=== PATIENT | female | born 2000 | race Two or more races ===

== ENCOUNTER 2023-01-07 15:20 | Outpatient (OUT) | payer MEDICAID, SELFPAY ==
[2023-01-07 11:14] LABS: Basophils Absolute Auto 0.1 10^3/uL (0.0-0.1); Basophils Percent Auto 0.5 % (0.2-2.0); Eosinophils Absolute Auto 0.3 10^3/uL (0.0-0.7); Eosinophils Percent Auto 2.5 % (0.9-7.0); Hematocrit 32.5 % (36.0-48.0); Hemoglobin 11.2 g/dL (12.0-16.0); Immature Granulocytes Abs Auto 0.05 10^3/uL (0.00-0.03); Immature Granulocytes Pct Auto 0.5 % (0.0-0.5); Lymphocytes Absolute Auto 2.3 10^3/uL (1.2-3.8); Lymphocytes Percent Auto 22.2 % (20.5-60.0); Mean Corpuscular HGB Conc 34.5 g/dL (29.9-35.2); Mean Corpuscular Hemoglobin 30.6 pg (26.7-34.0); Mean Corpuscular Volume 88.8 fL (81.0-99.0); Mean Platelet Volume 10.8 fL (9.5-13.5); Monocytes Absolute Auto 0.8 10^3/uL (0.3-0.8); Monocytes Percent Auto 7.7 % (1.7-12.0); Neutrophils Absolute Auto 6.9 10^3/uL (1.4-6.5); Neutrophils Percent Auto 66.6 % (43.0-75.0); Platelet Count 232 10^3/uL (150-450); Red Blood Count 3.66 10^6/uL (4.20-5.40); Red Cell Distribution Width 12.7 % (11.0-15.0); White Blood Count 10.3 10^3/uL (4.0-11.0)
[2023-01-07 13:23] LABS: Glucose 1 Hour 91 mg/dL
== END 2023-01-07 15:21 | disposition home or self-care (01) ==
LOC: LAB 01-26 15:20
PROVIDERS: Visit Provider Obstetrics & Gynecology
DX: Z13.1 Encounter for screening for diabetes mellitus (principal)
CPT/HCPCS: 36415; 82950; 85025

== ENCOUNTER 2023-02-10 14:59 | Outpatient (OUT) | payer MEDICAID, SELFPAY ==
--- NOTE | 2023-02-10 15:00 | US_ITS ---
[address] [address] Patient Name: YUKO PIZANO MRN: [id number] date: 2000 Sex: F Assigned Patient Location: US Current Patient Location: US Accession/Order Number: [id number] Exam Date: 02/10/2023 15:07 Report Date: 02/10/2023 16:08 At the request of: KIARA HOLDEN Procedure: US OB growth EXAMINATION: US OB growth HISTORY: DELIVERY OF TWINS, BOTH STILLBORN Z37.4 COMPARISON: Ultrasound transvaginal 09/24/2022 FINDINGS: Heart Rate: 151.0 bpm Number: 1.0 Position: CEPHALIC Amniotic Fluid Volume: 10.9 cm Maximum Vertical Pocket: 5.3 cm BIOMETRY: BPD: 7.9 cm cm; 31 weeks 5 days; 93% HC: 29.2 cmcm; 32 weeks 1 days; 86% AC: 26.9 cm cm; 31 weeks 0 days; 84% FL: 6.1 cm cm; 31 weeks 6 days; 90% EFW: 1766.7 grams; 94% FL/AC: 22.8 FL/BPD: 77.5 HC/AC: 1.1 GESTATIONAL AGE: Age by EDC: 29 weeks 4 days DHARMESH by EDC: 04/24/2023 Age by US: 31 weeks 5 days DHARMESH by US: 04/09/2023 US/US OB growth IMPRESSION: 1. Single live intrauterine with growth detailed above. Electronically authenticated by: ADRIANE TAPIA Date: 02/10/2023 16:08
== END 2023-02-10 15:00 | disposition home or self-care (01) ==
LOC: US 14:59
PROVIDERS: Visit Provider Obstetrics & Gynecology
DX: O26.893 Other specified pregnancy related conditions, third trimester (principal); Z3A.31 31 weeks gestation of pregnancy
CPT/HCPCS: 76816

== ENCOUNTER 2023-03-10 14:51 | Outpatient (OUT) | payer MEDICAID, SELFPAY ==
--- NOTE | 2023-03-10 14:53 | US_ITS ---
[place] [id number] Patient Name: YUKO PIZANO MRN: [id number] date: 2000 Sex: F Assigned Patient Location: US Current Patient Location: Accession/Order Number: [id number] Exam Date: 03/10/2023 15:00 Report Date: 03/11/2023 22:11 At the request of: KIARA HOLDEN Procedure: US OB growth EXAMINATION: US OB growth HISTORY: History of DELIVERY OF TWINS, BOTH STILLBORN Z37.4 COMPARISON: Ultrasound OB growth 02/10/2023 FINDINGS: Heart Rate: 148.0 bpm Number: 1.0 Position: CEPHALIC Amniotic Fluid Volume: 15.8 cm Maximum Vertical Pocket: 5.9 cm BIOMETRY: BPD: 8.8 cm cm; 35 weeks 4 days; 92% HC: 32.1 cmcm; 36 weeks 2 days; 81% AC: 31.0 cm cm; 34 weeks 6 days; 86% FL: 7.0 cm cm; 35 weeks 6 days; 90% EFW: 2654.5 grams; 90% FL/AC: 22.6 FL/BPD: 79.4 HC/AC: 1.0 GESTATIONAL AGE: Age by EDC: 33 weeks 4 days DHARMESH by EDC: 04/24/2023 Age by US: 35 weeks 5 days DHARMESH by US: 04/09/2023 US/US OB growth IMPRESSION: 1. Single live intrauterine with growth detailed above. Electronically authenticated by: ADRIANE TAPIA Date: 03/11/2023 22:11
== END 2023-03-10 14:52 | disposition home or self-care (01) ==
LOC: US 14:52
PROVIDERS: Visit Provider Obstetrics & Gynecology
DX: O09.293 Supervision of pregnancy with other poor reproductive or obstetric history, third trimester (principal); Z3A.35 35 weeks gestation of pregnancy
CPT/HCPCS: 76816

== ENCOUNTER 2023-03-31 21:09 | Outpatient (REF) | payer MEDICAID, SELFPAY | END 2023-03-31 21:10 | disposition home or self-care (01) | LOC: LAB 21:09 | PROVIDERS: Visit Provider Obstetrics & Gynecology | DX: Z34.93 Encounter for supervision of normal pregnancy, unspecified, third trimester (principal) | CPT/HCPCS: 87081; 87150 ==

== ENCOUNTER 2023-04-02 11:17 | Inpatient (IN) | payer MEDICAID, SELFPAY ==
[2023-04-02] VITALS (47 sets, daily range): BP systolic 86–112; BP diastolic 49–77; PULSE 79–122; RESP 8–38; TEMP 36–36.9; O2SAT 95–100
[2023-04-02 12:19] LABS: Bilirubin Urine NEGATIVE (NEGATIVE); Blood Urine NEGATIVE (NEGATIVE); Clarity Urine CLEAR (CLEAR); Color Urine LT. YELLOW (YELLOW); Glucose Urine UA NEGATIVE (NEGATIVE); Ketones Urine NEGATIVE (NEGATIVE); Leukocyte Esterase Urine SMALL (NEGATIVE); Nitrite Urine NEGATIVE (NEGATIVE); Protein Urine NEGATIVE (NEG/TRACE); Specific Gravity Urine <=1.005 (1.005-1.025); Urobilinogen Urine 0.2 EU/dL (0.2-1.0); pH Urine 6.5 (5.0-9.0)
[2023-04-02 12:25] LABS: Urine Microscopic Indicated YES
[2023-04-02 12:36] LABS: RBC Urine 0-2 #/HPF (0-2); WBC Urine 0-2 #/HPF (NONE SEEN)
[2023-04-02 12:37] LABS: Bacteria Urine TRACE #/HPF (NONE SEEN); Cast Seen? NONE SEEN #/LPF (NONE SEEN); Crystals Seen? None Seen #/HPF (None Seen); Mucus Urine TRACE (NONE SEEN); Squamous Epithelial Cell Urine FEW #/LPF (NONE/RARE)
[2023-04-02 12:38] LABS: Urine Culture Indicated YES
[2023-04-02] MEDS: 0.9 % SODIUM CHLORIDE 1,000 ML 1000 ML IV ×2 (12:39→13:43)
[2023-04-02] MEDS: NIFEdipine 10 MG CAPSULE PO (12:44)
--- NOTE | 2023-04-02 14:35 | P.OBHP_ITS ---
OB - H&P: HPI History of Present Illness Chief complaint: OBSERVATION : 2 Para: 0 Gestational age based on last menstrual period: 36 Narrative: contractions, q2min, early labor, previous c/s History of Present Dating criteria: LMP confirmed by 1st trimester US care: good care Ultrasounds: normal 1st trimester US Narrative: ho twin demise Review of Systems ROS Status of ROS 10 or more systems reviewed and unremarkable except as noted in history and below PFSH PFSH Medical History Surgical History Social History Within the past year, how often did you have a drink containing alcohol: never Score interpretation: A score less than 3 is consistent with normal alcohol consumption. Smoking status: Never smoker Non-prescribed substance use: denies use Are you now , , , , never or living with a partner: Life stressors: recent of family or friend Life stressor details: 2018 after of preemie twins at 25 weeks- suicidal- denies anything recent Due to disability, difficulty making decisions: No Do you think of yourself as: lesbian/chris/homosexual Gender Identity: female Meds Home Medications and Allergies Home Medications Medication Instructions Recorded Confirmed Type omeprazole 20 mg capsule,delayed mg 04/02/23 History release ondansetron 4 mg disintegrating mg 04/02/23 History tablet pantoprazole 40 mg tablet,delayed mg PO 04/02/23 History release Allergies Allergy/AdvReac Type Severity Reaction Status Date / Time cephalexin [From Keflex] Allergy Severe Anaphylaxis Verified 04/02/23 12:20 Exam Constitutional Vital Signs, click to edit/add: Last Vital Signs Temp 98.4 F 04/02/23 11:34 Pulse 101 H 04/02/23 11:34 Resp 16 04/02/23 11:34 BP 102/66 04/02/23 12:44 Documenting provider has reviewed patient's vital signs: yes Common normals: no apparent distress Respiratory Common normals: normal respiratory effort and clear to auscultation bilaterally Cardio Common normals: regular rate and regular rhythm GI Common normals: Normal to inspection, nondistended, normoactive bowel sounds present Extremity Common normals: no clubbing, cyanosis or edema and no calf tenderness Results Labs Labs: Urine 04/02/23 Range/Units 11:30 Urine Color Lt. yellow (YELLOW) Urine Clarity Clear (CLEAR) Urine pH 6.5 (5.0-9.0) Ur Specific [place] <=1.005 A (1.005-1.025) Urine Protein Negative (NEG/TRACE) mg/dL Urine Glucose (UA) Negative (NEGATIVE) mg/dL OB - A/P Assessment and Plan (1) Previous delivery affecting : Plan iup at 37wks, previous c/s, ptc, early labor-consent obtained, mmc reviewed procedure reviewed, routine labs, iv abx, fht
[2023-04-02 14:36] LABS: Basophils Absolute Auto 0.1 10^3/uL (0.0-0.1); Basophils Percent Auto 0.6 % (0.2-2.0); Eosinophils Absolute Auto 0.3 10^3/uL (0.0-0.7); Eosinophils Percent Auto 1.8 % (0.9-7.0); Hematocrit 31.6 % (36.0-48.0); Hemoglobin 10.1 g/dL (12.0-16.0); Immature Granulocytes Abs Auto 0.12 10^3/uL (0.00-0.03); Immature Granulocytes Pct Auto 0.9 % (0.0-0.5); Lymphocytes Absolute Auto 3.4 10^3/uL (1.2-3.8); Lymphocytes Percent Auto 24.5 % (20.5-60.0); Mean Corpuscular Hemoglobin 25.8 pg (26.7-34.0); Mean Corpuscular Volume 80.8 fL (81.0-99.0); Mean Platelet Volume 13.8 fL (9.5-13.5); Monocytes Percent Auto 7.3 % (1.7-12.0); Neutrophils Percent Auto 64.9 % (43.0-75.0); Platelet Count 183 10^3/uL (150-450); Red Blood Count 3.91 10^6/uL (4.20-5.40); Red Cell Distribution Width 13.6 % (11.0-15.0); White Blood Count 13.8 10^3/uL (4.0-11.0)
[2023-04-02] MEDS: CLINDAMYCIN PHOSPHATE/D5W 900 MG/50 ML PIGGYBACK 100 MG IV ×2 (14:43→20:28)
[2023-04-02 14:48] LABS: Amphetamine Screen Urine NEGATIVE (NEGATIVE); Barbiturates Screen Urine NEGATIVE (NEGATIVE); Benzodiazepines Screen Urine NEGATIVE (NEGATIVE); Buprenorphine Screen Urine NEGATIVE (NEGATIVE); Cannabinoid Screen Urine NEGATIVE (NEGATIVE); Cocaine Screen Urine NEGATIVE (NEGATIVE); Methadone Screen Urine NEGATIVE (NEGATIVE); Methamphetamines Screen Urine NEGATIVE (NEGATIVE); Opiate Screen Urine NEGATIVE (NEGATIVE); Oxycodone Screen Urine NEGATIVE (NEGATIVE); Phencyclidine Screen Urine NEGATIVE (NEGATIVE); Tricyclic Antidepressant Urine NEGATIVE (NEGATIVE)
--- NOTE | 2023-04-02 15:37 | PM.ONB ---
Brief Operative Note Date of procedure: 04/02/23 Pre-op diagnosis: iup at 37wks, desires sterilization, previous c/s, early labor, ptc Post-op diagnosis: same as pre-op Procedure: NAME OF PROCEDURE: [ section with bilateral salpingectomy ] PROCEDURE: Patient was taken back to the Operating Room where she was given a spinal anesthesia with Duramorph without difficulty. She was prepped and draped in the normal sterile fashion. A Pfannenstiel skin incision was then made 2?cm above the symphysis pubis and carried down to underlying rectus fascia using a Bovie. The fascia was incised in the midline and extended laterally using Phillips scissors. Two Devora clamps were placed on the superior aspect of the fascia and dissected off the underlying rectus muscles. The same was performed on the inferior aspect as well. The muscles were then in the midline. Peritoneum was identified and entered bluntly. The peritoneum was then extended superiorly and inferiorly with good visualization of the bladder. The bladder blade was inserted. Vesicouterine peritoneum was identified, tented up, and entered with Metzenbaum scissors. A bladder flap was then created digitally. The bladder blade was reinserted. A low transverse incision was made on the patient's uterus and extended laterally digitally. The infant was then delivered atraumatically after the bladder blade was removed in the cephalic position. The cord was clamped and cut. Cord blood was obtained. The was handed off to awaiting team. The patient's placenta was spontaneously delivered. The uterus was then exteriorized. The uterus was cleared of all clots and debris. The bladder blade was reinserted. The patient's uterine incision was closed using #0 Vicryl in a running lock fashion. Excellent hemostasis was assured.? The rt tube was identified and grasped with babock, the ligasure was used to transect and ligate the tube in its entirity, this was done on the contralateral side as well. The uterus was then returned to the patient's abdomen. The patient's abdomen was copiously irrigated using warm saline. Peritoneal gutters were cleared of all clots and debris. Again excellent hemostasis was assured. The patient's fascia was closed using #0 Vicryl in a running fashion. The patient's skin was closed using 4-0 Vicryl subcuticularly. The patient tolerated the procedure well. Sponge, lap, and needle counts were correct x2. The patient was taken to the Recovery Room in stable condition. Anesthesia: SHINE Surgeon: Parth Deal [employer] Consultant: Minerva Guallpa Estimated blood loss (mL): 650 Pathology: none sent Condition: stable Disposition: floor
[2023-04-02] MEDS: OXYTOCIN/0.9 % SODIUM CHLORIDE 20 UNITS/1,000 ML PLAST..BAG 125 UNIT IV (16:31)
[2023-04-02] MEDS: ACETAMINOPHEN 500 MG TABLET 1000 MG PO (18:33)
[2023-04-02] MEDS: ONDANSETRON PF 4 MG/2 ML VIAL IV (19:41)
--- NOTE | 2023-04-02 20:55 | W.PC.ACHO ---
Registration Status: ADM IN Primary Language: Preferred Language: Report received from Bill ORTIZ at 1900. Active Medications Generic Name Dose Route Start Last Admin Trade Name Treeq PRN Reason Stop Dose Admin Acetaminophen 1,000 mg 04/02/23 18:28 04/02/23 18:33 Acetaminophen 500 Mg Tablet PO 1,000 mg Q6H PRN Administration Pain Scale 1-3 Al Hydroxide/Mg Hydroxide 2,400 mg 04/02/23 15:34 Magnesium Hydroxide 2,400 Mg/10 Ml Oral.Susp PO Q6H PRN Dyspepsia Carboprost Tromethamine 250 mcg 04/02/23 14:11 Carboprost Tromethamine 250 Mcg/Ml 1 Ml Vial IM 04/03/23 16:00 Q15M PRN Bleeding Diphenhydramine HCl 25 mg 04/02/23 15:34 Diphenhydramine Hcl 50 Mg/Ml (1ml) Vial IV 04/03/23 15:36 Q6H PRN Itching Diphtheria/Pertussis/Tetanus Vacc 0.5 ml 04/04/23 09:00 Adacel Diph,Pertuss(Acell),Tet Vac/Pf 0.5 Ml Adult Syringe IM 04/04/23 09:01 .ONCE ONE Docusate Sodium 100 mg 04/03/23 09:00 Docusate Sodium 100 Mg Capsule PO BID MARYURI Sodium Chloride 1,000 mls @ 125 mls/hr 04/02/23 15:45 Sodium Chloride 0.9% 1,000 Ml IV .Q8H MARYURI Clindamycin Phosphate/Dextrose 900 mg in 50 mls @ 100 mls/hr 04/02/23 20:30 04/02/23 20:28 Cleocin Phosphate/D5w 900 Mg/50 Ml Piggyback IV 04/02/23 20:59 100 mls/hr ONCE ONE Administration Oxytocin/Sodium Chloride 20 units in 1,000 mls @ 125 mls/hr 04/02/23 15:34 04/02/23 16:31 Pitocin 20 Unit/1,000 Ml-Ns IV 04/02/23 23:33 125 mls/hr ONCE ONE Administration Protocol Ibuprofen 800 mg 04/02/23 15:34 Ibuprofen 400 Mg Tablet PO Q8H PRN Pain Ketorolac Tromethamine 30 mg 04/02/23 15:34 Ketorolac Tromethamine 30 Mg/Ml Vial IVP 04/04/23 15:35 Q6H PRN Pain Measles/Mumps/Rubella Vaccine Live 0.5 ml 04/04/23 09:00 Measles,Mumps,Rubella Vacc/Pf 0.5 Ml Vial SQ 04/04/23 09:01 .ONCE ONE Methylergonovine Maleate 0.2 mg 04/02/23 14:11 Methylergonovine Maleate 0.2 Mg/Ml Ampule IM 04/03/23 16:00 ONCE PRN Uterine Contractility/Contract Methylergonovine Maleate 0.2 mg 04/02/23 14:11 Methylergonovine Maleate 0.2 Mg Tablet PO 04/03/23 16:00 Q4H PRN Uterine Contractility/Contract Misoprostol 600 mcg 04/02/23 14:11 Misoprostol 100 Mcg Tablet PO 04/03/23 16:00 ONCE PRN Uterine Bleeding Misoprostol 800 mcg 04/02/23 14:11 Misoprostol 100 Mcg Tablet SL 04/03/23 16:00 ONCE PRN Uterine Bleeding Misoprostol 1,000 mcg 04/02/23 14:11 Misoprostol 100 Mcg Tablet MN 04/03/23 16:00 ONCE PRN Uterine Bleeding Ondansetron HCl 4 mg 04/02/23 15:34 04/02/23 19:41 Ondansetron Pf 4 Mg/2 Ml Vial IV 4 mg Q6H PRN Administration Nausea And Vomiting Ondansetron HCl 4 mg 04/02/23 15:34 Ondansetron 4 Mg Rapdis Tablet PO Q6H PRN Nausea And Vomiting Oxycodone/Acetaminophen 1 tab 04/02/23 15:34 Oxycodone Hcl/Acetaminophen 5mg/325mg PO Q4H PRN Pain Oxycodone/Acetaminophen 2 tab 04/02/23 15:34 Oxycodone Hcl/Acetaminophen 5mg/325mg PO Q4H PRN Pain Oxytocin 10 unit 04/02/23 14:11 Oxytocin 10 Unit/Ml Vial IM 04/02/23 23:59 ONCE PRN Bleeding Senna 17.2 mg 04/02/23 20:00 Sennosides 8.6 Mg Tablet PO QHS PRN Constipation Simethicone 80 mg 04/02/23 15:34 Simethicone 80 Mg Tab.Chew PO QID PRN Abdominal Distention Diet Category Date Time Status Regular Consistency Diet Diet 04/02/23 Dinner Active IV Insertion/Site Date of IV Line Insertion [20g 04/02/23 right Forearm] IV Insertion Time [20g right 12:38 Forearm] Neurology [place] coma scale total score 15 Respiratory Lung sounds [Throughout] clear Lung sounds [Throughout] clear Lung sounds [Throughout] clear Lung sounds [Bilateral clear Throughout] Lung sounds [Bilateral clear Throughout] Lung sounds [Bilateral clear Throughout] Lung sounds [Bilateral clear Throughout] Pulse Oximetry 97 Pulse Oximetry 97 Pulse Oximetry 97 Pulse Oximetry 98 Pulse Oximetry 99 Pulse Oximetry 98 Pulse Oximetry 98 Oxygen Delivery Method Room Air Oxygen Delivery Method Room Air Oxygen Delivery Method Room Air Oxygen Delivery Method Room Air Bowels Bowel Pattern No Bowel Movement
[2023-04-02] MEDS: KETOROLAC TROMETHAMINE 30 MG/ML VIAL IVP (22:28)
[2023-04-03] VITALS (8 sets, daily range): BP systolic 89–102; BP diastolic 55–74; PULSE 75–94; RESP 16; TEMP 36.1–37.2
--- NOTE | 2023-04-03 01:05 | PM.OBPN ---
OB - PN: Subj Subjective Patient comments: no complaints and pain well controlled [place] status: doing well Exam Constitutional Vital Signs, click to edit/add: Last Vital Signs Temp 98.3 F 04/02/23 19:35 Pulse 81 04/02/23 18:10 Resp 16 04/02/23 19:35 BP 103/68 04/02/23 18:01 Pulse Ox 97 04/02/23 19:46 O2 Del Method Room Air 04/02/23 17:20 Documenting provider has reviewed patient's vital signs: yes Common normals: no apparent distress Respiratory Common normals: normal respiratory effort and clear to auscultation bilaterally Cardio Common normals: regular rate and regular rhythm GI Common normals: Normal to inspection, nondistended, normoactive bowel sounds present Extremity Common normals: normal to inspection and no clubbing, cyanosis or edema Results Labs Labs: Short CBC 04/02/23 Range/Units 14:22 WBC 13.8 H (4.0-11.0) 10^3/uL Hgb 10.1 L (12.0-16.0) g/dL Hct 31.6 L (36.0-48.0) % Plt Count 183 (150-450) 10^3/uL Urine 04/02/23 Range/Units 11:30 Urine Color Lt. yellow (YELLOW) Urine Clarity Clear (CLEAR) Urine pH 6.5 (5.0-9.0) Ur Specific [place] <=1.005 A (1.005-1.025) Urine Protein Negative (NEG/TRACE) mg/dL Urine Glucose (UA) Negative (NEGATIVE) mg/dL OB - PN: A/P Assessment and Plan (1) Previous delivery affecting : Plan - day: 1 Plan: routine postop care Time Spent with Patient Time: Total time spent is greater than 50% in coordination of care (as documented) at patient's floor/unit and/or counseling patient: Total time spent with greater than 50% in coordination of care (as documented) at patient's floor/unit and/or counseling patient: less than 15 minutes
--- NOTE | 2023-04-03 02:20 | PC.NURSE ---
Pt ambulates to bathroom at this time with assistance. Pt tolerates ambulation well. Sanjay-care and body care performed by pt with RN assistance. Pt educated on sanjay-care. Small, half-dollar sized clot expressed in toilet. Pt lochia scant.
[2023-04-03] MEDS: KETOROLAC TROMETHAMINE 30 MG/ML VIAL IVP (05:25)
[2023-04-03] MEDS: SIMETHICONE 80 MG TAB.CHEW PO (05:25)
[2023-04-03 06:09] LABS: Hemoglobin 7.6 g/dL (12.0-16.0); Mean Corpuscular HGB Conc 31.7 g/dL (29.9-35.2); Mean Corpuscular Hemoglobin 25.5 pg (26.7-34.0); Mean Corpuscular Volume 80.5 fL (81.0-99.0); Mean Platelet Volume 13.6 fL (9.5-13.5); Platelet Count 170 10^3/uL (150-450); Red Blood Count 2.98 10^6/uL (4.20-5.40); Red Cell Distribution Width 13.5 % (11.0-15.0); White Blood Count 16.2 10^3/uL (4.0-11.0)
[2023-04-03 07:05] LABS: Segmented Neut Absolute Manual 12.31 10^3/uL (1.4-6.5)
[2023-04-03 07:06] LABS: Band Neutrophils Absolute 0.3 10^3/uL (0.0-0.3); Lymphocytes Absolute Manual 2.59 10^3/uL (1.20-3.80)
[2023-04-03 07:07] LABS: Monocytes Absolute Manual 0.97 10^3/uL (0.30-0.80)
--- NOTE | 2023-04-03 07:16 | W.PC.ACHO ---
Registration Status: ADM IN Primary Language: Preferred Language: Report given Yan Azar RN at 0705. Active Medications Generic Name Dose Route Start Last Admin Trade Name Freq PRN Reason Stop Dose Admin Acetaminophen 1,000 mg 04/02/23 18:28 04/02/23 18:33 Acetaminophen 500 Mg Tablet PO 1,000 mg Q6H PRN Administration Pain Scale 1-3 Al Hydroxide/Mg Hydroxide 2,400 mg 04/02/23 15:34 Magnesium Hydroxide 2,400 Mg/10 Ml Oral.Susp PO Q6H PRN Dyspepsia Carboprost Tromethamine 250 mcg 04/02/23 14:11 Carboprost Tromethamine 250 Mcg/Ml 1 Ml Vial IM 04/03/23 16:00 Q15M PRN Bleeding Diphenhydramine HCl 25 mg 04/02/23 15:34 Diphenhydramine Hcl 50 Mg/Ml (1ml) Vial IV 04/03/23 15:36 Q6H PRN Itching Diphtheria/Pertussis/Tetanus Vacc 0.5 ml 04/04/23 09:00 Adacel Diph,Pertuss(Acell),Tet Vac/Pf 0.5 Ml Adult Syringe IM 04/04/23 09:01 .ONCE ONE Docusate Sodium 100 mg 04/03/23 09:00 Docusate Sodium 100 Mg Capsule PO BID MARYURI Sodium Chloride 1,000 mls @ 125 mls/hr 04/02/23 15:45 Sodium Chloride 0.9% 1,000 Ml IV .Q8H MARYURI Ibuprofen 800 mg 04/02/23 15:34 Ibuprofen 400 Mg Tablet PO Q8H PRN Pain Ketorolac Tromethamine 30 mg 04/02/23 15:34 04/03/23 05:25 Ketorolac Tromethamine 30 Mg/Ml Vial IVP 04/04/23 15:35 30 mg Q6H PRN Administration Pain Measles/Mumps/Rubella Vaccine Live 0.5 ml 04/04/23 09:00 Measles,Mumps,Rubella Vacc/Pf 0.5 Ml Vial SQ 04/04/23 09:01 .ONCE ONE Methylergonovine Maleate 0.2 mg 04/02/23 14:11 Methylergonovine Maleate 0.2 Mg/Ml Ampule IM 04/03/23 16:00 ONCE PRN Uterine Contractility/Contract Methylergonovine Maleate 0.2 mg 04/02/23 14:11 Methylergonovine Maleate 0.2 Mg Tablet PO 04/03/23 16:00 Q4H PRN Uterine Contractility/Contract Misoprostol 600 mcg 04/02/23 14:11 Misoprostol 100 Mcg Tablet PO 04/03/23 16:00 ONCE PRN Uterine Bleeding Misoprostol 800 mcg 04/02/23 14:11 Misoprostol 100 Mcg Tablet SL 04/03/23 16:00 ONCE PRN Uterine Bleeding Misoprostol 1,000 mcg 04/02/23 14:11 Misoprostol 100 Mcg Tablet [place] 04/03/23 16:00 ONCE PRN Uterine Bleeding Ondansetron HCl 4 mg 04/02/23 15:34 04/02/23 19:41 Ondansetron Pf 4 Mg/2 Ml Vial IV 4 mg Q6H PRN Administration Nausea And Vomiting Ondansetron HCl 4 mg 04/02/23 15:34 Ondansetron 4 Mg Rapdis Tablet PO Q6H PRN Nausea And Vomiting Oxycodone/Acetaminophen 1 tab 04/02/23 15:34 Oxycodone Hcl/Acetaminophen 5mg/325mg PO Q4H PRN Pain Oxycodone/Acetaminophen 2 tab 04/02/23 15:34 Oxycodone Hcl/Acetaminophen 5mg/325mg PO Q4H PRN Pain Senna 17.2 mg 04/02/23 20:00 Sennosides 8.6 Mg Tablet PO QHS PRN Constipation Simethicone 80 mg 04/02/23 15:34 04/03/23 05:25 Simethicone 80 Mg Tab.Chew PO 80 mg QID PRN Administration Abdominal Distention Diet Category Date Time Status Regular Consistency Diet Diet 04/02/23 Dinner Active IV Insertion/Site Date of IV Line Insertion [20g 04/02/23 right Forearm] IV Insertion Time [20g right 12:38 Forearm] Neurology [place] coma scale total score 15 Respiratory Lung sounds [Throughout] clear Lung sounds [Throughout] clear Lung sounds [Throughout] clear Lung sounds [Bilateral clear Throughout] Lung sounds [Bilateral clear Throughout] Lung sounds [Bilateral clear Throughout] Lung sounds [Bilateral clear Throughout] Pulse Oximetry 96 Pulse Oximetry 97 Pulse Oximetry 99 Pulse Oximetry 98 Pulse Oximetry 100 Pulse Oximetry 99 Pulse Oximetry 98 Pulse Oximetry 98 Pulse Oximetry 98 Pulse Oximetry 99 Pulse Oximetry 97 Pulse Oximetry 98 Pulse Oximetry 98 Pulse Oximetry 98 Pulse Oximetry 99 Pulse Oximetry 98 Pulse Oximetry 99 Pulse Oximetry 99 Pulse Oximetry 99 Pulse Oximetry 100 Pulse Oximetry 99 Pulse Oximetry 99 Pulse Oximetry 99 Pulse Oximetry 99 Pulse Oximetry 99 Pulse Oximetry 97 Pulse Oximetry 98 Pulse Oximetry 96 Pulse Oximetry 97 Pulse Oximetry 97 Pulse Oximetry 97 Pulse Oximetry 95 Pulse Oximetry 97 Pulse Oximetry 97 Pulse Oximetry 97 Pulse Oximetry 98 Pulse Oximetry 99 Pulse Oximetry 98 Pulse Oximetry 98 Oxygen Delivery Method Room Air Oxygen Delivery Method Room Air Oxygen Delivery Method Room Air Oxygen Delivery Method Room Air Oxygen Delivery Method Room Air Oxygen Delivery Method Room Air Oxygen Delivery Method Room Air Bowels Bowel Pattern No Bowel Movement Catheter Date Urinary Catheter Removed 04/03/23 [Urethral] Time Urinary Catheter 00:00 Discontinued [Urethral]
[2023-04-03] MEDS: DOCUSATE SODIUM 100 MG CAPSULE PO ×2 (08:38→21:32)
[2023-04-03] MEDS: ACETAMINOPHEN 500 MG TABLET 1000 MG PO ×2 (08:38→16:38)
--- NOTE | 2023-04-03 10:04 | PM.EN ---
Event Note Event Note: Dr Deal had rounded on patient earlier in the morning. I spoke with patient, she has no c/o at the time. she did say she gets a little dizzy when sitting up and then it goes right away. Patients Hgb was 10.1 on admission and this morning Hgb was 7.6. I educated patient on symptoms of blood loss, and she denies, other than brief dizziness when she sat up x1. She should report to RN and further symptoms or worsening of symptoms. PVU
[2023-04-03] MEDS: IBUPROFEN 400 MG TABLET 800 MG PO ×2 (12:06→21:32)
--- NOTE | 2023-04-03 19:11 | W.PC.ACHO ---
Registration Status: ADM IN Primary Language: Preferred Language: Active Medications Generic Name Dose Route Start Last Admin Trade Name Honey PRN Reason Stop Dose Admin Acetaminophen 1,000 mg 04/02/23 18:28 04/03/23 16:38 Acetaminophen 500 Mg Tablet PO 1,000 mg Q6H PRN Administration Pain Scale 1-3 Al Hydroxide/Mg Hydroxide 2,400 mg 04/02/23 15:34 Magnesium Hydroxide 2,400 Mg/10 Ml Oral.Susp PO Q6H PRN Dyspepsia Diphtheria/Pertussis/Tetanus Vacc 0.5 ml 04/04/23 09:00 Adacel Diph,Pertuss(Acell),Tet Vac/Pf 0.5 Ml Adult Syringe IM 04/04/23 09:01 .ONCE ONE Docusate Sodium 100 mg 04/03/23 09:00 04/03/23 08:38 Docusate Sodium 100 Mg Capsule PO 100 mg BID MARYURI Administration Ferrous Sulfate 325 mg 04/03/23 21:00 Ferrous Sulfate 325 Mg Tablet PO BID MARYURI Sodium Chloride 1,000 mls @ 125 mls/hr 04/02/23 15:45 Sodium Chloride 0.9% 1,000 Ml IV .Q8H MARYURI Ibuprofen 800 mg 04/02/23 15:34 04/03/23 12:06 Ibuprofen 400 Mg Tablet PO 800 mg Q8H PRN Administration Pain Ketorolac Tromethamine 30 mg 04/02/23 15:34 04/03/23 05:25 Ketorolac Tromethamine 30 Mg/Ml Vial IVP 04/04/23 15:35 30 mg Q6H PRN Administration Pain Measles/Mumps/Rubella Vaccine Live 0.5 ml 04/04/23 09:00 Measles,Mumps,Rubella Vacc/Pf 0.5 Ml Vial SQ 04/04/23 09:01 .ONCE ONE Ondansetron HCl 4 mg 04/02/23 15:34 04/02/23 19:41 Ondansetron Pf 4 Mg/2 Ml Vial IV 4 mg Q6H PRN Administration Nausea And Vomiting Ondansetron HCl 4 mg 04/02/23 15:34 Ondansetron 4 Mg Rapdis Tablet PO Q6H PRN Nausea And Vomiting Oxycodone/Acetaminophen 1 tab 04/02/23 15:34 Oxycodone Hcl/Acetaminophen 5mg/325mg PO Q4H PRN Pain Oxycodone/Acetaminophen 2 tab 04/02/23 15:34 Oxycodone Hcl/Acetaminophen 5mg/325mg PO Q4H PRN Pain Senna 17.2 mg 04/02/23 20:00 Sennosides 8.6 Mg Tablet PO QHS PRN Constipation Simethicone 80 mg 04/02/23 15:34 04/03/23 05:25 Simethicone 80 Mg Tab.Chew PO 80 mg QID PRN Administration Abdominal Distention Respiratory Pulse Oximetry 96 Pulse Oximetry 97 Oxygen Delivery Method Room Air Oxygen Delivery Method Room Air Oxygen Delivery Method Room Air Oxygen Delivery Method Room Air Oxygen Delivery Method Room Air Oxygen Delivery Method Room Air Catheter Date Urinary Catheter Removed 04/03/23 [Urethral] Time Urinary Catheter 00:00 Discontinued [Urethral]
--- NOTE | 2023-04-03 20:40 | RESP.RT ---
Patient beastfeeding at this time
[2023-04-03] MEDS: FERROUS SULFATE 325 MG TABLET PO (21:32)
[2023-04-04 00:40] VITALS: RESP 16; TEMP 36.6
[2023-04-04 00:43] VITALS: BP 94/61
[2023-04-04] MEDS: ACETAMINOPHEN 500 MG TABLET 1000 MG PO ×4 (00:58→22:57)
[2023-04-04] MEDS: ONDANSETRON 4 MG RAPDIS TABLET PO (01:50)
[2023-04-04] MEDS: IBUPROFEN 400 MG TABLET 800 MG PO ×3 (05:14→20:35)
--- NOTE | 2023-04-04 07:16 | W.PC.ACHO ---
Registration Status: ADM IN Primary Language: Preferred Language: Report given at 0705. Active Medications Generic Name Dose Route Start Last Admin Trade Name Freq PRN Reason Stop Dose Admin Acetaminophen 1,000 mg 04/02/23 18:28 04/04/23 00:58 Acetaminophen 500 Mg Tablet PO 1,000 mg Q6H PRN Administration Pain Scale 1-3 Al Hydroxide/Mg Hydroxide 2,400 mg 04/02/23 15:34 Magnesium Hydroxide 2,400 Mg/10 Ml Oral.Susp PO Q6H PRN Dyspepsia Diphtheria/Pertussis/Tetanus Vacc 0.5 ml 04/04/23 09:00 Adacel Diph,Pertuss(Acell),Tet Vac/Pf 0.5 Ml Adult Syringe IM 04/04/23 09:01 .ONCE ONE Docusate Sodium 100 mg 04/03/23 09:00 04/03/23 21:32 Docusate Sodium 100 Mg Capsule PO 100 mg BID MARYURI Administration Ferrous Sulfate 325 mg 04/03/23 21:00 04/03/23 21:32 Ferrous Sulfate 325 Mg Tablet PO 325 mg BID MARYURI Administration Sodium Chloride 1,000 mls @ 125 mls/hr 04/02/23 15:45 Sodium Chloride 0.9% 1,000 Ml IV .Q8H MARYURI Ibuprofen 800 mg 04/02/23 15:34 04/04/23 05:14 Ibuprofen 400 Mg Tablet PO 800 mg Q8H PRN Administration Pain Ketorolac Tromethamine 30 mg 04/02/23 15:34 04/03/23 05:25 Ketorolac Tromethamine 30 Mg/Ml Vial IVP 04/04/23 15:35 30 mg Q6H PRN Administration Pain Measles/Mumps/Rubella Vaccine Live 0.5 ml 04/04/23 09:00 Measles,Mumps,Rubella Vacc/Pf 0.5 Ml Vial SQ 04/04/23 09:01 .ONCE ONE Ondansetron HCl 4 mg 04/02/23 15:34 04/02/23 19:41 Ondansetron Pf 4 Mg/2 Ml Vial IV 4 mg Q6H PRN Administration Nausea And Vomiting Ondansetron HCl 4 mg 04/02/23 15:34 04/04/23 01:50 Ondansetron 4 Mg Rapdis Tablet PO 4 mg Q6H PRN Administration Nausea And Vomiting Oxycodone/Acetaminophen 1 tab 04/02/23 15:34 Oxycodone Hcl/Acetaminophen 5mg/325mg PO Q4H PRN Pain Oxycodone/Acetaminophen 2 tab 04/02/23 15:34 Oxycodone Hcl/Acetaminophen 5mg/325mg PO Q4H PRN Pain Senna 17.2 mg 04/02/23 20:00 Sennosides 8.6 Mg Tablet PO QHS PRN Constipation Simethicone 80 mg 04/02/23 15:34 04/03/23 05:25 Simethicone 80 Mg Tab.Chew PO 80 mg QID PRN Administration Abdominal Distention Respiratory Oxygen Delivery Method Room Air Oxygen Delivery Method Room Air Oxygen Delivery Method Room Air Bowels Date of Last Bowel Movement 04/04/23
[2023-04-04 09:04] VITALS: BP 95/56; PULSE 82; TEMP 36.5
--- NOTE | 2023-04-04 10:59 | P.OBPN_ITS ---
OB - PN: Subj Subjective Patient comments: no complaints and pain well controlled [place] status: doing well Exam Constitutional Vital Signs, click to edit/add: Last Vital Signs Temp 97.7 F 04/04/23 09:04 Pulse 82 04/04/23 09:04 Resp 16 04/04/23 00:40 BP 95/56 04/04/23 09:04 Pulse Ox 96 04/02/23 19:49 O2 Del Method Room Air 04/03/23 16:40 Documenting provider has reviewed patient's vital signs: yes Common normals: no apparent distress Respiratory Common normals: normal respiratory effort and clear to auscultation bilaterally Cardio Common normals: regular rate and regular rhythm GI Common normals: Normal to inspection, nondistended, normoactive bowel sounds present Extremity Common normals: no clubbing, cyanosis or edema and no calf tenderness OB - PN: A/P Assessment and Plan (1) Previous delivery affecting : Plan - day: 2 Plan: routine postop care Time Spent with Patient Time: Total time spent is greater than 50% in coordination of care (as documented) at patient's floor/unit and/or counseling patient: Total time spent with greater than 50% in coordination of care (as documented) at patient's floor/unit and/or counseling patient: less than 15 minutes
[2023-04-04] MEDS: FERROUS SULFATE 325 MG TABLET PO ×2 (13:15→20:10)
[2023-04-04] MEDS: DOCUSATE SODIUM 100 MG CAPSULE PO ×2 (13:16→20:10)
[2023-04-04 16:29] VITALS: BP 99/61; PULSE 86
--- NOTE | 2023-04-04 19:24 | W.PC.ACHO ---
Registration Status: ADM IN Primary Language: Preferred Language: Report received from Lilly Jung RN. Active Medications Generic Name Dose Route Start Last Admin Trade Name Freq PRN Reason Stop Dose Admin Acetaminophen 1,000 mg 04/02/23 18:28 04/04/23 14:35 Acetaminophen 500 Mg Tablet PO 1,000 mg Q6H PRN Administration Pain Scale 1-3 Al Hydroxide/Mg Hydroxide 2,400 mg 04/02/23 15:34 Magnesium Hydroxide 2,400 Mg/10 Ml Oral.Susp PO Q6H PRN Dyspepsia Docusate Sodium 100 mg 04/03/23 09:00 04/04/23 13:16 Docusate Sodium 100 Mg Capsule PO 100 mg BID MARYURI Administration Ferrous Sulfate 325 mg 04/03/23 21:00 04/04/23 13:15 Ferrous Sulfate 325 Mg Tablet PO 325 mg BID MARYURI Administration Sodium Chloride 1,000 mls @ 125 mls/hr 04/02/23 15:45 Sodium Chloride 0.9% 1,000 Ml IV .Q8H MARYURI Ibuprofen 800 mg 04/02/23 15:34 04/04/23 13:15 Ibuprofen 400 Mg Tablet PO 800 mg Q8H PRN Administration Pain Ondansetron HCl 4 mg 04/02/23 15:34 04/02/23 19:41 Ondansetron Pf 4 Mg/2 Ml Vial IV 4 mg Q6H PRN Administration Nausea And Vomiting Ondansetron HCl 4 mg 04/02/23 15:34 04/04/23 01:50 Ondansetron 4 Mg Rapdis Tablet PO 4 mg Q6H PRN Administration Nausea And Vomiting Oxycodone/Acetaminophen 1 tab 04/02/23 15:34 Oxycodone Hcl/Acetaminophen 5mg/325mg PO Q4H PRN Pain Oxycodone/Acetaminophen 2 tab 04/02/23 15:34 Oxycodone Hcl/Acetaminophen 5mg/325mg PO Q4H PRN Pain Senna 17.2 mg 04/02/23 20:00 Sennosides 8.6 Mg Tablet PO QHS PRN Constipation Simethicone 80 mg 04/02/23 15:34 04/03/23 05:25 Simethicone 80 Mg Tab.Chew PO 80 mg QID PRN Administration Abdominal Distention Bowels Date of Last Bowel Movement 04/04/23
[2023-04-05] VITALS: RESP 16
[2023-04-05 00:14] VITALS: BP 106/69; PULSE 76; TEMP 36.2
[2023-04-05] MEDS: IBUPROFEN 400 MG TABLET 800 MG PO ×2 (05:03→12:32)
--- NOTE | 2023-04-05 07:35 | W.PC.ACHO ---
Registration Status: ADM IN Primary Language: Preferred Language: Report given to Yan Williamson RN. Active Medications Generic Name Dose Route Start Last Admin Trade Name Freq PRN Reason Stop Dose Admin Acetaminophen 1,000 mg 04/02/23 18:28 04/04/23 22:57 Acetaminophen 500 Mg Tablet PO 1,000 mg Q6H PRN Administration Pain Scale 1-3 Al Hydroxide/Mg Hydroxide 2,400 mg 04/02/23 15:34 Magnesium Hydroxide 2,400 Mg/10 Ml Oral.Susp PO Q6H PRN Dyspepsia Docusate Sodium 100 mg 04/03/23 09:00 04/04/23 20:10 Docusate Sodium 100 Mg Capsule PO 100 mg BID MARYURI Administration Ferrous Sulfate 325 mg 04/03/23 21:00 04/04/23 20:10 Ferrous Sulfate 325 Mg Tablet PO 325 mg BID MARYURI Administration Sodium Chloride 1,000 mls @ 125 mls/hr 04/02/23 15:45 Sodium Chloride 0.9% 1,000 Ml IV .Q8H MARYURI Ibuprofen 800 mg 04/02/23 15:34 04/05/23 05:03 Ibuprofen 400 Mg Tablet PO 800 mg Q8H PRN Administration Pain Ondansetron HCl 4 mg 04/02/23 15:34 04/02/23 19:41 Ondansetron Pf 4 Mg/2 Ml Vial IV 4 mg Q6H PRN Administration Nausea And Vomiting Ondansetron HCl 4 mg 04/02/23 15:34 04/04/23 01:50 Ondansetron 4 Mg Rapdis Tablet PO 4 mg Q6H PRN Administration Nausea And Vomiting Oxycodone/Acetaminophen 1 tab 04/02/23 15:34 Oxycodone Hcl/Acetaminophen 5mg/325mg PO Q4H PRN Pain Oxycodone/Acetaminophen 2 tab 04/02/23 15:34 Oxycodone Hcl/Acetaminophen 5mg/325mg PO Q4H PRN Pain Senna 17.2 mg 04/02/23 20:00 Sennosides 8.6 Mg Tablet PO QHS PRN Constipation Simethicone 80 mg 04/02/23 15:34 04/03/23 05:25 Simethicone 80 Mg Tab.Chew PO 80 mg QID PRN Administration Abdominal Distention
[2023-04-05] MEDS: ACETAMINOPHEN 500 MG TABLET 1000 MG PO (07:52)
[2023-04-05 08:06] VITALS: BP 114/71; PULSE 73
[2023-04-05 08:15] VITALS: RESP 16; TEMP 36.7
--- NOTE | 2023-04-05 08:40 | PM.OBDS ---
DS: Providers Provider Date of admission: 04/02/23 14:40 Primary care physician: Non-Staff Physician, Admitting clinician: Parth Deal Attending physician on admission: Parth Deal Attending physician on discharge: NIKKI TELLES Discharging clinician: NIKKI TELLES Anticipated date of discharge: 04/05/23 DS: Diagnosis Discharge Diagnosis (1) Previous delivery affecting : Plan discharge to home today with baby OB - DS: Summary Hospital Course Time spent discussing smoking cessation with patient: 3 to 10 minutes Peripartum Data - Procedures: Procedures Operation Date: 04/02/23 14:45 Actual Procedure Side Surgeon p with bilateral salpingectomy Not Applicable Parth Deal DO Peripartum Data - Vaginal Delivery Procedures: Procedures Operation Date: 04/02/23 14:45 Actual Procedure Side Surgeon p with bilateral salpingectomy Not Applicable Parth Deal DO Complications complications: none Delivery method: section Gender: male Discharge plan: home Time Spent with Patient Time attestation: Total time spent providing and/or coordinating discharge services: Time spent: less than 30 minutes Exam Constitutional Vital Signs, click to edit/add: Last Vital Signs Temp 97.2 F L 04/05/23 00:14 Pulse 73 04/05/23 08:06 Resp 16 04/05/23 00:00 BP 114/71 04/05/23 08:06 Pulse Ox 96 04/02/23 19:49 O2 Del Method Room Air 04/03/23 16:40 Documenting provider has reviewed patient's vital signs: yes Common normals: no apparent distress, oriented x3 and alert General appearance: cooperative, comfortable and well developed Orientation/consciousness: Yes awake, Yes oriented to person, Yes oriented to place and Yes oriented to time HENMT Common normals: normocephalic Eye Common normals: EOMs intact bilaterally Neck & C-Spine Common normals: full ROM Lymph Lymphatic: no lymphadenopathy noted Chest Common normals: inspection of chest normal Respiratory Common normals: normal respiratory effort and clear to auscultation bilaterally Auscultation: clear to auscultation bilaterally Cardio Common normals: regular rate, regular rhythm and no murmurs Rate: regular rate Rhythm: regular rhythm GI Common normals: Normal to inspection, nondistended, normoactive bowel sounds present Palpation: soft Common normals: no CVA tenderness Back & Pelvis Common normals: no CVA tenderness Extremity Common normals: normal to inspection and full ROM General: normal exam except as noted Neuro Common normals: oriented x3 Sensorium/orientation: awake, alert, oriented to person, oriented to place and oriented to time Psych Common normals: mental status grossly normal and thought process normal Attitude: calm Activity/motor behavior: appropriate eye contact Speech: normal speech Discharge Plan Discharge Disposition: Home, Self-Care Condition: Good Discharge Medications: New ibuprofen 800 mg tablet 800 mg PO Q8H PRN (Reason: pain) 14 Days Qty: 40 0RF oxycodone-acetaminophen [Percocet] 5-325 mg tablet 1 tab PO Q6H PRN (Reason: pain) 7 Days Qty: 28 0RF ferrous sulfate 325 mg (65 mg iron) tablet,delayed release (DR/EC) 325 mg PO BID 30 Days Qty: 60 2RF docusate sodium [Colace] 100 mg capsule 100 mg PO BID Qty: 60 2RF Continued pantoprazole 40 mg tablet,delayed release (DR/EC) PO omeprazole 20 mg capsule,delayed release(DR/EC) ondansetron 4 mg tablet,disintegrating Activity: increase activity as tolerated Diet: regular diet Patient Instructions: (DC) Forms: Portal Instructions
[2023-04-05] MEDS: HYDROCORTISONE 1% CREAM 28 GRAM TUBE 1 APPLIC TOPICAL (09:17)
[2023-04-05] MEDS: FERROUS SULFATE 325 MG TABLET PO (09:18)
[2023-04-05] MEDS: DOCUSATE SODIUM 100 MG CAPSULE PO (09:18)
[2023-04-05] MEDS: SIMETHICONE 80 MG TAB.CHEW PO (12:32)
--- NOTE | 2023-04-13 07:25 | PM.OBPRCCS ---
Procedure Pre-op/Post-op diagnoses: Pre-Op/Post-Op Diagnoses Operation Date: 04/02/23 14:45 <No data on this case meets the specified criteria> Procedure: Procedures Operation Date: 04/02/23 14:45 Actual Procedure Side Surgeon p with bilateral salpingectomy Not Applicable Parth Deal DO Tube Drawing Supervisor: Parth Deal Estimated blood loss (mL): 575 Disposition: PACU Anesthesia type: Spinal
== END 2023-04-05 14:34 | disposition home or self-care (01) | DRG 539 ==
PROVIDERS: Admitting Provider Obstetrics & Gynecology; Visit Provider Obstetrics & Gynecology
PROC: 10D00Z1 Extraction of Products of Conception, Low, Open Approach (ICD-10-PCS; CPT 59514; principal; 2023-04-02 14:45)
DX: O34.211 Maternal care for low transverse scar from previous cesarean delivery (principal); Z79.899 Other long term (current) drug therapy; Z3A.37 37 weeks gestation of pregnancy; Z37.0 Single live birth; Z88.1 Allergy status to other antibiotic agents; Z30.2 Encounter for sterilization
CPT/HCPCS: 36415; 59050; 80307; 81001; 85025; 85027; 86850; 86900; 86901; 87081; 87086; 87150; 88302; 94667; 94668; 96374

== ENCOUNTER 2023-04-07 08:21 | Outpatient (OUT) | payer MEDICAID, SELFPAY ==
[2023-04-07 14:02] VITALS: BP 105/68; PULSE 99; RESP 18; TEMP 36.9; O2SAT 98
--- NOTE | 2023-04-07 14:15 | PC.NURSE ---
Family arrives for follow up. Parents admit to being tired. Adjusting well just tired. A baby is 24/7 Laughs and jokes about last few days at home with , milk coming in and multiple diaper changes. Appear to be handling family changes well. Mom reports that rash around incision is the only thing that bothers her. States had an allergic reaction after surgery around her incision. Area red, raised, inflamed. Pt reports severe itching and tenderness. Steri strips intact intermittant along incision. No drainage from incision and edges are well approximated.
== END 2023-04-07 14:47 | disposition home or self-care (01) ==
LOC: FBCO 08:24
PROVIDERS: Visit Provider Obstetrics & Gynecology
DX: Z39.2 Encounter for routine postpartum follow-up (principal)

== ENCOUNTER 2023-12-15 19:48 | Outpatient (REF) | payer MEDICAID, SELFPAY ==
[2023-12-20 15:08] LABS: Age Gdln ACOG Testing Note (.); IGP, rfx Aptima HPV ASCU Note (.)
== END 2023-12-15 19:49 | disposition home or self-care (01) ==
LOC: LAB 19:48
PROVIDERS: Visit Provider Obstetrics & Gynecology
DX: Z01.419 Encounter for gynecological examination (general) (routine) without abnormal findings (principal)
CPT/HCPCS: 88175

== ENCOUNTER 2024-01-12 10:51 | Outpatient (REF) | payer MEDICAID, SELFPAY | END 2024-01-12 10:52 | disposition home or self-care (01) | LOC: LAB 10:51 | PROVIDERS: Visit Provider Obstetrics & Gynecology | DX: R87.612 Low grade squamous intraepithelial lesion on cytologic smear of cervix (LGSIL) (principal) | CPT/HCPCS: 88305 ==

== ENCOUNTER 2024-07-26 20:38 | Outpatient (REF) | payer MEDICAID, SELFPAY ==
--- OUTSIDE RECORDS SUMMARY | 2024-07-26 20:43 | XMS_ITS | CCD ---
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 Name Role Phone ADE BAILON Unavailable Unavail able ALEX ALEJANDRA Unavailable Unavailable SADIA HAMMONDS Attending Unavailable SADIA CUENCA Referring Unavailable NO PRIMARY CARE, Primary Care Unavailable CHAITANYA GARCIA Attending Unavailable NO PRIMARY CARE, Referring Unavailable NO PRIMARY CARE, Primary Care Unavailable SADIA HAMMONDS Attending Unavailable SADIA HAMMONDS Referring Unavailable NO PRIMARY CARE, Primary Care Unavailable ADE BAILON Admitting Unavailable ALEX ALEJANDRA Attending Unavailable ADE BAILON Referring Unavailable TRISTA RAROYO Referring Unavailable NO FAMILY, PHYSICIAN Primary Care Provider Unava ilable JULIO Stanley Emergency Provider JULIO Schaefer Emergency Provider Shazia Drake Primary Care Physician [phone] Lyssa Kay Primary Care Physician Nga Stover Primary Care Physician [phone] TOYIN ., DR CRAIG Consulting Unavailable TOYIN ., DR CRAIG Admitting Unavailable TOYIN ., DR CRAIG Attending Unavailable REGINA, DR ADRIANE Jacobo Consulting Unavailable TOYIN ., DR CRAIG Consulting Unavailable TOYIN ., DR CRAIG Admitting Unavailable TOYIN ., DR CRAIG Attending Unavailable TOYIN ., DR CRAIG Consulting Unavailable TOYIN ., DR CRAIG Admitting Unavailable TOYIN ., DR CRAIG Attending Unavailable CATE LACEY Primary Care Physician [phone] MD Bharath Barakat Attending Provider Unava ilable MD Minerva Nash Referring Provider Ema, [facility]- Cate Primary Care Provider CHANDA MARY Attending Unavailable FREDDY DEALY Attending Unavailable TOYINFREDDY GARCIAY Attending Unavailable Toyin DO Parth Attending Provider Freddy Dealy Admitting Unavailable ToyinFreddy garciay Attending Unavailable Ema, Cate Primary Care Unavailable Minerva Nash Referring Unavailable Bharath Barakat Admitting Unavailable Bharath Barakat Attending Unavailable Ema, Cate Primary Care Unavailable EMA, CATE Admitting Unavailable EMA, CATE Attending Unavailable EMA, CATE Primary Care Unavailable EMA, CATE Primary Care Unavailable Juan Felix Admitting Unavailable Juan Felix Attending Unavailable Vicente Castillo Attending Unavailable EMA, CATE Primary Care Unavailable EMA, CATE Primary Care Unavailable Ivania Jay Attending Unavailable EMA, CATE Primary Care Unavailable J Luis Warner Attending Unavailable EMA, CATE Primary Care Unavailable Sid Wong Attending Unavailable Vicente Castillo Attending Unavailable EMA, CATE Primary Care Unavailable EMA, CATE Primary Care Unavailable EMA, CATE Referring Unavailable Bharath Barakat Attending Unavaila Bharath Rg Admitting Unavaila ble Bharath Barakat Admitting Unavaila ble EMA, CATE Primary Care Unavailable Bharath Barakat Attending Unavaila ble NONE, XXXX Referring Unavailable EMA, CATE Primary Care Unavailable NONE, XXXX Referring Unavailable Juan Felix Attending Unavailable Juan Felix Admitting Unavailable EMA, CATE Primary Care Unavailable NONE, XXXX Referring Unavailable Juan Felix Attending Unavailable EMA, CATE Primary Care Unavailable NONE, XXXX Referring Unavailable Juan Felix Admitting Unavailable Juan Felix Attending Unavailable EMA, CATE Admitting Unavailable EMA, CATE Referring Unavailable EMA, CATE Attending Unavailable EMA, CATE Primary Care Unavailable Garcia HOGAN Unavailable EMA, CATE Primary Care Unavailable Bharath Barakat Admitting Unavaila ble Bharath Barakat Referring Unavaila ble Bhartah Barakat Attending Garcia Parnell Consulting Unavailable Garcia HOGAN Consulting Unavailable CATE LACEY Primary Care Unavailable Juan Felix Admitting Unavailable Juan Felix Referring Unavailable Juan Felix Attending Unavailable Bharath Barkaat Consulting Bharath Hartman Consulting UnavailBharath Seaman Consulting Unavaila Juan Jolly Admitting Unavailable Juan Felix Attending Unavailable CATE LACEY Primary [facility] Unavailable J Luis Warner Attending Unavailable CATE LACEY Primary Care Unavailable Destiny Eisenberg MD Unavailable Allergies Allergy Classification Reported Allergen(s) Allergy Type Date of Onset Reaction(s) Facility Cephalosporins (antibiotic) (1 source) Cephalexin Drug Allergy 4 [facility] Repository (20 sources) cefTRIAXone; Translations: [CEFTRIAXONE] Drug Allergy 8 Feeling of throat tightness (finding) [facility] Repository Comment on above: reaction occurred to day with receiving IV atb's. (20 sources) Cephalexin; Translations: [CEPHALEXIN] Drug Allergy 8 Feeling of throat tightness (finding), Other, Unknown [facility] Repository (1 source) CEFTRIAXONE SODIUM IN DEXTROSE; Translations: [CEFTRIAXONE SODIUM IN DEXTROSE] Propensity to adverse reactions to drug (disorder) 8 [facility] Repository (20 sources) Shellfish; Translations: [shellfish] Drug allergy Itching (finding) [facility] (2 sources) cefTRIAXone; Translations: [Rocephin] Drug Allergy [facility] Repository (2 sources) Cephalexin; Translations: [Keflex] Drug Allergy [facility] Repository (2 sources) benzoin resin Drug Allergy 3 Hives, Itching [facility] (2 sources) Iodine Drug Allergy 3 Unknown [facility] (2 sources) Shellfish Allergy to substance 3 Itching [facility] (2 sources) Shellfish-Deriv ed Products Drug Allergy 3 [facility] Medications Current Medications Medication Drug Class(es) Dates Sig (Normalized) Sig (Original) amoxicillin 500 mg oral capsule (1 source) Penicillin-class Antibacterial Start: 09-18-2023 End: 09-28-2023 take 1 capsule by mouth twice daily amoxicillin 500 mg Cap 500 mg = 1 cap(s), Oral, BID, X 10 day(s), # 20 cap(s), Refills(s) 0, Pharmacy: [facility], 147.3, cm, 09/18/23 20:40:00 EST, Height/Length Dosing, 67.5, kg, 09/18/23 20:40:00 EST, Weight Dosing Start Date: 09/18/23 Stop Date: 09/28/23 Status: Ordered ARIPiprazole 15 mg oral tablet (3 sources) Atypical Antipsychotic Start: 04-12-2024 aripiprazole 15 mg Tab 15 mg = 1 tab(s), Oral, Daily, 30 tab(s), 0 Refill(s), Refills(s) 0 Start Date: 04/12/24 Status: Ordered atomoxetine 40 mg oral capsule (1 source) Norepinephrine Reuptake Inhibitor Start: 11-05-2023 atomoxetine 40 mg Cap Refills(s) 0 Start Date: 11/05/23 Status: Ordered Rexulti (8 sources) Atypical Antipsychotic Start: 06-11-2019 Rexulti Oral, Daily, Refills(s) 0 Start Date: 06/11/19 Status: Ordered brompheniramine maleate 0.4 mg/ml / dextromethorphan hydrobromide 2 mg/ml / pseudoephedrine hydrochloride 6 mg/ml oral solution (18 sources) alpha-Adrenergic Agonist, Uncompetitive Q-[id number]-P-aspartat e Receptor Antagonist, Sigma-1 Agonist Start: 12-31-2023 take 5 mL by mouth four times daily for cough and congestion Bromfed DM oral syrup 5 mL, Oral, QID for cough and congestion, 200 mL, Refill(s) 0, [facility], 150, cm, 12/31/23 16:20:00 EDT, Height/Length Dosing, 71, kg, 12/31/23 16:20:00 EDT, Weight Dosing Start Date: 12/31/23 Status: Ordered Start: 06-11-2019 take 5 mL by mouth f our times daily for cough and congestion Bromfed DM oral syrup 5 mL, Oral, QID for cough and congestion, 200 mL, Refill(s) 0, [facility], 150, cm, 07/18/23 17:48:00 EST, Height/Length Dosing, 60, kg, 07/18/23 17:48:00 EST, Weight Dosing Start Date: 07/18/23 Status: Ordered Calcium Carbonate (9 sources) Start: 05-27-2018 Tums Refills(s ) 0 Start Date: 05/27/18 Status: Ordered cetirizine hydrochloride 10 mg oral tablet (14 sources) Histamine-1 Receptor Antagonist Start: 09-18-2023 Zyrtec Daily, Refills(s) 0 Start Date: 09/18/23 Status: Ordered Start: 04-07-2023 End: 07-26-2024 take 1 tablet by mouth in the morning cetirizine (ZyrTEC ALLERGY) 10 MG tablet Indications: Status post , Allergic reaction to adhesive Take 1 tablet (10 mg) by mouth in the morning. 30 tablet 11 04/07/2023 07/26/2024 Discontinued diphenhydrAMINE hydrochloride 25 mg oral capsule (9 sources) Histamine-1 Receptor Antagonist Start: 02-14-2022 take 1 capsule by mouth three times daily as needed Benadryl 25 mg Cap 1 -2 caps, Oral, TID, PRN for itching, # 30 cap(s), Refills(s) 0, Pharmacy: [facility] 1986 Start Date: 02/14/22 Status: Ordered 168 hr ethinyl estradiol 0.57722 mg/hr / norelgestromin 0.66744 mg/hr transdermal system (2 sources) Progestin, Estrogen Start: 04-17-2024 apply 1 dose transdermal route every week, then apply 1 dose transdermal route every week norelgestromin-e thinyl estradiol (Xulane) 150-35 MCG/24HR Indications: Dysmenorrhea Place 1 patch on the skin 1 (one) time per week Apply 1 patch weekly 4 patch 12 04/17/2024 Active FLUoxetine 10 mg oral capsule (1 source) Serotonin Reuptake Inhibitor Start: 06-28-2024 take 1 capsule by mouth once daily FLUoxetine (PROzac) 10 MG capsule Take 1 capsule by mouth 1 (one) time each day at the same time 06/28/2024 Active hydrOXYzine hydrochloride 25 mg oral tablet (20 sources) Antihistamine Start: 11-19-2023 take 1 tablet by mouth once hydrOXYzine HCl (Atarax) 25 MG tablet Take 25 mg by mouth 1 (one) time 12/11/2023 Active Start: 06-11-2019 Vistaril Oral, QID, Refills(s) 0 Start Date: 06/11/19 Status: Ordered lamoTRIgine 100 mg oral tablet (1 source) Mood Stabilizer, Anti-epileptic Agent Start: 07-18-2024 take 1 tablet by mouth once daily LaMICtal 100 MG tablet Take 100 mg by mouth 1 (one) time each day at the same time 07/18/2024 Active metoclopramide 10 mg disintegrating oral tablet (7 sources) Dopamine-2 Receptor Antagonist Start: 09-13-2022 metoclopramide 10 mg oral tablet, disintegrating 10 mg = 1 tab(s), Oral, q6hr, PRN 30, # 30 tab(s), Refills(s) 0, Pharmacy: [facility], 149, cm, 09/13/22 14:50:00 EST, Height/Length Dosing, 52, kg, 09/13/22 14:50:00 EST, Weight Dosing Start Date: 09/13/22 Status: Ordered 24 hr metoprolol succinate 25 mg extended release oral tablet (13 sources) beta-Adrenergic Hazel Start: 11-19-2023 take 25 mg by mouth once daily Metoprolol Tartrate Active 25 MG PO Daily November 19, 2023 12:00am Start: 11-05-2023 take 1 tablet by patty th once daily metoprolol succinate 25 mg ER Tab 25 mg = 1 tab(s), Oral, Daily, # 90 tab(s), Refills(s) 1, Pharmacy: [facility], 150, cm, 01/26/24 13:02:00 EDT, Height/Length Dosing, 71.2, kg, 01/26/24 13:08:00 EDT, Weight Dosing Start Date: 03/22/24 Status: Ordered midodrine hydrochloride 5 mg oral tablet (2 sources) alpha-Adrenergic Agonist Start: 12-17-2023 take 1 tablet by mouth three times daily midodrine 5 mg Tab 5 mg = 1 tab(s), Oral, TID, # 90 tab(s), Refills(s) 1, Pharmacy: [facility], 150, cm, 12/17/23 11:33:00 EDT, Height/Length Dosing, 71, kg, 12/17/23 11:33:00 EDT, Weight Dosing Start Date: 12/17/23 Status: Ordered [place] (No Known Home Meds) (1 source) Start: 11-13-2021 [place] (No Known Home Meds) Active November 13, 2021 6:19pm Norethindrone Ac-Eth Estradiol (Jonathan 1.5/30 (21)) 1.5-30 mg-mcg tablet (2 sources) Start: 11-19-2023 take 1 tablet by mouth once daily Norethindrone Ac-Eth Estradiol (Jonathan 1.5/30 (21)) 1.5-30 mg-mcg tablet Active 1 TAB PO Daily November 19, 2023 12:00am OLANZapine 7.5 mg oral tablet (6 sources) Atypical Antipsychotic Start: 01-26-2024 take 1 tablet by mouth once daily olanzapine 7.5 mg oral tablet TAKE 1 TABLET BY MOUTH ONCE DAILY Start Date: 01/26/24 Status: Ordered Paroxetine (8 sources) Serotonin Reuptake Inhibitor Start: 06-11-2019 paroxetine Oral, Refills(s) 0 Start Date: 06/11/19 Status: Ordered predniSONE 50 mg oral tablet (2 sources) Start: 12-31-2023 End: 01-07-2024 take 1 tablet by mouth once daily predniSONE 50 mg Tab 50 mg = 1 tab(s), Oral, Daily, X 7 day(s), # 7 tab(s), Refills(s) 0, Pharmacy: [facility], 150, cm, 12/31/23 16:20:00 EDT, Height/Length Dosing, 71, kg, 12/31/23 16:20:00 EDT, Weight Dosing Start Date: 12/31/23 Stop Date: 01/07/24 Status: Ordered Start: 02-14-2022 End: 02-19-2022 take 3 tablets by mouth once daily predniSONE 20 mg Tab 60 mg = 3 tab(s), Oral, Daily, X 5 day(s), # 15 tab(s), Refills(s) 0, Pharmacy: [facility] 1986 Start Date: 02/14/22 Stop Date: 02/19/22 Status: Ordered sertraline 25 mg oral tablet (16 sources) Serotonin Reuptake Inhibitor Start: 08-04-2023 sertraline 50 mg Tab Refills(s) 0 Start Date: 08/04/23 Status: Ordered Start: 05-11-2023 take 1 tablet by patty th once daily sertraline (Zoloft) 25 MG tablet Take 25 mg by mouth 1 (one) time each day at the same time. 05/11/2023 Active sodium chloride 1000 mg oral tablet (4 sources) Start: 07-09-2024 take 1 tablet by mouth once daily sodium chloride 1 g tablet Take 1 g by mouth Daily 07/09/2024 Active Start: 04-12-2024 take 1 tablet by patty th once daily Sodium Chloride 1 g oral tablet See Instructions, 1 tablet PO QD, # 30 tab(s), Refills(s) 5, Pharmacy: [facility], 150, cm, 04/12/24 11:26:00 EDT, Height/Length Dosing, 72, kg, 04/12/24 11:32:00 EDT, Weight Dosing Start Date: 04/12/24 Status: Ordered Zofran ODT 4 mg Tab-Dis (9 sources) Start: 06-07-2024 take 1 tablet by mouth every six hours Zofran ODT 4 mg Tab-Dis 4 mg = 1 tab(s), Oral, q6hr, # 12 tab(s), Refills(s) 0, Pharmacy: [facility], 147.3, cm, 06/07/24 21:37:00 EST, Height/Length Dosing, 70.6, kg, 06/07/24 21:37:00 EST, Weight Dosing Start Date: 06/07/24 Status: Ordered Start: 08-29-2022 take 1 tablet by patty th every six hours as needed for nausea Zofran ODT 4 mg Tab-Dis 4 mg = 1 tab(s), Oral, q6hr, PRN Nausea/Vomiting, # 12 tab(s), Refills(s) 0, Pharmacy: [facility], 149, cm, 08/29/22 7:51:00 EST, Height/Length Dosing, 52, kg, 08/29/22 7:51:00 EST, Weight Dosing Start Date: 08/29/22 Status: Ordered Completed/Discontinued Medications Medication Drug Class(es) Dates Sig (Normalized) Sig (Original) cariprazine 3 mg oral capsule (8 sources) Atypical Antipsychotic Start: 11-19-2023 End: 07-26-2024 take 1 capsule by mouth once daily Vraylar 3 MG capsule Take 1 capsule by mouth Daily 12/01/2023 07/26/2024 Discontinued Start: 09-18-2023 take [address] [facility] once daily Vraylar 1.5 mg oral capsule 1.5 mg = 1 cap(s), Oral, Daily, Refills(s) 0 Start Date: 09/18/23 Status: Ordered ciprofloxacin 500 mg oral tablet (17 sources) Quinolone Antimicrobial Start: 06-11-2019 take 1 tablet by mouth twice daily Cipro 500 mg Tab 500 mg = 1 tab(s), Oral, BID, Take one tab by mouth twice a day for seven days, # 14 tab(s), Refills(s) 0 Start Date: 06/11/19 Status: Ordered Start: 06-01-2018 Cipro PT UNSUR E OF DOSE, Refills(s) 0, Bladder problems Start Date: 06/01/18 Status: Ordered Ethinyl Estradiol / Ferrous fumarate / Norethindrone (2 sources) Estrogen Start: 11-27-2023 End: 07-26-2024 take 1 tablet by mouth once daily Jonathan Fe 1/20 1-20 MG-MCG tablet Take 1 tablet by mouth Daily 11/27/2023 07/26/2024 Discontinued Start: 11-27-2023 take 1 tablet by [facility] once daily Jonathan Fe 1/20 1-20 MG-MCG tablet Take 1 tablet by mouth Daily 11/27/2023 Active nitrofurantoin, macrocrystals 25 mg / nitrofurantoin, monohydrate 75 mg oral capsule (4 sources) Nitrofuran Antibacterial Start: 10-16-2021 End: 11-13-2021 take 1 capsule by mouth twice daily at mealtime Nitrofurantoin Monohyd/M-Cryst (Macrobid) 100 mg capsule Discontinued 100 MG PO Twice daily October 16, 2021 12:00am November 13, 2021 6:19pm must administer with a meal/food Problems Active Problems Problem Classification Problem Date Documented Date Episodic/Chronic Abdominal pain (1 source) Abdominal pain; Translations: [Unspecified abdominal pain] Onset: 08-29-2022 Episodic Allergic reactions (1 source) Urticaria; Translations: [Urticaria, unspecified] Onset: 02-14-2022 Episodic Anxiety disorders (15 sources) Anxiety 07-05-2023 Chronic Cancer of cervix (1 source) Cervical intraepithelial neoplasia grade 1; Translations: [Low grade squamous intraepithelial lesion on cytologic smear of cervix (LGSIL)] 07-19-2024 Episodic Chronic obstructive pulmonary disease and bronchiectasis (1 source) Bronchitis; Translations: [Bronchitis, not specified as acute or chronic] Onset: 12-31-2023 Episodic Headache; including migraine (3 sources) Migraine; Translations: [Migraine, unspecified, not intractable, without status migrainosus] Onset: 01-20-2023 Chronic Headache; including migraine (3 sources) Headache; Translations: [Headache] 11-13-2021 Episodic Immunizations and screening for infectious disease (1 source) Exposure to communicable disease; Translations: [Contact with and (suspected) exposure to other bacterial communicable diseases] Onset: 09-18-2023 Episodic Malaise and fatigue (1 source) Fatigue; Translations: [Other fatigue] 07-26-2024 Episodic Mood disorders (20 sources) Depression; Translations: [Mood disorder] 07-05-2023 Chronic Nausea and vomiting (1 source) Nausea; Translations: [Nausea] Onset: 08-29-2022 Episodic Nonspecific chest pain (1 source) Chest pain; Translations: [Chest pain, unspecified] Onset: 01-26-2024 Episodic Other circulatory disease (2 sources) Low blood pressure; Translations: [Hypotension, unspecified] Onset: 12-17-2023 Episodic Other circulatory disease (1 source) Postural orthostatic tachycardia syndrome ; Translations: [Postural orthostatic tachycardia syndrome [POTS]] Onset: 04-12-2024 Episodic Other complications of (1 source) Supervision of high risk , unspecified, second trimester; Translations: [Supervision of high risk , unspecified, second trimester] Onset: 06-04-2018 Episodic Other complications of (1 source) Finding related to ; Translations: [Other specified related conditions, unspecified trimester] Onset: 08-29-2022 Episodic Other complications of (1 source) Mild hyperemesis gravidarum; Translations: [Mild hyperemesis gravidarum] Onset: 09-13-2022 Episodic Other endocrine disorders (1 source) Polycystic ovary syndrome; Translations: [Polycystic ovarian syndrome] 07-26-2024 Chronic Other and delivery including normal (5 sources) Encounter for routine follow-up; Translations: [Normal ] Onset: 06-04-2018 Episodic Other and delivery including normal (1 source) Twin , dichorionic/diamnioti c, second trimester; Translations: [Twin , dichorionic/diamnioti c, second trimester] Onset: 06-04-2018 Other screening for suspected conditions (not mental disorders or infectious disease) (4 sources) Encounter for other screening for genetic and chromosomal anomalies; Translations: [ENC OTH SCR GENETIC CHROMOSM ANOMAL] Onset: 09-24-2022 Episodic Other upper respiratory infections (1 source) Acute pharyngitis; Translations: [Acute pharyngitis, unspecified] Onset: 09-18-2023 Episodic Poisoning by other medications and drugs (1 source) Poisoning by drug AND/OR medicinal substance; Translations: [Poisoning by unspecified drugs, medicaments and biological substances, accidental (unintentional), initial encounter] Onset: 07-05-2023 Episodic Polyhydramnios and other problems of amniotic cavity (1 source) Chorioamnionitis, second trimester, fetus 2; Translations: [Chorioamnionitis, second trimester, fetus 2] Onset: 06-04-2018 Episodic Residual codes; unclassified (1 source) 25 weeks gestation of ; Translations: [25 weeks gestation of ] Onset: 06-04-2018 Sprains and strains (1 source) Sprain of ankle; Translations: [Sprain of unspecified ligament of unspecified ankle, initial encounter] Onset: 03-31-2024 Episodic Substance-related disorders (20 sources) Smoker; Translations: [Nicotine dependence, unspecified, uncomplicated] Onset: 01-20-2023 02-12-2020 Chronic Comment on above: Added secondary to d ocumentation in Social History. Syncope (2 sources) Syncope and collapse; Translations: [Syncope and collapse] Onset: 11-05-2023 Episodic Unclassified (19 sources) None (qualifier value) 09-01-2011 Urinary tract infections (4 sources) Urinary tract infectious disease; Translations: [Urinary tract infection, site not specified] 10-16-2021 Episodic Viral infection (1 source) Viral disease; Translations: [Viral infection, unspecified] Onset: 07-18-2023 Episodic Past or Other Problems Problem Classification Problem Date Documented Date Episodic/Chronic Other complications of (2 sources) H/O: premature delivery; Translations: [Supervision of other high risk pregnancies, unspecified trimester] Onset: 12-08-2022 Resolved: 04-02-2023 04-07-2023 Episodic Residual codes; unclassified (2 sources) Personal history of other complications of , childbirth and the puerperium; Translations: [Personal history of other genital system and obstetric disorders] Onset: 12-08-2022 01-20-2023 Episodic Residual codes; unclassified (2 sources) H/O: Disorder; Translations: [Personal history of other specified conditions] Onset: 12-08-2022 01-20-2023 Episodic Unclassified (20 sources) Onset: 05-31-2015 Resolved: 12-10-2018 12-23-2018 Results Test Name Value Interpretation Reference Range Facility ED Clinical Summaryon 2023 ED Clinical Summary ED Clinical Summary [place] [id number] ED Clinical Summary Person Information Name: YUKO BRUNSON Chana/[facility] Age: 23 Years : 2000 Sex: Female Language: Australian PCP: CATE LACEY CNP Marital Status: Phone: [phone] Visit Id: Visit Reason: Vomiting; Headache; MIGRAINE, VOMITING Speciality: Acuity: 3 Enc Type: Emergency Med Service: Emergency Arrival: 06/07/2024 21:26:43 Discharge: 06/08/2024 00:02:00 LOS: 000 02:36 Checkin: 06/07/2024 21:26:43 Checkout: 06/08/2024 00:02:00 Dispo Type: Home (Routine DC) EVENTS: Event Name Event Status Request Date/Time Start Date/Time Complete Date/Time Arrive Complete 06/07/2024 21:26:43 06/07/2024 21:26:43 06/07/2024 21:26:43 Document Home Meds Request 06/07/2024 21:26:43 Triage Complete 06/07/2024 21:26:43 06/07/2024 21:37:24 06/07/2024 21:37:24 Registration Complete 06/07/2024 21:29:11 06/07/2024 21:29:11 06/07/2024 21:29:11 Reg Complete Request 06/07/2024 21:29:11 Reg Bed Request Complete 06/07/2024 21:29:11 06/07/2024 21:29:11 06/07/2024 21:29:11 Bed Assign Complete 06/07/2024 21:38:52 06/07/2024 21:38:52 06/07/2024 21:38:52 Dr Exam Complete 06/07/2024 21:38:52 06/07/2024 21:40:22 06/07/2024 21:40:22 RN Exam Complete 06/07/2024 21:38:52 06/07/2024 21:50:25 06/07/2024 21:50:25 Registration Request 06/07/2024 21:40:22 Meds Admin Complete 06/07/2024 22:05:16 06/07/2024 22:29:46 Discharge Complete 06/07/2024 23:13:35 06/08/2024 00:02:04 06/08/2024 00:02:04 Transfer Complete 06/08/2024 00:02:04 06/08/2024 00:02:04 06/08/2024 00:02:04 ADDRESS: [address] [place] [id number] PHYS DOC NOTES: MEDICAL INFORMATION: Prescriptions Given: New Medications [facility], [address] [place], [place] [id number], [phone] ondansetron (Zofran ODT 4 mg Tab-Dis) 1 Tablets By Mouth every 6 hours. Refills: 0. Medications to Continue with No Changes Other Medications aripiprazole (aripiprazole 15 mg Tab) 1 Tablets By Mouth every day. 30 tab(s), 0 Refill(s). brompheniramine/dextromethorph an/PSE (Bromfed DM oral syrup) 5 Milliliter By Mouth 4 times a day as needed for cough and congestion. Refills: 0. cetirizine (Zyrtec) every day. hydrOXYzine (Vistaril) By Mouth 4 times a day. metoprolol (metoprolol succinate 25 mg ER Tab) 1 Tablets By Mouth every day. Refills: 1. olanzapine (olanzapine 7.5 mg oral tablet) TAKE 1 TABLET BY MOUTH ONCE DAILY. sertraline (sertraline 50 mg Tab) sodium chloride (Sodium Chloride 1 g oral tablet) 1 tablet PO QD. Refills: 5. PATIENT EDUCATION INFORMATION: Instructions: Migraine Headache, [id number] Follow up: With: Address: When: CATE LACEY [address] [place] [id number] Business (1) In 3 days 06/10/2024 Comments: Please follow-up with your primary care doctor for further evaluation and management. You can use the nausea medication every 6 hours as needed for nausea. Please return to the ED for any new or worsening symptoms. You can use ibuprofen, Tylenol every 6 hours as needed for headache. DIAGNOSIS: Acute migraine Normal [facility] ED Patient Summaryon 024 ED Patient Summary ED Patient Summary [address] [address] Patient Discharge Instructions Person Information Name: JERICA YUKO Marti Age: 23 Years Arrival Date: 06/07/2024 21:26:43 Discharge Diagnosis: Acute migraine Primary Care Physician: CATE LACEY CNP Provider Information Primary Provider: J Luis Warner DO Advanced Grout Machine Operator:None The exam and treatment you received in the Emergency Department were for an urgent problem and are not intended as complete care. It is important that you follow up with a doctor, nurse practitioner, or physician???s bilingual legal assistant for ongoing care. If your symptoms become worse or you do not improve as expected and you are unable to reach your usual health care provider, you should return to the Emergency Department. We are available 24 hours a day. YUKO BRUNSON has been given the following list of patient education materials, prescriptions and follow-up instructions: Follow-up Instructions: With: Address: When: [address] [place] [place], [place] [id number] Business (1) In 3 days 06/10/2024 Comments: Please follow-up with your primary care doctor for further evaluation and management. You can use the nausea medication every 6 hours as needed for nausea. Please return to the ED for any new or worsening symptoms. You can use ibuprofen, Tylenol every 6 hours as needed for headache. In the event that this physician does not participate in your insurance network, please consult with your insurance company to find a nearby participating provider. Patient Education Materials: Migraine Headache, Akns-mf-Cthv A MESSAGE TO ALL PATIENTS REGARDING OPIOIDS PRESCRIPTION OPIOIDS: WHAT YOU NEED TO KNOW Prescription opioids can be used to help relieve vhuapizx-gh-pssqpq pain and are often prescribed following a surgery or injury, or for certain health conditions. These medications can be an important part of the treatment but also come with serious risks. It is important to work with your healthcare provider to make sure you are getting the safest, most effective care. WHAT ARE THE RISKS AND SIDE EFFECTS OF OPIOID USE? Prescription opioids carry serious risks of addiction and overdose, especially with prolonged use. An opioid overdose, often marked by slowed breathing, can cause sudden . The use of prescription opioids can have a number of side effects as well, even when taken as directed: ??? Tolerance???meaning you might need to take more of the medication for the same pain relief ??? Physical dependence???meaning you have symptoms of withdrawal when a medication is stopped ??? Increased sensitivity to pain ??? Constipation ??? Nausea, vomiting, and dry mouth ??? Sleepiness and dizziness ??? Confusion ??? Depression ??? Low levels of testosterone that can result in lower sex drive, energy, and strength ??? Itching and sweating RISKS ARE GREATER WITH: ??? History of drug misuse, substance use disorder, or overdose ??? Mental health conditions (such as depression or anxiety) ??? Sleep apnea ??? Older age (65 years and older) ??? Avoid alcohol while taking prescription opioids. Also, unless specifically advised by your health care provider, medications to avoid include: ??? Benzodiazepines (such as Xanax or Valium) ??? Muscle relaxants (such as Soma or Flexeril) ??? Hypnotics (such as Ambien or Lunesta) ??? Other prescription opioids KNOW YOUR OPTIONS Talk to your health care provider about ways to manage your pain that don???t involve prescription opioids. Some of these options may actually work better and have fewer risks and side effects. Options may include: ??? Pain relievers such as acetaminophen, ibuprofen, and naproxen ??? Some medication that are also used for depression or seizures ??? Physical therapy and exercise ??? Cognitive behavioral therapy, a psychological, goal-directed approach, in which patients learn how to modify physical, behavioral, and emotional triggers of pain and stress. IF YOU ARE PRESCRIBED OPIOIDS FOR PAIN: ??? Never take opioids in greater amounts or more often than prescribed. ??? Follow up with your primary health care provider. o Work together to create a plan on how to manage your pain. o Talk about ways to help manage your pain that don???t involve prescription opioids. o Talk about any and all concerns and side effects. ??? Help prevent misuse and abuse o Never sell or share prescription opioids. o Never use another person???s prescription opioids. ??? Store prescription opioids in a secure place and out of reach of others (this may include visitors, children, friends, and family). ??? Safely dispose of unused prescription opioids: Find your community drug take-back program or your pharmacy mail-back program, or flush them (more content not included)... Normal [facility] ED Note-Physicianon 06-07-20 ED Note-Physician ED Note-Physician Basic Information Time Seen: J Luis Warner DO 06/07/2024 21:40 Chief Complaint Migraine since 1400 that is causing nausea and vomiting. Hx of migraines. Not on medications. History of Present Illness Is a 23-year-old female with past medical history of migraines presenting to the ED for evaluation of a headache. Patient states headache started around 1400 behind bilateral eyes with tightness around the front of her head. Patient states this feels like her typical migraines. Patient states normally her migraines go away on their own however this 1 is not going away. Has associated nausea and vomiting. Denies any weakness numbness or tingling or any other complaints. Review of Systems A 10 point review of systems is negative except as noted above. Medical and Surgical History: Reviewed and noted Social history: Lives at home Tobacco: Denies Physical Exam Vitals & Measurements T: 36.8 ???C(Oral) HR: 85(Peripheral) RR: 16 BP: 106/76 SpO2: 98% HT: 147.3 cm WT: 70.6 kg BMI: 32.54 General: Well developed, non toxic appearing, no acute distress HEENT: Head atraumatic, Mucosa moist, hearing grossly normal Neck: No JVD, tracheal deviation Cardiac: Regular rate, rhythm, no murmurs, or gallops, 2+ radial pulses Respiratory: Lungs clear to auscultation B/L, normal respiratory effort Abdomen: Soft non tender, no rebound or guarding, no peritoneal signs Extremities: No edema noted in the LE B/L, no tenderness to palpation Neurologic: Alert and oriented, speech clear cranial nerves III through XII intact, no focal neurologic deficits Skin: No rashes or lesions Psych: Appropriate mood and behavior Medical Decision Making MEDICAL DECISION MAKING Number and Complexity of Problems Differential Diagnosis: [] [facility] Data External documents reviewed: [] My EKG interpretation: [] My CT interpretation: [] My X-ray interpretation: [] My Ultrasound interpretation: [] Decision rules/scores evaluated: [] Discussed with: [] Treatment and Disposition ED Course: Patient is a 23-year-old female presenting to the ED for evaluation of headache, nausea and vomiting. Patient nontoxic and on arrival, no acute distress. No focal deficits noted on examination. Patient reports this is similar to her previous migraines, no red flag symptoms. Patient is given Reglan, Toradol, Benadryl. On reevaluation patient is feeling improved. She is discharged home given prescription for Zofran. She is vies on symptomatic management at home. She is to return to the ED for any new or worsening symptoms. Shared decision making: [] Code status: [] Assessment/Plan Acute migraine (G43.909: Migraine, unspecified, not intractable, without status migrainosus) Orders: diphenhydrAMINE, 25 mg = 0.5 mL, Injection, IV Push, Once, Stop date 06/07/24 22:04:00 EST, STAT, Start date 06/07/24 22:04:00 EST, 06/07/24 22:04:00 EST ketorolac, 30 mg = 1 mL, Injection, IV Push, Once, Stop date 06/07/24 22:04:00 EST, STAT, Start date 06/07/24 22:04:00 EST, 06/07/24 22:04:00 EST metoclopramide, 10 mg = 2 mL, Injection, IV Push, Once, Stop date 06/07/24 22:04:00 EST, STAT, Start date 06/07/24 22:04:00 EST, 06/07/24 22:04:00 EST ondansetron, 4 mg = 1 tab(s), Oral, q6hr, # 12 tab(s), Refills(s) 0, Pharmacy: [facility], 147.3, cm, 06/07/24 21:37:00 EST, Height/Length Dosing, 70.6, kg, 06/07/24 21:37:00 EST, Weight Dosing Medications Administered Given diphenhydrAMINE 50 mg/mL Inj, 25 mg, IV Push ketorolac 30 mg/mL Inj 1 mL, 30 mg, IV Push metoclopramide 5 mg/mL Inj, 10 mg, IV Push Disposition Plan Discharge Prescription List Prescriptions Zofran ODT 4 mg Tab-Dis, 4 mg= 1 tab(s), Oral, q6hr Follow-up With When Contact Information ACTE LACEY In 3 days 06/10/2024 [place] [address] Business (1) Additional Instructions: Please follow-up with your primary care doctor for further evaluation and management. You can use the nausea medication every 6 hours as needed for nausea. Please return to the ED for any new or worsening symptoms. You can use ibuprofen, Tylenol every 6 hours as needed for headache. Patient Education Migraine Headache, [id number]-[id number] Problem List/Past Medical History Ongoing None Smoker Historical Anxiety Depression Mood disorder Procedure/Surgical History Appendectomy, uma removal. Medications Inpatient No active inpatient medications Home aripiprazole 15 mg Tab, 15 mg= 1 tab(s), Oral, Daily Bromfed DM oral syrup, 5 mL, Oral, QID, PRN metoprolol succinate 25 mg ER Tab, 25 mg= 1 tab(s), Oral, Daily, 1 refills olanzapine 7.5 mg oral tablet sertraline 50 mg Tab Sodium Chloride 1 g oral tablet, See Instructions, 5 refills Vistaril, Oral, QID Zyrtec, Daily Allergies Keflex (shaking, Feeling of throat tightness) Rocephin (Throat tightness) cefTRIAXone (cough/flu (more content not included)... Normal [facility] Comment on above: Result Comment: Elec tronically Signed By: J Luis Warner DO\.br\Date and Time Signed: 06/07/24 23:14 EST BMPon 04-17-2024 Anion gap [Moles/Vol] 11 mmol/L Normal 6-16 [facility] Comment on above: Performed By: #### 2 [id number] #### [facility] [address] [place] [address] Calcium [Mass/Vol] 9.7 mg/dL Normal 8.9-11.1 [facility] Comment on above: Performed By: #### 2 [id number] #### [facility] [address] [place] [address] Chloride [Moles/Vol] 105 mmol/L Normal 101-111 [facility] Comment on above: Performed By: #### 2 [id number] #### [facility] [address] [place] [address] CO2 [Moles/Vol] 25 mmol/L Normal 21-31 [facility] Comment on above: Performed By: #### 2 [id number] #### [facility] [address] [place] [address] Creatinine [Mass/Vol] 0.5 mg/dL Normal 0.5-1.3 [facility] Comment on above: Performed By: #### 2 [id number] #### [facility] [address] [place] [address] Glucose [Mass/Vol] 83 mg/dL Normal 55-199 [facility] Comment on above: Performed By: #### 2 [id number] #### [facility] [address] [place] [address] Potassium [Moles/Vol] 3.9 mmol/L Normal 3.5-5.3 [facility] Comment on above: Performed By: #### 2 [id number] #### [facility] [address] [place] [address] Sodium [Moles/Vol] 137 mmol/L Normal 135-145 [facility] Comment on above: Performed By: #### 2 [id number] #### [facility] [address] [place] [address] Urea nitrogen [Mass/Vol] 11 mg/dL Normal 5-21 [facility] Comment on above: Performed By: #### 2 [id number] #### [facility] [address] [place] [address] Urea nitrogen/Creatinine [Mass ratio] 22 No Units High 10-20 [facility] Comment on above: Performed By: #### 2 [id number] #### [facility] [address] [place] [address] BNPon 04-17-2024 Natriuretic peptide B (Bld) [Mass/Vol] pg/mL Normal 5-80 [facility] Comment on above: Performed By: #### 1 [id number] #### [facility] [address] [place] [address] CHEMISTRYOrdered By: Ирина Burnette on 04-17-2024 Anion gap [Moles/Vol] 11 mmol/L Normal 6 - 16 mEq/L Remisol Chem Calcium [Mass/Vol] 9.7 mg/dL Normal 8.9 - 11. 1 mg/dL Remisol Chem Chloride [Moles/Vol] 105 mmol/L Normal 101 - 111 mmol/L Remisol Chem CO2 [Moles/Vol] 25 mmol/L Normal 21 - 31 mmol/L Remisol Chem Creatinine [Mass/Vol] 0.5 mg/dL Normal 0.5 - 1.3 mg/dL Remisol Chem eGFR 134 mL/min/1.73 m2 Normal >=59mL/mi n /1.73 m2 Remisol Chem Glucose [Mass/Vol] 83 mg/dL Normal 55 - 199 mg/dL Remisol Chem Potassium [Moles/Vol] 3.9 mmol/L Normal 3.5 - 5.3 mmol/L Remisol Chem Sodium [Moles/Vol] 137 mmol/L Normal 135 - 145 mmol/L Remisol Chem Urea nitrogen [Mass/Vol] 11 mg/dL Normal 5 - 21 mg/dL Remisol Chem Urea nitrogen/Creatinine [Mass ratio] 22 mg/mg High 10 - Remisol Chem CHEMISTRYOrdered By: Bernardino Gonsales on 04-17-2024 Natriuretic peptide B (Bld) [Mass/Vol] pg/mL Normal 5 - 80 pg/[facility]24 eGFR 134 mL/min/1.73 m2 Normal >=59 [facility] Comment on above: Performed By: #### 1 [id number] #### [facility] [address] [place] [address] Heart and Vascular Office/Cl inic Noteon 04-12-2024 Heart and Vascular Office/Clinic Note Heart and Vascular Office/Clinic Note Chief Complaint 3 month F/U History of Present Illness Patient is a 22-year-old female with past medical history of syncope and near syncope. Patient had echo in 09/2023 which showed normal EF of 60-65%. No other significant abnormality seen on echo. Event monitor from 10/17/2023 did not show any significant abnormality other than resting heart rate of 119 bpm. There is no second arrhythmia noted. Tilt table test from 11/2023 showed findings suggestive of POTS. Stress test from 01/2024 showed negative by electrocardiogram criteria although patient without chest discomfort or testing. Patient comes today for 3-month follow-up today. At last visit, I saw patient and we had discontinued midodrine at that time due to side effect from the medication. Patient reports that her symptoms have been pretty stable since last visit. She is still having lightheadedness/dizziness that is occurring at least once daily and usually lasting for a few minutes. She has to sit down and rest during these episodes but they have not increased in frequency or duration since last visit. Patient states that she is still trying to drink electrolyte drinks to help with lightheadedness. Patient inquires about possible salt tablets are to be sent in for. Patient mentions that she is having breathing issues at nighttime when she is laying on her left side. This is new since last visit, but has been going on for a month or 2 now. Patient reports that she does have a history of asthma although has not had major issues recently besides the ED use rescue inhaler. EF was normal when checked her echo earlier this year. Patient does complain of mild swelling to her lower extremities intermittently, but up usually goes down by morning. Patient states she has only had 1 episode of minor chest discomfort since last visit and stress test was normal and 01/2024. NOTE FROM 01/26/2024: Pt is in the clinic to day for a 6 week fu; At last visit 12/17/23 we added midodrine 5 mg TID in addition to her metoprolol 25 mg ER qd; Pt states she is only taking midodrine 1x daily bc it made her skin, mostly her scalp, crawl ; Pt states she does not feel like the midodrine helped much; Pt states she has experienced 'sharp, stabbing' chest pains in the middle and sides of her chest while doing minimal effort activities 1-2 x per week and lasts for maximum 10 minutes. after this occurrence she feels its hard to breathe afterwards,; Pt denies any injury to that area and states she does have a past dx of asthma; Pt states she experiences dizziness 1-2x a week, resolves with rest; Pt agrees to doing a stress test; Pt can discontinue the use of the midodrine due to it being ineffective and the side effects she is experiencing; Pt states Gatorlyte/electrolyte drinks help a lot with her symptoms overall; Pt states she has mild lower leg edema that resolves over night, likely due to the increase in sodium to alleviate low bp;Pt should continue her Metoprolol 25mg qd, discontinue midodrine 5mg at this time and schedule the stress test and fu in 3 months. Patient specifically denies palpitations, at rest, PATEL, edema, orthopnea, PND, near syncope, or syncope. Review of Systems PHQ Score Initial Depression Screen Score: 0 SCORE ROS - Provider Constitutional: no fever, no chills, no sweats, no weakness Respiratory: no shortness of breath, no cough Cardiovascular: no chest pain Neuro: no dizziness. no loss of consciousness Physical Exam Vitals & Measurements HR: 97(Peripheral) RR: 18 BP: 120/80 SpO2: 98% HT: 59 in HT: 150 cm WT: 72.0 kg WT: 158.4 lb BMI: 32 General: alert, no acute distress Cardiovascular: regular rate and rhythm, no murmur normal peripheral perfusion Respiratory: Lungs CTAB, respirations non labored Extremities: no edema left lower extremity. no edema right lower extremity Neurological: oriented x 4, LOC appropriate for age, speech normal Skin: Warm, dry, intact- no rash or concerning lesions Cardiac Diagnostics (02/02/2024 14:48 EDT ECG Stress Exercise) CONCLUSIONS: 1. Uncomplicated exercise stress test, negative by electrocardiographic criteria. 2. Poor tolerance for physical exercise, adequate workload. 3. Clinical correlation may be required due to chest discomfort during the stress test. [1] Tilt table test from 11/29/2023: Conclusion: 1. Negative tilt table testing for vasovagal syncope. 2. Negative for orthostatic hypotension. 3. Findings suggestive of POTS. Event monitor from 10/17/2023: PROCEDURE DETAILS: The patient was recorded for 14 days from 09/10/2023 to 09/24/2023. The patient had a predominant rhythm of sinus rhythm or sinus tachycardia. The minimum heart rate was 79 beats per minute, average heart rate of 119 beats per minute, and maximum heart rate of 159 beats per minute. Sixteen patient events of palpitation or shortness of breath correlated with sinus rhythm or sinus tachycardia. There was no secondary arrhythmia. CONCLUSIONS: Car (more content not included)... Normal [facility] Comment on above: Result Comment: Elec tronically Signed By: Juan Felix PA-C\.fausto\Date and Time Signed: 04/12/24 12:37 EDT ED Clinical Summaryon 2023 ED Clinical Summary ED Clinical Summary [address] [address] ED Clinical Summary Person Information Name: YUKO BRUNSON [place] Age: 23 Years : 2000 Sex: Female Language: Australian PCP: CATE LACEY CNP Marital Status: Phone: [phone] Visit Id: Visit Reason: Ankle injury - Minor; Ankle pain-swelling; left ankle pain Speciality: Acuity: 4 Enc Type: Emergency Med Service: Emergency Arrival: 03/31/2024 23:18:08 Discharge: 04/01/2024 00:14:10 LOS: 000 00:56 Checkin: 03/31/2024 23:18:08 Checkout: 04/01/2024 00:14:10 Dispo Type: Home (Routine DC) EVENTS: Event Name Event Status Request Date/Time Start Date/Time Complete Date/Time Arrive Complete 03/31/2024 23:18:08 03/31/2024 23:18:08 03/31/2024 23:18:08 Document Home Meds Request 03/31/2024 23:18:08 Triage Complete 03/31/2024 23:18:08 03/31/2024 23:27:43 03/31/2024 23:27:43 Registration Complete 03/31/2024 23:22:32 03/31/2024 23:22:32 03/31/2024 23:22:32 Reg Complete Request 03/31/2024 23:22:32 Reg Bed Request Complete 03/31/2024 23:22:32 03/31/2024 23:22:32 03/31/2024 23:22:32 Dr Exam Complete 03/31/2024 23:23:48 03/31/2024 23:23:48 03/31/2024 23:23:48 Registration Start 03/31/2024 23:23:48 03/31/2024 23:27:55 Bed Assign Complete 03/31/2024 23:27:55 03/31/2024 23:27:55 03/31/2024 23:27:55 RN Exam Complete 03/31/2024 23:27:55 04/01/2024 00:05:22 04/01/2024 00:05:22 X-Ray Complete 03/31/2024 23:29:08 03/31/2024 23:43:13 03/31/2024 23:50:41 Wet Read Request 03/31/2024 23:50:41 Meds Admin Complete 03/31/2024 23:56:54 04/01/2024 00:03:35 Patient Care Complete 03/31/2024 23:56:54 04/01/2024 00:12:53 Discharge Complete 03/31/2024 23:58:53 04/01/2024 00:14:18 04/01/2024 00:14:18 Transfer Complete 04/01/2024 00:14:18 04/01/2024 00:14:18 04/01/2024 00:14:18 [address]: [address] [facility] [id number] PHYS DOC NOTES: MEDICAL INFORMATION: Prescriptions Given: Medications to Continue with No Changes Other Medications brompheniramine/dextromethorph an/PSE (Bromfed DM oral syrup) 5 Milliliter By Mouth 4 times a day as needed for cough and congestion. Refills: 0. cetirizine (Zyrtec) every day. hydrOXYzine (Vistaril) By Mouth 4 times a day. metoprolol (metoprolol succinate 25 mg ER Tab) 1 Tablets By Mouth every day. Refills: 1. olanzapine (olanzapine 7.5 mg oral tablet) TAKE 1 TABLET BY MOUTH ONCE DAILY. sertraline (sertraline 50 mg Tab) PATIENT EDUCATION INFORMATION: Instructions: Ankle Sprain Follow up: With: Address: When: [place] [address] [facility] (5) In 6 days 04/06/2024 DIAGNOSIS: Ankle sprain Normal [facility] ED Note-Physicianon 04-01-20 ED Note-Physician ED Note-Physician Basic Information Time Seen: Vicente Castillo DO 03/31/2024 23:23 Chief Complaint states rolled left ankle yesterday. painful to ambulate. taking motrin with minimal relief History of Present Illness HPI: Patient is a 23-year-old female with past medical history of anxiety depression presents the ED for left ankle injury. Patient states that she rolled her left ankle and since then she has had pain and swelling. She is able to ambulate but it is painful. She denies any knee or hip pain. She took ibuprofen at home with minimal relief. ROS: Pertinent review of systems conducted and is negative except as noted above. Physical exam: General: nontoxic appearing and in no distress HEENT: Mucous membranes moist Neuro: awake and alert Neck: supple, trachea midline Card: Heart regular rate and rhythm no murmur Resp: Lungs clear to auscultation no wheeze or rhonchi Left lower extremity: No tenderness or abnormality of the knee or proximal tibia or fibula. There is focal tenderness and swelling over the medial malleolus. No tenderness over the lateral malleolus. No tenderness over the tarsals or digits. No ecchymosis. Dorsalis pedis pulse 2+. Motor and sensation to the toes intact. Physical Exam Vitals & Measurements T: 36.7 ?C(Oral) HR: 91(Peripheral) RR: 16 BP: 107/74 SpO2: 99% HT: 150 cm WT: 72.8 kg BMI: 32.36 Medical Decision Making MEDICAL DECISION MAKING Number and Complexity of Problems Differential Diagnosis: [] [facility] Data External documents reviewed: N/A My EKG interpretation: Noted in chart if applicable My CT interpretation: N/A My X-ray interpretation: Noted in chart if applicable My Ultrasound interpretation: N/A Decision rules/scores evaluated: N/A Discussed with: N/A Treatment and Disposition ED Course: Patient is nontoxic. No distress. She has tenderness over the medial malleolus we obtain x-ray to evaluate for possible fracture. Will give a dose of Tylenol for comfort. Strays shows no acute fracture. I discussed the diagnosis of sprain. We will give her a Aircast for comfort. We discussed rest, ice, compression, elevation as well as the need for follow-up with her primary care physician. Shared decision making: As above Code status: N/A Assessment/Plan Ankle sprain (S93.409A: Sprain of unspecified ligament of unspecified ankle, initial encounter) Orders: acetaminophen, 650 mg = 2 tab(s), Tab, Oral, Once, Stop date 03/31/24 23:56:00 EDT, STAT, Start date 03/31/24 23:56:00 EDT, 03/31/24 23:56:00 EDT Air Cast XR Ankle 3+ Views Left Disposition Plan Discharge Prescription List Prescriptions No active prescription medications Follow-up With When Contact Information CATE LACEY In 6 days 04/06/2024 EDT [address] [place], [place] [id number] (1) Additional Instructions: Patient Education Ankle Sprain Problem List/Past Medical History Ongoing None Smoker Historical Anxiety Depression Mood disorder Procedure/Surgical History Appendectomy, uma removal. Medications Inpatient acetaminophen 325 mg Tab, 650 mg= 2 tab(s), Oral, Once Home Bromfed DM oral syrup, 5 mL, Oral, QID, PRN metoprolol succinate 25 mg ER Tab, 25 mg= 1 tab(s), Oral, Daily, 1 refills olanzapine 7.5 mg oral tablet sertraline 50 mg Tab Vistaril, Oral, QID Zyrtec, Daily Allergies Keflex (shaking, Feeling of throat tightness) Rocephin (Throat tightness) cefTRIAXone (cough/flushing) shellfish (Itchy) Social History Alcohol - Denies Alcohol Use, 05/27/2018 Current, 04/11/2018 Employment/School Unemployed, 05/22/2018 Home/Environment Lives with Significant other. Living situation: Home/Independent. Alcohol abuse in household: No. Substance abuse in household: No. Smoker in household: Yes. Feels unsafe at home: No. Family/Friends available for support: Yes., 05/22/2018 Nutrition/Health Regular, Caffeine intake amount: 1-2 cans pop/coffee per day. Wants to lose weight: No., 05/22/2018 Substance Abuse - Denies Substance Abuse, 05/27/2018 Current, 04/11/2018 Tobacco - Denies Tobacco Use, 05/27/2018 Former smoker, quit more than 30 days ago Tobacco Use:. Current vaping or e-cigarette use Smokeless Tobacco Use:. Vaping, Yes, 01/26/2024 Household tobacco concerns: Yes., 10/24/2011 Family History Family history is negative Lab Results No qualifying data available. Diagnostic Results XR Ankle 3+ Views Left * Preliminary * 03/31/24 23:54:07 : No acute displaced fracture Read By: Vicente Castillo DO [facility] Comment on above: Result Comment: Elec tronically Signed By: Vicente Castillo DO\.br\Date and Time Signed: 04/01/24 00:00 EDT ED Patient Summaryon ED Patient Summary ED Patient Summary [address] [address] Patient Discharge Instructions Person Information Name: YUKO BRUNSON Age: 23 Years Arrival Date: 03/31/2024 23:18:08 Discharge Diagnosis: Ankle sprain Primary Care Physician: CATE LACEY CNP Provider Information Primary Provider: Vicente Castillo DO Advanced Grout Machine Operator:None The exam and treatment you received in the Emergency Department were for an urgent problem and are not intended as complete care. It is important that you follow up with a doctor, nurse practitioner, or physician?s bilingual legal assistant for ongoing care. If your symptoms become worse or you do not improve as expected and you are unable to reach your usual health care provider, you should return to the Emergency Department. We are available 24 hours a day. YUKO BRUNSON has been given the following list of patient education materials, prescriptions and follow-up instructions: Follow-up Instructions: With: Address: When: CATE LACEY [address] [place] [address] [place], [place] [id number] Business (1) In 6 days 04/06/2024 In the event that this physician does not participate in your insurance network, please consult with your insurance company to find a nearby participating provider. Patient Education Materials: Ankle Sprain A MESSAGE TO ALL PATIENTS REGARDING OPIOIDS PRESCRIPTION OPIOIDS: WHAT YOU NEED TO KNOW Prescription opioids can be used to help relieve ectecwng-nh-jpjrpt pain and are often prescribed following a surgery or injury, or for certain health conditions. These medications can be an important part of the treatment but also come with serious risks. It is important to work with your healthcare provider to make sure you are getting the safest, most effective care. WHAT ARE THE RISKS AND SIDE EFFECTS OF OPIOID USE? Prescription opioids carry serious risks of addiction and overdose, especially with prolonged use. An opioid overdose, often marked by slowed breathing, can cause sudden . The use of prescription opioids can have a number of side effects as well, even when taken as directed: ? Tolerance?meaning you might need to take more of the medication for the same pain relief ? Physical dependence?meaning you have symptoms of withdrawal when a medication is stopped ? Increased sensitivity to pain ? Constipation ? Nausea, vomiting, and dry mouth ? Sleepiness and dizziness ? Confusion ? Depression ? Low levels of testosterone that can result in lower sex drive, energy, and strength ? Itching and sweating RISKS ARE GREATER WITH: ? History of drug misuse, substance use disorder, or overdose ? Mental health conditions (such as depression or anxiety) ? Sleep apnea ? Older age (65 years and older) ? Avoid alcohol while taking prescription opioids. Also, unless specifically advised by your health care provider, medications to avoid include: ? Benzodiazepines (such as Xanax or Valium) ? Muscle relaxants (such as Soma or Flexeril) ? Hypnotics (such as Ambien or Lunesta) ? Other prescription opioids KNOW YOUR OPTIONS Talk to your health care provider about ways to manage your pain that don?t involve prescription opioids. Some of these options may actually work better and have fewer risks and side effects. Options may include: ? Pain relievers such as acetaminophen, ibuprofen, and naproxen ? Some medication that are also used for depression or seizures ? Physical therapy and exercise ? Cognitive behavioral therapy, a psychological, goal-directed approach, in which patients learn how to modify physical, behavioral, and emotional triggers of pain and stress. IF YOU ARE PRESCRIBED OPIOIDS FOR PAIN: ? Never take opioids in greater amounts or more often than prescribed. ? Follow up with your primary health care provider. o Work together to create a plan on how to manage your pain. o Talk about ways to help manage your pain that don?t involve prescription opioids. o Talk about any and all concerns and side effects. ? Help prevent misuse and abuse o Never sell or share prescription opioids. o Never use another person?s prescription opioids. ? Store prescription opioids in a secure place and out of reach of others (this may include visitors, children, friends, and family). ? Safely dispose of unused prescription opioids: Find your community drug take-back program or your pharmacy mail-back program, or flush them down the toilet, following guidance from the Food and Drug Administration (www.fda.gov/Drugs/ResourcesFo rYou). ? Visit www.cdc.gov/drugoverdose to learn about the risks of opioids abuse and overdose. ? If you believe you may be struggling with addiction, tell your health lawn care specialist and ask for guidance or call [facility] National Helpline at 7-256-871-VBHG. v Source: [place] (more content not included)... [facility] XR Ankle 3+ Views Lefton XR Ankle 3+ Views Left Exam Date/Time: 03/31/2024 23:50 EDT Reason for Exam: Pain Report IMPRESSION: No acute osseous findings. EXAMINATION/TECHNIQUE: XR Ankle 3+ Views Left HISTORY: Twisting injury of the left ankle. COMPARISON: None RESULT: No acute fracture. No dislocation. Ankle mortise maintained. Joint spaces maintained. Mild soft tissue edema about the ankle. No other significant abnormality. Ordering Provider: Vicente Castillo FINAL REPORT Dictated: 04/01/2024 9:57 am Garcia Carpenter MD Signed (Electronic Signature): 04/01/2024 9:57 am Signed by: Garcia Carpenter MD Transcribed by: JULIETTE Technologist: EMILY Technical Comments Radiation Dose: Ka,r in mGy = na DAP = na Normal [facility] Heart and Vascular Office/Cl inic Noteon 01-26-2024 Heart and Vascular Office/Clinic Note Heart and Vascular Office/Clinic Note Chief Complaint F/U POTS History of Present Illness Patient is a 22-year-old female with past medical history of syncope and near syncope Pt is in the clinic to day for a 6 week fu; At last visit 12/17/23 we added midodrine 5 mg TID in addition to her metoprolol 25 mg ER qd; Pt states she is only taking midodrine 1x daily bc it made her skin, mostly her scalp, crawl ; Pt states she does not feel like the midodrine helped much; Pt states she has experienced 'sharp, stabbing' chest pains in the middle and sides of her chest while doing minimal effort activities 1-2 x per week and lasts for maximum 10 minutes. after this occurrence she feels its hard to breathe afterwards,; Pt denies any injury to that area and states she does have a past dx of asthma; Pt states she experiences dizziness 1-2x a week, resolves with rest; Pt agrees to doing a stress test; Pt can discontinue the use of the midodrine due to it being ineffective and the side effects she is experiencing; Pt states Gatorlyte/electrolyte drinks help a lot with her symptoms overall; Pt states she has mild lower leg edema that resolves over night, likely due to the increase in sodium to alleviate low bp;Pt should continue her Metoprolol 25mg qd, discontinue midodrine 5mg at this time and schedule the stress test and fu in 3 months. Patient specifically denies palpitations, at rest, PATEL, edema, orthopnea, PND, near syncope, or syncope. NOTE FROM 12/17/[address] Barakat and at that time he ordered patient a tilt table test due to syncope and near syncope symptoms. The tilt table showed negative for vasovagal syncope, negative for orthostatic hypotension, and was suggestive of POTS. Patient previously had an event monitor which showed episodes of tachycardia but no other abnormal heart rhythm and an echo that was grossly normal.Patient reports that she has been stable lately. She reports that she is still getting near syncopal episodes, but has not fully passed out at any time. These episodes often occur when she goes from sitting to standing or if she has been standing for long periods of time. She can sometimes feel heart palpitations with her heart racing when she is standing for long peers of time as well. She tries to drink lots of Gatorade throughout the day to stay hydrated. Patient reports that she finds himself needing to sit down quite a bit throughout the day to feel better. And needs a work note stating that she can set when required so she does not get in trouble at work.Patient has been compliant with metoprolol ER 25 mg daily and does believe it is helping her symptoms overall not having as many palpitations since starting that medication.Patient denies chest pain, shortness of breath, and swelling in lower legs. Review of Systems PHQ Score Initial Depression Screen Score: 0 SCORE ROS - Provider Constitutional: no fever, no chills, no sweats, no weakness Respiratory: no shortness of breath, no cough Cardiovascular: yes chest pain Neuro: yes dizziness. no loss of consciousness Cardiac Diagnostics Tilt table test from 11/29/2023: Conclusion: 1. Negative tilt table testing for vasovagal syncope. 2. Negative for orthostatic hypotension. 3. Findings suggestive of POTS. Event monitor from 10/17/2023: PROCEDURE DETAILS: The patient was recorded for 14 days from 09/10/2023 to 09/24/2023. The patient had a predominant rhythm of sinus rhythm or sinus tachycardia. The minimum heart rate was 79 beats per minute, average heart rate of 119 beats per minute, and maximum heart rate of 159 beats per minute. Sixteen patient events of palpitation or shortness of breath correlated with sinus rhythm or sinus tachycardia. There was no secondary arrhythmia. CONCLUSIONS: Cardiac event monitor significant for elevated resting heart rate. Clinical correlation suggested. [2] (09/10/2023 14:55 EST Echo Transthoracic Complete) Interpretation Summary No comparison study is available. Ejection Fraction = 60-65%. The left ventricular wall motion is normal. Normal diastolic function. There was insufficient TR detected to calculate RV systolic pressure. Physical Exam Vitals & Measurements HR: 102(Peripheral) RR: 16 BP: 110/70 SpO2: 97% HT: 59 in HT: 150 cm WT: 71.2 kg WT: 156.64 lb BMI: 31.64 General: alert, no acute distress Cardiovascular: regular rate and rhythm, no murmur normal peripheral perfusion Respiratory: Lungs CTAB, respirations non labored Extremities: no edema left lower extremity. no edema right lower extremity Neurological: oriented x 4, LOC appropriate for age, speech normal Skin: Warm, dry, intact- no rash or concerning lesions Assessment/Plan 1. Hypotension (I95.9: Hypotension, unspecified) Pt should continue increasing sodium with electrolyte drinks and diet; Pt will continue metoprolol 25 mg ER qd and discontinue midodrine 5mg TID at this time. 2. Chest pain (R07.9: Chest pain, unspecified) Pt should continu (more content not included)... Normal [facility] Comment on above: Result Comment: Elec tronically Signed By: Juan Felix PA-C\.br\Date and Time Signed: 01/26/24 14:15 EDT\.br\Electronically Co-Signed By: Chloé Rodriguez\.br\Date and Time Co-Signed: 01/26/24 14:15 EDT Seven 01-12-2024 L Specimen: [id number] eceived: 01/14/24 Status: DOUGLASLamont Lexie Num: [id number] Spec Type: Surgical Subm Dr: Parth Deal Tissues: A Endocervix - Curettings (ECC) Procedures: HE/2, Gross/Micro L4 Age/ Patient Sex Location Account Attending Physician Yuko Brunson / LABELL [id number] Parth Deal SPEC NUM: [id number] RECD: 01/14/24 STATUS: SATURNINO BRISENO NUM: [id number] ANGIE: 01/12/24 [facility] DR: Parth Deal ENTERED: 01/14/[address] [facility] [address]: Matilde,Lab SPEC TYPE: Surgical DEPT: ROSETTE GALICIA ORDERED: HE/2, Gross/Micro L4 ORDERED: HE/2, Gross/Micro L4 Pathological Diagnosis Endocervix, curettage: Scanty fragments of endocervical mucosa with acute inflammation. Clinical Information LSIL Gross Description Received in formalin labeled with the patient's name, date of and ECC (per requisition) is an aggregate of minute wallace tissue and mucus measuring 1.1 x 0.3 x 0.1 cm, entirely submitted in A1. CPT Codes 60863 -- -- Specimen: [id number] Received: 01/14/24 Status: SATURNINO Briseno Num: [id number] Spec Type: Surgical Subm Dr: Parth Deal Tissues: A Endocervix - Curettings (ECC) Procedures: HE/2, Gross/Micro L4 -- Patient: Yuko Brunson [id number] ([facility]) -- Signed (signature on file) Gloria Maddox MD 01/17/24 [address] [facility] Coding Summary.on 01-03-2024 Coding Summary. OLIHYasn50ANa4nTl+PG hlYWQ+PE1F PGCfC41wfQSblW4cH1JEILlUUjeePB JURFyLTkFrmiMzWQ5ntQSjYAEl IC8+CQ6bFDNmGnkudSGcq0C3dDV7F9 6aut0yXPqaeMR4CEFfIxTfagvbs2nw sWu5WPxiXtekJtBb FIXqbF29GJY6zO60Sg35bTAcwTGke0 tlfKb3JdLtZJUkAPR5pZdoRYghi3Ek KPCnU60vcVXtn5W8 BBMvqNztoYIlCiVvaWS1gS5iNXsyou jeb3xayebcVti6vx50nWZid9R2nKQ2 J2PfupF5MYBnrXJi TezfhCBDsA7ubttfz4cfzfkwLyNyIF FvUBz2SMm4FSJurAnlVaBvDI98KLR4 EWLrbsNtQ0StNVCb tEljRvH6p9L5Wk7OB7LDBxiiT5HXTV FSWTwvdGQ+XY26lv75Z5JsEycsVbd8 UNEoJHR5kHY9pH7b XVQpUQkdn6Y3zYD3T1EfidVokp2xx3 cjZYKyMOrcU86gvSUdm8E1ASVxwAL1 VIVoiYcqSyRelX89 Oyc+VNZalQldn3IqFohqz0qtj3vmtT u1RozaBAAinmNtiQksBFZ0p4LkNf7g RPYsnPM0vFU6mO7i ChEsKwJ4VOmuS587UgSikCOoNpsdN2 9yT5RbcMG+CYItHij7AVThhQwjDY9e G1AdWWXixlazrQNn gOelRK1mNAKqziqjTKZqtE7sZLQnE3 c1MkOkWbR7PFxnF5KvDYUwidcbFf30 fT4vTxDyAzK9RJuj H5WiicW4FXQpjKLaFOiuHOO5A34no1 G1ZZQhKXOePZU7rPM6aQ1chVsabwwb bGVmdDsgdmVydGlj KAqmLDmfR682IRMzzXbjUiLaNDsaHh BEYXRlOiAgMDYvMjQvMjAyNDwvdGQ+ QHTvAZT7yCjyAGWp fFQpCUruIc9rwNxejUaoQX1mIGKmzl bqYAPayJ8gIRLzvIRdzLcnTP4rAPIs mfoan543SeZeHZH1 UBYbsTAqH0TjeB6aQqLeMEPnYJYbU8 UuvYPzQXlcE741JVcaEsP1FYGoneMd K4WmLINwaPvkXpZ9 q9M4Xz4Nt9ImobjgO4XgoKBdKqTqVy bdMLn6O7GaGwuokZJ+UD52LPBnFR03 JJs0DIW0hLneJVvg DHRfG9BxjA5yAgOaCXEeHRThWho+PH RhYmxlIHdpZHRoPScxMDAlJyBzdHls BM8mDz9sDHHiAMVn hUuorGPbVfWqo5qjKADnVGutXC6ysY giA7JeqZV1VDFxf6z0Pw01Z45bE3Pn dXA+TFWzfHD7eAH5 zH1tWjYdJdD1VBllB403BrHbvFPkAy jfo0kia2tfiUv9DvV7NKZecsBogXcb GSI6a3LzLq64I70y YAxaGXGlBCJsFHRyHZNqhWbdfz8thM 9wIi8+BBPeoRE9zIO3vQ4zWmOxAhR3 JOmtJ359JqEmcDUq Uobdz6oys5shlMz3MdVbMQZptaIzdY ztUSI6x0DzZk62T1QzfEsyl9CsClt4 ap96cKZoi2C6aXN4 Q4GlQJQuiwhhfREnuCckKJ8jVQJiqu atDCGpiJ7tHNAeG7w8SdDlBtG0LSlm O3DmymX2PISnaMRu MZEvzTPHsT8ijpiry5owbsaqVhLlIS RuVEn3EJc5HQYisVfrFyQsYBD7CsL9 PVN6yUDrlX8xaMqq jvantM4nGye+UFF3yKWtiRPLIQ5xUr wvdGQ+FESrAUC3gZolXRdxGBVgzJ6l ZWGpL5p3VbThLqX2 GZwiG5VfpoI6RMTqnBTcEXSxsJSAaY 3cjjxzt3paamesCpIuTGYeGQm1RYu6 LWFsaWduOiBsZWZ0 XnZ9HBG4aIArdG9cbViklcphmN2rZv c+JbmasBgwPMW3KEd5S8MkXje0PICp yOhiRP4foDIeWMqh Md6vkBrwrPltEV1cJTAzsocca674Sn Jft1eqYVCqvVYyTWwnMAM3B44xn5Y0 ESPiBAQvFCS3iFB3 bR4skUoxtmfgsSCxlIschnJywLdhBF mrLWqqG582FKKprQldJuLgHLk5O2Mm Lmz9EQGqcPpbFJ8o wSErKVthGi4pbAsgeFduGU3rKDTiuu lxw136ChRud7zyAOVliTUiQAhdMRM9 B79xf4L6RFTcJXJw JTN1dSY0xG4jvPduilidpZIafPpwuf OjySuxWOdjITwbL828GNGatNtkJrZr pAu2E6EbWdc9FNTu xWfhRI7miERaWLwgAj0cuTuraHfcHQ 9kLZYehywtk990NsQmm5mzXDSegCNl EEacNSL0C05dh2G0 XPCsAMNfBSD2hHX1pG8cmJwwbuenzT AqySdtqjEwmIbaWBowOCaeD469TLWu cDsnPlBhdGllbnQg HVsySAe4A7LcCdswrUD+YY58IXMzJR 19tRTcbZYnt6uyaBw1PgJpMYWoJUF7 oNsxMHzkw7QoYTLg N93inIJmx8X6WQPpvVvoyBUtFzDsqQ G6aX0oMFidovshe0ceedidBlktd5cp cu91gL53N83pCFil EBKnFHLvAUTxLADwkWyqio1gfG7bOc 8+FHTemDU8iND1qV8iMJStIiY8WEwd S582BdIgmXUsEwlu m5sen3qwrTl6ZrB8JLZtlySqtVhhQH K5k8CrYp66G78cKFktUKFnRYFmAXWr ENEbqEnqtr2fnC5o Ii8+MAYrxED6xRR5zR9zRvEmFgU7HW eaO635WiUkmMLbGueqA60cS4GvpHL+ ARDaFii4FOYhaTzu TE8gxOMrXClkAp6uUXZ7WqAjIrHmEF ufB8YhKZEvqbdbgotjxQB9JEBfIEEu nW27Eu8wbUazWGOh jGNOoZ5jqoldx9uktxjcGqRhKXOmAV b3ODp0KKAtiWbiYcSvLML1MuP6RUN6 jMIvvZ7bwCfrbbgz wH5sR9XiKLTkqohgXw76wE8cBjJuMk Q0MLdvWry+UElFUlJFLCBLSUFOTkEg QzwvdGQ+PHRkIHN0 uUxnDIruUZKuuB4fJNKyM9a8XvAbFj O5TNshG5GkRKKdaoiuKl00nX8iKoRp AgQ7YAwjI7GbrdZ4 BOTlnFSqCJzvTEQ5M47bo5S2CLYyUK YsJUT4tUW5vP1cgAoaglaivAYzhIxa dmVydGljYWwtYWxp D969YLDpbSyeGnE4OyAhDqYbXRT8M6 KtYmb3ADQuiCjuYN5stBRgMBldTa8k rDzhaDgeBD3cVFZn jgvxDJYphI1jLUZviQNnzRqpGD7zUL Oefmtyr706NaOjGWD2WRRewDOiU9Sc hJ7hMbGyHUEaFNOz I4BzsDKwRMffJ364AVccCrQ0BAMekf HqD0VgHGJnvWynGyO2h6B0Ts4xXEFV ZWFyczwvdGQ+PHRk NMC9wQjxTRrdBINgcB9pLCMhD9p8Ys ZyEyL4NGiiJ7ErMCHtdkxyJk00tV2i AgTrNtV3TBfcM0Ge vjO8DMXmrXYgJTqrPLN6K17lh7B3GQ YiFUQdOQB1zAQ4mF7vhObvoegzqRCj dDsgdmVydGljYWwt ZTlsA096ZMGisKxiUiGohLDgITqxqI Q+KNArHME1qImvQAhqXQCogB0uZVHp M9c4PtIiDlX4TKxy B4GdWKZszeimCl68xP9iFrBhTsU2VO mcH8WhmyU4NWZbxECzYXxpVRD5A11e c9I1VYVrVGOxROM2 gIO4oO4xwGwjvwxmlIXzjWohvkWpcX svJPwpSMlrV189ACEroVeoXdWoBDCw VR8uhDwjvHM+PC90 nq52W2GxLfaiMxe3BNRcUOP0qTE3jA 5mOOGgEJqgv8B2gRF0C9OvuxMhgh9x g8wwRHMeJJoyM14e gUKtg7Z5JGUmpQO7EUXsbQbbNtFfoI 93Oyc+XLJvfKqjj4MlDzgee0buw5vd yJg7KkCcNHVygbSu jWjiTIQ5y4NhGn95Q80vFAebYNIdLK GsHZLnWXVruZnzsl5sdS1cOd6+PGNv wHO7kYM1oO8yWxKh UvV0WWwmN940XrRzbGCnInbib1dce6 mcpZg2JaLuWMXaroCbxZuiWJL8k9Yn Yc21H8ZfpBmoj3Mb Wcs0rn42zBEfi8M8yFW9B9QoWHBnmm qvhPTqfRziRC9lWIDfxnswTAGybX2j GAVlH7y0GmJhMyI8 AJksF1ZhtdB3OMVsaSEsHPAaoQQBsC 4sfiavn2ureosrHpEuARCdHEn9RUg5 LWFsaWduOiBsZWZ0 OiE4FLR0mQUehX1dyFavcweioJ1bXx c+ZUd9m3upyLRdYV3hlJO2OZ14KM69 wHBqk6C9tEM5H0No IBZcwdhjebexsYG5IIZxTUWlaO46Tf 5toEsiGa9lEEBpMUY5JJIjfCPjB8Iw kD6sZcNoHWHhVAZp D4FouDNcHKhsA935MRgeVuC8YSFzxj JoD7CuHZUgrKfxFjR3x3U6Ug1GLG84 PP85HY19hPMop1C0 hBT1R4OlDKLxfatavwwhmBZ5BQKwTY JcvL78Ss8paCnyNq7bOWDnFRG8DRXv fHJzV1VdvM9wWyBv UZHhTWSpS7WgcITfQPwrD531EQmhKk Y6MTVrllEjG2QzBTTwrUxnGwQ3x9U8 Rw7CVo47AG36WQ83 lGDqb6L7fGQ2F5AqWZJcdxlmvswefV G9XZJcGAAytP72Wd8xlZwbBw9aEDYi TAW1YJVtuOGnP3Ym wW0cQiDiGCTmTBVuS1TpsEUiAHunE4 34PJvlZqX0LIAzsoRaF2UnFJDtgRsp RzP6z7K2Ne8MWNxf wta6I1LxFcatoWX+VS16CTLcCN67sG GphMVch3hpxTm4VfWcLYPsJTX8vFay MNebv3QvXSBiS58y fAScp7D7YVFqe (more content not included)... Normal [facility] Consent for Treatmenton 12-11 Consent for Treatment [id number] Normal [facility] Discharge Instructionson Discharge Instructions [id number] Normal [facility] ED Clinical Summaryon 2023 ED Clinical Summary (Inserted Image. Carly ble to display) [address] [address] ED Clinical Summary Person Information Name: YUKO BRUNSON [place] Age: 23 Years : 2000 Sex: Female Language: Australian PCP: CATE LACEY CNP Marital Status: Phone: [phone] MRN: Visit Id: Visit Reason: Throat pain - Adult; Sinus Pain/Congestion; Cough; SINUS PAIN/CONGESTION Speciality: Acuity: 4 Enc Type: Emergency Med Service: Emergency Arrival: 12/31/2023 16:13:30 Discharge: 12/31/2023 16:35:19 LOS: 000 00:22 Checkin: 12/31/2023 16:13:30 Checkout: 12/31/2023 16:35:19 Dispo Type: Home (Routine DC) EVENTS: Event Name Event Status Request Date/Time Start Date/Time Complete Date/Time Arrive Complete 12/31/2023 16:13:30 12/31/2023 16:13:30 12/31/2023 16:13:30 Document Home Meds Request 12/31/2023 16:13:30 Triage Complete 12/31/2023 16:13:30 12/31/2023 16:20:50 12/31/2023 16:20:50 Dr Exam Complete 12/31/2023 16:14:38 12/31/2023 16:14:38 12/31/2023 16:14:38 Registration Complete 12/31/2023 16:14:38 12/31/2023 16:15:09 12/31/2023 16:16:20 Bed Assign Complete 12/31/2023 16:15:09 12/31/2023 16:15:09 12/31/2023 16:15:09 RN Exam Complete 12/31/2023 16:15:09 12/31/2023 16:22:27 12/31/2023 16:22:27 Dr Exam Complete 12/31/2023 16:16:09 12/31/2023 16:16:09 12/31/2023 16:16:09 Reg Complete Request 12/31/2023 16:16:20 Reg Bed Request Complete 12/31/2023 16:16:20 12/31/2023 16:16:20 12/31/2023 16:16:20 Discharge Complete 12/31/2023 16:31:09 12/31/2023 16:35:23 12/31/2023 16:35:23 Transfer Complete 12/31/2023 16:35:23 12/31/2023 16:35:23 12/31/2023 16:35:23 AD[address]: [address] [place] [id number] PHYS DOC NOTES: MEDICAL INFORMATION: Prescriptions Given: New Medications [facility] 1987, [address] [place], [place] [id number], [phone] brompheniramine/dextromethorph an/PSE (Bromfed DM oral syrup) 5 Milliliter By Mouth 4 times a day as needed for cough and congestion. Refills: 0. predniSONE (predniSONE 50 mg Tab) 1 Tablets By Mouth every day for 7 Days. Refills: 0. Medications to Continue with No Changes Other Medications cariprazine (Vraylar 3 mg oral capsule) 1 Capsules By Mouth every day. cetirizine (Zyrtec) every day. hydrOXYzine (Vistaril) By Mouth 4 times a day. metoprolol (metoprolol 25 mg ER Tab) 1 Tablets By Mouth every day. Refills: 3. midodrine (midodrine 5 mg Tab) 1 Tablets By Mouth 3 times a day. Refills: 1. sertraline (sertraline 50 mg Tab) PATIENT EDUCATION INFORMATION: Instructions: Acute Bronchitis, Adult Follow up: With: Address: When: [place] [address] Business (1) In 3 days 01/03/2024 Comments: Call Dr for diagnosis based follow up DIAGNOSIS: Bronchitis Normal [facility] ED Note-Physicianon 12-31-19 ED Note-Physician Basic Information Time Seen: Lane CARDONA, Herminio Gomez 12/31/2023 16:14 Chief Complaint patient presents with cough, congestion and sore throat since wednesday History of Present Illness A 23-year-old female reports emergency department with chief complaint of cough, congestion, and sore throat. Reports has been going on since Wednesday. She states that she is not getting better. Reports that her family has similar like symptoms, but has not been going on the longest. States that she is currently on a Z-Reza right now. Reports that on day 3 of 5. She reports sore throat, headache and cough. Denies any chest pain or shortness of breath. Denies any fevers or chills at this time. Review of Systems No other aggravating or relieving factors no other associated symptoms no other prior treatments or complaints. Family: Reviewed and noncontributory Social: lives at home Review of systems negative unless otherwise specified in the HPI. Physical Exam Vitals & Measurements T: 37.1 ?C(Oral) HR: 114(Peripheral) RR: 18 BP: 98/66 SpO2: 100% HT: 150 cm WT: 71 kg BMI: 31.56 General: The patient appears well and in no apparent distress. Patient is resting comfortably in chair. Afebrile Skin: Warm, dry, no pallor noted. Head: Normocephalic, atraumatic Neck: No JVD Eye: PERRLA, EOMI ENT: Moist mucus membranes. Pharynx pink moist no erythema or exudates. Bilateral TMs intact with no erythema or bulging Cardiovascular: Regular rate normal peripheral perfusion Respiratory: No respiratory distress no accessory muscle use no obvious audible wheezing. Lung sounds clear to auscultation Chest Wall: no deformity Musculoskeletal: normal ROM, no deformity, no swelling GI: No obvious distention soft nontender nondistended no guarding rebounding or rigidity Neurological: A&O moves all extremities equal strength and symmetry Psychiatric: Cooperative and appropriate Medical Decision Making MEDICAL DECISION MAKING Number and Complexity of Problems Differential Diagnosis: [] [facility] Data External documents reviewed: [] My EKG interpretation: [] My CT interpretation: [] My X-ray interpretation: [] My Ultrasound interpretation: [] Decision rules/scores evaluated: [] Discussed with: [] Treatment and Disposition ED Course: 23-year-old female reports for department chief complaint of upper respiratory-like symptoms. Reports has been on for the last couple of days. Reports that she has been sick and the longest of her family. She states that family numbers also have similar symptoms. Denies any chest pain or shortness of breath. Exam the patient is rather benign. No acute signs of bacterial source of infection. Patient is currently on a Z-Reza. States that she has otherwise been doing okay. Due to concerns, patient will be started on Bromfed as well as a steroids. Patient was agreeable to this. Discussed return precautions. Follow-up with your primary care provider in 3 to 5 days. If symptoms worsen, do not improve, or new symptoms arise please report back to emergency department for further evaluation. The patient was understanding and agreeable to plan moving forward. [x]The patient has acute bronchitis/bronchiolitis and antibiotics were not prescribed or dispensed today.[SATISFIES MIPS PERFORMANCE] [] The patient has acute bronchitis/bronchiolitis. Antibiotics were prescribed or dispensed because the patient meets one of the following: [MIPS PERFORMANCE EXCEPTION/EXCLUSION] [] Patient has a medical reason for prescribing or dispensing an antibiotic. That reason is [] (ex. COPD, bacterial infection, acute sinusitis, etc.). [] Patient is currently on antibiotics or has been in the last 30 days. [] Patient?s visit resulted in an inpatient admission. []The patient has acute bronchitis/bronchiolitis and antibiotics were prescribed or dispensed today. [DOES NOT SATISFY MIPS PERFORMANCE] Shared decision making: [] Code status: [] Assessment/Plan Bronchitis (J40: Bronchitis, not specified as acute or chronic) Orders: brompheniramine/dextromethorph an/PSE, 5 mL, Oral, QID for cough and congestion, 200 mL, Refill(s) 0, [facility], 150, cm, 12/31/23 16:20:00 EDT, Height/Length Dosing, 71, kg, 12/31/23 16:20:00 EDT, Weight Dosing predniSONE, 50 mg = 1 tab(s), Oral, Daily, X 7 day(s), # 7 tab(s), Refills(s) 0, Pharmacy: [facility], 150, cm, 12/31/23 16:20:00 EDT, Height/Length Dosing, 71, kg, 12/31/23 16:20:00 EDT, Weight Dosing Disposition Plan Patient Discharge Condition Stable Discharge Disposition To home Discharge Prescription List Prescriptions Bromfed DM oral syrup, 5 mL, Oral, QID, PRN predniSONE 50 mg Tab, 50 mg= 1 tab(s), Oral, Daily Follow-up With When Contact Information CATE LACEY In 3 days 01/03/2024 EDT [address] [facility] [place] [address]- Business (1) Additional Instructions: Call Dr for diagnosis based follow up Patient Educat (more content not included)... Normal [facility] Comment on above: Result Comment: Elec tronically Signed By: Herminio Sherman PA-C\.br\Date and Time Signed: 12/31/23 17:45 EDT\.br\Electronically Co-Signed By: Sid Wong DO\.br\Date and Time Co-Signed: 12/31/23 18:53 EDT ED Patient Education Noteon 12-31-2023 ED Patient Education Note Pulmonary Medicine Acute Bronchitis, Adult Acute bronchitis is sudden inflammation of the main airways (bronchi) that come off the windpipe (trachea) in the lungs. The swelling causes the airways to get smaller and make more mucus than normal. This can make it hard to breathe and can cause coughing or noisy breathing (wheezing). Acute bronchitis may last several weeks. The cough may last longer. Allergies, asthma, and exposure to smoke may make the condition worse. What are the causes? This condition can be caused by germs and by substances that irritate the lungs, including: ? Cold and flu viruses. The most common cause of this condition is the virus that causes the common cold. ? Bacteria. This is less common. ? Breathing in substances that irritate the lungs, including: ? Smoke from cigarettes and other forms of tobacco. ? Dust and pollen. ? Fumes from household cleaning products, gases, or burned fuel. ? Indoor or outdoor air pollution. What increases the risk? The following factors may make you more likely to develop this condition: ? A weak body's defense system, also called the immune system. ? A condition that affects your lungs and breathing, such as asthma. What are the signs or symptoms? Common symptoms of this condition include: ? Coughing. This may bring up clear, yellow, or green mucus from your lungs (sputum). ? Wheezing. ? Runny or stuffy nose. ? Having too much mucus in your lungs (chest congestion). ? Shortness of breath. ? Aches and pains, including sore throat or chest. How is this diagnosed? This condition is usually diagnosed based on: ? Your symptoms and medical history. ? A physical exam. You may also have other tests, including tests to rule out other conditions, such as pneumonia. These tests include: ? A test of lung function. ? Test of a mucus sample to look for the presence of bacteria. ? Tests to check the oxygen level in your blood. ? Blood tests. ? Chest X-ray. How is this treated? Most cases of acute bronchitis clear up over time without treatment. Your health care provider may recommend: ? Drinking more fluids to help thin your mucus so it is easier to cough up. ? Taking inhaled medicine (inhaler) to improve air flow in and out of your lungs. ? Using a vaporizer or a humidifier. These are machines that add water to the air to help you breathe better. ? Taking a medicine that thins mucus and clears congestion (expectorant). ? Taking a medicine that prevents or stops coughing (cough suppressant). It is not common to take an antibiotic medicine for this condition. Follow these instructions at home: ? Take awtj-mmc-nisuuen and prescription medicines only as told by your health care provider. ? Use an inhaler, vaporizer, or humidifier as told by your health care provider. ? Take two teaspoons (10 mL) of honey at bedtime to lessen coughing at night. ? Drink enough fluid to keep your urine pale yellow. ? Do not use any products that contain nicotine or tobacco. These products include cigarettes, chewing tobacco, and vaping devices, such as e-cigarettes. If you need help quitting, ask your health care provider. ? Get plenty of rest. ? Return to your normal activities as told by your health care provider. Ask your health care provider what activities are safe for you. ? Keep all follow-up visits. This is important. How is this prevented? To lower your risk of getting this condition again: ? Wash your hands often with soap and water for at least 20 seconds. If soap and water are not available, use hand recorder helper gravity prospecting. ? Avoid contact with people who have cold symptoms. ? Try not to touch your mouth, nose, or eyes with your hands. ? Avoid breathing in smoke or chemical fumes. Breathing smoke or chemical fumes will make your condition worse. ? Get the flu shot every year. Contact a health care provider if: ? Your symptoms do not improve after 2 weeks. ? You have trouble coughing up the mucus. ? Your cough keeps you awake at night. ? You have a fever. Get help right away if you: ? Cough up blood. ? Feel pain in your chest. ? Have severe shortness of breath. ? Faint or keep feeling like you are going to faint. ? Have a severe headache. ? Have a fever or chills that get worse. These symptoms may represent a serious problem that is an emergency. Do not wait to see if the symptoms will go away. Get medical help right away. Call your local emergency services (911 in the [place] Do not drive yourself to the hospital. Summary ? Acute bronchitis is inflammation of the main airways (bronchi) that come off the windpipe (trachea) in the lungs. The swelling causes the airways to get smaller and make more mucus than normal. ? Drinking more fluids can help thin your mucus so it is easier to cough up. ? Take jxkp-nbs-havsjjj and prescription medici (more content not included)... Normal [facility] ED Patient Summaryon 024 ED Patient Summary (Inserted Image. Carly ble to display) [address] [address] Patient Discharge Instructions Person Information Name: YUKO BRUNSON Age: 23 Years Arrival Date: 12/31/2023 16:13:30 Discharge Diagnosis: Bronchitis Primary Care Physician: CATE LACEY CNP Provider Information Primary Provider: Sid Wong DO Advanced Grout Machine Operator:None The exam and treatment you received in the Emergency Department were for an urgent problem and are not intended as complete care. It is important that you follow up with a doctor, nurse practitioner, or physician?s bilingual legal assistant for ongoing care. If your symptoms become worse or you do not improve as expected and you are unable to reach your usual health care provider, you should return to the Emergency Department. We are available 24 hours a day. YUKO BRUNSON has been given the following list of patient education materials, prescriptions and follow-up instructions: Follow-up Instructions: With: Address: When: CATE LACEY [address] [place] [address] [place] [address] Business (1) In 3 days 01/03/2024 Comments: Call Dr for diagnosis based follow up In the event that this physician does not participate in your insurance network, please consult with your insurance company to find a nearby participating provider. Patient Education Materials: Acute Bronchitis, Adult A MESSAGE TO ALL PATIENTS REGARDING OPIOIDS PRESCRIPTION OPIOIDS: WHAT YOU NEED TO KNOW Prescription opioids can be used to help relieve odobqfnm-il-tgavam pain and are often prescribed following a surgery or injury, or for certain health conditions. These medications can be an important part of the treatment but also come with serious risks. It is important to work with your healthcare provider to make sure you are getting the safest, most effective care. WHAT ARE THE RISKS AND SIDE EFFECTS OF OPIOID USE? Prescription opioids carry serious risks of addiction and overdose, especially with prolonged use. An opioid overdose, often marked by slowed breathing, can cause sudden . The use of prescription opioids can have a number of side effects as well, even when taken as directed: ? Tolerance?meaning you might need to take more of the medication for the same pain relief ? Physical dependence?meaning you have symptoms of withdrawal when a medication is stopped ? Increased sensitivity to pain ? Constipation ? Nausea, vomiting, and dry mouth ? Sleepiness and dizziness ? Confusion ? Depression ? Low levels of testosterone that can result in lower sex drive, energy, and strength ? Itching and sweating RISKS ARE GREATER WITH: ? History of drug misuse, substance use disorder, or overdose ? Mental health conditions (such as depression or anxiety) ? Sleep apnea ? Older age (65 years and older) ? Avoid alcohol while taking prescription opioids. Also, unless specifically advised by your health care provider, medications to avoid include: ? Benzodiazepines (such as Xanax or Valium) ? Muscle relaxants (such as Soma or Flexeril) ? Hypnotics (such as Ambien or Lunesta) ? Other prescription opioids KNOW YOUR OPTIONS Talk to your health care provider about ways to manage your pain that don?t involve prescription opioids. Some of these options may actually work better and have fewer risks and side effects. Options may include: ? Pain relievers such as acetaminophen, ibuprofen, and naproxen ? Some medication that are also used for depression or seizures ? Physical therapy and exercise ? Cognitive behavioral therapy, a psychological, goal-directed approach, in which patients learn how to modify physical, behavioral, and emotional triggers of pain and stress. IF YOU ARE PRESCRIBED OPIOIDS FOR PAIN: ? Never take opioids in greater amounts or more often than prescribed. ? Follow up with your primary health care provider. o Work together to create a plan on how to manage your pain. o Talk about ways to help manage your pain that don?t involve prescription opioids. o Talk about any and all concerns and side effects. ? Help prevent misuse and abuse o Never sell or share prescription opioids. o Never use another person?s prescription opioids. ? Store prescription opioids in a secure place and out of reach of others (this may include visitors, children, friends, and family). ? Safely dispose of unused prescription opioids: Find your community drug take-back program or your pharmacy mail-back program, or flush them down the toilet, following guidance from the Food and Drug Administration (www.fda.gov/Drugs/ResourcesFo rYou). ? Visit www.cdc.gov/drugoverdose to learn about the risks of opioids abuse and overdose. ? If you believe you may be struggling with addiction, tell your health lawn care specialist and ask for guidance or call [facility]S National Helpline (more content not included)... [facility] Prescriptions/Work Noteson 0 12-31-2023 Prescriptions/Work Notes [id number] [facility] Coding Summary.on 12-29-2023 Coding Summary. LDMXHayx27OOw9jDx+PG hlYWQ+PE1F JNCcB71guTGbzA9vH0PPGXgETtkiPV SHRRlAZcGsihFkQJ6riLDkFLZj IC8+UZ7fZIAfNfqrrBUwk6H9mNU2Y3 7yeg7vQSdwpWC0XYEbWgWqlrcnt7bj fTq0LVkwJovdRcIg SNXcpJ20MMJ7jZ20Pi65xEAwbXOld6 lplAo7TxDsDFTsBAO9lUxiFFgdk9Ro SMCzS99vzDHjb6K4 CRHyqOwadHAkApEgmSZ6aJ7mXYvlqm ekx5yaymtpNfw5zx89oCFiq6N5fGX5 C3KesoZ8UKMeiILj KpwgaZTAeY4hhjjvk8zpyjymMhZyUA WvFGa1PBu9KHUfyGmrQdElOB77FYP3 TJUaabZsS7AqUEGa bYgqVqF3p2U6Or3UR2LSAwcfI6LPJC FSWTwvdGQ+VB00zg08M7VxPrkeXzc2 XQUuYSO7iCV3wO0w VKLpLEasz6X1mZR3Y5AgstBwbi4ot0 zjPMYkAAkmY63ejNDmn4N7DPChyMH6 MRPyiRcyQlAtnR05 Oyc+IISpsQjby9PsOgorf6yeh1cosK x7NoxzJNFntuKkqYjzSDD9d1NhLe1q CZTejOM9xQB0gC2h XmFwLiO9GEfeP803XzZbxKQiBkgaM0 7eT1UosRO+CJOjFbz3JLDulUzcKL9f H0JuRWHgnkyfbPHs tUnaVL6sIGKiqyeuWUNowZ2mIESzK1 j2WjZfYxN0TEsgI6OqLZMvkbdlTl08 wP1bZaOsDrT9GQjo U2OuefU1IQWehHVhWDyhEMR5Y77el0 Y3CVXnEOBcQQN8fVM0oH2odAmiiufa bGVmdDsgdmVydGlj AKhfAQzmB884OPTtcLyyBjZlJNgcIt BEYXRlOiAgMDYvMTkvMjAyNDwvdGQ+ NJXaPVG1cEnmTBFo wGLzQKvcXa0rvUspcAyyZD0oTQNhbt byLAHmuP6sRFLolVYgjXiwYJ8nAQDx adorp775GtEyFYS9 YPLdsCNbQ9YrfM4jIgLxMWLtVYWeJ3 PawXGaNEcyF939BJyxQuR6DVUwlbZr J3RcQAXniXqlWoA2 m1E0Eo5Ig4SiaenxC2StuREgJeYsQm hzTAl7Z9XmNgtrcWU+ZV30NHPyVI43 YVx3GDP2nPhjNIzq GJAdL8GdrI0lPiHpQPSxYSZiLwo+PH RhYmxlIHdpZHRoPScxMDAlJyBzdHls ZH4cZe2hDKXyQPOq kUogzITgKwHvo9tdUUIjXStxFX7ynH nyS9IygNV8VTUdc5p7Iv15C85pM2Lb dXA+SAXmhPT8nDF5 dW5aEbZhIvQ8IIbsG691YzDmkGCdGt lfr3kwz6xsdPg6RlK5UGYhxcVmtXqm NHR6f5CkYy58R87w XSthDAEeUCFsOUZrBWBwjAmqtc1ngE 9wIi8+VHAinOP9hTW1hU2eZoGmVuW6 TOvlS537GyUusRHm Bmzml3hpa5wbbJk8MmDwUARtpwSdxI rtRWN6e6KwRh47L4ZtzYfnk8ViNzu3 hg08kGWql1N9uDW5 V4RzWRVudlnepGHxzFanNZ2cHHNsbm rzLKKkjG4xHHNeT9q5EzNaPgQ3AAqg U1HcjhK5JIMuyFCj IRHpjIBVgZ1nktykr6bntisfJcKqCZ UnHGs1WLb0GWAiwDdnYgCtEDJ5PzW8 EKK5hVCmlB2spRtv pakbuT4iVoe+ZBH8wSNgjUGUSI6nNr wvdGQ+AYKtRUE5kFugFSkqAVUgzH2k JWEfS0e5MgAsZqW9 GJvgF4SwzwN8EODxxTUlYOSfzPIKaM 6uonjom0zcqqqvVnHvBLVfUCi3VYb4 LWFsaWduOiBsZWZ0 RtL0VVF1pXZtxK9zvMbwfvqnjE5mLa c+TemkwMkpEMP6OCy4Z8UrQcg5EFHf pOexOU4nfFIePBmd Gz2jyQfijCffNN9aHYEftkeyd896Kt Yha5lmSWDmfGEcSLngXMJ9J91ki1G3 GLFpKJRnPDI6vAT4 yI2xwYmkanzlnLLcmRuzkrOlrNeaVT chUXsjN380MFIafShgRkQiXRh1L8Eb Epp6NCVdiNflSC8r iBYuHHvdMc0kwFcejOfrAO3rFWJkfz lwd912WfXcw0gjTBShwLNyHEomTWZ4 K53nk0A8AIIiKMTb TOK5hKM9oL9txNnvnckofHQyzFjdqp YwkKpdUEinNHirF301UPFdyQpnXxKp vQh0G0CbTls0SQHv dXczVD6lpMDaWEgwJe5utLhkdOfhLA 5aAOMxvewnh273QeZao4ohUCUqfIKv EUinRBU4D71bx0D4 OORaAWOwKYH4jEU4nA7pcLtjulpgmW HheWbwiuSwpDdeSCjvITdxD265ULFu cDsnPlBhdGllbnQg NZehVJp0E6AyLdmlcTZ+DI40JJZoKY 40xVYemQEio5qjwVx2XqUhZUXgXDC3 uAylXGxjb9QbMLXo Y31dmLLff2Z8EDSdqUwksSYvUrMrnU G0jG1fFBwxbabed8whzmcvZwpnc8gm xz92wO54T38eCPcn PCNiRIFaGARqULXzoWwuii7wsG0yBw 8+JEFqwTA4vXK0vH6zGAXqZnF8DUml J575AfVpyHGcSjju f3jgo8wciGc0KwV3BIFxtpHarJboNJ V4g2JdHu38W72fEUckCGZeIVTuAEPl KKHnvWhxhw6eeN1p Ii8+CXEraUH0tNX1hB7sFuZxQoA6AI idY537TyJsoNOwHjiqC70hO4SccVU+ PBKmOsh5RIJamRvb JN8ytBBxRPuoVf5kGMA7LhDqWhWiRE jqG8IbOIPfjiwspjibgPI4ZWLbYZMf uT75Ac8csRxuLIRk gVSMxG0kfhlob4twnsbaArLfILXnXF i6LJm0WLEqeBzoQgWjCYI2IuJ7YLP2 dJQmkP2zgWbizfwn iA7nK0GcSIRzivxkIq50rV8tChGxEn X4MWzoEif+UElFUlJFLCBLSUFOTkEg QzwvdGQ+PHRkIHN0 kMkrXBmiUWGucH7xGXMtW6c7DdDcJj M9MAdaT7NtJURmiykdEm41cN5pFqEh GdH1QSacQ5PalnY0 AZHgcHBrSVszOGO8R64bc1B6RDWqVJ OmLEA8wIU7jO1hmSsopltumAKxyJmq dmVydGljYWwtYWxp E076QIOrkGpnZuT3UpBdUrIzFSP5I5 RoVml4MSWibSywPC7eeMPhEEhoXi8k wSkcxCvlWG3aXFZn sbwcFFIhfA3tTFKnmUIhyCmdEV9bXC Guuncxm955EuGaNQJ3LVVsrAOqK9Mc sG7eUjYiABQaDCVd J0PriISvQJpaN653HPfqGnM8VEZplx WeQ5QfIIWsrMyjQtT3b7W5Op0fIMND ZWFyczwvdGQ+PHRk QSQ3jEjgHHckPGWzvF4oYGHjR3l7Fw CvAjC3TLyvN3GpNHNbpcvrBu36cE7i FhXnUdL7ILkfZ3Jb hyX8VGZjgQFhLUrwVAK3T92hu6I7VH UwKQLbOYD3fGQ2bZ5yqRrrdcqhoJZg dDsgdmVydGljYWwt QZdjS266RDEjsHaxDiDgvVJsMNgsgW Q+HOPdDAB5kCaoGBwlBBDidQ2bJDIt G3t9JtAxVjI1FXbl R7LhZTYmnyadJa35lD7oYmVuJoZ3IX jdF4IcnoK5POIscVUgUHdxASK2C43i r7T7VXUfGJJmVRT3 pXZ1sA8vbNvzvxtklKTicYbtcfDdcZ rgYGzwOJlgD646XWYvdDrlNk83yRSa dWbyawP9L4OaLdcd dHI+XA51IZEaQM33pPHdfYDhk5wwuL f5IgIpIGKbNEB3lWklVWzmp1XqKLPz I70cdKOfk5W0MUQs uUgizEPjXqSxxYP7sD0hSGodimvfr5 zueuzdOsaww6wcai23uZ56N54gXChu ZHRoPSIzMCUiIHZh xYbzts9vsS4fNe7+SHUcgJF7cQH4rC 5wJaDjXtY0YMahH210JwCbdEIlPquu m8eri3cleYj6LrMi OQXqgyInwLniKXU9u1JhDu58Y01uSA vfAQXlEXEhIIJzKKTdrBmzzs4lcN9n Ii8+QT8nq4jyed35 bZ89yUF+KNNxMVQ5oNqnBCglKTJwoX 1oHIyxSlA5QNHzQnTcdJ77jAOqYCjc Vp7daEvksXwzRV4e JAHeruqal622ZkEeb4eyLZSjgPGjAJ gkZPU9E85bz2B1UQUpEVAgPBP7eDM9 vV1nbIcicveixJIq nFrebpUlmYftZNteQFbtK483IDJtiB yaKcNzxWRiW5frbnYLUT8vTtdxkSK+ VPGeTSG2wXqtHBnu YNUmrM0xNXLmQ0z2HxIkWkB2NRndE0 SrjsE6FIEckHBwWKVptWOXwA1zikee t3yhgotxUwJvPWOe QAy6ISu2BXNbpGhuDhAiLNA8VbE3TP J7kFNtzU5nwTjyfcsimD5yFmy+RklO OjwvdGQ+PHRkIHN0 nAxhCXawHNZdpL1iSSWcX3g9XxUfFb U1MIgpT8DexaT5YKIksTCgXLVxfNXI rL5pneyyh5vjjxic HsTbLHSdULr8YAu1DHMtsHmtSqOqLQ L6BxS8FUB2xRLqrO5qiFdiijstcK4x Oyc+TVJOOjwvdGQ+ SZNzMRS0wWszIZvxUKLpjB4fAUYrK5 k1JrQqJaG6PMnkS9CnakX0KDArnTLl XKVkzLJKqZ5lpdjp u8gtlxmvDvDjGAHaYIe3RTq0QBQceZ xkKcTjLLW8NoO4JRV4hGUjqP9gqMex zwszaK4uZnn+UGF5 DYM0ZX34CJ55V6NmOburlQPqvSB+PH RhYmxlIHdpZHRoPScxMDAlJyBzdHls SK6qYq2lPQYnDDIx bGxhcHNlOiBjb (more content not included)... Normal [facility] Consent for Treatmenton Consent for Treatment [id number] Normal [facility] Heart and Vascular Office/Cl inic Noteon 12-17-2023 Heart and Vascular Office/Clinic Note Chief Complaint test results follow up History of Present Illness Patient is a 22-year-old female with past medical history of syncope and near syncope. Patient comes in for 6-week follow-up at this time Patient last saw Dr. Barakat and at that time he ordered patient a tilt table test due to syncope and near syncope symptoms. The tilt table showed negative for vasovagal syncope, negative for orthostatic hypotension, and was suggestive of POTS. Patient previously had an event monitor which showed episodes of tachycardia but no other abnormal heart rhythm and an echo that was grossly normal. Patient reports that she has been stable lately. She reports that she is still getting near syncopal episodes, but has not fully passed out at any time. These episodes often occur when she goes from sitting to standing or if she has been standing for long periods of time. She can sometimes feel heart palpitations with her heart racing when she is standing for long peers of time as well. She tries to drink lots of Gatorade throughout the day to stay hydrated. Patient reports that she finds himself needing to sit down quite a bit throughout the day to feel better. And needs a work note stating that she can set when required so she does not get in trouble at work. Patient has been compliant with metoprolol ER 25 mg daily and does believe it is helping her symptoms overall not having as many palpitations since starting that medication. Patient denies chest pain, shortness of breath, and swelling in lower legs. Review of Systems PHQ Score Initial Depression Screen Score: 0 SCORE ROS - Provider Constitutional: no fever, no chills, no sweats, no weakness Respiratory: no shortness of breath, no cough Cardiovascular: no chest pain, positive for palpitations Neuro: yes dizziness. no loss of consciousness Physical Exam Vitals & Measurements HR: 86(Peripheral) BP: 94/56 SpO2: 98% HT: 59 in HT: 150 cm WT: 71.0 kg WT: 156.2 lb BMI: 31.56 General: alert, no acute distress Cardiovascular: regular rate and rhythm, no murmur normal peripheral perfusion Respiratory: Lungs CTAB, respirations non labored Extremities: no edema left lower extremity. no edema right lower extremity Neurological: oriented x 4, LOC appropriate for age, speech normal Skin: Warm, dry, intact- no rash or concerning lesions Cardiac Diagnostics Tilt table test from 11/29/2023: Conclusion: 1. Negative tilt table testing for vasovagal syncope. 2. Negative for orthostatic hypotension. 3. Findings suggestive of POTS. Event monitor from 10/17/2023: PROCEDURE DETAILS: The patient was recorded for 14 days from 09/10/2023 to 09/24/2023. The patient had a predominant rhythm of sinus rhythm or sinus tachycardia. The minimum heart rate was 79 beats per minute, average heart rate of 119 beats per minute, and maximum heart rate of 159 beats per minute. Sixteen patient events of palpitation or shortness of breath correlated with sinus rhythm or sinus tachycardia. There was no secondary arrhythmia. CONCLUSIONS: Cardiac event monitor significant for elevated resting heart rate. Clinical correlation suggested. [2] (09/10/2023 14:55 EST Echo Transthoracic Complete) Interpretation Summary No comparison study is available. Ejection Fraction = 60-65%. The left ventricular wall motion is normal. Normal diastolic function. There was insufficient TR detected to calculate RV systolic pressure. Assessment/Plan 1. Hypotension (I95.9: Hypotension, unspecified) Patient's blood pressure on the low side of normal today in the office. Tilt table study was also suggestive of POTS. So we will start midodrine 5 mg 3 times daily to see if that helps symptoms. Patient needs to continue drinking Gatorade or fluids with salt. Follow-up in 6 weeks Orders: midodrine, 5 mg = 1 tab(s), Oral, TID, # 90 tab(s), Refills(s) 1, Pharmacy: [facility], 150, cm, 12/17/23 11:33:00 EDT, Height/Length Dosing, 71, kg, 12/17/23 11:33:00 EDT, Weight Dosing Follow-up with me in 6 weeks Portions of this record may have been created with voice recognition artificial intelligence software, specifically [employer], [employer] and or [employer]. Substitutions may have occurred due to the inherent limitations of voice recognition and artificial intelligence software. Follow-up No qualifying data available Problem List/Past Medical History Ongoing None Smoker Historical Anxiety Depression Mood disorder Procedure/Surgical History Appendectomy, uma removal. Medications metoprolol 25 mg ER Tab, 25 mg= 1 tab(s), Oral, Daily, 3 refills midodrine 5 mg Tab, 5 mg= 1 tab(s), Oral, TID, 1 refills sertraline 50 mg Tab Vistaril, Oral, QID Vraylar 3 mg oral capsule, 3 mg= 1 cap(s), Oral, Daily Zyrtec, Daily Allergies Keflex (shaking, Feeling of throat tightness) Rocephin (Throat tightness) cefTRIAXone (cough/flushing) shellfish (It (more content not included)... [facility] Comment on above: Result Comment: Elec tronically Signed By: Isidro CARDONA, Juan Campuzano\rosanna\Date and Time Signed: 12/17/23 12:14 EDT Patient Letter FTon 2023 Patient Letter [facility] [place] (Inserted Image. Carly ble to display) [address] [place] [id number] December 17, 2023 YUKO BRUNSON [address] [place] [address] : 2000 To whom this may concern, We have been following the patient in the office. Due to a medical condition, please allow the patient to sit at work when she feels the need and it is appropriate. Please contact our office with any questions. Thank you Juan Felix PA-C [facility] Physician Orderon 12-17-2023 Physician Order [id number] [facility] Cytology Cervical or vaginal smear or scraping studyon 12-15-2023 [facility] Outside Cardiovascularon Outside Cardiovascular [id number] [facility] Physician Orderon 11-25-2023 Physician Order [id number]#1.00TIFF [facility] Physician Order [id number]#1.00TIFF [facility] Consent for Treatmenton 10-11 Consent for Treatment [id number]#1.00TIFF [facility] Heart and Vascular Office/Cl inic Noteon 11-05-2023 Heart and Vascular Office/Clinic Note Chief Complaint here for 3 month f/u suncope History of Present Illness 22-year-old female with history of syncope and near syncope. This is episodic having spells sound like vasovagal type spells. Response to putting salt on her tongue. Had an echocardiogram which was normal. Had a event monitor showing elevated resting heart rate elevated average heart rate. She notices her heart racing with minimal activity and feels tired and short of breath. Review of Systems Constitutional: no fever, no chills, no weakness, no fatigue Respiratory: no shortness of breath, no cough, no orthopnea, no wheezing Cardiovascular: no chest pain, no palpitations, no edema Neuro: no dizziness no light headed no syncope Additional ROS info: Except as noted in the above Review of Systems and in the History of Present Illness all other systems have been reviewed and are negative or noncontributory. Physical Exam Vitals & Measurements HR: 116(Peripheral) BP: 122/84 SpO2: 98% HT: 59 in HT: 150 cm WT: 68.2 kg WT: 150.04 lb BMI: 30.31 General: alert, no acute distress Neck: Supple, noJVD nocarotid bruit Cardiovascular: regular rate and rhythm, no murmur normal peripheral perfusion Respiratory: Lungs CTA, respirations non labored Extremities: no edema Neurological: oriented x 4, LOC appropriate for age, sensation equal & normal bilaterally, speech normal Skin: Warm, dry, intact- no rash or concerning lesions Assessment/Plan I think this patient has autonomic insufficiency. I do not know if we could technically collect POTS but it would not be a far stretch that this may be the case. I will order a tilt table test and start metoprolol to reduce her heart rate. I think this will help her to feel better. Questions were answered regarding salt and blood pressure but this patient is acceptable to have salt increase in her diet. Follow-up 6 weeks with Uvaldo 1. Syncope (R55: Syncope and collapse) Follow-up No qualifying data available Problem List/Past Medical History Ongoing None Smoker Historical Anxiety Depression Mood disorder Procedure/Surgical History Appendectomy, uma removal. Medications atomoxetine 40 mg Cap sertraline 50 mg Tab Vistaril, Oral, QID Vraylar 1.5 mg oral capsule, 1.5 mg= 1 cap(s), Oral, Daily Zyrtec, Daily Allergies Keflex (shaking, Feeling of throat tightness) Rocephin (Throat tightness) cefTRIAXone (cough/flushing) shellfish (Itchy) Social History Alcohol - Denies Alcohol Use, 05/27/2018 Current, 04/11/2018 Employment/School Unemployed, 05/22/2018 Home/Environment Lives with Significant other. Living situation: Home/Independent. Alcohol abuse in household: No. Substance abuse in household: No. Smoker in household: Yes. Feels unsafe at home: No. Family/Friends available for support: Yes., 05/22/2018 Nutrition/Health Regular, Caffeine intake amount: 1-2 cans pop/coffee per day. Wants to lose weight: No., 05/22/2018 Substance Abuse - Denies Substance Abuse, 05/27/2018 Current, 04/11/2018 Tobacco - Denies Tobacco Use, 05/27/2018 Never (less than 100 in lifetime) Tobacco Use:., 11/05/2023 Current vaping or e-cigarette use Smokeless Tobacco Use:. Vaping, Yes, 08/04/2023 Household tobacco concerns: Yes., 10/24/2011 Family History Family history is negative [facility] Comment on above: Result Comment: Elec tronically Signed By: Yuval GTZ, Bharath Diaz\.br\Date and Time Signed: 11/05/23 13:26 EDT Monitor Recordon 10-13-2023 Monitor Record [id number]#1.00TIFF Normal [facility] Grp A Strp PCRon 09-19-2023 Grp A Strp Intrl Ctrl Pass [facility] Comment on above: Order Comment: Order Added on by Discern Rule. Performed By: #### 1 [id number] ####[facility] [address] [place] [address] S. pyogenes DNA SILVA+probe Ql (Throat) Negative [facility] Comment on above: Order Comment: Order Added on by Discern Rule. Result Comment: Test ing performed using DNA amplification. Performed By: #### 1 [id number] ####[facility] [address] [place] [address] Consent for Treatmenton 03 Consent for Treatment [id number]#1.00TIFF Normal [facility] Discharge Instructionson Discharge Instructions [id number]#[id number] Normal [facility] ED Clinical Summaryon 2023 ED Clinical Summary (Inserted Image. Carly ble to display) [place] [id number] ED Clinical Summary Person Information Name: YUKO BRUNSON Chana/[facility] Age: 22 Years : 2000 Sex: Female Language: Australian PCP: CATE LACEY CNP Marital Status: Visit Id: Visit Reason: Throat pain - Adult; SORE THROAT Speciality: Acuity: 4 Enc Type: Emergency Med Service: Emergency Arrival: 09/18/2023 20:32:10 Discharge: 09/18/2023 21:53:18 LOS: 000 01:21 Checkin: 09/18/2023 20:32:10 Checkout: 09/18/2023 21:53:18 Dispo Type: Home (Routine DC) EVENTS: Event Name Event Status Request Date/Time Start Date/Time Complete Date/Time Arrive Complete 09/18/2023 20:32:10 09/18/2023 20:32:10 09/18/2023 20:32:10 Document Home Meds Request 09/18/2023 20:32:10 Triage Complete 09/18/2023 20:32:10 09/18/2023 20:40:09 09/18/2023 20:40:09 Bed Assign Complete 09/18/2023 20:33:18 09/18/2023 20:33:18 09/18/2023 20:33:18 Dr Exam Complete 09/18/2023 20:33:18 09/18/2023 20:34:45 09/18/2023 20:34:45 RN Exam Complete 09/18/2023 20:33:18 09/18/2023 20:50:23 09/18/2023 20:50:23 Registration Complete 09/18/2023 20:33:40 09/18/2023 20:33:40 09/18/2023 20:33:40 Reg Complete Request 09/18/2023 20:33:40 Reg Bed Request Complete 09/18/2023 20:33:40 09/18/2023 20:33:40 09/18/2023 20:33:40 Registration Complete 09/18/2023 20:34:45 09/18/2023 20:35:05 09/18/2023 20:35:05 Dr Exam Complete 09/18/2023 20:34:53 09/18/2023 20:34:53 09/18/2023 20:34:53 Pending Labs Complete 09/18/2023 20:37:08 09/18/2023 21:25:12 Pending Labs Complete 09/18/2023 20:50:32 09/18/2023 21:27:08 Lab Complete 09/18/2023 20:50:32 09/18/2023 21:27:08 Swab Complete 09/18/2023 20:50:32 09/18/2023 21:27:08 Pending Labs Inlab 09/18/2023 21:25:12 09/18/2023 21:25:12 Meds Admin Complete 09/18/2023 21:33:51 09/18/2023 21:51:42 Discharge Complete 09/18/2023 21:34:34 09/18/2023 21:53:27 09/18/2023 21:53:27 Transfer Complete 09/18/2023 21:53:27 09/18/2023 21:53:27 09/18/2023 21:53:27 ADDRESS: [address] [place] [id number] PHYS DOC NOTES: MEDICAL INFORMATION: Prescriptions Given: New Medications [facility] 1987, [address] [place], [place] [id number], [phone] amoxicillin (amoxicillin 500 mg Cap) 1 Capsules By Mouth 2 times a day for 10 Days. Refills: 0. Medications to Continue with No Changes Other Medications cariprazine (Vraylar 1.5 mg oral capsule) 1 Capsules By Mouth every day. cetirizine (Zyrtec) every day. hydrOXYzine (Vistaril) By Mouth 4 times a day. sertraline (sertraline 50 mg Tab) PATIENT EDUCATION INFORMATION: Instructions: Pharyngitis, Bzpy-lh-Myhd Follow up: With: Address: When: [address], [place] [address] In 3 days 09/21/2023 DIAGNOSIS: 1:Pharyngitis; 2:Exposure to strep throat Normal [facility] ED Note-Physicianon 09-18-19 ED Note-Physician Basic Information Time Seen: Nga Ely PA-C 09/18/2023 20:34 Chief Complaint pt. presents to the ed with c/o throat pain that started today. History of Present Illness 22-year-old female presents with a sore throat that started today. Denies fever, ear pain, shortness of breath or chest pain Review of Systems Review of systems negative unless otherwise stated in HPI Physical Exam Vitals & Measurements T: 36.7 ?C(Oral) HR: 96(Peripheral) RR: 18 BP: 108/71 SpO2: 98% HT: 147.32 cm WT: 67.5 kg BMI: 31.1 GENERAL: ALERT, NO ACUTE DISTRESS, talking full complete sentences SKIN: WARM, DRY, INTACT; NO CYANOSIS, NO RASH HEAD: NORMOCEPHALIC, ATRAUMATIC ENT: EYE: PERRL, EOMI, NORMAL CONJUNCTIVA, NO DISCHARGE NOSE: NARES PATENT MOUTH: ORAL MUCOSA MOIST THROAT: NO PHARYNGEAL ERYHTHEMA OR EXUDATE, TONSILS NORMAL, UVULA MIDLINE, NO STRIDOR NECK: SUPPLE, TRACHEA MIDLINE, FROM CARDIOVASCULAR: RRR, NO MURMUR, +S1, +S2 RESPIRATORY: LUNGS CTA, NON-LABORED RESPIRATIONS, BS EQUAL, SYMMETRICAL EXPANSION, NO RHONCHI, WHEEZES, RALES, NO RETRACTIONS EXTREMITIES: FROM X 4 NEUROLOGICAL: A&OX3 PSYCHIATRIC: COOPERATIVE, APPROPRIATE MOOD AND AFFECT Medical Decision Making Negative for strep. Negative for COVID and influenza. She is here with her roommate with the same symptoms who did test positive for strep. Patient states that they eat and drink after each other and although she is negative, likely strep as she has exact same symptoms. She will be given amoxicillin here and provided prescription and follow-up family doctor. Afebrile, not tachycardic, not tachypneic, nontoxic-appearing, tolerating p.o. and ambulating at baseline and hemodynamically stable to be discharged home. Educated side effect of medications. Answered all questions. Patient in agreement with treatment. Assessment/Plan 1. Pharyngitis (J02.9: Acute pharyngitis, unspecified) Ordered: amoxicillin, 500 mg = 1 cap(s), Oral, BID, X 10 day(s), # 20 cap(s), Refills(s) 0, Pharmacy: [facility] 1985, 147.3, cm, 09/18/23 20:40:00 EST, Height/Length Dosing, 67.5, kg, 09/18/23 20:40:00 EST, Weight Dosing 2. Exposure to strep throat (Z20.818: Contact with and (suspected) exposure to other bacterial communicable diseases) Ordered: amoxicillin, 500 mg = 1 cap(s), Oral, BID, X 10 day(s), # 20 cap(s), Refills(s) 0, Pharmacy: [facility] 1985, 147.3, cm, 09/18/23 20:40:00 EST, Height/Length Dosing, 67.5, kg, 09/18/23 20:40:00 EST, Weight Dosing Orders: amoxicillin, 500 mg = 1 cap(s), Cap, Oral, Once, Stop date 09/18/23 21:33:00 EST, STAT, Start date 09/18/23 21:33:00 EST, 09/18/23 21:33:00 EST Group A Strep by PCR Influenza A&B Ag Rapid COVID Antigen ([facility]) Rapid Strep w/rfx Disposition Plan Patient Discharge Condition Stable Discharge Disposition Home Discharge Prescription List Prescriptions amoxicillin 500 mg Cap, 500 mg= 1 cap(s), Oral, BID Follow-up With When Contact Information CATE LACEY CNP In 3 days 09/21/2023 EDT [address], [place] [address]- Additional Instructions: Patient Education Pharyngitis, Arfb-qg-Fjoy Attestation I performed a substantive part of the MDM during the patient?s E/M visit. I personally made or approved the documented management plan and acknowledge its risk of complications. (Independent Interpretation) My (EKG/X-Ray/US/CT) interpretation as above. (Discussion) Management/test interpretation discussed with APC. Problem List/Past Medical History Ongoing None Smoker Historical Anxiety Depression Mood disorder Procedure/Surgical History Appendectomy, uma removal. Medications Inpatient amoxicillin 500 mg Cap, 500 mg= 1 cap(s), Oral, Once Home amoxicillin 500 mg Cap, 500 mg= 1 cap(s), Oral, BID sertraline 50 mg Tab Vistaril, Oral, QID Vraylar 1.5 mg oral capsule, 1.5 mg= 1 cap(s), Oral, Daily Zyrtec, Daily Allergies Keflex (shaking, Feeling of throat tightness) Rocephin (Throat tightness) cefTRIAXone (cough/flushing) shellfish (Itchy) Social History Alcohol - Denies Alcohol Use, 05/27/2018 Current, 04/11/2018 Employment/School Unemployed, 05/22/2018 Home/Environment Lives with Significant other. Living situation: Home/Independent. Alcohol abuse in household: No. Substance abuse in household: No. Smoker in household: Yes. Feels unsafe at home: No. Family/Friends available for support: Yes., 05/22/2018 Nutrition/Health Regular, Caffeine intake amount: 1-2 cans pop/coffee per day. Wants to lose weight: No., 05/22/2018 Substance Abuse - Denies Substance Abuse, 05/27/2018 Current, 04/11/2018 Tobacco - Denies Tobacco Use, 05/27/2018 Current vaping or e-cigarette use Smokeless Tobacco Use:. Vaping, Yes, 08/04/2023 Never (less than 100 in lifetime) Tobacco Use:., 08/04/2023 Household tobacco concerns: Yes., 10/24/2011 Family History Family history is negative Lab Results Rapid (more content not included)... Normal [facility] Comment on above: Result Comment: Elec tronically Signed By: Nga Ely PA-C\.br\Date and Time Signed: 09/18/23 21:36 EST\.br\Electronically Co-Signed By: J Luis Warner DO.br\Date and Time Co-Signed: 09/18/23 23:56 [facility] ED Patient Education Noteon 09-18-2023 ED Patient Education Note Infectious Disease Pharyngitis Pharyngitis is a sore throat (pharynx). This is when there is redness, pain, and swelling in your throat. Most of the time, this condition gets better on its own. In some cases, you may need medicine. What are the causes? ? An infection from a virus. ? An infection from bacteria. ? Allergies. What increases the risk? ? Being 5?24 years old. ? Being in crowded environments. These include: ? Daycares. ? Schools. ? Dormitories. ? Living in a place with cold temperatures outside. ? Having a weakened disease-fighting (immune) system. What are the signs or symptoms? Symptoms may vary depending on the cause. Common symptoms include: ? Sore throat. ? Tiredness (fatigue). ? Low-grade fever. ? Stuffy nose. ? Cough. ? Headache. Other symptoms may include: ? Glands in the neck (lymph nodes) that are swollen. ? Skin rashes. ? Film on the throat or tonsils. This can be caused by an infection from bacteria. ? Vomiting. ? Red, itchy eyes. ? Loss of appetite. ? Joint pain and muscle aches. ? Tonsils that are temporarily bigger than usual (enlarged). How is this treated? Many times, treatment is not needed. This condition usually gets better in 3?4 days without treatment. If the infection is caused by a bacteria, you may be need to take antibiotics. Follow these instructions at home: Medicines ? Take bsck-nlz-vzqgjnr and prescription medicines only as told by your doctor. ? If you were prescribed an antibiotic medicine, take it as told by your doctor. Do not stop taking the antibiotic even if you start to feel better. ? Use throat lozenges or sprays to soothe your throat as told by your doctor. ? Children can get pharyngitis. Do not give your child aspirin. Managing pain To help with pain, try: ? Sipping warm liquids, such as: ? Broth. ? Herbal tea. ? Warm water. ? Eating or drinking cold or frozen liquids, such as frozen ice pops. ? Rinsing your mouth (gargle) with a salt water mixture 3?4 times a day or as needed. ? To make salt water, dissolve ??1 tsp (3?6 g) of salt in 1 cup (237 mL) of warm water. ? Do not swallow this mixture. ? Sucking on hard candy or throat lozenges. ? Putting a cool-mist humidifier in your bedroom at night to moisten the air. ? Sitting in the bathroom with the door closed for 5?10 minutes while you run hot water in the shower. General instructions ? Do not smoke or use any products that contain nicotine or tobacco. If you need help quitting, ask your doctor. ? Rest as told by your doctor. ? Drink enough fluid to keep your pee (urine) pale yellow. How is this prevented? ? Wash your hands often for at least 20 seconds with soap and water. If soap and water are not available, use hand recorder helper gravity prospecting. ? Do not touch your eyes, nose, or mouth with unwashed hands. Wash hands after touching these areas. ? Do not share cups or eating utensils. ? Avoid close contact with people who are sick. Contact a doctor if: ? You have large, tender lumps in your neck. ? You have a rash. ? You cough up green, yellow-brown, or bloody spit. Get help right away if: ? You have a stiff neck. ? You drool or cannot swallow liquids. ? You cannot drink or take medicines without vomiting. ? You have very bad pain that does not go away with medicine. ? You have problems breathing, and it is not from a stuffy nose. ? You have new pain and swelling in your knees, ankles, wrists, or elbows. These symptoms may be an emergency. Get help right away. Call your local emergency services (911 in the [place] ? Do not wait to see if the symptoms will go away. ? Do not drive yourself to the hospital. Summary ? Pharyngitis is a sore throat (pharynx). This is when there is redness, pain, and swelling in your throat. ? Most of the time, pharyngitis gets better on its own. Sometimes, you may need medicine. ? If you were prescribed an antibiotic medicine, take it as told by your doctor. Do not stop taking the antibiotic even if you start to feel better. This information is not intended to replace advice given to you by your health care provider. Make sure you discuss any questions you have with your health care provider. Document Revised: 09/24/2021 Document Reviewed: 09/24/2021 Elsevier Patient Education ? 2022 [employer] Normal [facility] ED Patient Summaryon 024 ED Patient Summary (Inserted Image. Carly ble to display) [address] [address] Patient Discharge Instructions Person Information Name: YUKO BRUNSON Age: 22 Years Arrival Date: 09/18/2023 20:32:10 Discharge Diagnosis: 1:Pharyngitis; 2:Exposure to strep throat Primary Care Physician: CATE LACEY CNP Provider Information Primary Provider: J Luis Warner DO Advanced Grout Machine Operator:None The exam and treatment you received in the Emergency Department were for an urgent problem and are not intended as complete care. It is important that you follow up with a doctor, nurse practitioner, or physician?s bilingual legal assistant for ongoing care. If your symptoms become worse or you do not improve as expected and you are unable to reach your usual health care provider, you should return to the Emergency Department. We are available 24 hours a day. YUKO BRUNSON has been given the following list of patient education materials, prescriptions and follow-up instructions: Follow-up Instructions: With: Address: When: CATE LACEY CNP [address] [place] [id number] In 3 days 09/21/2023 In the event that this physician does not participate in your insurance network, please consult with your insurance company to find a nearby participating provider. Patient Education Materials: Pharyngitis, Ixdh-no-Erem A MESSAGE TO ALL PATIENTS REGARDING OPIOIDS PRESCRIPTION OPIOIDS: WHAT YOU NEED TO KNOW Prescription opioids can be used to help relieve txldudos-aq-ybiqgs pain and are often prescribed following a surgery or injury, or for certain health conditions. These medications can be an important part of the treatment but also come with serious risks. It is important to work with your healthcare provider to make sure you are getting the safest, most effective care. WHAT ARE THE RISKS AND SIDE EFFECTS OF OPIOID USE? Prescription opioids carry serious risks of addiction and overdose, especially with prolonged use. An opioid overdose, often marked by slowed breathing, can cause sudden . The use of prescription opioids can have a number of side effects as well, even when taken as directed: ? Tolerance?meaning you might need to take more of the medication for the same pain relief ? Physical dependence?meaning you have symptoms of withdrawal when a medication is stopped ? Increased sensitivity to pain ? Constipation ? Nausea, vomiting, and dry mouth ? Sleepiness and dizziness ? Confusion ? Depression ? Low levels of testosterone that can result in lower sex drive, energy, and strength ? Itching and sweating RISKS ARE GREATER WITH: ? History of drug misuse, substance use disorder, or overdose ? Mental health conditions (such as depression or anxiety) ? Sleep apnea ? Older age (65 years and older) ? Avoid alcohol while taking prescription opioids. Also, unless specifically advised by your health care provider, medications to avoid include: ? Benzodiazepines (such as Xanax or Valium) ? Muscle relaxants (such as Soma or Flexeril) ? Hypnotics (such as Ambien or Lunesta) ? Other prescription opioids KNOW YOUR OPTIONS Talk to your health care provider about ways to manage your pain that don?t involve prescription opioids. Some of these options may actually work better and have fewer risks and side effects. Options may include: ? Pain relievers such as acetaminophen, ibuprofen, and naproxen ? Some medication that are also used for depression or seizures ? Physical therapy and exercise ? Cognitive behavioral therapy, a psychological, goal-directed approach, in which patients learn how to modify physical, behavioral, and emotional triggers of pain and stress. IF YOU ARE PRESCRIBED OPIOIDS FOR PAIN: ? Never take opioids in greater amounts or more often than prescribed. ? Follow up with your primary health care provider. o Work together to create a plan on how to manage your pain. o Talk about ways to help manage your pain that don?t involve prescription opioids. o Talk about any and all concerns and side effects. ? Help prevent misuse and abuse o Never sell or share prescription opioids. o Never use another person?s prescription opioids. ? Store prescription opioids in a secure place and out of reach of others (this may include visitors, children, friends, and family). ? Safely dispose of unused prescription opioids: Find your community drug take-back program or your pharmacy mail-back program, or flush them down the toilet, following guidance from the Food and Drug Administration (www.fda.gov/Drugs/ResourcesFo rYou). ? Visit www.cdc.gov/drugoverdose to learn about the risks of opioids abuse and overdose. ? If you believe you may be struggling with addiction, tell your health lawn care specialist and ask for guidance or call [facility]?S National Helpline at 1-543-865-TBUP. (more content not included)... Normal [facility] Influenza A&B Agon Influenzae A Ag Negative Normal Negative [facility] Comment on above: Performed By: #### 2 [id number] #### [facility] [address] [place] [address] Influenzae B Ag Negative Normal Negative [facility] Comment on above: Result Comment: Test sensitivity and specificity vary for age group, specimen type, antigen types, and prevalence of disease. Test results must be evaluated in conjunction with other clinical data available to the physician. Individuals who received nasally administered Influenza A vaccine may have positive test results up to 3 days after vaccination. Performed By: #### 2 [id number] #### [facility] [address] [place] [address] MICRO OTHER TESTSOrdered By: Leona Piper on 09-18-2023 Influenzae A Ag Negative (09/18/23 8:59 PM) Normal Negative [facility] Man Sero Influenzae B Ag Negative 1 (09/18/23 8:59 PM) Normal Negative [facility] Man Sero Comment on above: Interpretive Data: T est sensitivity and specificity vary for age group, specimen type, antigen types, and prevalence of disease. Test results must be evaluated in conjunction with other clinical data available to the physician. Individuals who received nasally administered Influenza A vaccine may have positive test results up to 3 days after vaccination. Rapid COV Int NEG Ctl Pass (09/18/23 8:59 PM) Normal [facility] Man Sero Rapid COV Int POS Ctl Pass (09/18/23 8:59 PM) Normal [facility] Man Sero SARS-CoV+SARS-CoV-2 (COVID-19) Ag IA.rapid Ql (Resp) Not Detected 2 (09/18/23 8:59 PM) Normal Not Detected [facility] Comment on above: Interpretive Data: Lamont wilkerson [employer] System for Rapid Detection of SARS-CoV-2 is a chromatographic digital immunoassay intended for the direct and qualitative detection of SARS-CoV-2 nucleocapsid antigens in nasal swabs from individuals who are suspected of COVID-19 by their healthcare provider within the first five days of the onset of symptoms. Negative results should be treated as presumptive, do not rule out SARS-CoV-2 infection and should not be used as the sole basis for treatment or patient management decisions, including infection control decisions. Negative results should be considered in the context of a patient s recent exposures, history and the presence of clinical signs and symptoms consistent with COVID-19, and confirmed with a molecular assay, if necessary, for patient management. For in vitro diagnostic use. In the [place], only for use under an Emergency Use Authorization. In the [place], this test has not been FDA cleared or approved; this test has been authorized by FDA under an EUA for use by authorized laboratories; use by laboratories certified under the CLIA, 42 U.S.C. 263a, that meet requirements to perform moderate, high, or waived complexity tests and at the Point of Care (POC), i.e., in patient care settings operating under a CLIA Certificate of Waiver, Certificate of Compliance, or Certificate of Accreditation. This test has been authorized only for the detection of proteins from SARS-CoV-2, not for any other viruses or pathogens; and, in the [facility], this test is only authorized for the duration of the declaration that circumstances exist justifying the authorization of emergency use of in vitro diagnostics for detection and/or diagnosis of the virus that causes COVID-19 under Section 564(b)(1) of the Act, 21 U.S.C. 360bbb-3(b)(1), unless the authorization is terminated or revoked sooner. S. pyogenes Ag IA.rapid Ql (Throat) Negative (09/18/23 8:46 PM) Normal Negative [facility] Man Sero Rapid COVID Antigen ([facility] [place])on 09-18-2023 Rapid COV Int NEG Ctl Pass Normal [facility] Comment on above: Performed By: #### 2 [id number] #### [facility] [address] [place] [address] Rapid COV Int POS Ctl Pass Normal [facility] Comment on above: Performed By: #### 2 [id number], [id number] #### [facility] [address] [place] [address] SARS-CoV+SARS-CoV-2 (COVID-19) Ag IA.rapid Ql (Resp) Not detected Normal Not Detected [facility] Comment on above: Result Comment: [employer]? System for Rapid Detection of SARS-CoV-2 is a chromatographic digital immunoassay intended for the direct and qualitative detection of SARS-CoV-2 nucleocapsid antigens in nasal swabs from individuals who are suspected of COVID-19 by their healthcare provider within the first five days of the onset of symptoms. Negative results should be treated as presumptive, do not rule out SARS-CoV-2 infection and should not be used as the sole basis for treatment or patient management decisions, including infection control decisions. Negative results should be considered in the context of a patient?s recent exposures, history and the presence of clinical signs and symptoms consistent with COVID-19, and confirmed with a molecular assay, if necessary, for patient management. For in vitro diagnostic use. In the [place], only for use under an Emergency Use Authorization. In the [place], this test has not been FDA cleared or approved; this test has been authorized by FDA under an EUA for use by authorized laboratories; use by laboratories certified under the CLIA, 42 U.S.C. ?263a, that meet requirements to perform moderate, high, or waived complexity tests and at the Point of Care (POC), i.e., in patient care settings operating under a CLIA Certificate of Waiver, Certificate of Compliance, or Certificate of Accreditation. This test has been authorized only for the detection of proteins from SARS-CoV-2, not for any other viruses or pathogens; and, in the [place], this test is only authorized for the duration of the declaration that circumstances exist justifying the authorization of emergency use of in vitro diagnostics for detection and/or diagnosis of the virus that causes COVID-19 under Section 564(b)(1) of the Act, 21 U.S.C. ? 360bbb-3(b)(1), unless the authorization is terminated or revoked sooner. Performed By: #### 2 [id number], [id number] #### [facility] [address] [place] [address] Rapid Strep w/rfxon 09-18-19 24 S. pyogenes Ag IA.rapid Ql (Throat) Negative Normal Negative [facility] Comment on above: Performed By: #### 1 [id number] ####[facility] [address] [place] [address] Consent for Treatmenton Consent for Treatment [id number] Normal [facility] Insurance Correspondenceon 0 08-16-2023 Insurance Correspondence [id number]#1.00TIFF Normal [facility] Heart and Vascular Office/Cl inic Noteon 08-09-2023 Heart and Vascular Office/Clinic Note Chief Complaint new patient - est care - near syncope History of Present Illness Yuko Brunson is a 22-year-old female who presents today for an evaluation of chest discomfort, palpitations, and near syncope. She is accompanied by her father. The patient reports a history of recurrent episodes of dizziness. She will also experience tunnel vision, room spinning, and presyncope. She is unsure of experiencing syncope. When she was , she would occasionally experience random chest pains and dyspnea. Her dizziness would resolve in a few minutes, but her chest pain would last up to 1 hour. She experiences dyspnea during episodes of chest pain but not during episodes of dizziness. She felt faint and worsened by standing up quickly. Hot showers do not bother her. She experiences tachycardia and denies any alleviating or aggravating factors. She noticed episodes of dissociation. Her symptoms felt worse when she was . She explains that she has not had an echocardiogram. She has a family history of cardiac issues. Review of Systems PHQ Score Initial Depression Screen Score: 0 SCORE Constitutional: no fever, no sweats, no weakness Skin: no rash, no lesions, no bruising/petechiae ENMT: no sore throat, no congestion, no hoarseness Respiratory: Positive for shortness of breath, no cough, no orthopnea, no wheezing Cardiovascular: Positive for chest pain, Positive for palpitations, no edema Gastrointestinal: no nausea, no vomiting, no diarrhea, no GI bleeding Genitourinary: no anuria/oliguria no hematuria Musculoskeletal: no back pain, no trauma Neurologic: no headache, Positive for dizziness, no numbness, no weakness Psychiatric: no sleeping problems, no irritability, no anxiety/depression. Heme/Lymph: no bleeding tendency, no bruising tendency Allergy/Immunologic: no recurrent infections, no impaired immunity Additional ROS info: Except as noted in the above Review of Systems and in the History of Present Illness all other systems have been reviewed and are negative or noncontributory Physical Exam Vitals & Measurements HR: 102(Peripheral) BP: 120/80 SpO2: 99% HT: 59 in HT: 150 cm WT: 61.8 kg WT: 135.96 lb BMI: 27.47 General: alert, no acute distress Skin: warm, dry intact Head: atraumatic, normocephalic Neck: trachea midline, no JVD, no bruit Eye: normal conjunctiva, sclera clear ENMT: oral mucosa moist Cardiovascular: regular rate and rhythm, no murmur, normal peripheral perfusion Respiratory: lungs CTA, respirations non labored Chest wall: no deformity. Gastrointestinal: soft, non-distended, no tenderness, no guarding. Back: no tenderness, normal ROM, normal alignment. Extremities: no edema, no deformity, no trauma Neurological: oriented x 4, LOC appropriate for age, sensation equal & normal bilaterally, speech normal Psychiatric: cooperative, affect appropriate for age, normal judgement, normal psychiatric thoughts. Assessment/Plan 1. Syncope (R55: Syncope and collapse) I explained to her the symptoms and causes of this disorder, and lifestyle changes for treatment. I advised her to frequently drink fluids and wear compression socks. Her EKG today has sinus rhythm that is normal. Her Holter monitor showed PACs. We will get a transthoracic echocardiogram and an event monitor. Follow up in 3 months. Portions of this record may have been created with voice recognition artificial intelligence software, specifically [employer], [employer] and or [employer]. Substitutions may have occurred with voice recognition and artificial intelligence software. Documentation services were performed after patient or guardian consented to allow [employer] to record this visit. SILVA market specialist and provider reviewed before signing. SILVA: Phoebe Carly Oseo. Follow-up No qualifying data available Problem List/Past Medical History Ongoing None Smoker Historical Anxiety Depression Mood disorder Procedure/Surgical History Appendectomy, uma removal. Medications Benadryl 25 mg Cap, 1 -2 caps, Oral, TID, PRN, Not taking Bromfed DM oral syrup, 5 mL, Oral, QID, PRN, Not taking Bromfed DM oral syrup, 5 mL, Oral, QID, PRN, Not taking Cipro, Not taking Cipro 500 mg Tab, 500 mg= 1 tab(s), Oral, BID, Not taking metoclopramide 10 mg oral tablet, disintegrating, 10 mg= 1 tab(s), Oral, q6hr, PRN, Not taking paroxetine, Oral, Not taking Rexulti, Oral, Daily sertraline 50 mg Tab Tums, Not taking Vistaril, Oral, QID, Not taking Zofran ODT 4 mg Tab-Dis, 4 mg= 1 tab(s), Oral, q6hr, PRN Allergies Keflex (shaking, Feeling of throat tightness) Rocephin (Throat tightness) cefTRIAXone (cough/flushing) shellfish (Itchy) Social History Alcohol - Denies Alcohol Use, 05/27/2018 Current, 04/11/2018 Employment/School Unemployed, 05/22/2018 Home/Environment Lives with Significant other. Living situation: Home/Indepen (more content not included)... [facility] Comment on above: Result Comment: Elec tronically Signed By: Yuval GTZ, Bharath Diaz\.br\Date and Time Signed: 08/09/23 21:56 EST\.br\Electronically Co-Signed By: Amina Gaytan\.br\Date and Time Co-Signed: 08/04/23 13:12 EST Consent for Treatmenton 07-13 Consent for Treatment [id number]#1.00TIFF [facility] Physician Orderon 08-04-2023 Physician Order [id number]#1.00TIFF [facility] Referrals Officeon 01-17-202 4 Referrals Office [id number]#1.00TIFF Normal [facility] Grp A Strp PCRon 07-19-2023 Grp A Strp Intrl Ctrl Pass Normal [facility] Comment on above: Order Comment: Order Added on by Discern Rule. Performed By: #### 1 [id number], [id number] #### [facility] [address] [place] [id number] S. pyogenes DNA SILVA+probe Ql (Throat) Negative Normal [facility] Comment on above: Order Comment: Order Added on by Discern Rule. Result Comment: Test ing performed using DNA amplification. Performed By: #### 1 [id number], [id number] #### [facility] [address] [place] [address] Holter Monitoron 07-19-2023 Holter Monitor [id number]#1.00TIFF [facility] Consent for Treatmenton Consent for Treatment [id number]#1.00TIFF [facility] Discharge Instructionson Discharge Instructions [id number]#1.00TIFF Normal [facility] ED Clinical Summaryon 2023 ED Clinical Summary (Inserted Image. Carly ble to display) [address] [id number] ED Clinical Summary Person Information Name: YUKO BRUNSON [place] Age: 22 Years : 2000 Sex: Female Language: Australian PCP: CATE LACEY CNP Marital Status: Phone: [phone] Visit Id: Visit Reason: Sinus Pain/Congestion; Cough; WANTS COVID TEST, CONGESTION Speciality: Acuity: 4 Enc Type: Emergency Med Service: Emergency Arrival: 07/18/2023 17:38:38 Discharge: 07/18/2023 20:41:31 LOS: 000 03:03 Checkin: 07/18/2023 17:38:38 Checkout: 07/18/2023 20:41:31 Dispo Type: Home (Routine DC) EVENTS: Event Name Event Status Request Date/Time Start Date/Time Complete Date/Time Arrive Complete 07/18/2023 17:38:38 07/18/2023 17:38:38 07/18/2023 17:38:38 Document Home Meds Request 07/18/2023 17:38:38 Triage Complete 07/18/2023 17:38:38 07/18/2023 17:48:41 07/18/2023 17:48:41 Pending Labs Complete 07/18/2023 17:41:31 07/18/2023 18:25:28 Lab Complete 07/18/2023 17:41:31 07/18/2023 18:25:28 Patient Care Request 07/18/2023 17:48:42 Patient Isolation Request 07/18/2023 17:48:42 Bed Assign Complete 07/18/2023 17:51:43 07/18/2023 17:51:43 07/18/2023 17:51:43 Dr Exam Complete 07/18/2023 17:51:43 07/18/2023 18:03:07 07/18/2023 18:03:07 RN Exam Complete 07/18/2023 17:51:43 07/18/2023 19:04:38 07/18/2023 19:04:38 Registration Complete 07/18/2023 17:51:58 07/18/2023 17:51:58 07/18/2023 17:51:58 Reg Complete Request 07/18/2023 17:51:58 Reg Bed Request Complete 07/18/2023 17:51:58 07/18/2023 17:51:58 07/18/2023 17:51:58 Registration Complete 07/18/2023 18:03:07 07/18/2023 19:07:41 07/18/2023 19:07:41 Dr Exam Complete 07/18/2023 18:05:00 07/18/2023 18:05:00 07/18/2023 18:05:00 Pending Labs Complete 07/18/2023 19:08:50 07/18/2023 19:47:52 Pending Labs Inlab 07/18/2023 19:47:52 07/18/2023 19:47:52 Discharge Complete 07/18/2023 20:33:38 07/18/2023 20:41:36 07/18/2023 20:41:36 Transfer Complete 07/18/2023 20:41:36 07/18/2023 20:41:36 07/18/2023 20:41:36 AD[address]ESS: [address] [id number] PHYS DOC NOTES: MEDICAL INFORMATION: Prescriptions Given: Medications to Continue Taking That Have Changed [facility] 1987, [address] [place], [place] [id number], [phone] START: brompheniramine/dextromethorph an/PSE (Bromfed DM oral syrup) 5 Milliliter By Mouth 4 times a day as needed for cough and congestion. Refills: 0. Other Medications START: brompheniramine/dextromethorph an/PSE (Bromfed DM oral syrup) 5 Milliliter By Mouth 4 times a day as needed for cold symptoms. Refills: 0. Medications to Continue with No Changes Other Medications brexpiprazole (Rexulti) By Mouth every day. calcium carbonate (Tums) ciprofloxacin (Cipro 500 mg Tab) 1 Tablets By Mouth 2 times a day. Take one tab by mouth twice a day for seven days. Refills: 0. ciprofloxacin (Cipro) PT UNSURE OF DOSE. diphenhydrAMINE (Benadryl 25 mg Cap) 1 -2 caps By Mouth 3 times a day as needed for itching. Refills: 0. hydrOXYzine (Vistaril) By Mouth 4 times a day. metoclopramide (metoclopramide 10 mg oral tablet, disintegrating) 1 Tablets By Mouth every 6 hours as needed 30. Refills: 0. ondansetron (Zofran ODT 4 mg Tab-Dis) 1 Tablets By Mouth every 6 hours as needed Nausea/Vomiting. Refills: 0. paroxetine By Mouth. PATIENT EDUCATION INFORMATION: Instructions: Viral Respiratory Infection Follow up: With: Address: When: [place] [address] Business (1) In 3 days DIAGNOSIS: 1:Viral illness Normal [facility] ED Note-Physicianon 07-18-19 ED Note-Physician Basic Information Time Seen: Riaz CARDONA Denise Beatrice 07/18/2023 18:03 Chief Complaint mom reports cough and congestion for one week. denies fevers History of Present Illness 22-year-old female presents to the ED complains of cough, congestion, throat pain. Symptoms ongoing for the last few days. Here with her child with similar symptoms. Concern for recent COVID exposure. No chest pain or shortness of breath. No abdominal pain, nausea, vomiting, diarrhea. Patient is otherwise healthy. Review of Systems All organ systems are reviewed. Pertinent positive and negative findings as mentioned in the HPI. Physical Exam Vitals & Measurements T: 37.3 ?C(Oral) HR: 106(Peripheral) RR: 16 BP: 110/76 SpO2: 96% HT: 150 cm WT: 60.0 kg BMI: 26.67 GENERAL APPEARANCE: Well developed, well nourished, alert and cooperative, and appears to be in no acute distress. HEAD: normocephalic, atraumatic EYES: PERRL, EOMI. Vision is grossly intact. EARS: External auditory canals clear, hearing grossly intact. NOSE: No nasal discharge. THROAT: Oral cavity and pharynx normal. Oral mucosa moist. No inflammation, swelling, exudate, or lesions. NECK: Neck supple, non-tender without lymphadenopathy, masses. CARDIAC: Normal heart sounds, no murmurs. Rhythm is regular. LUNGS: Clear to auscultation without rales, rhonchi, wheezing or diminished breath sounds. ABDOMEN: Positive bowel sounds. Soft, nondistended, nontender. No guarding or rebound. MUSCULOSKELETAL: Adequately aligned spine. ROM intact spine and extremities. No joint erythema or tenderness. spasm NEUROLOGICAL: CN grossly intact. Strength and sensation symmetric and intact throughout. SKIN: Skin normal color, texture and turgor with no lesions or eruptions. Assessment/Plan 1. Viral illness (B34.9: Viral infection, unspecified) Orders: brompheniramine/dextromethorph an/PSE, 5 mL, Oral, QID for cough and congestion, 200 mL, Refill(s) 0, [facility] 1986, 150, cm, 07/18/23 17:48:00 EST, Height/Length Dosing, 60, kg, 07/18/23 17:48:00 EST, Weight Dosing Group A Strep by PCR Rapid COVID Antigen ([facility]) Rapid Strep w/rfx 22-year-old female presents to the ED with complaints of cough, congestion, throat pain. In the ED patient is afebrile, vital signs are stable, no acute distress. Rapid COVID as well as rapid strep are negative. Results are discussed the patient at length. She is educated on supportive care. Discharged home with instructions to follow with PCP and is to return to the ED with any new or worsening symptoms. Patient voices understanding and is agreeable to plan. Disposition Plan Patient Discharge Condition improved, stable Discharge Disposition To home Discharge Prescription List Prescriptions Bromfed DM oral syrup, 5 mL, Oral, QID, PRN Follow-up With When Contact Information CATE LACEY In [address] [place] [id number] [facility] (1) Additional Instructions: Patient Education Viral Respiratory Infection Attestation Patient was treated and evaluated by the Physician Security Software Engineer. The attending physician was in the Emergency Department at all times and supervised care. The case was discussed with the attending physician and diagnostics were reviewed as needed. Problem List/Past Medical History Ongoing None Smoker Historical Anxiety Depression Mood disorder Procedure/Surgical History Appendectomy, uma removal. Medications Inpatient No active inpatient medications Home Benadryl 25 mg Cap, 1 -2 caps, Oral, TID, PRN Bromfed DM oral syrup, 5 mL, Oral, QID, PRN Bromfed DM oral syrup, 5 mL, Oral, QID, PRN Cipro, Not taking Cipro 500 mg Tab, 500 mg= 1 tab(s), Oral, BID metoclopramide 10 mg oral tablet, disintegrating, 10 mg= 1 tab(s), Oral, q6hr, PRN paroxetine, Oral Rexulti, Oral, Daily Tums, Not taking Vistaril, Oral, QID Zofran ODT 4 mg Tab-Dis, 4 mg= 1 tab(s), Oral, q6hr, PRN Allergies Keflex (shaking, Feeling of throat tightness) Rocephin (Throat tightness) cefTRIAXone (cough/flushing) shellfish (Itchy) Social History Alcohol - Denies Alcohol Use, 05/27/2018 Current, 04/11/2018 Employment/School Unemployed, 05/22/2018 Home/Environment Lives with Significant other. Living situation: Home/Independent. Alcohol abuse in household: No. Substance abuse in household: No. Smoker in household: Yes. Feels unsafe at home: No. Family/Friends available for support: Yes., 05/22/2018 Nutrition/Health Regular, Caffeine intake amount: 1-2 cans pop/coffee per day. Wants to lose weight: No., 05/22/2018 Substance Abuse - Denies Substance Abuse, 05/27/2018 Current, 04/11/2018 Tobacco - Denies Tobacco Use, 05/27/2018 Current vaping or e-cigarette use Smokeless Tobacco Use:. Vaping, 07/05/2023 Never (less than 100 in lifetime) Tobacco Use:., 06/11/2019 Household tobacco concerns: Yes., 10/24/2011 Family History Family history is negative Lab Resu (more content not included)... Normal [facility] Comment on above: Result Comment: Elec tronically Signed By: Denise Mello PA-C\.br\Date and Time Signed: 07/18/23 21:22 EST\.br\Electronically Co-Signed By: Vicente Castillo DO\.br\Date and Time Co-Signed: 07/18/23 23:58 EST ED Patient Education Noteon 07-18-2023 ED Patient Education Note Infectious Disease Viral Respiratory Infection A respiratory infection is an illness that affects part of the respiratory system, such as the lungs, nose, or throat. A respiratory infection that is caused by a virus is called a viral respiratory infection. Common types of viral respiratory infections include: ? A cold. ? The flu (influenza). ? A respiratory syncytial virus (RSV) infection. What are the causes? This condition is caused by a virus. The virus may spread through contact with droplets or direct contact with infected people or their mucus or secretions. The virus may spread from person to person (is contagious). What are the signs or symptoms? Symptoms of this condition include: ? A stuffy or runny nose. ? A sore throat or cough. ? Shortness of breath or difficulty breathing. ? Yellow or green mucus (sputum). Other symptoms may include: ? A fever. ? Sweating or chills. ? Fatigue. ? Achy muscles. ? A headache. How is this diagnosed? This condition may be diagnosed based on: ? Your symptoms. ? A physical exam. ? Testing of secretions from the nose or throat. ? Chest X-ray. How is this treated? This condition may be treated with medicines, such as: ? Antiviral medicine. This may shorten the length of time a person has symptoms. ? Expectorants. These make it easier to cough up mucus. ? Decongestant nasal sprays. ? Acetaminophen or NSAIDs, such as ibuprofen, to relieve fever and pain. Antibiotic medicines are not prescribed for viral infections.This is because antibiotics are designed to kill bacteria. They do not kill viruses. Follow these instructions at home: Managing pain and congestion ? Take gslc-qam-yvpzxdu and prescription medicines only as told by your health care provider. ? If you have a sore throat, gargle with a mixture of salt and water 3?4 times a day or as needed. To make salt water, completely dissolve ??1 tsp (3?6 g) of salt in 1 cup (237 mL) of warm water. ? Use nose drops made from salt water to ease congestion and soften raw skin around your nose. ? Take 2 tsp (10 mL) of honey at bedtime to lessen coughing at night. ? Do not give honey to children who are younger than 1 year. ? Drink enough fluid to keep your urine pale yellow. This helps prevent dehydration and helps loosen up mucus. General instructions ? Rest as much as possible. ? Do not drink alcohol. ? Do not use any products that contain nicotine or tobacco. These products include cigarettes, chewing tobacco, and vaping devices, such as e-cigarettes. If you need help quitting, ask your health care provider. ? Keep all follow-up visits. This is important. How is this prevented? ? Get an annual flu shot. You may get the flu shot in late summer, fall, or winter. Ask your health care provider when you should get your flu shot. ? Avoid spreading your infection to other people. If you are sick: ? Wash your hands with soap and water often, especially after you cough or sneeze. Wash for at least 20 seconds. If soap and water are not available, use alcohol-based hand recorder helper gravity prospecting. ? Cover your mouth when you cough. Cover your nose and mouth when you sneeze. ? Do not share cups or eating utensils. ? Clean commonly used objects often. Clean commonly touched surfaces. ? Stay home from work or school as told by your health care provider. ? Avoid contact with people who are sick during cold and flu season. This is generally fall and winter. Contact a health care provider if: ? Your symptoms last for 10 days or longer. ? Your symptoms get worse over time. ? You have severe sinus pain in your face or forehead. ? The glands in your jaw or neck become very swollen. ? You have shortness of breath. Get help right away if you: ? Feel pain or pressure in your chest. ? Have trouble breathing. ? Faint or feel like you will faint. ? Have severe and persistent vomiting. ? Feel confused or disoriented. These symptoms may represent a serious problem that is an emergency. Do not wait to see if the symptoms will go away. Get medical help right away. Call your local emergency services (911 in the [place] Do not drive yourself to the hospital. Summary ? A respiratory infection is an illness that affects part of the respiratory system, such as the lungs, nose, or throat. A respiratory infection that is caused by a virus is called a viral respiratory infection. ? Common types of viral respiratory infections include a cold, influenza, and respiratory syncytial virus (RSV) infection. ? Symptoms of this condition include a stuffy or runny nose, cough, fatigue, achy muscles, sore throat, and fevers or chills. ? Antibiotic medicines are not prescribed for viral infections. This is because antibiotics are designed to kill bacteria. They are not effective against viruses. This information is not intended to rep (more content not included)... Normal [facility] ED Patient Summaryon 024 ED Patient Summary (Inserted Image. Carly ble to display) [place] [id number] Patient Discharge Instructions Person Information Name: YUKO BRUNSON Age: 22 Years Arrival Date: 07/18/2023 17:38:38 Discharge Diagnosis: 1:Viral illness Primary Care Physician: CATE LACEY CNP Provider Information Primary Provider: Ivania Jay M.D. Advanced Grout Machine Operator:Denise Mello PA-C The exam and treatment you received in the Emergency Department were for an urgent problem and are not intended as complete care. It is important that you follow up with a doctor, nurse practitioner, or physician?s bilingual legal assistant for ongoing care. If your symptoms become worse or you do not improve as expected and you are unable to reach your usual health care provider, you should return to the Emergency Department. We are available 24 hours a day. YUKO BRUNSON has been given the following list of patient education materials, prescriptions and follow-up instructions: Follow-up Instructions: With: Address: When: [address] [place] [address] Business (1) In 3 days In the event that this physician does not participate in your insurance network, please consult with your insurance company to find a nearby participating provider. Patient Education Materials: Viral Respiratory Infection A MESSAGE TO ALL PATIENTS REGARDING OPIOIDS PRESCRIPTION OPIOIDS: WHAT YOU NEED TO KNOW Prescription opioids can be used to help relieve thoqkeiy-hx-ibxrtq pain and are often prescribed following a surgery or injury, or for certain health conditions. These medications can be an important part of the treatment but also come with serious risks. It is important to work with your healthcare provider to make sure you are getting the safest, most effective care. WHAT ARE THE RISKS AND SIDE EFFECTS OF OPIOID USE? Prescription opioids carry serious risks of addiction and overdose, especially with prolonged use. An opioid overdose, often marked by slowed breathing, can cause sudden . The use of prescription opioids can have a number of side effects as well, even when taken as directed: ? Tolerance?meaning you might need to take more of the medication for the same pain relief ? Physical dependence?meaning you have symptoms of withdrawal when a medication is stopped ? Increased sensitivity to pain ? Constipation ? Nausea, vomiting, and dry mouth ? Sleepiness and dizziness ? Confusion ? Depression ? Low levels of testosterone that can result in lower sex drive, energy, and strength ? Itching and sweating RISKS ARE GREATER WITH: ? History of drug misuse, substance use disorder, or overdose ? Mental health conditions (such as depression or anxiety) ? Sleep apnea ? Older age (65 years and older) ? Avoid alcohol while taking prescription opioids. Also, unless specifically advised by your health care provider, medications to avoid include: ? Benzodiazepines (such as Xanax or Valium) ? Muscle relaxants (such as Soma or Flexeril) ? Hypnotics (such as Ambien or Lunesta) ? Other prescription opioids KNOW YOUR OPTIONS Talk to your health care provider about ways to manage your pain that don?t involve prescription opioids. Some of these options may actually work better and have fewer risks and side effects. Options may include: ? Pain relievers such as acetaminophen, ibuprofen, and naproxen ? Some medication that are also used for depression or seizures ? Physical therapy and exercise ? Cognitive behavioral therapy, a psychological, goal-directed approach, in which patients learn how to modify physical, behavioral, and emotional triggers of pain and stress. IF YOU ARE PRESCRIBED OPIOIDS FOR PAIN: ? Never take opioids in greater amounts or more often than prescribed. ? Follow up with your primary health care provider. o Work together to create a plan on how to manage your pain. o Talk about ways to help manage your pain that don?t involve prescription opioids. o Talk about any and all concerns and side effects. ? Help prevent misuse and abuse o Never sell or share prescription opioids. o Never use another person?s prescription opioids. ? Store prescription opioids in a secure place and out of reach of others (this may include visitors, children, friends, and family). ? Safely dispose of unused prescription opioids: Find your community drug take-back program or your pharmacy mail-back program, or flush them down the toilet, following guidance from the Food and Drug Administration (www.fda.gov/Drugs/ResourcesFo rYou). ? Visit www.cdc.gov/drugoverdose to learn about the risks of opioids abuse and overdose. ? If you believe you may be struggling with addiction, tell your health lawn care specialist and ask for guidance or call [employer]?S National Helpline at 1-803-133-HELP. v Source (more content not included)... Normal [facility] MICRO OTHER TESTSOrdered By: Marcia Gates on 07-18-2023 S. pyogenes Ag IA.rapid Ql (Throat) Negative (07/18/23 7:30 PM) Normal Negative [facility] [place] [place] Man Sero MICRO OTHER TESTSOrdered By: Leona Piper on 07-18-2023 Rapid COV Int NEG Ctl Pass (07/18/23 5:50 PM) Normal [facility] [place] Man Sero Rapid COV Int POS Ctl Pass (07/18/23 5:50 PM) Normal [facility] [place] [place] Man Sero SARS-CoV+SARS-CoV-2 (COVID-19) Ag IA.rapid Ql (Resp) Not Detected 1 (07/18/23 5:50 PM) Normal Not Detected [facility] [place] [facility] Man Sero Comment on above: Interpretive Data: Lamont wilkerson [employer] System for Rapid Detection of SARS-CoV-2 is a chromatographic digital immunoassay intended for the direct and qualitative detection of SARS-CoV-2 nucleocapsid antigens in nasal swabs from individuals who are suspected of COVID-19 by their healthcare provider within the first five days of the onset of symptoms. Negative results should be treated as presumptive, do not rule out SARS-CoV-2 infection and should not be used as the sole basis for treatment or patient management decisions, including infection control decisions. Negative results should be considered in the context of a patient s recent exposures, history and the presence of clinical signs and symptoms consistent with COVID-19, and confirmed with a molecular assay, if necessary, for patient management. For in vitro diagnostic use. In the [place], only for use under an Emergency Use Authorization. In the [place], this test has not been FDA cleared or approved; this test has been authorized by FDA under an EUA for use by authorized laboratories; use by laboratories certified under the CLIA, 42 U.S.C. 263a, that meet requirements to perform moderate, high, or waived complexity tests and at the Point of Care (POC), i.e., in patient care settings operating under a CLIA Certificate of Waiver, Certificate of Compliance, or Certificate of Accreditation. This test has been authorized only for the detection of proteins from SARS-CoV-2, not for any other viruses or pathogens; and, in the [place], this test is only authorized for the duration of the declaration that circumstances exist justifying the authorization of emergency use of in vitro diagnostics for detection and/or diagnosis of the virus that causes COVID-19 under Section 564(b)(1) of the Act, 21 U.S.C. 360bbb-3(b)(1), unless the authorization is terminated or revoked sooner. Rapid COVID Antigen ([facility] [place] [place])on 07-18-2023 Rapid COV Int NEG Ctl Pass Normal [facility] Comment on above: Performed By: #### 2 [id number] #### [facility] [address] [place] [address] Rapid COV Int POS Ctl Pass Normal [facility] Comment on above: Performed By: #### 2 [id number] #### [facility] [address] [place] [address] SARS-CoV+SARS-CoV-2 (COVID-19) Ag IA.rapid Ql (Resp) Not detected Normal Not Detected [facility] Comment on above: Result Comment: The [employer] System for Rapid Detection of SARS-CoV-2 is a chromatographic digital immunoassay intended for the direct and qualitative detection of SARS-CoV-2 nucleocapsid antigens in nasal swabs from individuals who are suspected of COVID-19 by their healthcare provider within the first five days of the onset of symptoms. Negative results should be treated as presumptive, do not rule out SARS-CoV-2 infection and should not be used as the sole basis for treatment or patient management decisions, including infection control decisions. Negative results should be considered in the context of a patient?s recent exposures, history and the presence of clinical signs and symptoms consistent with COVID-19, and confirmed with a molecular assay, if necessary, for patient management. For in vitro diagnostic use. In the [facility], only for use under an Emergency Use Authorization. In the [place], this test has not been FDA cleared or approved; this test has been authorized by FDA under an EUA for use by authorized laboratories; use by laboratories certified under the CLIA, 42 U.S.C. ?263a, that meet requirements to perform moderate, high, or waived complexity tests and at the Point of Care (POC), i.e., in patient care settings operating under a CLIA Certificate of Waiver, Certificate of Compliance, or Certificate of Accreditation. This test has been authorized only for the detection of proteins from SARS-CoV-2, not for any other viruses or pathogens; and, in the [place], this test is only authorized for the duration of the declaration that circumstances exist justifying the authorization of emergency use of in vitro diagnostics for detection and/or diagnosis of the virus that causes COVID-19 under Section 564(b)(1) of the Act, 21 U.S.C. ? 360bbb-3(b)(1), unless the authorization is terminated or revoked sooner. Performed By: #### 2 [id number] #### [facility] [address] [place] [address] Rapid Strep w/rfxon 07-18-19 24 S. pyogenes Ag IA.rapid Ql (Throat) Negative Normal Negative [facility] Comment on above: Performed By: #### 1 [id number] #### [facility] [address] [place] [address] Holter Monitoron 07-16-2023 Holter Monitor 48 HOUR HOLTER MONIT OR ORDERING: LOU Anders INTERPRETING: Garcia Hogan M.D. INDICATIONS: Syncope. DATE OF SERVICE: 07/07/2023 to 07/09/2023 RESULTS: The predominant rhythm throughout the study was normal sinus rhythm at a minimum heart rate of 54 beats per minute and a maximum of 143 beats per minute. The patient had 3 triggered events, all of which corresponded to either normal sinus rhythm or sinus tachycardia. The patient had no evidence of atrial fibrillation. Ventricular ectopy: The patient had a total of 6 isolated premature ventricular contractions noted. Supraventricular ectopy: The patient had a total of 6 isolated premature atrial contractions. The patient had no evidence of supraventricular tachycardia, atrial flutter, atrial fibrillation, ventricular tachycardia or pauses noted. CONCLUSIONS: 1. Unremarkable 48 hour Holter monitor. The patient had rare premature atrial contractions and premature ventricular contractions noted. 2. The patient had no evidence of atrial flutter, supraventricular tachycardia, atrial fibrillation, or ventricular tachycardia. 3. Recommend clinical correlation or alternative mode of testing if clinically indicated. READ BY: Garcia Hogan M.D. lr Dictated: 07/16/2023 [id number] Transcribed: 07/16/2023 cc:LOU Anders Normal [facility] Comment on above: Result Comment: Elec tronically Signed By: SAMIRA GTZ, Garcia Diamond\.br\Date and Time Signed: 07/16/23 12:57 EST Consent for Treatmenton 06-12 Consent for Treatment [id number] Normal [facility] Consent for Treatmenton 06-12 Consent for Treatment [id number] Normal [facility] Discharge Instructionson Discharge Instructions [id number] Normal [facility] ED Clinical Summaryon 2022 ED Clinical Summary (Inserted Image. Carly ble to display) [place] [id number] ED Clinical Summary Person Information Name: YUKO BRUNSON Chana/[facility] Age: 22 Years : 2000 Sex: Female Language: Australian PCP: CATE LACEY CNP Marital Status: Phone: [phone] Visit Id: Visit Reason: Altered mental status; Unintentional ingestion - overdose; AMS, VOMITING Speciality: Acuity: 3 Enc Type: Emergency Med Service: Emergency Arrival: 07/05/2023 20:59:36 Discharge: 07/05/2023 22:37:29 LOS: 000 01:38 Checkin: 07/05/2023 20:59:36 Checkout: 07/05/2023 22:37:29 Dispo Type: Home (Routine DC) EVENTS: Event Name Event Status Request Date/Time Start Date/Time Complete Date/Time Arrive Complete 07/05/2023 20:59:36 07/05/2023 20:59:36 07/05/2023 20:59:36 Document Home Meds Request 07/05/2023 20:59:36 Triage Complete 07/05/2023 20:59:36 07/05/2023 21:35:20 07/05/2023 21:35:20 Registration Complete 07/05/2023 21:05:16 07/05/2023 21:05:16 07/05/2023 21:05:16 Reg Complete Request 07/05/2023 21:05:16 Reg Bed Request Complete 07/05/2023 21:05:16 07/05/2023 21:05:16 07/05/2023 21:05:16 EKG Complete 07/05/2023 21:33:33 07/05/2023 21:57:41 Bed Assign Complete 07/05/2023 21:37:39 07/05/2023 21:37:39 07/05/2023 21:37:39 Dr Exam Complete 07/05/2023 21:37:39 07/05/2023 21:47:46 07/05/2023 21:47:46 RN Exam Complete 07/05/2023 21:37:39 07/05/2023 21:59:08 07/05/2023 21:59:08 Registration Request 07/05/2023 21:47:46 Pending Labs Cancel 07/05/2023 21:49:54 07/05/2023 22:06:29 Lab Cancel 07/05/2023 21:49:54 07/05/2023 22:06:29 Urine Collect Cancel 07/05/2023 21:49:54 07/05/2023 22:06:29 Meds Admin Cancel 07/05/2023 21:49:54 07/05/2023 22:06:48 Patient Care Cancel 07/05/2023 21:49:54 07/05/2023 22:06:48 Discharge Complete 07/05/2023 22:29:31 07/05/2023 22:37:36 07/05/2023 22:37:36 Transfer Complete 07/05/2023 22:37:36 07/05/2023 22:37:36 07/05/2023 22:37:36 ADDRESS: [address] [place] [address] [address] [facility] [id number] [facility] DOC NOTES: MEDICAL INFORMATION: Prescriptions Given: Medications to Continue with No Changes Other Medications brexpiprazole (Rexulti) By Mouth every day. brompheniramine/dextromethorph an/PSE (Bromfed DM oral syrup) 5 Milliliter By Mouth 4 times a day as needed for cold symptoms. Refills: 0. calcium carbonate (Tums) ciprofloxacin (Cipro 500 mg Tab) 1 Tablets By Mouth 2 times a day. Take one tab by mouth twice a day for seven days. Refills: 0. ciprofloxacin (Cipro) PT UNSURE OF DOSE. diphenhydrAMINE (Benadryl 25 mg Cap) 1 -2 caps By Mouth 3 times a day as needed for itching. Refills: 0. hydrOXYzine (Vistaril) By Mouth 4 times a day. metoclopramide (metoclopramide 10 mg oral tablet, disintegrating) 1 Tablets By Mouth every 6 hours as needed 30. Refills: 0. ondansetron (Zofran ODT 4 mg Tab-Dis) 1 Tablets By Mouth every 6 hours as needed Nausea/Vomiting. Refills: 0. paroxetine By Mouth. PATIENT EDUCATION INFORMATION: Instructions: Accidental Drug Poisoning, Adult Follow up: With: Address: When: [address], [place] [address] Business (1) In 3 days DIAGNOSIS: Accidental drug ingestion Normal [facility] ED Note-Physicianon 07-05-20 ED Note-Physician Basic Information Time Seen: Vicente Castillo DO 07/05/2023 21:47 Chief Complaint pt. states she drank THC hot chocolate at approx. 1700 tonight with multiple episodes of vomiting tonight. pts. significant other states she was hallucinating earlier. pt. also c/o nausea. History of Present Illness HPI: Patient is a 22-year-old female with past medical history of anxiety and depression who presents the ED for altered mental status. She had been over at a friend's house playing cards when at about 1700 she drank hot chocolate. Afterwards the friend started giggling and inform her that it was THC hot chocolate. She started to not feel well so the left and she started having some nausea and multiple episodes of nonbloody emesis. They state that when she got home she was talking to herself in the shower and seemed very out of it and did not want to do anything. They finally convinced her to come to the ED to get checked out. She had been feeling well earlier today and denies any coingestions. Family in the room states that she is acting much more normally now and seems to be almost back to baseline. ROS: Pertinent review of systems conducted and is negative except as noted above. Physical exam: General: nontoxic appearing and in no distress HEENT: Mucous membranes moist Neuro: awake and alert Neck: supple, trachea midline Card: Heart regular rate and rhythm no murmur Resp: Lungs clear to auscultation no wheeze or rhonchi Abd: Soft and nondistended. No tenderness to palpation with no rebound or guarding. Ext: No gross deformity or edema Physical Exam Vitals & Measurements T: 36.6 ?C(Oral) HR: 103(Peripheral) RR: 18 BP: 107/74 SpO2: 99% HT: 150 cm WT: 59 kg BMI: 26.22 Medical Decision Making MEDICAL DECISION MAKING Number and Complexity of Problems Differential Diagnosis: [] [facility] Data External documents reviewed: N/A My EKG interpretation: Noted in chart if applicable My CT interpretation: N/A My X-ray interpretation: Noted in chart if applicable My Ultrasound interpretation: N/A Decision rules/scores evaluated: N/A Discussed with: N/A Treatment and Disposition ED Course: Patient is nontoxic-appearing and in no distress. She had confusion and altered mental status after drinking THC infused chocolate. They state that they were very concerned because of how abnormally she was acting but states that over the past 45 minutes she is come back to almost complete baseline. She states that her nausea is significantly improved and she has not vomited in some time. She would prefer not to do any blood work and just try to see if she can take oral fluids. Patient was able to tolerate oral fluids without any further nausea or vomiting. At this time the family feels comfortable discharging the patient and monitoring her at home. They will follow-up with her primary care provider. Shared decision making: As above Code status: N/A Assessment/Plan Accidental drug ingestion (T50.901A: Poisoning by unspecified drugs, medicaments and biological substances, accidental (unintentional), initial encounter) Disposition Plan Discharge Prescription List Prescriptions No active prescription medications Follow-up With When Contact Information CATE LACEY In 3 days [address] [place] [address]- Business (1) Additional Instructions: Patient Education Accidental Drug Poisoning, Adult Problem List/Past Medical History Ongoing None Smoker Historical Anxiety Depression Mood disorder Procedure/Surgical History Appendectomy, uma removal. Medications Inpatient No active inpatient medications Home Benadryl 25 mg Cap, 1 -2 caps, Oral, TID, PRN Bromfed DM oral syrup, 5 mL, Oral, QID, PRN Cipro, Not taking Cipro 500 mg Tab, 500 mg= 1 tab(s), Oral, BID metoclopramide 10 mg oral tablet, disintegrating, 10 mg= 1 tab(s), Oral, q6hr, PRN paroxetine, Oral Rexulti, Oral, Daily Tums, Not taking Vistaril, Oral, QID Zofran ODT 4 mg Tab-Dis, 4 mg= 1 tab(s), Oral, q6hr, PRN Allergies Keflex (shaking, Feeling of throat tightness) Rocephin (Throat tightness) cefTRIAXone (cough/flushing) shellfish (Itchy) Social History Alcohol - Denies Alcohol Use, 05/27/2018 Current, 04/11/2018 Employment/School Unemployed, 05/22/2018 Home/Environment Lives with Significant other. Living situation: Home/Independent. Alcohol abuse in household: No. Substance abuse in household: No. Smoker in household: Yes. Feels unsafe at home: No. Family/Friends available for support: Yes., 05/22/2018 Nutrition/Health Regular, Caffeine intake amount: 1-2 cans pop/coffee per day. Wants to lose weight: No., 05/22/2018 Substance Abuse - Denies Substance Abuse, 05/27/2018 Current, 04/11/2018 Tobacco - Denies Tobacco Use, 05/27/2018 Current vaping or e-cigarette use Smokeless Tobacco Use:. Vaping, 07/05/2023 Never (less than 100 in lifetime) Tobacco Use: (more content not included)... Normal [facility] Comment on above: Result Comment: Elec tronically Signed By: Vicente Castillo DO\.br\Date and Time Signed: 07/05/23 22:30 EST ED Patient Education Noteon 07-05-2023 ED Patient Education Note Pharmacology Accidental Drug Poisoning, Adult Accidental drug poisoning happens when a person accidentally takes too much of a substance, such as a prescription medicine, an isho-jth-dmlndib medicine, a vitamin, a supplement, or an illegal drug. The effects of drug poisoning can be mild, dangerous, or even deadly. What are the causes? This condition is caused by taking too much of a medicine, illegal drug, or other substance. It often results from: ? Lack of knowledge about a substance. ? Using more than one substance at the same time. ? An error made by the health care provider during prescribing or dispensing of the drug. ? A lapse in memory, such as forgetting that you have already taken a dose of the medicine. ? Suddenly using a substance after a long period of not using it. The following substances and medicines are more likely to cause an accidental drug poisoning: ? Medicines that treat mental health conditions (psychotropic medicines). ? Pain medicines. ? Cocaine. ? Heroin. ? Multivitamins that contain iron. ? Wfia-cpu-bqpzmrl cold and cough medicines. What increases the risk? This condition is more likely to occur in: ? Aging adults. Aging adults are at risk because they may: ? Be taking many different medicines. ? Have difficulty reading labels. ? Forget when they last took their medicine. ? People who use illegal drugs. ? People who drink alcohol while using illegal drugs or certain medicines. ? People with certain mental health conditions. What are the signs or symptoms? Symptoms of this condition depend on the substance and the amount that was taken. Common symptoms include: ? Behavior changes, such as confusion. ? Sleepiness. ? Weakness. ? Slowed breathing. ? Nausea and vomiting. ? Seizures. ? Very large or small eye pupil size that does not change in response to changes in light. A drug poisoning can cause a very serious condition in which your blood pressure drops to a low level (shock). Symptoms of shock include: ? Cold, clammy, or pale skin. ? Blue lips. ? Very slow breathing. ? Extreme sleepiness. ? Severe confusion. ? Dizziness or fainting. How is this diagnosed? This condition is diagnosed based on: ? Your symptoms. You will be asked about the substances you took and when you took them. ? A physical exam. You may also have tests, including: ? Urine tests. ? Blood tests. ? An electrocardiogram (ECG). How is this treated? This condition may need to be treated right away at the hospital. Treatment may involve: ? Getting fluids and electrolytes through an IV. Electrolytes are salts and minerals in the blood. ? Having a breathing tube inserted in your airway (endotracheal tube) to help you breathe. ? Taking or receiving medicines. These may include medicines that: ? Absorb any substance that is in your digestive system. ? Block or reverse the effect of the substance that caused the drug poisoning. ? Having your blood filtered through an artificial kidney machine (hemodialysis). ? Ongoing counseling and mental health support. This may be provided if you used an illegal drug. Follow these instructions at home: Medicines ? Take gzoi-tos-skvcgbi and prescription medicines only as told by your health care provider. ? Before taking a new medicine, ask your health care provider whether the medicine: ? May cause side effects. ? Might react with other medicines. ? Keep a list of all the medicines that you take, including tmic-bvw-ifjofpb medicines, vitamins, supplements, and herbs. Bring this list with you to all of your medical visits. General instructions ? Drink enough fluid to keep your urine pale yellow. ? If you are working with a counselor or mental health professional, make sure to follow instructions given. ? Do not drink alcohol if: ? Your health care provider tells you not to drink. ? You are , may be , or are planning to become . ? If you drink alcohol: ? Limit how much you have to: ? 0?1 drink a day for women. ? 0?2 drinks a day for men. ? Know how much alcohol is in your drink. In the [place] one drink equals one 12 oz bottle of beer (355 mL), one 5 oz glass of wine (148 mL), or one 1? oz glass of hard liquor (44 mL). ? Keep all follow-up visits. This is important. How is this prevented? ? Get help if you are struggling with: ? Alcohol or drug use. ? Depression or another mental health condition. ? Keep the phone number of your local poison control center near your phone or on your mobile phone. The hotline of the [place] [employer] Poison Control Centers is . ? Read the drug inserts that come with your medicines. ? Create a system for taking your medicine, such as a pillbox, that will help you avoid taking too much of the medicine. ? Do not drink alcohol while taking (more content not included)... Normal [facility] ED Patient Summaryon 023 ED Patient Summary (Inserted Image. Carly ble to display) [address] [address] Patient Discharge Instructions Person Information Name: YUKO BRUNSON Age: 22 Years Arrival Date: 07/05/2023 20:59:36 Discharge Diagnosis: Accidental drug ingestion Primary Care Physician: CATE LACEY CNP Provider Information Primary Provider: Vicente Castillo DO Advanced Grout Machine Operator:None The exam and treatment you received in the Emergency Department were for an urgent problem and are not intended as complete care. It is important that you follow up with a doctor, nurse practitioner, or physician?s bilingual legal assistant for ongoing care. If your symptoms become worse or you do not improve as expected and you are unable to reach your usual health care provider, you should return to the Emergency Department. We are available 24 hours a day. YUKO BRUNSON has been given the following list of patient education materials, prescriptions and follow-up instructions: Follow-up Instructions: With: Address: When: CATE LACEY [address] [place], [place] [address] [phone] Business (1) In 3 days In the event that this physician does not participate in your insurance network, please consult with your insurance company to find a nearby participating provider. Patient Education Materials: Accidental Drug Poisoning, Adult A MESSAGE TO ALL PATIENTS REGARDING OPIOIDS PRESCRIPTION OPIOIDS: WHAT YOU NEED TO KNOW Prescription opioids can be used to help relieve kghttxkq-yf-xbmipr pain and are often prescribed following a surgery or injury, or for certain health conditions. These medications can be an important part of the treatment but also come with serious risks. It is important to work with your healthcare provider to make sure you are getting the safest, most effective care. WHAT ARE THE RISKS AND SIDE EFFECTS OF OPIOID USE? Prescription opioids carry serious risks of addiction and overdose, especially with prolonged use. An opioid overdose, often marked by slowed breathing, can cause sudden . The use of prescription opioids can have a number of side effects as well, even when taken as directed: ? Tolerance?meaning you might need to take more of the medication for the same pain relief ? Physical dependence?meaning you have symptoms of withdrawal when a medication is stopped ? Increased sensitivity to pain ? Constipation ? Nausea, vomiting, and dry mouth ? Sleepiness and dizziness ? Confusion ? Depression ? Low levels of testosterone that can result in lower sex drive, energy, and strength ? Itching and sweating RISKS ARE GREATER WITH: ? History of drug misuse, substance use disorder, or overdose ? Mental health conditions (such as depression or anxiety) ? Sleep apnea ? Older age (65 years and older) ? Avoid alcohol while taking prescription opioids. Also, unless specifically advised by your health care provider, medications to avoid include: ? Benzodiazepines (such as Xanax or Valium) ? Muscle relaxants (such as Soma or Flexeril) ? Hypnotics (such as Ambien or Lunesta) ? Other prescription opioids KNOW YOUR OPTIONS Talk to your health care provider about ways to manage your pain that don?t involve prescription opioids. Some of these options may actually work better and have fewer risks and side effects. Options may include: ? Pain relievers such as acetaminophen, ibuprofen, and naproxen ? Some medication that are also used for depression or seizures ? Physical therapy and exercise ? Cognitive behavioral therapy, a psychological, goal-directed approach, in which patients learn how to modify physical, behavioral, and emotional triggers of pain and stress. IF YOU ARE PRESCRIBED OPIOIDS FOR PAIN: ? Never take opioids in greater amounts or more often than prescribed. ? Follow up with your primary health care provider. o Work together to create a plan on how to manage your pain. o Talk about ways to help manage your pain that don?t involve prescription opioids. o Talk about any and all concerns and side effects. ? Help prevent misuse and abuse o Never sell or share prescription opioids. o Never use another person?s prescription opioids. ? Store prescription opioids in a secure place and out of reach of others (this may include visitors, children, friends, and family). ? Safely dispose of unused prescription opioids: Find your community drug take-back program or your pharmacy mail-back program, or flush them down the toilet, following guidance from the Food and Drug Administration (www.fda.gov/Drugs/ResourcesFo rYou). ? Visit www.cdc.gov/drugoverdose to learn about the risks of opioids abuse and overdose. ? If you believe you may be struggling with addiction, tell your health lawn care specialist and ask for guidance or call SAMHSA?S National Helpline at 8-712-525-NLPT. v Source: (more content not included)... Normal [facility] Physician Orderon 06-23-2023 Physician Order [id number] Normal [facility] XR Hand 3+ Views Righton XR Hand 3+ Views Right Exam Date/Time: 06/09/2023 14:43 EST Reason for Exam: M79.641 Report IMPRESSION: NEGATIVE RIGHT HAND. CLINICAL HISTORY: M79.641. Pain, entire hand, for one year. No known injury. COMPARISONS: NONE AVAILABLE FINDINGS: AP, lateral and oblique views of the right hand demonstrate no evidence of fracture, dislocation, bone or joint abnormality. Ordering Provider: , FINAL REPORT Dictated: 06/11/2023 9:27 am Kristian Preciado MD Signed (Electronic Signature): 06/11/2023 9:27 am Signed by: Kristian Preciado MD Transcribed by: DP Technologist: RICKIE Technical Comments Radiation Dose: Ka,r in mGy = na DAP = na Normal [facility] Consent for Treatmenton 05-13 Consent for Treatment [id number] Normal [facility] Physician Orderon 06-09-2023 Physician Order [id number] Normal [facility] HEP B SURFACE ANTIGEN SCREEN on 09-25-2022 HBsAg Screen Negative Normal Negative [facility] Comment on above: Performed By: #### T NS #### [facility] [address] [address] [address] Amber Paul HEPATITIS C VIRUS AB W/ REFL EX QUANTon 09-25-2022 HCV AB Non-Reactive Normal Non Reactive [facility] Comment on above: Performed By: #### H CVPCRR #### [facility] [address] [address] [address] Amber Paul Interpretation: Comment Normal [facility] Comment on above: Result Comment: Not infected with HCV unless early or acute infection is suspected (which may be delayed in an immunocompromised individual), or other evidence exists to indicate HCV infection. Performed By: #### H CVPCRR #### [facility] [address] [place] [address] Dr. Amber Paul HIV 1 AND 2 WITH REFLEXon HIV Screen 4th Generation wRfx Non-Reactive Normal Non Reactive [facility] Comment on above: Result Comment: HIV Negative HIV-1/HIV-2 antibodies and HIV-1 p24 antigen were NOT detected. There is no laboratory evidence of HIV infection. Performed By: #### H IV12 #### [facility] [address] [place] [address] Dr. Amber Paul RPR QUANTon 09-25-2022 Rapid Plasma Reagin, Quant Non-Reactive Normal NonRea<1:1 [facility] Comment on above: Result Comment: Plea se Note: This test does not meet current guidelines for screening and diagnosis of syphilis. This test is intended for following treatment response in patients being treated for syphilis infection. To screen for syphilis infection, a reflex cascade that includes both RPR and a treponema-specific assay should be utilized, such as Treponema pallidum (Syphilis) Screening [place] (876611) or Rapid Plasma Reagin (RPR) Test With Reflex to Quantitative RPR and Confirmatory Treponema pallidum Antibodies (253261). Performed By: #### R PRQ #### [facility] [address] [place] [address] Dr. Amber Paul RUBELLA AB IGGon 09-25-2022 Rubella Antibodies, IgG 1.00 index Normal Immune >0.99 [facility] Comment on above: Result Comment: Non- immune <0.90 Equivocal 0.90 - 0.99 Immune >0.99 Performed By: #### R UBIGG #### [facility] [address] [place] [address] Dr. Amber Paul BOX TEST SENT OUTon 09-25-19 23 SENT TO REF LAB 09/24/2022 Normal [facility] Comment on above: Performed By: #### B OX #### [facility] [address] [place] [address] Dr. Amber Paul CBC AUTO DIFFon 09-24-2022 BASO # 0.0 103/ul Normal 0.0-0.1 [facility] Comment on above: Performed By: #### C BC #### [facility] [address] [place] [address] Dr. Amber Paul Basophils/100 WBC (Bld) 0.5 % Normal 0.2-2.0 [facility] Comment on above: Performed By: #### C BC #### [facility] [address] [place] [address] Dr. Amber Paul EO # 0.1 103/ul Normal 0.0-0.7 [facility] Comment on above: Performed By: #### C BC #### [facility] [address] [place] [address] Dr. Amber Paul Eosinophils/100 WBC (Bld) 2.1 % Normal 0.9-7.0 [facility] Comment on above: Performed By: #### C BC #### [facility] [address] [place] [address] Dr. Amber Paul Erythrocyte distribution width (RBC) [Ratio] 12.1 % Normal 11.0-15.0 [facility] Comment on above: Performed By: #### C BC #### [facility] [address] [place] [address] Dr. Amber Paul Hematocrit (Bld) [Volume fraction] 34.8 % Critically low 36.0-48.0 [facility] Comment on above: Performed By: #### C BC #### [facility] [address] [place] [address] Dr. Amber Paul Hemoglobin (Bld) [Mass/Vol] 12.2 g/dL Normal 12.0-16.0 [facility] Comment on above: Performed By: #### C BC #### [facility] [address] [place] [address] Dr. Amber Paul IG # 0.01 10e3/ul Normal 0.00-0.03 [facility] Comment on above: Performed By: #### C BC #### [facility] [address] [place] [address] Dr. Amber Paul IG % 0.2 % Normal 0.0-0.5 [facility] Comment on above: Performed By: #### C BC #### [facility] [address] [place] [address] Dr. Amber Paul LYMPH # 1.5 103/ul Normal 1.2-3.8 [facility] Comment on above: Performed By: #### C BC #### [facility] [address] [place] [address] Dr. Amber Paul Lymphocytes/100 WBC (Bld) 22.9 % Normal 20.5-60.0 [facility] Comment on above: Performed By: #### C BC #### [facility] [address] [place] [address] Dr. Amber Paul MANUAL DIFF REQ NO Normal [facility] Comment on above: Performed By: #### C BC #### [facility] [address] [place] [address] Dr. Amber Paul MCH (RBC) [Entitic mass] 29.8 pg Normal 26.7-34.0 [facility] Comment on above: Performed By: #### C BC #### [facility] [address] [place] [address] Dr. Amber Paul MCHC (RBC) [Mass/Vol] 35.1 g/dL Normal 29.9-35.2 [facility] Comment on above: Performed By: #### C BC #### [facility] [address] [place] [address] Dr. Amber Paul MCV (RBC) [Entitic vol] 84.9 fL Normal 81.0-99.0 [facility] Comment on above: Performed By: #### C BC #### [facility] [address] [place] [address] Dr. Amber Paul MONO # 0.3 103/ul Normal 0.3-0.8 [facility] Comment on above: Performed By: #### C BC #### [facility] [address] [place] [address] Dr. Amber Paul Monocytes/100 WBC (Bld) 4.6 % Normal 1.7-12.0 [facility] Comment on above: Performed By: #### C BC #### [facility] [address] [address] [address] Amber Paul NEUT # 4.6 103/ul Normal 1.4-6.5 [facility] Comment on above: Performed By: #### C BC #### [facility] [address] [place] [address] Dr. Amber Paul Neutrophils/100 WBC (Bld) 69.7 % Normal 43.0-75.0 [facility] Comment on above: Performed By: #### C BC #### [facility] [address] [place] [address] Dr. Amber Paul Platelet mean volume (Bld) [Entitic vol] 10.9 fL Normal 9.5-13.5 [facility] Comment on above: Performed By: #### C BC #### [facility] [address] [place] [address] Dr. Amber Paul PLT 243 103/ul Normal 150-450 [facility] Comment on above: Performed By: #### C BC #### [facility] [address] [place] [address] Dr. Amber Paul RBC 4.10 106/ul Critically low 4.20-5.40 [facility] Comment on above: Performed By: #### C BC #### [facility] [address] [place] [address] Dr. Amber Paul WBC 6.6 103/ul Normal 4.0-11.0 [facility] Comment on above: Performed By: #### C BC #### [facility] [address] [place] [address] Dr. Amber Paul CULTURE URINEon 09-24-2022 CULTURE URINE Culture Observations : LIGHT GROWTH OF MIXED GENITAL DEBBIE. NO POTENTIAL PATHOGENS SEEN. Normal [facility] Comment on above: Performed By: #### U RCX #### [facility] [address] [place] [address] Dr. Amber Paul GLYCOHEMOGLOBIN A1Con 2022 ADA RECOMMENDATION SEE BELOW Normal [facility] Comment on above: Result Comment: ADA RECOMMENDED LIMIT 4.0 - 6.0 ADA THERAPEUTIC TARGET < 7.0 ACTION SUGGESTED > 7.0 Performed By: #### A 1C #### [facility] [address] [place] [address] Dr. Amber Paul Glucose [Mass/Vol] 85 mg/dL Normal [facility] Comment on above: Performed By: #### A 1C #### [facility] [address] [place] [address] Dr. Amber Paul HbA1c (Bld) [Mass fraction] 4.6 % Normal 4.5-6.2 [facility] Comment on above: Performed By: #### A 1C #### [facility] [address] [place] [address] Dr. Amber Paul TSHon 09-24-2022 TSH 1.581 uIU/mL Normal 0.358-3.74 0 [facility] Comment on above: Performed By: #### T SH #### [facility] [address] [place] [address] Dr. Amber Paul TYPE AND SCREENon 09-24-2022 TYPE AND SCREEN Negative Normal [facility] Comment on above: Performed By: #### T NS #### [facility] [address] [place] [address] Dr. Amber Paul US PREG TVon 09-24-2022 US PREG TV EXAMINATION: US PREG TV HISTORY: Missed period COMPARISON: No relevant comparison available. FINDINGS: GESTATIONAL SAC: Present and normal appearing. YOLK SAC: Present and normal appearing. POLE: Present and normal appearing. CARDIAC: Present. UTERUS: Normal size and appearance. OVARIES: Right: Not seen. Left: Not seen. CERVIX: 4.2 cm in length and closed. CUL-DE-SAC: Normal. OTHER: None. AGE BY LMP: 9 weeks 5 days DHARMESH BY LMP: 04/24/2023 AGE BY US CRL: 10 weeks 1 day DHARMESH BY US CRL: 04/21/2023 IMPRESSION: 1. Single live intrauterine . Electronically authenticated by: ADRIANE TAPIA Date: 2022-09-24 16:39 Normal [facility] CHEMISTRYOrdered By: [employer] SYSTEM on 03-05-2023 Anion gap [Moles/Vol] 12 mmol/L Normal 6 - 16 mEq/L [facility] Calcium [Mass/Vol] 9.0 mg/dL Normal 8.9 - 11. 1 mg/dL [facility] Chloride [Moles/Vol] 105 mmol/L Normal 101 - 111 mmol/L [facility] CO2 [Moles/Vol] 21 mmol/L Normal 21 - 31 mmol/L [facility] Creatinine [Mass/Vol] 0.4 mg/dL Low 0.5 - 1.3 mg/dL [facility] GFR/1.73 sq M.predicted among blacks MDRD (S/P/Bld) [Vol rate/Area] mL/min/1.73 m2 Normal >=59mL/min /1.73 m2 [facility] Chem S GFR/1.73 sq M.predicted among non-blacks MDRD (S/P/Bld) [Vol rate/Area] mL/min/1.73 m2 Normal >=59mL/min /1.73 m2 [facility] Chem S Glucose [Mass/Vol] 81 mg/dL Normal 55 - 199 mg/dL [facility] Magnesium [Mass/Vol] 1.8 mg/dL Normal 1.3 - 2.4 mg/dL [facility] Potassium [Moles/Vol] 4.1 mmol/L Normal 3.5 - 5.3 mmol/L [facility] Sodium [Moles/Vol] 134 mmol/L Low 135 - 145 mmol/L [facility] Urea nitrogen [Mass/Vol] 8 mg/dL Normal 5 - 21 mg/dL [facility] Urea nitrogen/Creatinine [Mass ratio] 20 mg/mg Normal 10 - 20 [facility] URINALYSISOrdered By: Tristan Rosado on 09-13-2022 Bacteria LM Ql (Urine sed) 1+ /HPF Invalid Interpretation Code Trace/HPF [facility] UA Auto SS Bilirubin Ql (U) Negative (09/13/22 3:30 PM) Normal Negative [facility] Auto SS Clarity (U) SL CLOUDY Invalid Interpretation Code [facility]A Auto SS Color (U) Yellow (09/13/22 3:30 PM) Normal Yellow [facility]A Auto SS Epithelial cells.squamous LM.HPF (Urine sed) [#/Area] /[HPF] Normal 0-2/HPF [facility]A Auto SS Glucose Test strip (U) [Mass/Vol] Negative (09/13/22 3:30 PM) Normal Negative [facility] UA Auto SS Hemoglobin Ql (U) Negative (09/13/22 3:30 PM) Normal Negative [facility] UA Auto SS Ketones (U) [Mass/Vol] 2+ *ABN* (09/13/22 3:30 PM) Invalid Interpretation Code Negative [facility] UA Auto SS [place].plasma/Lith ium.RBC (Bld) [Mass ratio] 4-20 /HPF Normal 0-3/HPF [facility] UA Auto SS Mucus Ql (Urine sed) 1+ (09/13/22 3:30 PM) Normal [facility]A Auto SS Nitrite Ql (U) Negative (09/13/22 3:30 PM) Normal Negative [facility] UA Auto SS pH (U) 7.0 *NA* (09/13/22 3:30 PM) Invalid Interpretation Code 5.0 - 9.0 [facility] UA Auto SS Protein (U) [Mass/Vol] Negative (09/13/22 3:30 PM) Normal Negative [facility] UA Auto SS Specific gravity (U) [Rel density] 1.025 *NA* (09/13/22 3:30 PM) Invalid Interpretation Code 1.005 - 1.030 [facility] UA Auto SS UA Spec Desc Clean Catch (09/13/22 3:30 PM) Normal [facility] UA Auto SS Urobilinogen Qn (U) 0.5527025 {[place]'U}/dL Normal 0.0 - 1.0 EU/dL [facility] UA Auto SS WBC Auto Ql (U) 2+ *ABN* (09/13/22 3:30 PM) Invalid Interpretation Code Negative [facility] UA Auto SS WBC LM.HPF (Urine sed) [#/Area] 16-25 /HPF Invalid Interpretation Code 0-5/HPF [facility] [place] UA Auto SS BLOOD BANKOrdered By: Kaykay Oneill on 08-29-2022 ABO/Rh Interp Positive Invalid Interpretation Code [facility] BB Subsection CHEMISTRYOrdered By: SYSTEM SYSTEM on 08-29-2022 Anion gap [Moles/Vol] 13 mmol/L Normal 6 - 16 mEq/L [facility] Calcium [Mass/Vol] 9.0 mg/dL Normal 8.9 - 11. 1 mg/dL [facility] Chloride [Moles/Vol] 103 mmol/L Normal 101 - 111 mmol/L [facility] CO2 [Moles/Vol] 21 mmol/L Normal 21 - 31 mmol/L [facility] Creatinine [Mass/Vol] 0.4 mg/dL Low 0.5 - 1.3 mg/dL [facility] GFR/1.73 sq M.predicted among blacks MDRD (S/P/Bld) [Vol rate/Area] mL/min/1.73 m2 Normal >=59mL/min /1.73 m2 [facility] Chem S GFR/1.73 sq M.predicted among non-blacks MDRD (S/P/Bld) [Vol rate/Area] mL/min/1.73 m2 Normal >=59mL/min /1.73 m2 [facility] Chem S Glucose [Mass/Vol] 95 mg/dL Normal 55 - 199 mg/dL [place] [address] m[IU]/mL High 1 - 3 mIU/mL [facility] Potassium [Moles/Vol] 3.7 mmol/L Normal 3.5 - 5.3 mmol/L [facility] Sodium [Moles/Vol] 133 mmol/L Low 135 - 145 mmol/L [facility] Urea nitrogen [Mass/Vol] 9 mg/dL Normal 5 - 21 mg/dL [facility] Urea nitrogen/Creatinine [Mass ratio] 22 mg/mg High 10 - 20 [facility] COAGULATIONOrdered By: Whit Sharif on 08-29-2022 aPTT Coag (PPP) [Time] 27.3 s Normal 25.1 - 36.5 second(s) [facility] Auto Coag INR Coag (PPP) [Relative time] 1.2 {INR} Invalid Interpretation Code [facility] Auto Coag PT Coag (PPP) [Time] 13.4 s High 9.4 - 12.5 second(s) [facility] Auto Coag HEMATOLOGYOrdered By: SYSTEM SYSTEM on 08-29-2022 Basophils/100 WBC (Bld) 0.3 % Normal 0.0 - 2.0 % [facility] HemeAutoSS Basophils/Leukocyte s Auto (Bld) [Pure # fraction] 0.0 E9/L Normal 0.0 - 0.2 E9/L [facility] HemeAutoSS Eosinophils/100 WBC (Bld) 1.2 % Normal 0.0 - 8.0 % [facility] HemeAutoSS Eosinophils/Leukocy arminda Auto (Bld) [Pure # fraction] 0.1 E9/L Normal 0.0 - 0.5 E9/L [facility] HemeAutoSS Lymphocytes/100 WBC (Bld) 11.8 % Low 14.0 - 50.0 % [facility] HemeAutoSS Lymphocytes/Leukocy arminda Auto (Bld) [Pure # fraction] 1.3 E9/L Normal 1.0 - 4.0 E9/L [facility] HemeAutoSS Monocytes/100 WBC (Bld) 7.2 % Normal 4.0 - 14.0 % [facility] HemeAutoSS Monocytes/Leukocyte s Auto (Bld) [Pure # fraction] 0.8 E9/L Normal 0.2 - 1.0 E9/L [facility] HemeAutoSS Neutrophils/100 WBC (Bld) 79.5 % High 36.0 - 75.0 % [facility]Auto[facility] Neutrophils/Leukocy arminda Auto (Bld) [Pure # fraction] 8.7 E9/L High 2.0 - 7.5 E9/L [facility] HEMATOLOGYOrdered By: Kaykay Oneill on 08-29-2022 Erythrocyte distribution width (RBC) [Ratio] 13.0 % Normal 10.9 - 14.2 % [facility] Hematocrit (Bld) [Volume fraction] 39.7 % Normal 34.0 - 46.0 % [facility] Hemoglobin (Bld) [Mass/Vol] 13.6 g/dL Normal 12.0 - 16.0 gm/dL [facility] MCH (RBC) [Entitic mass] 30.2 pg Normal 27.0 - 34.0 pg [facility] MCHC (RBC) [Mass/Vol] 34.4 g/dL Normal 31.4 - 36.0 gm/dL [facility] MCV (RBC) [Entitic vol] 87.8 fL Normal 80.0 - 100.0 fL [facility] Platelet mean volume (Bld) [Entitic vol] 9.5 fL Normal 6.4 - 10.8 fL [facility] Platelets (Bld) [#/Vol] 242.0 E9/L Normal 150.0 - 500.0 E9/L [facility] RBC (Bld) [#/Vol] 4.5 E12/L Normal 4.3 - 5.9 E12/L [facility] WBC corrected for nucl RBC Auto (Bld) [#/Vol] 11.0 E9/L Normal 4.0 - 11.0 E9/L [facility] URINALYSISOrdered By: Gabriel Sharif on 08-29-2022 Bacteria LM Ql (Urine sed) Trace /HPF Normal Trace/HPF [facility] UA Auto SS Bilirubin Ql (U) Negative (08/29/22 8:22 AM) Normal Negative [facility]A Auto SS Clarity (U) Slightly Cloudy *ABN* (08/29/22 8:22 AM) Invalid Interpretation Code Clear [facility]A Auto SS Color (U) Yellow (08/29/22 8:22 AM) Normal Yellow [facility] UA Auto SS Epithelial cells.squamous LM.HPF (Urine sed) [#/Area] 5-8 /HPF Normal 0-2/HPF [facility]A Auto SS Glucose Test strip (U) [Mass/Vol] Negative (08/29/22 8:22 AM) Normal Negative [facility] UA Auto SS Hemoglobin Ql (U) Negative (08/29/22 8:22 AM) Normal Negative [facility]A Auto SS Ketones (U) [Mass/Vol] Trace *ABN* (08/29/22 8:22 AM) Invalid Interpretation Code Negative [facility] UA Auto SS [place].plasma/Lith ium.RBC (Bld) [Mass ratio] 4-20 /HPF Normal 0-3/HPF [facility] UA Auto SS Mucus Ql (Urine sed) 3+ (08/29/22 8:22 AM) Normal [facility] UA Auto SS Nitrite Ql (U) Negative (08/29/22 8:22 AM) Normal Negative [facility] UA Auto SS pH (U) 5.5 *NA* (08/29/22 8:22 AM) Invalid Interpretation Code 5.0 - 9.0 [facility] UA Auto SS Protein (U) [Mass/Vol] Negative (08/29/22 8:22 AM) Normal Negative [facility]A Auto SS Specific gravity (U) [Rel density] >=1.030 *NA* (08/29/22 8:22 AM) Invalid Interpretation Code 1.005 - 1.030 [facility] UA Auto SS UA Spec Desc Clean Catch (08/29/22 8:22 AM) Normal [facility] [place] UA Auto SS Urobilinogen Qn (U) 0.1120687 {[place]'U}/dL Normal 0.0 - 1.0 EU/dL [facility] [place] UA Auto SS WBC Auto Ql (U) 1+ *ABN* (08/29/22 8:22 AM) Invalid Interpretation Code Negative [facility] [place] UA Auto SS WBC LM.HPF (Urine sed) [#/Area] 26-30 /HPF Invalid Interpretation Code 0-5/HPF [facility] [place] [facility] UA Auto SS Automated erythrocytes count in urine sediment (number/area)Ordered By: Viral Stanley on 10-16-2021 RBC Auto (Urine sed) [#/Area] 3-4 [HPF] [facility] Automated leukocytes count i n urine sediment (number/area)Ordered By: Viral Stanley on 10-16-2021 WBC Auto (Urine sed) [#/Area] 20-49 [HPF] [facility] Bilirubin Test strip Ql (U)O rdered By: Viral Stanley on 10-16-2021 Bilirubin Ql (U) Negative Negative [facility] Casts typing in urine sedime nt by light microscopyOrdered By: Viral Stanley on 10-16-2021 Casts LM Nom (Urine sed) None seen [LPF] None Seen [facility] Color Auto (U)Ordered By: Rambo Stanley on 10-16-2021 Color (U) Yellow Yellow [facility] HCG ( test) IA.rapi d Ql (U)Ordered By: Viral Stanley on 10-16-2021 HCG ( test) Ql (U) Negative [facility] Ketones Auto test strip (U) [Mass/Vol]Ordered By: Viral Stanley on 10-16-2021 Ketones (U) [Mass/Vol] Negative Negative [facility] Laboratory - UrinalysisOrder ed By: Viral Stanley on 10-16-2021 Hyaline casts LM Ql (Urine sed) None seen [LPF] [facility] Nitrite Test strip Ql (U)Ord ered By: Viral Stanley on 10-16-2021 Nitrite Ql (U) Negative Negative [facility] Protein Auto test strip (U) [Mass/Vol]Ordered By: Viral Stanley on 10-16-2021 Protein (U) [Mass/Vol] Trace mg/dL Negative [facility] Specific gravity Auto test s trip (U) [Rel density]Ordered By: Viral Stanley on 10-16-2021 Specific gravity (U) [Rel density] 1.023 1.001-1.[address] [facility] Squamous epithelial cells de tection in urine sediment by light microscopyOrdered By: Viral Stanley on 10-16-2021 Epithelial cells.squamous LM Ql (Urine sed) 10-19 [HPF] [facility] Urine bacteria detection by automated methodOrdered By: Viral Stanley on 10-16-2021 Bacteria Auto Ql (U) 1+ None Seen [facility] Urine clarity by refractomet ry automatedOrdered By: Viral Stanley on 10-16-2021 Clarity Refractometry automated (U) Cloudy Clear [facility] Urine culture routineOrdered By: Viral Stanley on 10-16-2021 Bacteria identified Cx Nom (U) Strep. agalactiae Grp B [facility] Urine glucose measurement by automated test strip (mass/volume)Ordered By: Viral Stanley on 10-16-2021 Glucose Auto test strip (U) [Mass/Vol] Normal mg/dL Normal [facility] Urine hemoglobin detection b y automated test stripOrdered By: Viral Stanley on 10-16-2021 Hemoglobin Auto test strip Ql (U) 2+ Negative [facility] Urine leukocyte esterase det ection by automated test stripOrdered By: Viral Stanley on 10-16-2021 Leukocyte esterase Auto test strip Ql (U) 4+ Negative [facility] Urobilinogen Auto test strip (U) [Mass/Vol]Ordered By: Viral Stanley on 10-16-2021 Urobilinogen (U) [Mass/Vol] Normal mg/dL Normal [facility] pH Auto test strip (U)Ordere d By: Viral Stanley on 10-16-2021 pH (U) 6.0 [pH] 5.0-9.0 [facility] C Strep Screenon 06-13-2019 Strep Screen Microbiology PROCEDURE: Strep Screen Culture [R1] SOURCE: Swab BODY SITE: COLLECTED DATE/TIME: 06/11/2019 14:34 EST RECEIVED DATE/TIME: 06/11/2019 14:58 EST START DATE/TIME: 06/11/2019 14:58 EST FREE TEXT SOURCE: Santhosh Torrez PA-C, PA-C, Micheal FINAL REPORTS Final Report [] Verified Date/Time: 06/13/2019 13:26 EST No Pathogenic Streptococcus Isolated Performing Locations R1: This test was performed at: [facility], [address] [place] [address], [id number] , [facility] Comment on above: Performed By: #### 2 [id number], [id number], [id number], [id number], [id number], [id number] #### [facility] [address] [place] [address] C Urineon 06-13-2019 Bacteria identified Cx Nom (U) Microbiology PROCEDURE: Urine Culture [R1] SOURCE: U CleanCatch BODY SITE: COLLECTED DATE/TIME: 06/11/2019 14:34 EST RECEIVED DATE/TIME: 06/11/2019 15:56 EST START DATE/TIME: 06/11/2019 15:56 EST FREE TEXT SOURCE: Santhosh Torrez PA-C, PA-C, Micheal FINAL REPORTS Final Report [] Verified Date/Time: 06/13/2019 13:22 EST <10,000 cfu/ml Mixed skin contaminants Performing Locations R1: [facility], [address] [place] [address], [address] , [facility] Comment on above: Performed By: #### 1 [id number], [id number] #### [facility] [address] [place] [address] ED Note-Physicianon 06-13-20 ED Note-Physician Basic Information Time Seen: Santhosh Torrez PA-C 06/11/2019 14:14 Chief Complaint c/o throat pain, headache and nausea x 5 days. 7/10 pain. also c/o cough. History of Present Illness 18-year-old female who presents to the emergency department with chief complaint of a sore throat, headache, nausea and generalized body aches. She also states she has a cough but no sputum production. She denies recorded fever, denies actually vomiting. She denies any vaginal discharge, diarrhea, she denies any risk of . Review of Systems A 10 point review of systems is negative except as noted above. Medical and Surgical History: Reviewed and noted Social history: Lives at home Tobacco: Denies Physical Exam Vitals & Measurements T: 36.5 ?C (Oral) HR: 96(Peripheral) RR: 16 BP: 106/70 SpO2: 98% HT: 150 cm WT: 57 kg BMI: 25.33 General: Alert and oriented, No acute distress, Comfortable in bed. Eye: Pupils are equal, round and reactive to light, Extraocular movements are intact. HENT: Normocephalic. Neck: Supple, Non-tender, No jugular venous distention. Respiratory: Respirations are non-labored, Symmetrical chest wall expansion, No chest wall tenderness, no wheezing rhonchi rales or rubs noted.. Cardiovascular: Normal rate, Regular rhythm, Good pulses equal in all extremities. Gastrointestinal: Soft, Non-tender, Non-distended, Normal bowel sounds. Musculoskeletal: Normal range of motion, Normal strength. Neurologic: Alert, Oriented, Normal sensory, Normal motor function. Cognition and Speech: Oriented, Speech clear and coherent. Psychiatric: Cooperative, Appropriate mood & affect. Integumentary: Warm, Dry, [place] Medical Decision Making Patient was noted to have a urinary tract infection, she will be started on Cipro, she is to return should high fever, chills, or other problems arise. Patient understood and agreed with the plan. Assessment/Plan Upper respiratory infection (J06.9: Acute upper respiratory infection, unspecified) Urinary tract infection (N39.0: Urinary tract infection, site not specified) Orders: Automated Diff Basic Metabolic Panel Beta hCG Qual CBC w/ Auto Diff eGFR Extra Blue Tube Mononucleosis Screen Rapid Strep w/rfx Strep Screen Culture UA With Cult Reflex Urine Culture Disposition Plan Patient Discharge Condition Improved Discharge Disposition Discharge home Discharge Prescription List Prescriptions Bromfed DM oral syrup, 5 mL, Oral, QID, PRN Cipro 500 mg Tab, 500 mg= 1 tab(s), Oral, BID Follow-up With When Contact Information Mark Jimenez In 3 days 06/14/[address] [place] [address] [place] [address] [facility] (1) Additional Instructions: Patient Education Upper Respiratory Infection, Adult Urinary Tract Infection Problem List/Past Medical History Ongoing No qualifying data Historical No qualifying data Medications Inpatient No active inpatient medications Home Bromfed DM oral syrup, 5 mL, Oral, QID, PRN Cipro 500 mg Tab, 500 mg= 1 tab(s), Oral, BID paroxetine, Oral Rexulti, Oral, Daily Vistaril, Oral, QID Allergies Keflex (shaking) Social History Alcohol Substance Abuse Tobacco Never (less than 100 in lifetime) Tobacco Use:., 06/11/2019 Lab Results WBC: 5.1 E9/L (06/11/19 14:37:00 EST) RBC: 4.7 E12/L (06/11/19 14:37:00 EST) Hgb: 14.1 gm/dL (06/11/19 14:37:00 EST) Hct: 41.6 % (06/11/19 14:37:00 EST) MCV: 87.6 fL (06/11/19 14:37:00 EST) MCH: 29.8 pg (06/11/19 14:37:00 EST) MCHC: 34 gm/dL (06/11/19 14:37:00 EST) RDW: 13.1 % (06/11/19 14:37:00 EST) Platelet: 245 E9/L (06/11/19 14:37:00 EST) MPV: 8.7 fL (06/11/19 14:37:00 EST) Neutro Auto: 49.3 % (06/11/19 14:37:00 EST) Lymph Auto: 37.7 % (06/11/19 14:37:00 EST) [place] Auto: 7.6 % (06/11/19 14:37:00 EST) Eos Auto: 4.8 % (06/11/19 14:37:00 EST) Basophil Auto: 0.6 % (06/11/19 14:37:00 EST) Neutro Absolute: 2.5 E9/L (06/11/19 14:37:00 EST) Lymph Absolute: 1.9 E9/L (06/11/19 14:37:00 EST) [place] Absolute: 0.4 E9/L (06/11/19 14:37:00 EST) Eos Absolute: 0.2 E9/L (06/11/19 14:37:00 EST) Basophil Absolute: 0 E9/L (06/11/19 14:37:00 EST) Glucose Lvl: 100 mg/dL (06/11/19 14:37:00 EST) BUN: 12 mg/dL (06/11/19 14:37:00 EST) Creatinine: 0.5 mg/dL (06/11/19 14:37:00 EST) eGFR: >60 (06/11/19 14:37:00 EST) eGFR AA: >60 (06/11/19 14:37:00 EST) BUN/Creat Ratio: 24 High (06/11/19 14:37:00 EST) Sodium Lvl: 138 mmol/L (06/11/19 14:37:00 EST) Potassium Lvl: 3.7 mmol/L (06/11/19 14:37:00 EST) Chloride: 103 mmol/L (06/11/19 14:37:00 EST) CO2: 26 mmol/L (06/11/19 14:37:00 EST) AGAP: 13 mEq/L (06/11/19 14:37:00 EST) Calcium Lvl: 9.4 mg/dL (06/11/19 14:37:00 EST) UA Spec Desc: Clean Catch (06/11/19 14:34:00 EST) UA Color: Yellow2 (06/11/19 14:34:00 EST) UA Clarity: Slightly Cloudy3 Abnormal (06/11/19 14:34:00 EST) UA Spec Grav: 1.020 (06/11/19 14:34:00 EST) UA pH: 6.5 (06/11/19 14:34:00 EST) UA Protein: NEGATIVE1 (06/11/19 14:34:00 EST) UA Glucose: NEGATIVE1 (06/11/19 14:34:00 EST) UA Ketones: NEGATIVE1 (06/11/19 14:34:00 EST) UA Bili: NEGATIVE1 (06/11/19 14:34:00 EST) UA Blood: NEGATIVE1 (06/11/19 14:34:00 EST) UA Nitrite: NEGATIVE1 (06/11/19 14:34:00 EST) UA Urobilinogen: 0.2 (06/11/19 14:34:00 EST) UA Leuk Est: 1+ Abnormal (06/11/19 14:34:00 EST) UA RBC: 0-3 (06/11/19 14:34:00 EST) UA Squam Epithelial: >10 (06/11/19 14:34:00 EST) UA WBC: 6-15 Abnormal (06/11/19 14:34:00 EST) UA Bacteria: Trace2 (06/11/19 14:34:00 EST) UA Amorph Theodora: Present (06/11/19 14:34:00 EST) UA Mucous: 1+ (06/11/19 14:34:00 EST) Beta hCG Ql: NEGATIVE1 (06/11/19 14:37:00 EST) [place] Scr: NEGATIVE1 (06/11/19 14:37:00 EST) Rapid Strep: NEGATIVE1 (06/11/19 14:34:00 EST) Consistent with urinary tract infection Diagnostic Results No qualifying data available. Normal [facility] Comment on above: Result Comment: Elec tronically Signed By: Santhosh Torrez PA-C\.br\Date and Time Signed: 06/11/19 22:52 EST\.br\Electronically Co-Signed By: Ivania Jay M.D.\.br\Date and Time Co-Signed: 06/13/19 10:59 EST Coding Summary.on 06-12-2019 Coding Summary. CODING DATE: 019 FINAL [facility] STATUS: Home (Routine DC) PAYOR: Medicaid EAPG DESCRIPTION 0457 VENIPUNCTURE 0408 LEVEL I HEMATOLOGY TESTS 0396 LEVEL I MICROBIOLOGY TESTS 0403 ORGAN OR DISEASE ORIENTED PANELS 0400 LEVEL I CHEMISTRY TESTS 0394 LEVEL I IMMUNOLOGY TESTS 0410 URINALYSIS 0562 INFECTIONS OF UPPER RESPIRATORY TRACT & OTITIS MEDIA ADMIT DX: REASON FOR VISIT DX: R07.0 Pain in throat R51 Headache R11.0 Nausea FINAL DX: PRINCIPAL: J06.9 Acute upper respiratory infection, unspecified SECONDARY: N39.0 Urinary tract infection, site not specified Z88.1 Allergy status to other antibiotic agents status PYMT PROC EAPG STAT DESCRIPTION DOCTOR NAME DATE NOTE: The code number assigned matches the documented diagnosis and / or procedure in the patient's chart. However, the narrative phrase printed from the coding software may appear abbreviated, or result in slightly different terminology. Revised Coded By: Destiny Webb Revised Date Saved: 06/12/2019 11:16 am Normal [facility] Auto Diffon 06-11-2019 Basophils/100 WBC (Bld) 0.6 % Normal 0.0-2.0 [facility] Comment on above: Order Comment: Order Added by Discern Expert. Performed By: #### 2 [id number], 0060066, 8411502, 07553300, 59976510, 5942538 #### [facility] [address] [place] [address] Basophils/Leukocyte s Auto (Bld) [Pure # fraction] 0.0 E9/L Normal 0.0-0.2 [facility] Comment on above: Order Comment: Order Added by Discern Expert. Performed By: #### 2 597394, 1527018, 4446542, 44100772, 48157072, 5429143 #### [facility] [address] [place] [address] Eosinophils/100 WBC (Bld) 4.8 % Normal 0.0-8.0 [facility] Comment on above: Order Comment: Order Added by Discern Expert. Performed By: #### 2 249454, 8298356, 7742160, 76009023, 68174105, 1805196 #### [facility] [address] [place] [address] Eosinophils/Leukocy arminda Auto (Bld) [Pure # fraction] 0.2 E9/L Normal 0.0-0.5 [facility] Comment on above: Order Comment: Order Added by Discern Expert. Performed By: #### 2 280959, 3042613, 8185673, 65930291, 09563772, 8466945 #### [facility] [address] [place] [address] Lymphocytes/100 WBC (Bld) 37.7 % Normal 14.0-50.0 [facility] Comment on above: Order Comment: Order Added by Discern Expert. Performed By: #### 2 356768, 7307875, 3751679, 80272673, 89756547, 9015966 #### [facility] [address] [place] [address] Lymphocytes/Leukocy arminda Auto (Bld) [Pure # fraction] 1.9 E9/L Normal 1.0-4.0 [facility] Comment on above: Order Comment: Order Added by Discern Expert. Performed By: #### 2 615396, 1155573, 6382107, 23818964, 36390738, 3428283 #### [facility] [address] [place] [address] Monocytes/100 WBC (Bld) 7.6 % Normal 4.0-14.0 [facility] Comment on above: Order Comment: Order Added by [place] Expert. Performed By: #### 2 132741, 2178547, 6461924, 03231178, 44011042, 3116052 #### [facility] [address] [place] [address] Monocytes/Leukocyte s Auto (Bld) [Pure # fraction] 0.4 E9/L Normal 0.2-1.0 [facility] Comment on above: Order Comment: Order Added by [place]rell Expert. Performed By: #### 2 014034, 2310584, 5189682, 47177718, 61231137, 2494906 #### [facility] [address] [place] [address] Neutrophils/100 WBC (Bld) 49.3 % Normal 36.0-75.0 [facility] Comment on above: Order Comment: Order Added by Discern Expert. Performed By: #### 2 095269, 0857649, 2147377, 64160684, 01581023, 3144946 #### [facility] [address] [place] [address] Neutrophils/Leukocy arminda Auto (Bld) [Pure # fraction] 2.5 E9/L Normal 2.0-7.5 [facility] Comment on above: Order Comment: Order Added by Discern Expert. Performed By: #### 2 474657, 6974869, 5969445, 95133198, 84423447, 6561526 #### [facility] [address] [place] [address] B hCG Qualon 06-11-2019 Beta hCG Ql Negative Normal [facility] Comment on above: Performed By: #### 2 420939, 0161300, 9593630, 19035704, 79519121, 3223072 #### [facility] [address] [place] [address] BMPon 06-11-2019 Creatinine [Mass/Vol] 0.5 mg/dL Normal 0.5-1.3 [facility] Comment on above: Performed By: #### 2 546470, 3945879, 3198111, 89383576, 80995466, 7794702 #### [facility] [address] [place] [address]657 Urea nitrogen [Mass/Vol] 12 mg/dL Normal 5-21 [facility] Comment on above: Performed By: #### 2 871845, 5142797, 6147696, 18477379, 77176779, 5413347 #### [facility] [address] [place] [address] Urea nitrogen/Creatinine [Mass ratio] 24 No Units High 10-20 [facility] Comment on above: Performed By: #### 2 454742, 2107729, 1271536, 56728786, 47413710, 4899375 #### [facility] [address] [place] [address] Anion gap [Moles/Vol] 13 mmol/L Normal 6-16 [facility] Comment on above: Performed By: #### 2 069273, 9621016, 0837342, 50680789, 05478618, 0721139 #### [facility] [address] [place] [address] Calcium [Mass/Vol] 9.4 mg/dL Normal 8.9-11.1 [facility] Comment on above: Performed By: #### 2 393868, 5578245, 3409396, 94784864, 50041779, 1351926 #### [facility] [address] [place] [address] Chloride [Moles/Vol] 103 mmol/L Normal 101-111 [facility] Comment on above: Performed By: #### 2 205376, 8789756, 2782379, 70795598, 23369068, 5865474 #### [facility] [address] [place] [address] CO2 [Moles/Vol] 26 mmol/L Normal 21-31 [facility] Comment on above: Performed By: #### 2 787429, 3622624, 6458752, 37739600, 95268460, 6942051 #### [facility] [address] [place] [address] Glucose [Mass/Vol] 100 mg/dL Normal 55-199 [facility] Comment on above: Result Comment: If t his glucose result represents a fasting glucose, interpretation should refer to the following reference range: 55-99 mg/dL Performed By: #### 2 177398, 2659082, 6719111, 77333311, 65982113, 2644860 #### [facility] [address] [place] [address] Potassium [Moles/Vol] 3.7 mmol/L Normal 3.5-5.3 [facility] Comment on above: Performed By: #### 2 997697, 1172960, 4786159, 19593535, 81675673, 8244046 #### [facility] [address] [place] [address] Sodium [Moles/Vol] 138 mmol/L Normal 135-145 [facility] Comment on above: Performed By: #### 2 555386, 3207610, 5352363, 02646257, 85920724, 8341492 #### [facility] [address] [place] [address] CBC w/ Auto Diffon 9 Erythrocyte distribution width (RBC) [Ratio] 13.1 % Normal 10.9-14.2 [facility] Comment on above: Performed By: #### 2 635875, 9518462, 1449848, 64408151, 18931968, 5197329 #### [facility] [address] [place] [address] Hematocrit (Bld) [Volume fraction] 41.6 % Normal 34.0-46.0 [facility] Comment on above: Performed By: #### 2 652827, 4425081, 9568473, 45328626, 17366573, 9181910 #### [facility] [address] [place] [address] Hemoglobin (Bld) [Mass/Vol] 14.1 g/dL Normal 12.0-16.0 [facility] Comment on above: Performed By: #### 2 870548, 7408796, 8524667, 00945006, 71925935, 3518122 #### [facility] [address] [place] [address] 86[address] MCH (RBC) [Entitic mass] 29.8 pg Normal 27.0-34.0 [facility] Comment on above: Performed By: #### 2 751834, 2187842, 8637439, 36149545, 31275805, 8294543 #### [facility] [address] [place] [address] 07219 MCHC (RBC) [Mass/Vol] 34.0 g/dL Normal 31.4-36.0 [facility] Comment on above: Performed By: #### 2 132292, 3148791, 5587407, 19803398, 57898121, 9361228 #### [facility] [address] [place] [address] 11007 MCV (RBC) [Entitic vol] 87.6 fL Normal 80.0-100.0 [facility] Comment on above: Performed By: #### 2 191074, 8166772, 8841535, 85687861, 70661391, 0372864 #### [facility] [address] [place] [address] 88596 Platelet mean volume (Bld) [Entitic vol] 8.7 fL Normal 6.4-10.8 [facility] Comment on above: Performed By: #### 2 801218, 4073250, 6481737, 73270739, 01755319, 3679678 #### [facility] [address] [place] [address] Platelets (Bld) [#/Vol] 245.0 E9/L Normal 150.0-500. 0 [facility] Comment on above: Performed By: #### 2 381303, 6900904, 3423630, 11762352, 13089379, 9803442 #### [facility] [address] [place] [address] 83073 RBC (Bld) [#/Vol] 4.7 E12/L Normal 4.3-5.9 [facility] Comment on above: Performed By: #### 2 639722, 0110853, 5357044, 52381941, 78886271, 4722076 #### [facility] [address] [place] [address] WBC corrected for nucl RBC Auto (Bld) [#/Vol] 5.1 E9/L Normal 4.0-11.0 [facility] Comment on above: Performed By: #### 2 665429, 9794021, 6336387, 00582158, 65816177, 3683588 #### [facility] [address] [place] [address] ED Clinical Summaryon 2018 ED Clinical Summary (Inserted Image. Carly ble to display) [address] [address] ED Clinical Summary Person Information Name: YUKO MOBLEY/[facility] [facility] Age: 18 Years : 2000 12:00 AM Sex: Female Language: Australian PCP: Mark Jimenez III, DO Marital Status: Single Phone: [phone] Visit Id: Visit Reason: Headache; Nausea; Throat pain - Adult; ABDOMINAL PAIN,HEADACHE Speciality: Acuity: 4 Enc Type: Emergency Med Service: Emergency Arrival: 06/11/2019 2:05 PM Discharge: 06/11/2019 3:33 PM LOS: 000 01:28 Checkin: 06/11/2019 2:05 PM Checkout: 06/11/2019 3:33 PM Dispo Type: Home (Routine DC) EVENTS: Event Name Event Status Request Date/Time Start Date/Time Complete Date/Time Arrive Complete 06/11/2019 2:05 PM 06/11/2019 2:05 PM 06/11/2019 2:05 PM Document Home Meds Request 06/11/2019 2:05 PM Triage Complete 06/11/2019 2:05 PM 06/11/2019 2:14 PM 06/11/2019 2:14 PM Bed Assign Complete 06/11/2019 2:11 PM 06/11/2019 2:11 PM 06/11/2019 2:[address] Exam Complete 06/11/2019 2:11 PM 06/11/2019 2:14 PM 06/11/2019 2:14 PM RN Exam Complete 06/11/2019 2:11 PM 06/11/2019 2:17 PM 06/11/2019 2:17 PM Registration Complete 06/11/2019 2:13 PM 06/11/2019 2:13 PM 06/11/2019 2:13 PM Reg Complete Request 06/11/2019 2:13 PM Reg Bed Request Complete 06/11/2019 2:13 PM 06/11/2019 2:13 PM 06/11/2019 2:13 PM Registration Request 06/11/2019 2:14 PM Pending Labs Complete 06/11/2019 2:27 PM 06/11/2019 3:16 PM Lab Complete 06/11/2019 2:27 PM 06/11/2019 3:16 PM Urine Collect Complete 06/11/2019 2:27 PM 06/11/2019 3:16 PM Pending Labs Complete 06/11/2019 2:42 PM 06/11/2019 2:42 PM 06/11/2019 2:56 PM Lab Complete 06/11/2019 2:42 PM 06/11/2019 2:42 PM 06/11/2019 2:56 PM Pending Labs Complete 06/11/2019 2:43 PM 06/11/2019 2:43 PM 06/11/2019 3:[address] Exam Complete 06/11/2019 2:45 PM 06/11/2019 2:45 PM 06/11/2019 2:45 PM Pending Labs Complete 06/11/2019 2:47 PM 06/11/2019 2:47 PM 06/11/2019 2:47 PM Lab Complete 06/11/2019 2:47 PM 06/11/2019 2:47 PM 06/11/2019 2:47 PM Pending Labs Complete 06/11/2019 2:53 PM 06/11/2019 2:53 PM 06/11/2019 2:53 PM Pending Labs Inlab 06/11/2019 2:54 PM 06/11/2019 2:54 PM Lab Inlab 06/11/2019 2:54 PM 06/11/2019 2:54 PM Pending Labs Collected 06/11/2019 2:55 PM 06/11/2019 2:55 PM Lab Collected 06/11/2019 2:55 PM 06/11/2019 2:55 PM Discharge Complete 06/11/2019 3:27 PM 06/11/2019 3:33 PM 06/11/2019 3:33 PM Transfer Complete 06/11/2019 3:33 PM 06/11/2019 3:33 PM 06/11/2019 3:33 PM ADDRESS: [address] [place] [phone] PHYS DOC NOTES: MEDICAL INFORMATION: Prescriptions Given: Prescription Display brompheniramine/dextromethorph an/PSE (Bromfed DM oral syrup) 5 mL, Oral, QID for cold symptoms, 200 mL, Refill(s) 0 ciprofloxacin (Cipro 500 mg Tab) 500 mg = 1 tab(s), Oral, BID, Take one tab by mouth twice a day for seven days, # 14 tab(s), Refills(s) 0 Home Meds Display brexpiprazole (Rexulti) Oral, Daily, Refills(s) 0 hydrOXYzine (Vistaril) Oral, QID, Refills(s) 0 paroxetine Oral, Refills(s) 0 PATIENT EDUCATION INFORMATION: Instructions: Upper Respiratory Infection, Adult; Urinary Tract Infection Follow up: With: Address: When: Mark Jimenez [address] [place] [address], [facility], [place] [address] Business (1) In 3 days 06/14/2019 DIAGNOSIS: Upper respiratory infection; Urinary tract infection Normal [facility] ED Patient Education Noteon 06-11-2019 ED Patient Education Note ENT Upper Respiratory Infection, Adult An upper respiratory infection (URI) is also sometimes known as the common cold. The upper respiratory tract includes the nose, sinuses, throat, trachea, and bronchi. Bronchi are the airways leading to the lungs. Most people improve within 1 week, but symptoms can last up to 2 weeks. A residual cough may last even longer. CAUSES Many different viruses can infect the tissues lining the upper respiratory tract. The tissues become irritated and inflamed and often become very moist. Mucus production is also common. A cold is contagious. You can easily spread the virus to others by oral contact. This includes kissing, sharing a glass, coughing, or sneezing. Touching your mouth or nose and then touching a surface, which is then touched by another person, can also spread the virus. SYMPTOMS Symptoms typically develop 1 to 3 days after you come in contact with a cold virus. Symptoms vary from person to person. They may include: ? Runny nose. ? Sneezing. ? Nasal congestion. ? Sinus irritation. ? Sore throat. ? Loss of voice (laryngitis). ? Cough. ? Fatigue. ? Muscle aches. ? Loss of appetite. ? Headache. ? Low-grade fever. DIAGNOSIS You might diagnose your own cold based on familiar symptoms, since most people get a cold 2 to 3 times a year. Your caregiver can confirm this based on your exam. Most importantly, your caregiver can check that your symptoms are not due to another disease such as strep throat, sinusitis, pneumonia, asthma, or epiglottitis. Blood tests, throat tests, and X-rays are not necessary to diagnose a common cold, but they may sometimes be helpful in excluding other more serious diseases. Your caregiver will decide if any further tests are required. RISKS AND COMPLICATIONS You may be at risk for a more severe case of the common cold if you smoke cigarettes, have chronic heart disease (such as heart failure) or lung disease (such as asthma), or if you have a weakened immune system. The very young and very old are also at risk for more serious infections. Bacterial sinusitis, middle ear infections, and bacterial pneumonia can complicate the common cold. The common cold can worsen asthma and chronic obstructive pulmonary disease (COPD). Sometimes, these complications can require emergency medical care and may be life-threatening. PREVENTION The best way to protect against getting a cold is to practice good hygiene. Avoid oral or hand contact with people with cold symptoms. Wash your hands often if contact occurs. There is no clear evidence that vitamin C, vitamin E, echinacea, or exercise reduces the chance of developing a cold. However, it is always recommended to get plenty of rest and practice good nutrition. TREATMENT Treatment is directed at relieving symptoms. There is no cure. Antibiotics are not effective, because the infection is caused by a virus, not by bacteria. Treatment may include: ? Increased fluid intake. Sports drinks offer valuable electrolytes, sugars, and fluids. ? Breathing heated mist or steam (vaporizer or shower). ? Eating chicken soup or other clear broths, and maintaining good nutrition. ? Getting plenty of rest. ? Using gargles or lozenges for comfort. ? Controlling fevers with ibuprofen or acetaminophen as directed by your caregiver. ? Increasing usage of your inhaler if you have asthma. Zinc gel and zinc lozenges, taken in the first 24 hours of the common cold, can shorten the duration and lessen the severity of symptoms. Pain medicines may help with fever, muscle aches, and throat pain. A variety of non-prescription medicines are available to treat congestion and runny nose. Your caregiver can make recommendations and may suggest nasal or lung inhalers for other symptoms. HOME CARE INSTRUCTIONS ? Only take [id number]-[id number] or prescription medicines for pain, discomfort, or fever as directed by your caregiver. ? Use a warm mist humidifier or inhale steam from a shower to increase air moisture. This may keep secretions moist and make it easier to breathe. ? Drink enough water and fluids to keep your urine clear or pale yellow. ? Rest as needed. ? Return to work when your temperature has returned to normal or as your caregiver advises. You may need to stay home longer to avoid infecting others. You can also use a face mask and careful hand washing to prevent spread of the virus. SEEK MEDICAL CARE IF: ? After the first few days, you feel you are getting worse rather than better. ? You need your caregiver's advice about medicines to control symptoms. ? You develop chills, worsening shortness of breath, or brown or red sputum. These may be signs of pneumonia. ? You develop yellow or brown nasal discharge or pain in the face, especially when you bend forward. These may be signs of sinusitis. ? You develop a fever, swollen neck glands, pain with swallowing, or white areas in the back of your throat. These may be signs of strep throat. SEEK IMMEDIATE MEDICAL CARE IF: ? You have a fever. ? You develop severe or persistent headache, ear pain, sinus pain, or chest pain. ? You develop wheezing, a prolonged cough, cough up blood, or have a change in your usual mucus (if you have chronic lung disease). ? You develop sore muscles or a stiff neck. Document Released: 12/22/2001 Document Revised: 09/19/2012 Document Reviewed: 10/03/2014 ExitCare? Patient Information ?2014 [employer]. This information is not intended to replace advice given to you by your health care provider. Make sure you discuss any questions you have with your health care provider. Family Medicine Urinary Tract Infection Urinary tract infections (UTIs) can develop anywhere along your urinary tract. Your urinary tract is your body's drainage system for removing wastes and extra water. Your urinary tract includes two kidneys, two ureters, a bladder, and a urethra. Your kidneys are a pair of christian-shaped organs. Each kidney is about the size of your fist. They are located below your ribs, one on each side of your spine. CAUSES Infections are caused by microbes, which are microscopic organisms, including fungi, viruses, and bacteria. These organisms are so small that they can only be seen through a microscope. Bacteria are the microbes that most commonly cause UTIs. SYMPTOMS Symptoms of UTIs may vary by age and gender of the patient and by the location of the infection. Symptoms in young women typically include a frequent and intense urge to urinate and a painful, burning feeling in the bladder or urethra during urination. Older women and men are more likely to be tired, shaky, and weak and have muscle aches and abdominal pain. A fever may mean the infection is in your kidneys. Other symptoms of a kidney infection include pain in your back or sides below the ribs, nausea, and vomiting. DIAGNOSIS To diagnose a UTI, your caregiver will ask you about your symptoms. Your caregiver also will ask to provide a urine sample. The urine sample will be tested for bacteria and white blood cells. White blood cells are made by your body to help fight infection. TREATMENT Typically, UTIs can be treated with medication. Because most UTIs are caused by a bacterial infection, they usually can be treated with the use of antibiotics. The choice of antibiotic and length of treatment depend on your symptoms and the type of bacteria causing your infection. HOME CARE INSTRUCTIONS ? If you were prescribed antibiotics, take them exactly as your caregiver instructs you. Finish the medication even if you feel better after you have only taken some of the medication. ? Drink enough water and fluids to keep your urine clear or pale yellow. ? Avoid caffeine, tea, and carbonated beverages. They tend to irritate your bladder. ? Empty your bladder often. Avoid holding urine for long periods of time. ? Empty your bladder before and after sexual intercourse. ? After a bowel movement, women should cleanse from front to back. Use each tissue only once. SEEK MEDICAL CARE IF: ? You have back pain. ? You develop a fever. ? Your symptoms do not begin to resolve within 3 days. SEEK IMMEDIATE MEDICAL CARE IF: ? You have severe back pain or lower abdominal pain. ? You develop chills. ? You have nausea or vomiting. ? You have continued burning or discomfort with urination. MAKE SURE YOU: ? Understand these instructions. ? Will watch your condition. ? Will get help right away if you are not doing well or get worse. Document Released: 04/07/2006 Document Revised: 12/27/2012 Document Reviewed: 08/05/2012 ExitCare? Patient Information ?2014 [employer]. This information is not intended to replace advice given to you by your health care provider. Make sure you discuss any questions you have with your health care provider. Normal [facility] ED Patient Summaryon 019 ED Patient Summary (Inserted Image. Carly ble to display) [place] [id number] Patient Discharge Instructions Person Information Name: YUKO MOBLEY Age: 18 Years Arrival Date: 06/11/2019 2:05 PM Discharge Diagnosis: Upper respiratory infection; Urinary tract infection Primary Care Physician: Mark Jimenez III, DO Provider Information Primary Provider: Pierre Agustin, Ivania Aguilar Advanced Grout Machine Operator:Santhosh Torrez PA-C The exam and treatment you received in the Emergency Department were for an urgent problem and are not intended as complete care. It is important that you follow up with a doctor, nurse practitioner, or physician?s bilingual legal assistant for ongoing care. If your symptoms become worse or you do not improve as expected and you are unable to reach your usual health care provider, you should return to the Emergency Department. We are available 24 hours a day. YUKO MOBLEY has been given the following list of patient education materials, prescriptions and follow-up instructions: Follow-up Instructions: With: Address: When: Mark Jimenez [address] [place] [address], [place] [address] Business (1) In 3 days 06/14/2019 In the event that this physician does not participate in your insurance network, please consult with your insurance company to find a nearby participating provider. Patient Education Materials: Upper Respiratory Infection, Adult; Urinary Tract Infection A MESSAGE TO ALL PATIENTS REGARDING OPIOIDS PRESCRIPTION OPIOIDS: WHAT YOU NEED TO KNOW Prescription opioids can be used to help relieve hsrlmhrq-yt-uroiel pain and are often prescribed following a surgery or injury, or for certain health conditions. These medications can be an important part of the treatment but also come with serious risks. It is important to work with your healthcare provider to make sure you are getting the safest, most effective care. WHAT ARE THE RISKS AND SIDE EFFECTS OF OPIOID USE? Prescription opioids carry serious risks of addiction and overdose, especially with prolonged use. An opioid overdose, often marked by slowed breathing, can cause sudden . The use of prescription opioids can have a number of side effects as well, even when taken as directed: ? Tolerance?meaning you might need to take more of the medication for the same pain relief ? Physical dependence?meaning you have symptoms of withdrawal when a medication is stopped ? Increased sensitivity to pain ? Constipation ? Nausea, vomiting, and dry mouth ? Sleepiness and dizziness ? Confusion ? Depression ? Low levels of testosterone that can result in lower sex drive, energy, and strength ? Itching and sweating RISKS ARE GREATER WITH: ? History of drug misuse, substance use disorder, or overdose ? Mental health conditions (such as depression or anxiety) ? Sleep apnea ? Older age (65 years and older) ? Avoid alcohol while taking prescription opioids. Also, unless specifically advised by your health care provider, medications to avoid include: ? Benzodiazepines (such as Xanax or Valium) ? Muscle relaxants (such as Soma or Flexeril) ? Hypnotics (such as Ambien or Lunesta) ? Other prescription opioids KNOW YOUR OPTIONS Talk to your health care provider about ways to manage your pain that don?t involve prescription opioids. Some of these options may actually work better and have fewer risks and side effects. Options may include: ? Pain relievers such as acetaminophen, ibuprofen, and naproxen ? Some medication that are also used for depression or seizures ? Physical therapy and exercise ? Cognitive behavioral therapy, a psychological, goal-directed approach, in which patients learn how to modify physical, behavioral, and emotional triggers of pain and stress. IF YOU ARE PRESCRIBED OPIOIDS FOR PAIN: ? Never take opioids in greater amounts or more often than prescribed. ? Follow up with your primary health care provider. o Work together to create a plan on how to manage your pain. o Talk about ways to help manage your pain that don?t involve prescription opioids. o Talk about any and all concerns and side effects. ? Help prevent misuse and abuse o Never sell or share prescription opioids. o Never use another person?s prescription opioids. ? Store prescription opioids in a secure place and out of reach of others (this may include visitors, children, friends, and family). ? Safely dispose of unused prescription opioids: Find your community drug take-back program or your pharmacy mail-back program, or flush them down the toilet, following guidance from the Food and Drug Administration (www.fda.gov/Drugs/ResourcesFo rYou). ? Visit www.cdc.gov/drugoverdose to learn about the risks of opioids abuse and overdose. ? If you believe you may be struggling with addiction, tell your health lawn care specialist and ask for guidance or call SAMHSA?S National Helpline at 5-394-020-TIGG. v Source: [place] Department of Health and Human Services/Center for Disease Control & Prevention [facility] Medications Given: Medication Dose Route No medications found. Medication Information: New Medications Printed Prescriptions brompheniramine/dextromethorph an/PSE (Bromfed DM oral syrup) 5 Milliliter By Mouth 4 times a day as needed for cold symptoms. Refills: 0. ciprofloxacin (Cipro 500 mg Tab) 1 Tabs By Mouth 2 times a day. Take one tab by mouth twice a day for seven days. Refills: 0. Medications to Continue with No Changes Other Medications brexpiprazole (Rexulti) By Mouth every day. hydrOXYzine (Vistaril) By Mouth 4 times a day. paroxetine By Mouth. Comment: Pharmacy Information: Thank you for choosing [facility] Patient Education Materials: Upper Respiratory Infection, Adult An upper respiratory infection (URI) is also sometimes known as the common cold. The upper respiratory tract includes the nose, sinuses, throat, trachea, and bronchi. Bronchi are the airways leading to the lungs. Most people improve within 1 week, but symptoms can last up to 2 weeks. A residual cough may last even longer. CAUSES Many different viruses can infect the tissues lining the upper respiratory tract. The tissues become irritated and inflamed and often become very moist. Mucus production is also common. A cold is contagious. You can easily spread the virus to others by oral contact. This includes kissing, sharing a glass, coughing, or sneezing. Touching your mouth or nose and then touching a surface, which is then touched by another person, can also spread the virus. SYMPTOMS Symptoms typically develop 1 to 3 days after you come in contact with a cold virus. Symptoms vary from person to person. They may include: ? Runny nose. ? Sneezing. ? Nasal congestion. ? Sinus irritation. ? Sore throat. ? Loss of voice (laryngitis). ? Cough. ? Fatigue. ? Muscle aches. ? Loss of appetite. ? Headache. ? Low-grade fever. DIAGNOSIS You might diagnose your own cold based on familiar symptoms, since most people get a cold 2 to 3 times a year. Your caregiver can confirm this based on your exam. Most importantly, your caregiver can check that your symptoms are not due to another disease such as strep throat, sinusitis, pneumonia, asthma, or epiglottitis. Blood tests, throat tests, and X-rays are not necessary to diagnose a common cold, but they may sometimes be helpful in excluding other more serious diseases. Your caregiver will decide if any further tests are required. RISKS AND COMPLICATIONS You may be at risk for a more severe case of the common cold if you smoke cigarettes, have chronic heart disease (such as heart failure) or lung disease (such as asthma), or if you have a weakened immune system. The very young and very old are also at risk for more serious infections. Bacterial sinusitis, middle ear infections, and bacterial pneumonia can complicate the common cold. The common cold can worsen asthma and chronic obstructive pulmonary disease (COPD). Sometimes, these complications can require emergency medical care and may be life-threatening. PREVENTION The best way to protect against getting a cold is to practice good hygiene. Avoid oral or hand contact with people with cold symptoms. Wash your hands often if contact occurs. There is no clear evidence that vitamin C, vitamin E, echinacea, or exercise reduces the chance of developing a cold. However, it is always recommended to get plenty of rest and practice good nutrition. TREATMENT Treatment is directed at relieving symptoms. There is no cure. Antibiotics are not effective, because the infection is caused by a virus, not by bacteria. Treatment may include: ? Increased fluid intake. Sports drinks offer valuable electrolytes, sugars, and fluids. ? Breathing heated mist or steam (vaporizer or shower). ? Eating chicken soup or other clear broths, and maintaining good nutrition. ? Getting plenty of rest. ? Using gargles or lozenges for comfort. ? Controlling fevers with ibuprofen or acetaminophen as directed by your caregiver. ? Increasing usage of your inhaler if you have asthma. Zinc gel and zinc lozenges, taken in the first 24 hours of the common cold, can shorten the duration and lessen the severity of symptoms. Pain medicines may help with fever, muscle aches, and throat pain. A variety of non-prescription medicines are available to treat congestion and runny nose. Your caregiver can make recommendations and may suggest nasal or lung inhalers for other symptoms. HOME CARE INSTRUCTIONS ? Only take fnen-chh-yfxotvl or prescription medicines for pain, discomfort, or fever as directed by your caregiver. ? Use a warm mist humidifier or inhale steam from a shower to increase air moisture. This may keep secretions moist and make it easier to breathe. ? Drink enough water and fluids to keep your urine clear or pale yellow. ? Rest as needed. ? Return to work when your temperature has returned to normal or as your caregiver advises. You may need to stay home longer to avoid infecting others. You can also use a face mask and careful hand washing to prevent spread of the virus. SEEK MEDICAL CARE IF: ? After the first few days, you feel you are getting worse rather than better. ? You need your caregiver's advice about medicines to control symptoms. ? You develop chills, worsening shortness of breath, or brown or red sputum. These may be signs of pneumonia. ? You develop yellow or brown nasal discharge or pain in the face, especially when you bend forward. These may be signs of sinusitis. ? You develop a fever, swollen neck glands, pain with swallowing, or white areas in the back of your throat. These may be signs of strep throat. SEEK IMMEDIATE MEDICAL CARE IF: ? You have a fever. ? You develop severe or persistent headache, ear pain, sinus pain, or chest pain. ? You develop wheezing, a prolonged cough, cough up blood, or have a change in your usual mucus (if you have chronic lung disease). ? You develop sore muscles or a stiff neck. Document Released: 12/22/2001 Document Revised: 09/19/2012 Document Reviewed: 10/03/2014 ExitCare? Patient Information ?2015 [employer]. This information is not intended to replace advice given to you by your health care provider. Make sure you discuss any questions you have with your health care provider. Urinary Tract Infection Urinary tract infections (UTIs) can develop anywhere along your urinary tract. Your urinary tract is your body's drainage system for removing wastes and extra water. Your urinary tract includes two kidneys, two ureters, a bladder, and a urethra. Your kidneys are a pair of christian-shaped organs. Each kidney is about the size of your fist. They are located below your ribs, one on each side of your spine. CAUSES Infections are caused by microbes, which are microscopic organisms, including fungi, viruses, and bacteria. These organisms are so small that they can only be seen through a microscope. Bacteria are the microbes that most commonly cause UTIs. SYMPTOMS Symptoms of UTIs may vary by age and gender of the patient and by the location of the infection. Symptoms in young women typically include a frequent and intense urge to urinate and a painful, burning feeling in the bladder or urethra during urination. Older women and men are more likely to be tired, shaky, and weak and have muscle aches and abdominal pain. A fever may mean the infection is in your kidneys. Other symptoms of a kidney infection include pain in your back or sides below the ribs, nausea, and vomiting. DIAGNOSIS To diagnose a UTI, your caregiver will ask you about your symptoms. Your caregiver also will ask to provide a urine sample. The urine sample will be tested for bacteria and white blood cells. White blood cells are made by your body to help fight infection. TREATMENT Typically, UTIs can be treated with medication. Because most UTIs are caused by a bacterial infection, they usually can be treated with the use of antibiotics. The choice of antibiotic and length of treatment depend on your symptoms and the type of bacteria causing your infection. HOME CARE INSTRUCTIONS ? If you were prescribed antibiotics, take them exactly as your caregiver instructs you. Finish the medication even if you feel better after you have only taken some of the medication. ? Drink enough water and fluids to keep your urine clear or pale yellow. ? Avoid caffeine, tea, and carbonated beverages. They tend to irritate your bladder. ? Empty your bladder often. Avoid holding urine for long periods of time. ? Empty your bladder before and after sexual intercourse. ? After a bowel movement, women should cleanse from front to back. Use each tissue only once. SEEK MEDICAL CARE IF: ? You have back pain. ? You develop a fever. ? Your symptoms do not begin to resolve within 3 days. SEEK IMMEDIATE MEDICAL CARE IF: ? You have severe back pain or lower abdominal pain. ? You develop chills. ? You have nausea or vomiting. ? You have continued burning or discomfort with urination. MAKE SURE YOU: ? Understand these instructions. ? Will watch your condition. ? Will get help right away if you are not doing well or get worse. Document Released: 04/07/2006 Document Revised: 12/27/2012 Document Reviewed: 08/05/2012 ExitCare? Patient Information ?2014 [employer]. This information is not intended to replace advice given to you by your health care provider. Make sure you discuss any questions you have with your health care provider. LEANDRA Hampton KIANNA , have received the following patient education materials/instructions and have verbalized understanding: Patient Education Materials: Upper Respiratory Infection, Adult; Urinary Tract Infection Follow-up Instructions: With: Address: When: Mark Jimenez [address] [place] [address], [facility] [place] [address] Business (1) In 3 days 06/14/2019 Prescriptions: [brompheniramine/dextromethorp smart/PSE (Bromfed DM oral syrup)] [ciprofloxacin (Cipro 500 mg Tab)] Patient Signature Date Clinician/Nurse Signature Date 06/11/19 15:33:07 Normal [facility] [place] Screenon 06-11-2019 Heterophile Ab LA Ql (S) Negative Normal Negative [facility] Comment on above: Performed By: #### 2 [id number], [id number], [id number], [id number], [id number], [id number] #### [facility] [address] [place] [address] Progress Note-Nurseon 2018 Progress Note-Nurse This nurse went over DC instructions with pt, pt verbalizes understanding, no further questions or needs, DC home. Normal [facility] UA With Cult Reflexon 2018 Bacteria LM Ql (Urine sed) TRACE Normal Trace [facility] Comment on above: Performed By: #### 1 [id number], [id number] #### [facility] [address] [place] [address] Bilirubin Ql (U) Negative Normal Negative [facility] Comment on above: Performed By: #### 1 [id number], [id number] #### [facility] [address] [place] [address] Clarity (U) SL CLOUDY Abnormal Clear [facility] Comment on above: Performed By: #### 1 [id number], [id number] #### [facility] [address] [place] [address] Color (U) YELLOW Normal Yellow [facility] Comment on above: Performed By: #### 1 [id number], [id number] #### [facility] [address] [place] [address] Crystals LM Ql (Urine sed) Present Normal [facility] Comment on above: Performed By: #### 1 [id number], [id number] #### [facility] [address] [place] [address] Epithelial cells.squamous LM.HPF (Urine sed) [#/Area] /[HPF] Normal 0-2 [facility] Comment on above: Performed By: #### 1 [id number], [id number] #### [facility] [address] [place] [address] Glucose Test strip (U) [Mass/Vol] Negative Normal Negative [facility] Comment on above: Performed By: #### 1 [id number], [id number] #### [facility] [address] [place] [address] Hemoglobin Ql (U) Negative Normal Negative [facility] Comment on above: Performed By: #### 1 [id number], [id number] #### [facility] [address] [place] [address] Ketones (U) [Mass/Vol] Negative Normal Negative [facility] Comment on above: Performed By: #### 1 [id number], [id number] #### [facility] [address] [place] [address] [place].plasma/Lith ium.RBC (Bld) [Mass ratio] 0-3 Normal 0-3 [facility] Comment on above: Performed By: #### 1 [id number], [id number] #### [facility] [address] [place] [address] Mucus Ql (Urine sed) 1+ Normal [facility] Comment on above: Performed By: #### 1 [id number], [id number] #### [facility] [address] [place] [address] Nitrite Ql (U) Negative Normal Negative [facility] Comment on above: Performed By: #### 1 [id number], [id number] #### [facility] [address] [place] [address] pH (U) 6.5 [pH] 5.0-9.0 [facility] Comment on above: Performed By: #### 1 [id number], [id number] #### [facility] [address] [place] [address] Protein (U) [Mass/Vol] Negative Normal Negative [facility] Comment on above: Performed By: #### 1 [id number], [id number] #### [facility] [address] [place] [address] Specific gravity (U) [Rel density] 1.020 1.005-1.03 0 [facility] Comment on above: Performed By: #### 1 [id number], [id number] #### [facility] [address] [place] [address] UA Spec Desc Clean Catch Normal [facility] Comment on above: Performed By: #### 1 [id number], [id number] #### [facility] [address] [place] [address] Urobilinogen Qn (U) 0.2 {[place]'U}/dL Normal 0.0-1.0 [facility] Comment on above: Performed By: #### 1 [id number], [id number] #### [facility] [address] [place] [address] WBC Auto Ql (U) 1+ Abnormal Negative [facility] Comment on above: Performed By: #### 1 [id number], [id number] #### [facility] [address] [place] [address] WBC LM.HPF (Urine sed) [#/Area] 6-15 Abnormal 0-5 [facility] Comment on above: Performed By: #### 1 [id number], [id number] #### [facility] [address] [place] [address] eGFRon 06-11-2019 GFR/1.73 sq M predicted among blacks MDRD (S/P/Bld) [Vol rate/Area] mL/min/{1.73_m2} Normal >=59 [facility] Comment on above: Order Comment: Order added by Discern Expert. Result Comment: eGFR is race adjusted. AA=. Performed By: #### 2 [id number], [id number], 5997446, [id number], [id number], [id number] #### [facility] [address] [place] [address] GFR/1.73 sq M predicted among non-blacks MDRD (S/P/Bld) [Vol rate/Area] mL/min/{1.73_m2} Normal >=59 [facility] Comment on above: Order Comment: Order added by Discern Expert. Result Comment: Band Sawmill Operator sony kidney disease could be indicated at eGFR's of less than 60 mL/min/1.73m2. Kidney failure is indicated at less than 15 mL/min/1.73m2. Performed By: #### 2 [id number], [id number], 0931146, [id number], [id number], [id number] #### [facility] [address] [place] [address] Progress Noteon 08-08-2018 [employer]ater Authentication Interface Message Text Visit Subjective: Yuko Mobley is a 17 y.o. female who presents for a visit. She is 6 weeks following a low cervical transverse section. I have fully reviewed the and intrapartum course. The delivery was at 25 gestational weeks. Delivering Provider: Hospitalist Dr. Mccullough. Outcome: primary section, low transverse incision. Anesthesia: General. course has been complicated by NICU, stay previous demise of one twin and recent demise of second twin. Bleeding menses has returned. Bowel function is normal. Bladder function is normal. Patient is not sexually active. Contraception method is OCP (estrogen/progesterone). depression screening: positive. Pt has previously met with Dr. Garcia, however states she got sick and did not continue to meet with her. Pt denies SI, HI. States just has a lot on her plate right now, has been trying to make sense of everything. Pts family is at appt with her and pt as well as family confirm she has a lot of support right now. Pt would like some medication at this time to help her get through this period. Patient's medications, allergies, past medical, surgical, , social, and family histories were reviewed and updated as appropriate. She is accompanied by her mother. Review of Systems Review of Systems Psychiatric/Behavioral: Grieving All other systems reviewed and are negative. Objective: BP 110/56 Ht (!) 149.9 cm Wt 47.4 kg (104 lb 9.6 oz) Physical Exam Nursing note and vitals reviewed. Constitutional: She is oriented to person, place, and time. She appears well-developed and well-nourished. Pulmonary/Chest: Effort normal. Abdominal: Soft. Musculoskeletal: Normal range of motion. Neurological: She is alert and oriented to person, place, and time. Skin: Skin is warm and dry. Psychiatric: She has a normal mood and affect. Her behavior is normal. Appropriately tearful at times Incision well healed EPDS= 21 Assessment: Routine exam. Mental health concern- pt encouraged to make appt with PCP and set up counseling close to home, pt agreeable to plan as she is no longer staying in NICU. Pts family on board with helping her make necessary appts. Rx also sent for short term Lexapro. Pt to call with any concerns or needed assistance. control- Discussed contraceptive options, effectiveness of measures, side effects, bleeding patterns with initiation. Desires OCP Discussed initiation, back up method for 7 days from initiation, follow up with SALES RECRUITING COORDINATOR within 3 months. Reviewed ACHES, pt to stop pill immediately if symptoms noted and report to ER. Pt verbalizes understanding. Plan: 1. Contraception: OCP (estrogen/progesterone) 2. Pt to set up Counseling through PCP 3. Follow up with SALES RECRUITING COORDINATOR within 3 months The total patient time of the visit was 15 minutes, of which greater than 50% of the time was spent counseling and coordinating care. Normal [facility] Progress Noteon 07-11-2018 Elect[employer]ess Plater Authentication Interface Message Text Visit Subjective: Yuko Mobley is a 17 y.o. female who presents for a visit. She is 2 weeks following a low cervical transverse section. I have fully reviewed the and intrapartum course. The delivery was at 25 gestational weeks. Delivering Provider: Hospitalist Dr. Mccullough. Outcome: primary section, low transverse incision. Anesthesia: General. course has been mentally overwhelming, grieving at this time due to demise of one twin. Other twin currently in NICU. Baby is feeding by pumped breastmilk. Bleeding staining only. Bowel function is normal. Bladder function is normal. Patient is not sexually active. Contraception method is none. depression screening: positive. Pt states very overwhelmed right now and confused. Has family support, however states her mother is too much right now and stressful. States FOB and her father have been staying with her. Pt states has better days than others. States they plan to have [facility] service after they are home from NICU. Pt does admit to wondering if things would be better if she weren't here. Denies plan. Denies HI. Will plan to have Dr. Garcia come to triage pt. See Dr. Garcia's note. Patient's medications, allergies, past medical, surgical, , social, and family histories were reviewed and updated as appropriate. She is accompanied by her significant other. Review of Systems Review of Systems All other systems reviewed and are negative. Objective: BP 114/58 Physical Exam Nursing note and vitals reviewed. Constitutional: She is oriented to person, place, and time. She appears well-developed and well-nourished. Pulmonary/Chest: Effort normal. Abdominal: Soft. Musculoskeletal: Normal range of motion. Neurological: She is alert and oriented to person, place, and time. Skin: Skin is warm and dry. Psychiatric: She has a normal mood and affect. Her behavior is normal. Incision evaluated, steri strips removed. Incision intact without redness, ecchymosis, drainage or palpable mass. Assessment: Incision check exam. Elevated EPDS- Dr. Garcia to see pt, see note Plan: 1. Contraception: considering pills at PP appt 2. Pt to follow up with as scheduled 3. Follow up with MFM in 4 weeks. 4. PP precautions reviewed The total patient time of the visit was 10 minutes, of which greater than 50% of the time was spent counseling and coordinating care. Normal [facility] CASE MANAGEMon 06-30-2018 CASE MANAGEM HNO ID: [id number] thor: Kamille Null (Sw)Service: Care ManagementAuthor Type: Social WorkerType: Care Mgt Progress NoteFiled: 06/30/2018 11:37 AMNote Text:CARE MANAGEMENT PROGRESS NOTEAddendum:1115 return call received from [facility] social media manager Trish who states she hasmet with pt at [facility] and will continue to follow up for resources andprovide assistance. Will defer to [facility] social media manager.SERVICE DATE: 06/30/2018SERVICE TIME: 929 LOS: 24 daysFollow upFollow up. Voicemail left for social media manager at [facility] tofollow up. Awaiting return call.SIGNATURE: SANJAY Pro PATIENT NAME: Yuko Arellano: June 30, 2018 : 9:59 AM PAGER/CONTACT #: [phone] [facility] PROGRESSon 06-30-2018 Protein mass conc HNO ID: [id number] thor: Nehal Zafar WiseService: ObstetricsAuthor Type: ResidentType: Progress NotesFiled: 06/30/2018 5:59 AMNote Text: Attes tation signed by Ade Bailon at 06/30/2018 11:13 AMAttending NoteI evaluated the patient and personally participated in the lu components. Iagree with the resident's findings and plan with the following revisions and/oradditions: pt undecided regarding contraception. Will reassess at outpt visit.Asymptomatic will anemia. Recommend continuing PNV and healthy nutrition.Reviewed postop care. Continue support with palliative care department.Signature: EVELINA Villedaate: 06/30/2018Time: 11:11 AMI spent 20 minutes in the visit, with more than 50% of the total hkcn-lf-pbcuupar of the visit in counseling / coordination of care. OBSTE TRICSPOSTPARTUM PROGRESS NOTESERVICE DATE: June 30, 2018SERVICE TIME: 529ASSESSMENT:17 year old female who is postoperative day #3 status HelenKan Yuko [[id number]], Low Transverse delivery.Kan Mobley [[id number]], Low Transverse delivery.B now demisedPLAN:1) Blood Type: 06/27/2018: A; PositiveRubella: 02/10/2018: positiveBaby:Information for the patient's : Kan Mobley Yuko [[id number]]maleInformation for the patient's : Kan Mobley [[id number]]male]Feeding: pumping2) Routine post care3) Acute blood loss anemia with hgb 7.9 from 10.8 after an EBL of 1200 attime of delivery - consider additional iron supplementation4) S/p demise of baby B - patient grieving appropriately, at significantrisk for /situational depression and was counseled on concerningsigns/symptoms this morning5) Chorioamnionitis-S/p gentamicin and clindamycin x24h in the period-Afebrile since delivery and now asymptomatic-Monitor for fevers6) Teen - social work consult7) Disposition per attending?SUBJECTIVE:Patient has no current complaints. Tolerating PO intake. Urinating withoutdifficulty. Passing flatus. Pain well controlled with current regimen.Lochia decreasing. Ambulating without difficulty.OBJECTIVE:PHYSICAL EXAM:Heart: RR, S1, X3Wiqzv: clear to auscultationAbdomen: Soft Fundus firm below umbilicus Non-distendedIncision: Transverse incision C/D/I with steri-strips.Extremities: No calf tendernessLAST VITALS:Pulse BP Resp O2 Sat Temp Pain 88 (!) 99/45 16 97 % 37.1 ?C (98.8 ?F) 11/18HT/WT/BMI:Height Weight BMI 147.3 cm (4' 10 ) 56.4 kg (124 lb 5.4 oz) 25.99LABSDiagnostic tests reviewed for today's visit: Most recent labsSIGNATURE: Nehal Meza MD PATIENT NAME: Yuko StaleyATE: June 30, 2018 Normal [facility] PROGRESSon 06-29-2018 Protein mass conc HNO ID: [id number] thor: Nehal (Res) DerrickService: ObstetricsAuthor Type: ResidentType: Progress NotesFiled: 06/29/2018 6:15 AMNote Text: Attdudley villalba signed by Ade Bailon at 06/29/2018 10:09 [facility] No concerns per resident and staff electrical engineer.Plan dc tomorrow.I spent 15 minutes on the floor coordinating her care. OBSTE TRICSPOSTPARTUM PROGRESS NOTESERVICE DATE: June 29, 2018SERVICE TIME: 0530ASSESSMENT:17 year old female who is postoperative day #2 status postKan Mobley [[id number]], Low Transverse delivery.Kan Mobley [[id number]], Low Transverse delivery.B now demisedPLAN:1) Blood Type: 06/27/2018: A; PositiveRubella: 02/10/2018: positiveBaby:Information for the patient's : Kan Mobley [[id number]]maleInformation for the patient's : Kan Mobley [[id number]]male]Feeding: pumping2) Routine post care3) Acute blood loss anemia with hgb 7.9 from 10.8 after an EBL of 1200 attime of delivery - consider additional iron supplementation4) S/p demise of baby B - patient grieving appropriately, at significantrisk for /situational depression and was counseled on concerningsigns/symptoms this morning5) Chorioamnionitis-S/p gentamicin and clindamycin x24h in the period-Afebrile since delivery and now asymptomatic-Monitor for fevers6) Teen - social work consult7) Disposition per attendingSUBJECTIVE:Patient has no current complaints. Tolerating PO intake. Urinating withoutdifficulty. Pain well controlled with current regimen. Lochia decreasing.Ambulating without difficulty. No flatus yet.This morning she was about to leave for [facility] when I arrived. She wasoverall in good spirits and says that while she is sad to have lost B, sheis focusing on baby A. He is reportedly doing well and has been extubated.She is pumping every 2 hours and is eager to be providing breast milk.She plans to return every 6 hours or so when her pain medications are due.She will likely be back around 11am today.OBJECTIVE:PHYSICAL EXAM:Heart: RR, S1, C9Xgxml: clear to auscultationAbdomen: Soft Fundus firm below umbilicus Non-distendedIncision: Bandage C/D/I, patient declines removal todayExtremities: No calf tendernessLAST VITALS:Pulse BP Resp O2 Sat Temp Pain 83 92/52 18 99 % 36.8 ?C (98.2 ?F) 09/18HT/WT/BMI:Height Weight BMI 147.3 cm (4' 10 ) 56.4 kg (124 lb 5.4 oz) 25.99LABSDiagnostic tests reviewed for today's visit: Most recent labsSIGNATURE: Nehal Meza MD PATIENT NAME: Yuko StaleyATE: June 29, 2018 Normal [facility] ANES Jeremiah 06-28-2018 ANES POST HNO ID: [id number] thor: Tisha Dye SRNAService: (none)Author Type: (none)Type: Anesthesia PostOpFiled: 06/28/2018 1:54 PMNote Text:POST ANESTHESIA EVALUATION NOTESERVICE DATE: 06/28/2018SERVICE TIME: 1307DOB: 2000Vitals: 06/28/[birth year]01Temp: 37.2 ?C (99 ?F) 36.9 ?C (98.4 ?F) 36.4 ?C (97.5 ?F) 36.3 ?C (97.3?F) 06/28/18016BP: 102/58 96/57 94/60 86/50 115 358 Pulse: 100 94 80 89 06/28/1801358 Resp: 19 18 16 20 06/28/1800SpO2: 99% 99% 96% 98%Validated Vital Signs: YesPOST ANES STATUS: No apparent anesthetic complications. The patient isappropriately hydrated with stable respiratory and cardiovascular status.Patient has safe and adequate airway control. The patient has appropriatepain relief and no significant post operative nausea or vomiting. Thepatient has achieved baseline mental status.Further Assessment by Anesthesia Service: NoneOther Remarks:SIGNATURE: Tisha MATOS PATIENT NAME: Yuko StaleyATE: June 28, 2018 : 1:53 PM PAGER/CONTACT #: [facility] CASE MANAGEMon 06-28-2018 CASE MANAGEM HNO ID: [id number] thor: Kamille Waterman) MeduriService: Care ManagementAuthor Type: Social WorkerType: Care Mgt Progress NoteFiled: 06/28/2018 9:43 AMNote Text:CARE MANAGEMENT PROGRESS NOTESERVICE DATE: 06/28/2018SERVICE TIME: 0900 LOS: 22 daysTeen momSw consulted as pt is a teen mom. Pt previously seen by social media manager thisadmission on 06-14-18 and sw consulted to follow up as pt has delivered andbabies are at [facility]. Attempted to see pt however pt is at [facility] visiting. Willfollow up when pt returns.SIGNATURE: SANJAY Pro PATIENT NAME: Yuko StaleyATE: June 28, 2018 : 9:41 AM PAGER/CONTACT #: [phone] Normal [facility] Hemogramon 06-28-2018 Erythrocyte distribution width Ratio (RBC) 13.2 % Normal 11.7-14.4 [facility] Comment on above: Performed By: #### R APTR #### [place] [address] Hematocrit Volume Fraction (Bld) 23.4 % Low 34.1-44.9 [facility] Comment on above: Performed By: #### R APTR #### [place] [address] Hemoglobin mass conc (Bld) 7.9 g/dL Low 11.2-15.7 [facility] Comment on above: Performed By: #### R APTR #### [place] [address] MCH Entitic mass (RBC) 30.0 pg Normal 25.6-32.2 [facility] Comment on above: Performed By: #### R APTR #### [place] [address] MCHC mass conc (RBC) 33.8 % Normal 31.6-34.8 [facility] Comment on above: Performed By: #### R APTR #### [facility] [address] [place] [address] MCV Entitic volume (RBC) 89.0 fL Normal 79.4-94.8 [facility] Comment on above: Performed By: #### R APTR #### [place] [address] Platelet mean volume Entitic volume (Bld) 11.3 fL Normal 9.4-12.3 [facility] Comment on above: Performed By: #### R APTR #### [facility] [address] [place] [address] Platelets #/vol (Bld) 145 thou/cmm Low 182-369 [facility] Comment on above: Performed By: #### R APTR #### [facility] [address] [place] [address] RBC #/vol (Bld) 2.63 mil/cmm Low 3.93-5.22 [facility] Comment on above: Performed By: #### R APTR #### [facility] [address] [place] [address] RDW SD 42.4 fl Normal 36.4-46.3 [facility] Comment on above: Performed By: #### R APTR #### [facility] [address] [place] [address] WBC #/vol (Bld) 17.54 thou/cmm High 3.98-10.04 [facility] Comment on above: Performed By: #### R APTR #### [facility] [address] [place] [address] NURSING PROGon 06-28-2018 Protein mass conc HNO ID: [id number] thor: Luisa (Rn) TG Fisherervice: NursingAuthor Type: Registered NurseType: Nursing Progress NoteFiled: 06/28/2018 5:30 AMNote Text: from [facility] called re: baby B. Pt transferred to NICU via tomain entrance then via security to [facility] NICU ok per Dr. Bailon/Dr. Meza. [facility] Protein mass conc HNO ID: [id number] thor: [place] (Rn) Ximena RNService: (none)Author Type: Registered NurseType: Nursing Progress NoteFiled: 06/27/2018 11:45 PMNote Text:Doughnut Glazier to Pt and family given update on babies. Questions askedand answered. Emotional support given. [facility] PROGRESSon 06-28-2018 Protein mass conc HNO ID: [id number] thor: Ade Morrowrvice: ObstetricsAuthor Type: PhysicianType: Progress NotesFiled: 06/28/2018 9:50 AMNote Text:OBSTETRICSPOSTPARTUM PROGRESS NOTESERVICE DATE: June 28, 2018SERVICE TIME: 05ASSESSMENT:17 year old female who is postoperative day #1 status postKan Mobley [[id number]], Low Transverse delivery.Kan Mobley [[id number]], Low Transverse delivery.PLAN:1) Blood Type: 06/27/2018: A; PositiveRubella: 02/10/2018: positiveBaby:Information for the patient's : Kan Mobley [[id number]]maleInformation for the patient's : Kan Mobley [[id number]]male]Feeding: pumping2) Routine post care, AM CBC with hbb 7.9 from 10.8 after EBL [id number]. Consider iron supplementation.3) Chorioamnionitis-Pt continued on Gentamicin and Clindamycin x24h (last dose of Clindamycinwas given at 0400, next due at 1200 and next dose of Gentamicin not dueuntil 2030 tonight)-Afebrile since delivery and now asymptomatic-Monitor for fevers4) Teen - social work consult5) Disposition per attendingSUBJECTIVE:As I was entering the room to perform AM rounding, [facility] called to informpatient that baby B is not doing well and may not survive. Per ROS withRN, the patient has been doing well with appropriate amount of vaginalbleeding. Pain has been adequately controlled with medications. She istolerating some regular diet. Asymptomatic with ambulation. The patientwas given the OK for a pass to [facility] after discussion with Dr. Bailon. Thepatient was offered discontinuation of the catheter but she chose to keepit in place for now.OBJECTIVE:PHYSICAL EXAM:Not fully assessed secondary to events listed in subjective. I witnessedthe patient ambulate from her bed to a wheelchair without difficulty.Pinzon remains in place.LAST VITALS:Patient Vitals for the past 24 hrs: BP Temp Temp src Pulse Resp SpO2 Idpito33/18/18 0358 94/60 36.4 ?C (97.5 ?F) Oral 80 16 98 % -06/28/18 0115 96/57 36.9 ?C (98.4 ?F) Oral 94 18 96 % -06/28/18 0030 102/58 - - 100 19 99 % -06/28/18 0015 99/56 - - 106 20 99 % -06/28/18 0000 96/55 - - 102 17 97 % -06/27/18 2345 91/56 37.2 ?C (99 ?F) Oral 98 19 99 % -06/27/18 2330 100/56 - - 104 19 100 % -06/27/18 2315 - - - - - 100 % -HT/WT/BMI:Height Weight BMI 147.3 cm (4' 10 ) 56.4 kg (124 lb 5.4 oz) 25.99LABSDiagnostic tests reviewed for today's visit: Most recent labsSIGNATURE: Nehal Meza MD PATIENT NAME: Yuko StaleyATE: June 28, 2018 Attending NoteI evaluated the patient and personally participated in the lu components. I agree with the resident's findings and plan as documented and havediscussed the case and management of the patient's care with the resident.Patient still at [facility] with one of the twins in poor condition and notexpected to survive. Postop hbg 7.9 (preop 10.8). [facility] Antibiotics due at noon. Pinzon in place. Can dc pinzon whenshe returns. MICHAEL RN.Signature: EVELINA Villedaate: 06/28/2018Time: 9:43 AMI spent 15 minutes in the visit, with more than 50% of the puyzqwwql-tf-aloi time of the visit in counseling / coordination of care. [facility] ANES PREOPon 06-27-2018 ANES PREOP HNO ID: [id number] thor: Ha (Gwen) BesterService: AnesthesiologyAuthor Type: Nurse AnesthetistType: Anesthesia PreOpFiled: 06/27/2018 9:33 PMNote Text:OB ANESTHESIA PRE-PROCEDURE ASSESSMENTSERVICE DATE: 06/27/2018SERVICE TIME: 2049Estimated body mass index is 24.87 kg/m? as calculated from the following: Height as of this encounter: 147.3 cm (4' 10 ). Weight as of this encounter: 54 kg (119 lb).ASA Class: 3Adequate NPO Status: YesALLERGIESAllergen Reactions- Keflex [Cephalexin] Hives- Rocephin [Ceftriaxo* HivesAirway Assessment: MP 2; Neck ROM: Full ROM without neurologic symptoms;Airway Evaluation: No significant abnormalitiesDentition: Teeth intactSymptoms of Sleep Apnea: DeniesHematocritDate Value Ref Range Wopcmf4106/27/2018 32.3 (L) 34.1 - 44.9 % Final Platelet CountDate Value Ref Range Lqlhqc4306/27/2018 163 (L) 182 - 369 thou/cmm Final Vitals: 0 06/27/18205BP: (!) 96/49 (!) 97/46Pulse: (!) 133 (!) 137Resp: 22 22Temp: (!) 39.6 ?C (103.3 ?F) (!) 39.5 ?C (103.1 ?F) (!) 39.4 ?C (103 ?F)TempSrc: Oral OralSpO2: 95% 95%Weight: 56.4 kg (124 lb 5.4 oz)Height:Previous Anesthesia: No history of adverse event Family history ofanesthetic problems: NoneAdditional Physical Exam:Lungs: Clear to auscultation. Breath Sounds Equal: YesCardiac: Regular rhythmAdditional Pertinent Findings: NoneOBSTETRIC HISTORY:ACTIVE PROBLEM LISTVaginal Discharge in PregnancyTeratogen Exposure in Current PregnancyDichorionic Diamniotic Twin PregnancyHigh-Risk PregnancyPrevious OB Anesthetic: NonePast Obstetric History: NoneCurrent Obstetric Problems/ Important Considerations:pre-term and premature rupture of membranesGERD: Denies GERDAnesthetic Risks, Benefits, Alternatives, Personnel and Consent Discussed. Separate Consent Signed at this Interview: YesBlood Products: Not anticipated for this procedureANESTHETIC PLAN: General AnesthesiaPain Management Plan: Parenteral or OralEPIC Chart ReviewACTIVE PROBLEM LISTVaginal Discharge in PregnancyTeratogen Exposure in Current PregnancyDichorionic Diamniotic Twin PregnancyHigh-Risk PregnancyPAST MEDICAL HISTORYDiagnosis Date- Mental disorder anxietyPAST SURGICAL HISTORYProcedure Laterality Date- APPENDECTOMY 2010- PLASTIC SURGERY COSMETIC ITEMS 2010 birthmark removal from thigh/stomachFAMILY HISTORYProblem Relation Age of Onset- Family history unknown: YesSocial HistorySubstance Use Topics- Smoking status: Never Smoker- Smokeless tobacco: Never Used- Alcohol use NoNo prescriptions prior to admission.Inpatient medications reviewed in [facility].I have interviewed and examined the patient. I have reviewed the medicalrecord , pertinent consults and/or the pre-anesthesia evaluation,pertinent labs, and test results.Significant changes in the patient's condition since the History andPhysical, not otherwise documented in primary service progress notes: NoThis contains updated information obtained within 48 hours ofSurgery/Procedure.SIGNATURE: Ha Coronel APRN.CRNA PATIENT NAME: Yuko StaleyATE: June 27, 2018 : 9:07 PM : 2000 [facility] Blood Gas Cord Bloodon 06-27 Base Excess -4.5 mEq/L Normal [facility] Comment on above: Performed By: #### R APTR #### [place] [address] HCO3 molar conc (Bld) 20.9 mmol/L Normal [facility] Comment on above: Performed By: #### R APTR #### [place] [address] O2% Sat Cord Blood 70.0 % Normal [facility] Comment on above: Performed By: #### R APTR #### [place] [address] PCO2 Cord Blood 39.7 mm Hg Normal [facility] Comment on above: Performed By: #### R APTR #### [place] [address] pH Cord Blood 7.340 Normal [facility] Comment on above: Performed By: #### R APTR #### [place] [address] PO2 Cord Blood 29.0 mm Hg Normal [facility] Comment on above: Performed By: #### R APTR #### [facility] [address] [place] [address] CONSULTon 06-27-2018 CONSULT HNO ID: [id number] thor: Nehal (Charisma) Tatianavice: ObstetricsAuthor Type: ResidentType: ConsultsFiled: 06/27/2018 8:31 PMNote Text: Attdudley villalba signed by Fernando Mccullough III at 06/28/2018 9:32 AMI personally saw and evaluated the patient. I reviewed the resident's note. Iagree with the resident's assessment and plan unless otherwise noted.Consulted for delivery. Appreciate opportunity for assisting with patientcare. For section due to suspected chorioamnionitis with prolongedPPROM with di-di twins at 25 5/7 weeks. Precautions reviewed with patient.Fernando Mccullough III, DO DELIVERY [id number] year old EGA:25w5d admitted for Premature Rupture ofMembranes now with concern for intraamniotic infection and labor withmalpresented di/di twin fetuses?1. Periviable PPROM of Fetus A-Since 06/01 at 22.0 weeks-BV/trichomonas negative on admission?-Patient did receive approximately 3 days of flagyl at outsidehospital-Chlamydia/gono rrhea negative-GBS neg 06/07-WBCs 11.59 on admission->12 today-Inpatient management with initiation of latency antibiotics at 23.0weeks, s/p course of latency abx?-IV Clindamycin x2 days->PO Clindamycin x5 days?-IV Gentamicin x2 days?-PO Azithromycin x1-Concern for chorioamnionitis and labor, now moving towards delivery-Maternal tachycardia- resolved?2. Abnormal urinalysis-S/p Ciprofloxacin treatment x2-3 days from outside hospital for having 3+blood on urinalysis-UA with small leukocyte esterase-Urine culture negative-Repeat UA with large hemoglobin, + protein and small LE.?3. Twin gestation -Di/di-cfDNA: pending. Sent out 06/23.?4. Prematurity-PMG consult ?-BMZ given 06/06 and 06/07-Plan for Magnesium if delivering <32 weeks-Growth ultrasound 06/06:?-A: 453g, 30%, oligohydramnios at 1.79cm, unable to r/oclubbed feet due to position?-B: 525g?50%, DVP 5.30cm?-Discordance 12%?-Femur lengths on both babies <2%?-Cont growths q4 weeks (Next 07/04)?5. Unstable lie- Cephalic/breech on last US?6. Monitoring-30 minutes BID?7. Diet-Regular?8. DVT ppx-SCDs?9. Routine care-TDAP refused-One hour glucola 86?10. Patient evi-fklepvhtpc-Yccuvez refuses monitoring at times; reminded of importance?Disposition: New onset fundal TTP this AM. Continue inpatient monitoringfor periviable PPROM with planned delivery at 34 weeks unless worsening ofsymptoms. Plan for rescue course of steroids before delivery. S/p latencyabxs.??SUBJECTIVE:Patie nt now with signs of intraamniotic infection and labor. Movingtowards delivery.?OBJECTIVE:?LAST VITALS:Pulse BP Resp O2 Sat Temp Pain 88 114/68 17 95 % 36.8 ?C (98.2 ?F) 0/10?PHYSICAL EXAM:General: WD, WN, NAD, comfortableHeart: RR, S1, U5Jnbxn: clear to auscultationAbdomen: soft, gravid, +fundal TTP diffuselyExtremities: no edema? MONITORING/ASSESSMENT:A 170/mod/+accels/ +isolated mild variable decelsB 165/mod/+accels/ +isolated mild variable decelsToco irritability, no ctxsCat II?LABSDiagnostic tests reviewed for today's visit: Most recent labsD/w Dr. Mccullough [facility] Hemogram/Diffon 06-27-2018 Abs Immature Grans 0.06 thou/cmm High 0.00-0.05 [facility] Comment on above: Performed By: #### R APBV #### [place] [address] Abs. Baso 0.04 thou/cmm Normal 0.01-0.08 [facility] Comment on above: Performed By: #### R APBV #### [place] [address] Abs. [place] 0.91 thou/cmm High 0.27-0.70 [facility] Comment on above: Performed By: #### R APBV #### [place] [address] Abs. Neut (ANC) 9.19 thou/cmm High 1.56-6.13 [facility] Comment on above: Performed By: #### R APBV #### [place] [address] Basophils/100 WBC (Bld) 0.3 % Normal [facility] Comment on above: Performed By: #### R APBV #### [place] [address] Eosinophils #/vol (Bld) 0.01 thou/cmm Normal 0.00-0.31 [facility] Comment on above: Performed By: #### R APBV #### [place] [address] Eosinophils/100 WBC (Bld) 0.1 % Normal [facility] Comment on above: Performed By: #### R APBV #### [facility] [address] [place] [address] Erythrocyte distribution width Ratio (RBC) 13.3 % Normal 11.7-14.4 [facility] Comment on above: Performed By: #### R APBV #### [facility] [address] [place] [address] Hematocrit Volume Fraction (Bld) 32.3 % Low 34.1-44.9 [facility] Comment on above: Performed By: #### R APBV #### [place] [address] Hemoglobin mass conc (Bld) 10.8 g/dL Low 11.2-15.7 [facility] Comment on above: Performed By: #### R APBV #### [place] [address] Immature Grans 0.50 % Normal [facility] Comment on above: Performed By: #### R APBV #### [place] [address] Lymphocytes #/vol (Bld) 1.97 thou/cmm Normal 1.18-3.74 [facility] Comment on above: Performed By: #### R APBV #### [place] [address] Lymphocytes/100 WBC (Bld) 16.2 % Normal [facility] Comment on above: Performed By: #### R APBV #### [facility] [address] [place] [address] MCH Entitic mass (RBC) 29.5 pg Normal 25.6-32.2 [facility] Comment on above: Performed By: #### R APBV #### [place] [address] MCHC mass conc (RBC) 33.4 % Normal 31.6-34.8 [facility] Comment on above: Performed By: #### R APBV #### [place] [address] MCV Entitic volume (RBC) 88.3 fL Normal 79.4-94.8 [facility] Comment on above: Performed By: #### R APBV #### [facility] [address] [place] [address] Monocytes/100 WBC (Bld) 7.5 % Normal [facility] Comment on above: Performed By: #### R APBV #### [facility] [address] [place] [address] Platelet mean volume Entitic volume (Bld) 11.1 fL Normal 9.4-12.3 [facility] Comment on above: Performed By: #### R APBV #### [place] [address] Platelets #/vol (Bld) 163 thou/cmm Low 182-369 [facility] Comment on above: Performed By: #### R APBV #### [place] [address] RBC #/vol (Bld) 3.66 mil/cmm Low 3.93-5.22 [facility] Comment on above: Performed By: #### R APBV #### [place] [address] RDW SD 43.4 fl Normal 36.4-46.3 [facility] Comment on above: Performed By: #### R APBV #### [place] [address] Seg Neutrophil 75.4 % Normal [facility] Comment on above: Performed By: #### R APBV #### [place] [address] WBC #/vol (Bld) 12.19 thou/cmm High 3.98-10.04 [facility] Comment on above: Performed By: #### R APBV #### [place] [address] Influenza A, B and RSV by RT -PCRon 06-27-2018 Influenza A by RT-PCR see below Normal Negative [facility] Comment on above: Result Comment: Nega tive for Influenza A by RT-PCR Performed By: #### R APBV #### [facility] [address] [place] [address] Influenza B by RT-PCR see below Normal Negative [facility] Comment on above: Result Comment: Nega tive for Influenza B by RT-PCR Performed By: #### R APBV #### [facility] [address] [place] [address] RSV by RT-PCR see below Normal Negative [facility] Comment on above: Result Comment: Nega tive for RSV by RT-PCR Performed By: #### R APBV #### [facility] [address] [place] [address] NURSING PROGon 06-27-2018 Protein mass conc HNO ID: [id number] thor: Angeles (Rn) Ximena, RNService: (none)Author Type: Registered NurseType: Nursing Progress NoteFiled: 06/27/2018 10:40 PMNote Text:Pt into RR#1, RN remains at BS. Pt prepped for C/S. Magnesium sulfateinfusing, see flowsheet for assessment findings. Pt rating pain 6/10 occCTX. Support given Pt repositioned for comfort. Review with Pt plan ofcare, questions asked and answered. [facility] OPERATIVE NOon 06-27-2018 OPERATIVE NO HNO ID: [id number] thor: Nehal (Res) WiseService: ObstetricsAuthor Type: ResidentType: Operative ReportFiled: 06/28/2018 12:05 AMNote Text: Attes deejay signed by Fernando Mccullough III at 06/28/2018 9:51 AMI personally performed the lu aspects of the procedure with resident and agreewith the surgical note.Fernando Mccullough III, DO OBSTETRI CSOPERATIVE REPORT - SECTIONLog ID: [id number] Date: 06/27/2018Incision/Procedure Start Time: 9:18 PMIncision Close/Procedure End Time: 10:05 PMGestational Age at Delivery: 80w7lBougfnKan [[id number]]Primary Reason for Delivery Today: ChorioamnionitisAdditional Clinical Indicators for Delivery:Ruptured MembranesIndication for : MalpresentationKan Mobley [[id number]]Primary Reason for Delivery Today: ChorioamnionitisAdditional Clinical Indicators for Delivery:Ruptured MembranesIndication for : MalpresentationAdditional Pre-Op Details (if applicable): 17 year old now [id number] with premature rupture of membranes at 22 weeksgestation with a di/di twin . This was otherwisecomplicated by malpresentation with breech/cephalic presentation thatlater was cephalic/breech by the time of delivery. She received 2 doses ofantenatal steroids at 23 weeks and again on the day of delivery. At 25weeks 5 days, she developed a fever, maternal and tachycardia andpainful contractions. Her cervix made change from visually closed to 1cmdilated. Given the concern for intraamniotic infection and labor, and themalpresentation at 25 weeks, the decision was made to proceed with aprimary section. The patient was started on magnesium forneuroprotection.Postop Diagnosis: Same as pre-op diagnosisSurgeon(s) and Security Software Engineer(s):Surgeon(s) and Role: * Fernando Mccullough III - Primary * Nehal Meza - Resident - AssistingNo Additional StaffProcedures and Anesthesia:Procedure(s) and Anesthesia Type: * SECTION - EpiduralInformation for the patient's : Kan Mobley [[id number]] Type: , Low TransverseOperative Findings: Weight:Sex: maleOne Minute :Five Minute :Cord Complications: NoneInformation for the patient's : Kan Mobley [[id number]] Type: , Low TransverseOperative Findings: Weight:Sex: maleOne Minute :Five Minute :Cord Complications: NoneAdditional Findings: Normal uterus, Normal tubes, Normal ovaries andyellow/brown stained endometriumTECHNIQUE:The patient was taken to the operating room. She was placed in supineposition with a left tilt. SCD's were placed. Pinzon catheter was placedunder sterile conditions. She was prepped and draped in the usual sterilefashion for abdominal surgery. General anesthesia was induced and found erin adequate. This decision was made by anesthesia due to the maternalfeverPfannensteil incision was made with the scalpel. Incision was taken downto the fascia sharply, and the fascia was incised in the midline.Incision was extended laterally sharply. Rectus muscles were dissectedoff the fascia bluntly and sharply and divided in the midline.Peritoneum was entered bluntly and incision was extended superiorly andinferiorly. The bladder blade was then introduced. The vesicouterineperitoneum was incised and the incision was taken laterally. The bladderflap was created digitally. The bladder blade was then reintroduced.Hysterotomy was performed in a low transverse fashion with the scalpel.The incision was extended manually in a superolateral fashion. Infantswere delivered from a cephalic presentation followed by a jens breechposition. Fetus B was delivered to the shoulders with fundal pressure andtraction placed on the hips after a moist towel was applied. Both armswere sequentially delivered by swinging them in front of the chest. Headwas then delivered atraumatically. Cords were clamped and cut, and theinfants were handed off to awaiting staff. Cord blood was collected,though there was not enough for fetus A. A sample of the cord wascollected to obtain the pH.Placentas then delivered spontaneously with fundal massage. The uteruswas then exteriorized and cleared of clots and debris. The bladder bladewas reintroduced.The uterus was closed in two layers. The first layer was a running lockedstitched of 0 chromic. The second layer was in imbricating stitch of 0chromic. Excellent hemostasis was obtained. Uterus was returned to theabdomen. Inspection of the pelvis noted the above findings.The peritoneum was closed with 3-0 Vicryl in a running fashion. The fasciawas closed with 0 Vicryl in a running fashion. The subcutaneous tissuewas irrigated and made hemostatic with bovie cautery. The subcutaneoustissue was closed with interrupted stitches of 3-0 Vicryl. The skin wasclosed with 4-0 Vicryl in a running fashion.Sponge, lap and needle counts were correct times two, and the patient wastaken to the recovery room with stable vital signs after tolerating theprocedure well.SPECIMEN: Cord blood specimen and Cord pHDRAINS: Pinzon to gravity.EBL: 1200 mLURINE OUTPUT: 250 mLIV FLUIDS: 1000 mL crystalloidCOMPLICATIONS: NoneThe primary surgeon/proceduralist performed the procedure with assistance.SIGNATURE: Nehal Meza MD PATIENT NAME: Yuko StaleyATE: June 27, 2018 : 10:23 PM [facility] PROGRESSon 06-27-2018 Protein mass conc HNO ID: [id number] thor: Nehal (Charisma) DerrickService: ObstetricsAuthor Type: ResidentType: Progress NotesFiled: 06/27/2018 8:25 PMNote Text:Late entry for 1945:Patient re-evaluated. Feeling a lot of pelvic pressure and hip pain withcontractions every 1-3 minutes on the monitor. She is breathing throughthe contractions. She feels diffuse abdominal pain now, including topalpation over fundus. On speculum exam, her discharge is yellow tingedand her cervix has changed from visually closed to visually 1cm dilated.Her WBC count is 12.At this time, there is concern for amniotic infection and early labor.After discussion with Dr. Bailon, we will move towards delivery given theseconcerns. Bedside ultrasound performed with Dr. Mccullough - the fetuses are incephalic/breech presentation with cardiac activity visualized x2. Thepatient will be started on Magnesium for neuroprotection and will receivea rescue dose of BMZ. She will be started on antibiotics for andintraamniotic infection coverage. We will proceed with section;the patient was consented for a classical and understands therisks/benefits to the procedure. SCN and anesthesia are aware of ourdecision and are in house. The patient will likely undergo generalanesthesia and understands that as well.Delivery signed out to Dr. Mccullough.Nehal Meza MD06/27/2018 8:25 PMObstetrics and Gynecology MYE1Gypsx #3998 [facility] Protein mass conc HNO ID: [id number] thor: Nehal MezaService: ObstetricsAuthor Type: ResidentType: Progress NotesFiled: 06/27/2018 7:12 PMNote Text:Patient febrile to 39.4 at 1819 today. She is also tachycardic at 145 withfetal tachycardia on the monitor. Other than feeling hot and flushed, sheis complaining of lower abdominal cramping that is not new. Denies anyupper abdominal pain, chest pain, shortness of breath, congestion, sorethroat, cough, nausea/vomiting, constipation/diarrhea or rashes. Hersister is reportedly sick with a gastroenteritis and the patient last sawher 2 days ago.On exam, there is regular tachycardia in the 130sPt visibly flushedLungs CTABAbdomen soft, nontender, no fundal tenderness to light or deep palpationExt NTA/P: 17 year old at 25.5 weeks with di/di twin and PPROMfor A since 22 weeks, now with fever of unknown source and concern forinfection-CBC, type and screen, urinalysis, influenza swab now-Tylenol and IVF now-Continuous EFM-Repeat temperature 30 minutes after initial itepa-Jx-kmxigmvs in approximately 45 minutes with plan for speculum exam andbedside ultrasound-Low threshold for delivery if there is no other suspected source than anintraamniotic infectionD/w Dr. Alex Meza MD06/27/2018 7:05 PMObstetrics and Gynecology HLV3Mlfqq #3998 [facility] Protein mass conc HNO ID: [id number] thor: Melonie (Rn) TG Ramirezervice: NursingAuthor Type: Registered NurseType: Progress NotesFiled: 06/27/2018 6:23 PMNote Text:C/o feeling hot. Temp 39.4. Denies abdominal tenderness. States stomacha little upset. No vomiting or diarrhea. Flushed cheeks. Dr. Stewart. [facility] Protein mass conc HNO ID: [id number] thor: Ade Morrowrvice: Maternal MedicineAuthor Type: PhysicianType: Progress NotesFiled: 06/27/2018 11:37 AMNote Text: monitoring Cat 2 this am. Extended monitoring reassuring. Candiscontinue monitoring at this time. Resume daily monitoring.She requests tylenol for COY. Order placed x 1. [facility] Protein mass conc HNO ID: [id number] thor: Anastasiia (Charisma) ZakerService: ObstetricsAuthor Type: ResidentType: Progress NotesFiled: 06/27/2018 6:29 AMNote Text: Attes tation signed by Ade Bailon at 06/27/2018 9:48 AMAttending NoteI evaluated the patient and personally participated in the lu components. Iagree with the resident's findings and plan with the following revisions and/oradditions: her tenderness from earlier this morning is now resolved. Afebrile.Pt agrees to let us know if the tenderness returns. FHR cat 2, on extendedmonitoring.Signature: Ade Bailon, DODate: 06/27/2018Time: 9:46 AMI spent 15 minutes in the visit, with more than 50% of the total wmrh-wu-efhnlgyp of the visit in counseling / coordination of care. OBSTE TRICSANTEPARTUM PROGRESS NOTESERVICE DATE: 06/27/2018SERVICE TIME: 6:25 AMASSESSMENT AND PLAN:17 year old EGA:25w5d admitted for Premature Rupture ofMembranes.1. Periviable PPROM of Fetus A-Since 06/01 at 22.0 weeks-BV/trichomonas negative on admission?-Patient did receive approximately 3 days of flagyl at outsidehospital-Chlamydia/gono rrhea negative-GBS neg 06/07-WBCs 11.59 on admission-Inpatient management with initiation of latency antibiotics at 23.0weeks, s/p course of latency abx?-IV Clindamycin x2 days->PO Clindamycin x5 days?-IV Gentamicin x2 days?-PO Azithromycin x1-Monitor for labor or infection-Concern for chorioamnionitis versus gastroenteritis- Resolved. Cont tomonitor for signs of infection. ?-Maternal tachycardia- resolved?2. Abnormal urinalysis-S/p Ciprofloxacin treatment x2-3 days from outside hospital for having 3+blood on urinalysis-UA with small leukocyte esterase-Urine culture negative-Repeat UA with large hemoglobin, + protein and small LE.?3. Twin gestation -Di/di-cfDNA: pending. Sent out 06/23.?4. Prematurity-PMG consult ?-BMZ given 06/06 and 06/07-Plan for Magnesium if delivering <32 weeks-Growth ultrasound 06/06:?-A: 453g, 30%, oligohydramnios at 1.79cm, unable to r/oclubbed feet due to position?-B: 525g?50%, DVP 5.30cm?-Discordance 12%?-Femur lengths on both babies <2%?-Cont growths q4 weeks (Next 07/04)?5. Unstable lie- Cephalic/breech on last US?6. Monitoring-30 minutes BID?7. Diet-Regular?8. DVT ppx-SCDs?9. Routine care-TDAP refused-One hour glucola 8610. Patient ykm-gbtcamgzgr-Mjdlmwd refuses monitoring at times; reminded of importance?Disposition: New onset fundal TTP this AM. Continue inpatient monitoringfor periviable PPROM with planned delivery at 34 weeks unless worsening ofsymptoms. Plan for rescue course of steroids before delivery. S/p latencyabxs.?SUBJECTIVE:No current vaginal bleeding, Still leaking fluid, No contractions, Goodfetal movement, No shortness of breath or chest pain, No calf tendernessand Endorses isolated episode of sharp abdominal pain that is no longerpersistent. States pain currently 0/10. Denies F/C.OBJECTIVE:LAST VITALS:Pulse BP Resp O2 Sat Temp Pain 88 114/68 17 95 % 36.8 ?C (98.2 ?F) 0/10PHYSICAL EXAM:General: WD, WN, NAD, comfortableHeart: RR, S1, S0Kyycj: clear to auscultationAbdomen: soft, gravid, +fundal TTP diffuselyExtremities: no edemaFETAL MONITORING/ASSESSMENT:A 140/mod/+accels/+isolated mild variable decelsB 130/mod/+accels/neg decelsToco irritability, no ctxsCat II, ILABSDiagnostic tests reviewed for today's visit: Most recent labsSIGNATURE: Anastasiia Muniz, PGY-2Obstetrics and GynecologyPager [phone]/28/2017 PATIENT NAME: Yuko StaleyATE: June 27, 2018 [facility] Type and Screenon 06-27-2018 ABO group Nom (Bld) A Normal [facility] Comment on above: Performed By: #### R APBV #### [place] [address] Comment See Below Normal [facility] Comment on above: Result Comment: Scre en &/or Xmatch expires in 3 days at 12 midnight. Redraw patient at that time. Performed By: #### R APBV #### [place] [address] RH Type Positive Normal [facility] Comment on above: Performed By: #### R APBV #### [address] [place] [address] NURSING PROGon 06-26-2018 Protein mass conc HNO ID: [id number] thor: Radha Henderson) TG Berrioservice: NursingAuthor Type: Registered NurseType: Nursing Progress NoteFiled: 06/26/2018 1:06 AMNote Text:Aric Fajardo discussed with Dr. Grady how much longer to monitor infants.Stated 10 more minutes. Patient set alarm on her phone at this time for 10minutes and stated the monitors will be coming off at that time. [facility] Protein mass conc HNO ID: [id number] Author: Leona StewartRn) Eri RN Service: Nursing Author Type: Registered Nurse Type: Nursing Progress Note Filed: 06/26/2018 11:39 AM Note Text: Received call from Dr. Weiss to not monitor at 12:30 p.m. [facility] Protein mass conc HNO ID: [id number] thor: Leona Henderson) TG Hwangervice: NursingAuthor Type: Registered NurseType: Nursing Progress NoteFiled: 06/26/2018 11:38 AMNote Text:Pt. Sleeping/resting in bed. Bedside rounds with Dr. Arroyo. informed pt. How important it is to monitor babies twice a day.Pt. States understanding. Instructed by Dr. Arroyo to monitor babiesat 12:30 p.m. For 30 min. Pt. In agreement and plan of care discussedwith pt. [facility] Protein mass conc HNO ID: [id number] thor: Leona Henderson) TG Hwangervice: NursingAuthor Type: Registered NurseType: Nursing Progress NoteFiled: 06/26/2018 11:05 AMNote Text:Dr. Blue at bedside speaking with pt. Regarding refusing fhrmonitoring this a.m. After only capturing only approx. 10-20 min. [facility] Protein mass conc HNO ID: [id number] thor: TG Hinkle Rnervice: NursingAuthor Type: Registered NurseType: Nursing Progress NoteFiled: 06/26/2018 4:34 AMNote Text:RN called to room. Patient asked for towels so she can shower. Towelsgiven to patient. Linen changed on bed at this time as well. [facility] Protein mass conc HNO ID: [id number] thor: Radha (Rn) TG Berrioservice: NursingAuthor Type: Registered NurseType: Nursing Progress NoteFiled: 06/26/2018 3:38 AMNote Text:RN called to room due to IV being out. RN advised patient of needing anIV. Patient refused IV restart until family is here. [facility] PROGRESSon 06-26-2018 Protein mass conc HNO ID: [id number] thor: Prudence (Res) Lucaservice: ObstetricsAuthor Type: ResidentType: Progress NotesFiled: 06/26/2018 11:05 AMNote Text:Pt is declining NST this morning. She states that they got 3 minutes, I'mnot messing with the monitors right now . I discussed the indications formonitoring with PPROM, and that 3 minutes of tracing is not long enough erin reassuring. Pt continues to decline, but is willing to have NST thisevening.Dr. Arroyo updatedSIGNATURE: Prudence Blue DO PATIENT NAME: Yuko StaleyATE: June 26, 2018 : 11:04 AM PAGER/CONTACT #: [phone] [facility] Protein mass conc HNO ID: [id number] thor: Anastasiia (Res) ZakerService: ObstetricsAuthor Type: ResidentType: Progress NotesFiled: 06/26/2018 7:04 AMNote Text: Attdudley tatolivia signed by Trista Ag at 06/26/2018 11:49 AMPatient seen and examined by me and I agree with the residents assessment andplan. heart monitoring reviewed. No need to put her back on this morning.Ok to put her on this evening. Discussed with the patient the importance offetal monitoring and holding still while the monitors are on so we canadequately assess the fetuses.Trista Arroyo MD OBSTETRI CSANTEPARTUM PROGRESS NOTESERVICE DATE: 06/26/2018SERVICE TIME: 7:03 AMASSESSMENT AND PLAN:17 year old EGA:25w4d admitted for Premature Rupture ofMembranes.1. Periviable PPROM of Fetus A-Since 06/01 at 22.0 weeks-BV/trichomonas negative on admission?-Patient did receive approximately 3 days of flagyl at outsidehospital-Chlamydia/gono rrhea negative-GBS neg 06/07-WBCs 11.59 on admission-Inpatient management with initiation of latency antibiotics at 23.0weeks, s/p course of latency abx?-IV Clindamycin x2 days->PO Clindamycin x5 days?-IV Gentamicin x2 days?-PO Azithromycin x1-Monitor for labor or infection-Concern for chorioamnionitis versus gastroenteritis- Resolved. Cont tomonitor for signs of infection. ?-Maternal tachycardia- resolved?2. Abnormal urinalysis-S/p Ciprofloxacin treatment x2-3 days from outside hospital for having 3+blood on urinalysis-UA with small leukocyte esterase-Urine culture negative-Repeat UA with large hemoglobin, + protein and small LE.?3. Twin gestation -Di/di-cfDNA: pending. Sent out 06/23.?4. Periviable-PMG consult ?-BMZ given 06/06 and 06/07-Plan for Magnesium if delivering <32 weeks-Growth ultrasound 06/06:?-A: 453g, 30%, oligohydramnios at 1.79cm, unable to r/oclubbed feet due to position?-B: 525g 50%, DVP 5.30cm?-Discordance 12%?-Femur lengths on both babies <2%?-Cont growths q4 weeks (Next 07/04)?5. Unstable lie- Cephalic/breech on last US?6. Monitoring-30 minutes BID?7. Diet-Regular?8. DVT ppx-SCDs?9. Routine care-TDAP refused-One hour glucola 86?Disposition: No s/sx of infection. Continue inpatient monitoring forperiviable PPROM with planned delivery at 34 weeks. S/p latency abxs.SUBJECTIVE:No current vaginal bleeding, No current leaking of fluid, No contractions,Good movement, No shortness of breath or chest pain, No calftenderness and Denies abdominal pain, denies F/C. Overall withoutcomplaint.OBJECTIVE:LAS T VITALS:Pulse BP Resp O2 Sat Temp Pain 98 94/58 18 96 % 37.3 ?C (99.2 ?F) 0/10PHYSICAL EXAM:General: WD, WN, NAD, comfortableHeart: RR, S1, R2Eejro: clear to auscultationAbdomen: soft, nontender, neg fundal TTPExtremities: no edemaFETAL MONITORING/ASSESSMENT:A: 135/mod/+accels/neg decels B: 125/mod/+accels/neg decels; Colliers: noctxs; Cat I FHT [id number] tests reviewed for today's visit: No new labsSIGNATURE: Anastasiia Muniz DO PATIENT NAME: Yuko StaleyATE: June 26, 2018 : 7:04 AM [facility] NURSING PROGon 06-25-2018 Protein mass conc HNO ID: [id number] thor: Radha Henderson) TG Brerioservice: NursingAuthor Type: Registered NurseType: Nursing Progress NoteFiled: 06/25/2018 9:43 PMNote Text: RN called and talked to Dr. Muniz requesting ultrasound to find infantplacement for monitors. [facility] Protein mass conc HNO ID: [id number] Author: Jaya (Rn) NICOLE Muniz Service: Nursing Author Type: Registered Nurse Type: Nursing Progress Note Filed: 06/24/2018 10:26 PM Note Text: Reviewed EFM with Octavio Arnold to remove monitors [facility] PROGRESSon 06-25-2018 Protein mass conc HNO ID: [id number] thor: Viry Barron (Res) LendeService: ObstetricsAuthor Type: ResidentType: Progress NotesFiled: 06/25/2018 5:20 AMNote Text: Attes tation signed by Trista Ag at 06/25/2018 9:15 AMPatient seen and examined by me and I agree with the residents assessment andplan.Trista Arroyo MD OBSTETRI CSANTEPARTUM PROGRESS NOTESERVICE DATE: 06/25/2018SERVICE TIME: 0515ASSESSMENT AND PLAN:17 year old EGA:25w3d admitted for Premature Rupture ofMembranes.1. Periviable PPROM of Fetus A-Since 06/01 at 22.0 weeks-BV/trichomonas negative on admission?-Patient did receive approximately 3 days of flagyl at outsidehospital-Chlamydia/gono rrhea negative-GBS neg 06/07-WBCs 11.59 on admission-Inpatient management with initiation of latency antibiotics at 23.0weeks, s/p course of latency abx?-IV Clindamycin x2 days->PO Clindamycin x5 days?-IV Gentamicin x2 days?-PO Azithromycin x1-Monitor for labor or infection-Concern for chorioamnionitis versus gastroenteritis- Resolved. Cont tomonitor for signs of infection. ?-Maternal tachycardia- resolved?2. Abnormal urinalysis-S/p Ciprofloxacin treatment x2-3 days from outside hospital for having 3+blood on urinalysis-UA with small leukocyte esterase-Urine culture negative-Repeat UA with large hemoglobin, + protein and small LE.?3. Twin gestation -Di/di-cfDNA: pending. Sent out 06/23.?4. Periviable-PMG consult ?-BMZ given 06/06 and 06/07-Plan for Magnesium if delivering <32 weeks-Growth ultrasound 06/06:?-A: 453g, 30%, oligohydramnios at 1.79cm, unable to r/oclubbed feet due to position?-B: 525g 50%, DVP 5.30cm?-Discordance 12%?-Femur lengths on both babies <2%?-Cont growths q4 weeks (Next 07/04)?5. Unstable lie- Cephalic/breech on last US?6. Monitoring-30 minutes BID?7. Diet-Regular?8. DVT ppx-SCDs?9. Routine care-TDAP refused-One hour glucola 86?Disposition: No s/sx of infection. Continue inpatient monitoring forperiviable PPROM with planned delivery at 34 weeks. S/p latency abxs.?SUBJECTIVE:No current vaginal bleeding, Still leaking fluid, No contractions, Goodfetal movement, No shortness of breath or chest pain and No calftendernessOBJECTIVE:LAST VITALS:Pulse BP Resp O2 Sat Temp Pain 92 99/62 18 98 % 37 ?C (98.6 ?F) 0/10PHYSICAL EXAM:General: WD, WNHeart: RR, S1, Z9Ekloz: clear to auscultationAbdomen: soft, nontender, no massesExtremities: tr edemaFETAL MONITORING/ASSESSMENT: testing reassuring - see additional documentationFHRT A 135s Moderate/acelerations present/decelerations absentFHRT B 140s Moderate/acelerations present/decelerations absentToco no contractionsLABSDiagnostic tests reviewed for today's visit: Most recent labs and imagingresults.SIGNATURE: Viry Khalil DO PATIENT NAME: Yuko StaleyATE: June 25, 2018 : 05:15 AM [facility] PROGRESSon 06-24-2018 Protein mass conc HNO ID: [id number] thor: Anastasiia (Res) SnyderService: ObstetricsAuthor Type: ResidentType: Progress NotesFiled: 06/24/2018 2:08 PMNote Text: Attes tation signed by Trista Ag at 06/25/2018 9:16 AMPatient seen and examined by me and I agree with the residents assessment andplan.Trista Arroyo MD OBSTETRI CSANTEPARTUM PROGRESS NOTESERVICE DATE: 06/24/2018SERVICE TIME: 5:46 AMASSESSMENT AND PLAN:17 year old EGA:25w2d admitted for Periviable PPROM.1. Periviable PPROM of Fetus A-Since 06/01 at 22.0 weeks-BV/trichomonas negative on admission?-Patient did receive approximately 3 days of flagyl at outsidehospital-Chlamydia/gono rrhea negative-GBS neg 06/07-WBCs 11.59 on admission-Inpatient management with initiation of latency antibiotics at 23.0weeks, s/p course of latency abx?-IV Clindamycin x2 days->PO Clindamycin x5 days?-IV Gentamicin x2 days?-PO Azithromycin x1-Monitor for labor or infection-Concern for chorioamnionitis versus gastroenteritis- Resolved. Cont tomonitor for signs of infection. ?-Maternal tachycardia- resolved?2. Abnormal urinalysis-S/p Ciprofloxacin treatment x2-3 days from outside hospital for having 3+blood on urinalysis-UA with small leukocyte esterase-Urine culture negative-Repeat UA with large hemoglobin, + protein and small LE.?3. Twin gestation -Di/di-cfDNA: pending. Sent out 06/23.?4. Periviable-PMG consult ?-BMZ given 06/06 and 06/07-Plan for Magnesium if delivering <32 weeks-Growth ultrasound 06/06:?-A: 1 lb, 30%, oligohydramnios at 1.79cm, unable to r/oclubbed feet due to position?-B: no weight listed but 51%, DVP 5.30cm?-Discordance 12%?-Femur lengths on both babies <2%?-Cont growths q4 weeks (Next 07/04)?5. Unstable lie-Breech/cephalic however cephalic breech on last US?6. Monitoring-30 minutes BID?7. Diet-Regular?8. DVT ppx-SCDs?9. Routine care-TDAP refused-One hour glucola 86?Disposition: No s/sx of infection. Continue inpatient monitoring forperiviable PPROM with planned delivery at 34 weeks. S/p latency abxs.SUBJECTIVE:No current vaginal bleeding, Still leaking fluid, No contractions, Goodfetal movement, No shortness of breath or chest pain and No calftendernessOBJECTIVE:LAST VITALS:BP (!) 93/44 Pulse 90 Temp 36.8 ?C (98.2 ?F) Resp 16 Ht 147.3cm (4' 10 ) Wt 54 kg (119 lb) LMP 12/29/2017 SpO2 97% BMI24.87 kg/m?PHYSICAL EXAM:General: WD, WN, NAD, comfortableHeart: RR, S1, M1Yytnk: clear to auscultationAbdomen: soft, nontender, gravid, neg fundal TTPExtremities: no edemaFETAL MONITORING/ASSESSMENT:A: 140/mod/+accels/neg decels; B:135/mod/+accels/+isolated mild variabledecels; Colliers: no ctxs; Cat I FHT (A) and Cat II FHT (B)LABSDiagnostic tests reviewed for today's visit: No new labsSIGNATURE: Anastasiia Muniz DO PATIENT NAME: Yuko StaleyATE: June 24, 2018 : 5:50 AM [facility] NURSING PROGon 06-23-2018 Protein mass conc HNO ID: [id number] Author: Anastasiia StewartRn) NICOLE Messina Service: Nursing Author Type: Registered Nurse Type: Nursing Progress Note Filed: 06/23/2018 10:29 AM Note Text: EFM tracing reviewed with Dr. Gordillo. Ok to complete monitoring at this time. [facility] Protein mass conc HNO ID: [id number] Author: Jaya StewartRn) NICOLE Muniz Service: Nursing Author Type: Registered Nurse Type: Nursing Progress Note Filed: 06/22/2018 11:33 PM Note Text: Pt got up and showered this evening AND bed linen changed. [facility] PROGRESSon 06-23-2018 Protein mass conc HNO ID: [id number] thor: Anastasiia (Charisma) Araervice: ObstetricsAuthor Type: ResidentType: Progress NotesFiled: 06/23/2018 5:54 AMNote Text: Attes tatolivia signed by Trista Ag at 06/23/2018 1:07 PMPatient seen and examined by me and I agree with the residents assessment andplan with the following addition:Cell free DNA sent yesterday.Trista Arroyo MD OBSTETRI CSANTEPARTUM PROGRESS NOTESERVICE DATE: 06/23/2018SERVICE TIME: 5:25 AMASSESSMENT AND PLAN:17 year old EGA:25w1d admitted for Periviable PPROM.1. Periviable PPROM-Since 06/01 at 22.0 weeks-BV/trichomonas negative on admission?-Patient did receive approximately 3 days of flagyl at outsidehospital-Chlamydia/gono rrhea negative-GBS neg 06/07-WBCs 11.59 on admission-Inpatient management with initiation of latency antibiotics at 23.0weeks, s/p course of latency abx?-IV Clindamycin x2 days->PO Clindamycin x5 days?-IV Gentamicin x2 days?-PO Azithromycin x1-Monitor for labor or infection-Concern for chorioamnionitis versus gastroenteritis- Resolved. Cont tomonitor for signs of infection. ?-Maternal tachycardia- resolved?2. Abnormal urinalysis-S/p Ciprofloxacin treatment x2-3 days from outside hospital for having 3+blood on urinalysis-UA with small leukocyte esterase-Urine culture negative-Repeat UA with large hemoglobin, + protein and small LE.?3. Twin gestation -Di/di-Patient requesting genetic screening. Infiniu kit obtained for cfDNA.Kit provided and reviewed with nursing staff. Order placed and down to labovernight. Per lab, specimen to be shipped out this AM.?4. Periviable-PMG consult ?-BMZ given 06/06 and 06/07-Plan for Magnesium if delivering <32 weeks-Growth ultrasound 06/06:?-A: 1 lb, 30%, oligohydramnios at 1.79cm, unable to r/oclubbed feet due to position?-B: no weight listed but 51%, DVP 5.30cm?-Discordance 12%?-Femur lengths on both babies <2%?-Cont growths q4 weeks (Next 07/04)?5. Unstable lie-Breech/cephalic however cephalic breech on last US?6. Monitoring-30 minutes BID?7. Diet-Regular?8. DVT ppx-SCDs?9. Routine care-TDAP refused-One hour glucola 86?Disposition: No s/sx of infection. Continue inpatient monitoring forperiviable PPROM with planned delivery at 34 weeks. S/p latency abxs.Normal glucola.SUBJECTIVE:No current vaginal bleeding, Still leaking fluid, No contractions, Goodfetal movement, No shortness of breath or chest pain, No calf tendernessand Denies F/C/N/V. No acute overnight events.OBJECTIVE:LAST VITALS:BP (!) 93/44 Pulse 90 Temp 36.8 ?C (98.2 ?F) Resp 16 Ht 147.3cm (4' 10 ) Wt 54 kg (119 lb) LMP 12/29/2017 SpO2 97% BMI24.87 kg/m?PHYSICAL EXAM:General: WD, WN, NAD, comfortableHeart: RR, S1, E0Weteh: clear to auscultationAbdomen: soft, nontender, gravid, neg fundal TTPExtremities: no edemaFETAL MONITORING/ASSESSMENT:A: 150/mod/+accels/neg decels B:145/mod/+accels/neg decels; Colliers: no ctxs;Broken FHTLABSDiagnostic tests reviewed for today's visit: Most recent labsSIGNATURE: Anastasiia Muniz DO PATIENT NAME: Yuko StaleyATE: June 23, 2018 : 3992 [facility] Gluc Challnge/50 gm Dose/Pre gnton 06-22-2018 Glucose mass conc 86 mg/dL Normal 70-139 [facility] Comment on above: Performed By: #### R APBV #### [facility] [address] [place] [address] NURSING PROGon 06-22-2018 Protein mass conc HNO ID: [id number] thor: Angeles (Rn) TG Buenoervice: (none)Author Type: Registered NurseType: Nursing Progress NoteFiled: 06/22/2018 1:05 AMNote Text:This RN at BS. Pt sitting up watching the tablet with her FOB. Pt reports+FMx2 denies CTX/crampng at this time. Pt reports moderate gush of lightpink tinged fluid on peripad over the last hour. Review with Pt plan ofcare for overnight. Questions asked and answered. Glucola given to pt todrink over the next five min. Pt verbalizes understanding. Call light inreach. [facility] Protein mass conc HNO ID: [id number] Author: Angeles (Rn) Ximena, NICOLE Service: (none) Author Type: Registered Nurse Type: Nursing Progress Note Filed: 06/22/2018 1:30 AM Note Text: Labs drawn and sent, Pt tolerated well. Pressure dsg applied to site. [facility] Protein mass conc HNO ID: [id number] Author: [place] (Rn) Ximena, NICOLE Service: (none) Author Type: Registered Nurse Type: Nursing Progress Note Filed: 06/22/2018 1:05 AM Note Text: Pt finished drinking glucola drink. Will check labs in one hour. [facility] PROCEDUREon 06-22-2018 Protein mass conc HNO ID: [id number] thor: TG Aggarwal Rnervice: NursingAuthor Type: Registered NurseType: ProceduresFiled: 06/22/2018 10:27 AMNote Text: Attes deejay signed by Trista Ag at 06/23/2018 1:09 PMFetal heart rate tracing reviewed by me and I agree with the above assessment.Trista Arroyo MD OBSTETRI CSNST SUMMARYSERVICE DATE: June 22, 2018The patient is a 17 year old female, , who is at 25w0d with an EDDof 10/05/2018, by Last Menstrual Period dating method.NST OBJECTIVE FINDINGS PER NURSE:Start Time: 919 (06/22/18 1000 : Fitz Oneill RN)Complete Time: 102 (06/22/18 1000 : Fitz Oneill RN)Indications: Premature Ruptured Membranes;Multiple Gestation (000 : Fitz Oneill RN)Patient Reason For:NST Explanation: Verbalizes Understanding (06/22/18 1000 : Fitz Bills RN) Acoustic Stimulator:Interventions: Other (See Comment) (readjusted multiple times)(06/22/18 1000 : Fitz Oneill RN) MONITORING/ASSESSMENT:Baseline : 130 bpm (06/22/18 1000 : Fitz Oneill RN) 125 bpm (06/22/18 1000 : Fitz Oneill RN)Variability: Moderate (6-25 bpm) (06/22/18 1000 : Fitz Oneill RN) Moderate (6-25 bpm) (06/22/18 1000 : Fitz Oneill RN)Accelerations: Present (06/22/18 1000 : Fitz Oneill RN) Present (06/22/18 1000 : Fitz Oneill RN)Decelerations: Decelerations: None (06/22/18 1000 : Fitz Oneill RN) Decelerations Fetus B: (!) Variable (06/22/18 1000 : Fitz Oneill RN)Contractions: Not present (06/22/18 1000 : Fitz Oneill RN)Frequency:Above information forwarded to Dr Arroyo (06/22/18 1000 : Fitz Bills RN) for final review and interpretation.SIGNATURE: Fitz Oneill RN PATIENT NAME: Yuko Arellano: June 22, 2018 : 10:26 AM [facility] PROGRESSon 06-22-2018 Protein mass conc HNO ID: [id number] thor: Anastasiia (Charisma) SnyderService: ObstetricsAuthor Type: ResidentType: Progress NotesFiled: 06/22/2018 5:02 AMNote Text: Attes tation signed by Trista Ag at 06/22/2018 9:38 AMPatient seen and examined by me and I agree with the residents assessment andplan with the following additions:Normal glucola.Will get a Panor[facility] kit from [facility] today to send cell free DNA.trista Arroyo MD OBSTETRI CSANTEPARTUM PROGRESS NOTESERVICE DATE: 06/22/2018SERVICE TIME: 4:57 AMASSESSMENT AND PLAN:17 year old EGA:25w0d admitted for Periviable PPROM.1. Periviable PPROM-Since 06/01 at 22.0 weeks-BV/trichomonas negative on admission?-Patient did receive approximately 3 days of flagyl at outsidehospital-Chlamydia/gono rrhea negative-GBS neg 06/07-WBCs 11.59 on admission-Inpatient management with initiation of latency antibiotics at 23.0weeks, s/p course of latency abx?-IV Clindamycin x2 days->PO Clindamycin x5 days?-IV Gentamicin x2 days?-PO Azithromycin x1-Monitor for labor or infection-Concern for chorioamnionitis versus gastroenteritis- Resolved. Cont tomonitor for signs of infection. ?-Maternal tachycardia- resolved?2. Abnormal urinalysis-S/p Ciprofloxacin treatment x2-3 days from outside hospital for having 3+blood on urinalysis-UA with small leukocyte esterase-Urine culture negative-Repeat UA with large hemoglobin, + protein and small LE.?3. Twin gestation -Di/di-Patient requesting genetic screening. Can send out cell free DNA kit fromour lab. Will obtain.?4. Periviable-PMG consult ?-BMZ given 06/06 and 06/07-Plan for Magnesium if delivering <32 weeks-Growth ultrasound 06/06:?-A: 1 lb, 30%, oligohydramnios at 1.79cm, unable to r/oclubbed feet due to position?-B: no weight listed but 51%, DVP 5.30cm?-Discordance 12%?-Femur lengths on both babies <2% -Cont growths q4 weeks (Next 07/04)?5. Unstable lie-Breech/cephalic however cephalic breech on last US?6. Monitoring-30 minutes BID?7. Diet-Regular?8. DVT ppx-SCDs?9. Routine care-TDAP refused-One hour glucola pending?Disposition: No s/sx of infection. Continue inpatient monitoring forperiviable PPROM with planned delivery at 34 weeks. S/p latency abxs.Glucola today.SUBJECTIVE:No current vaginal bleeding, Still leaking fluid, No contractions, Goodfetal movement, No shortness of breath or chest pain and No calftendernessOBJECTIVE:LAST VITALS:BP 104/57 Pulse 102 Temp 36.7 ?C (98.1 ?F) (Oral) Resp 16 Ht147.3 cm (4' 10 ) Wt 54 kg (119 lb) LMP 12/29/2017 SpO2 97% BMI 24.87 kg/m?PHYSICAL EXAM:General: WD, WN, NAD, comfortableHeart: RR, S1, C9Ohpcr: clear to auscultationAbdomen: soft, nontender, neg fundal TTPExtremities: tr edemaFETAL MONITORING/ASSESSMENT:A: 140/mod/+accels/neg decels B:130/mod/+accels/neg decels; Colliers: no ctxs;Cat I FHT [id number] tests reviewed for today's visit: No new labsSIGNATURE: Anastasiia Muniz DO PATIENT NAME: Yuko StaleyATE: June 22, 2018 : 5:02 AM [facility] NURSING PROGon 06-21-2018 Protein mass conc HNO ID: [id number] thor: Angeles (Rn) Ximena, RNService: (none)Author Type: Registered NurseType: Nursing Progress NoteFiled: 06/21/2018 12:22 AMNote Text:This RN to BS.Pt resting on couch watching tablet with FOB. Pt reports+FMx2, denies VB/CTX/cramping at this time. Continues with small amt ofleaking denies any large gushes today. Review with Pt plan of care forovernight, questions asked and answered. Lights dimmed with call light inplace. [facility] PROCEDUREon 12-11-2018 Protein mass conc HNO ID: [id number] thor: TG Aggarwal Rnervice: NursingAuthor Type: Registered NurseType: ProceduresFiled: 06/21/2018 9:46 AMNote Text: Attes tation signed by Trista Ag at 06/21/2018 2:28 PMFetal heart rate tracings evaluated by me and I agree with the aboveassessments. Overall reassuring heart rate tracings.Trista Arroyo MD OBSTETRI CSNST SUMMARYSERVICE DATE: June 21, 2018The patient is a 17 year old female, , who is at 24w6d with an EDDof 10/05/2018, by Last Menstrual Period dating method.NST OBJECTIVE FINDINGS PER NURSE:Start Time: 847 (06/21/18899 : Fitz Oneill RN)Complete Time: 936 (06/21/18899 : Fitz Oneill RN)Indications: Premature Ruptured Membranes (06/21/18899 : Fitz Bills RN)Patient Reason For:NST Explanation: Procedure Explained (06/21/18899 : Fitz Oneill RN) Acoustic Stimulator:Interventions: Other (See Comment) (monitors adjusted frequently)(06/21/18899 : Fitz Oneill RN) MONITORING/ASSESSMENT:Baseline : 130 bpm (06/21/18899 : Fitz Oneill RN) 125 bpm (06/21/18899 : Fitz Oneill RN)Variability: Moderate (6-25 bpm) (06/21/18899 : Fitz Oneill RN) Moderate (6-25 bpm) (06/21/18899 : Fitz Oneill RN)Accelerations: Present (06/21/18899 : Fitz Oneill RN) Present (06/21/18899 : Fitz Oneill RN)Decelerations: Decelerations: (!) Variable (06/21/18899 : Fitz Bills RN)Decel Frequency: Intermittent (06/21/18899 : Fitz Oneill RN) Decelerations Fetus B: (!) Variable (06/21/18899 : Fitz Oneill RN)Contractions: Not present (06/21/18899 : Fitz Oneill RN)Frequency:Above information forwarded to Dr Arroyo (06/21/18899 : Fitz Bills RN) for final review and interpretation.SIGNATURE: Fitz Oneill RN PATIENT NAME: Yuko StaleyATE: June 21, 2018 : 9:45 AM [facility] PROGRESSon 06-21-2018 Protein mass conc HNO ID: [id number] thor: Anastasiia (Charisma) SnyderService: ObstetricsAuthor Type: ResidentType: Progress NotesFiled: 06/21/2018 5:12 AMNote Text: Attes tation signed by Trista Ag at 06/21/2018 2:30 PMPatient seen and examined by me and I agree with the above assessment with thefollowing additions:Will look in to sending cell free DNA. If it cannot be sent as an inpatient,will send a quad screen.Trista Arroyo MD OBSTETRI CSANTEPARTUM PROGRESS NOTESERVICE DATE: 06/21/2018SERVICE TIME: 5:06 AMASSESSMENT AND PLAN:17 year old EGA:24w6d admitted for periviable PPROM.1. Periviable PPROM-Since 06/01 at 22.0 weeks-BV/trichomonas negative on admission?-Patient did receive approximately 3 days of flagyl at outsidehospital-Chlamydia/gono rrhea negative-GBS neg 06/07-WBCs 11.59 on admission-Inpatient management with initiation of latency antibiotics at 23.0weeks, s/p course of latency abx?-IV Clindamycin x2 days->PO Clindamycin x5 days?-IV Gentamicin x2 days?-PO Azithromycin x1-Monitor for labor or infection?-If patient were to deliver <25.0 weeks, she elects for breechvaginal delivery after thorough counseling-Concern for chorioamnionitis versus gastroenteritis- Resolved. Cont tomonitor for signs of infection. ?-Maternal tachycardia- resolved?2. Abnormal urinalysis-S/p Ciprofloxacin treatment x2-3 days from outside hospital for having 3+blood on urinalysis-UA with small leukocyte esterase-Urine culture negative-Repeat UA with large hemoglobin, + protein and small LE.?3. Twin gestation -Di/di-Patient requesting genetic screening, consider cell free DNA?4. Periviable-PMG consult ?-BMZ given 06/06 and 06/07-Plan for Magnesium if delivering <32 weeks-Growth ultrasound 06/06:?-A: 1 lb, 30%, oligohydramnios at 1.79cm, unable to r/oclubbed feet due to position?-B: no weight listed but 51%, DVP 5.30cm?-Discordance 12%?-Femur lengths on both babies <2% -Cont growths q4 weeks (Next 07/04)?5. Unstable lie-Breech/cephalic however cephalic breech on last US?6. Monitoring-30 minutes BID?7. Diet-Regular?8. DVT ppx-SCDs?9. Routine care-TDAP refused, will request SCN to senior vice president & general counsel the patient further-Plan for glucola at 25 weeks. Orders placed for 06/22/18.?Disposition: No s/sx of infection. Continue inpatient monitoring forperiviable PPROM with planned delivery at 34 weeks. S/p latency abxs.SUBJECTIVE:No current vaginal bleeding, No current leaking of fluid, No contractions,Good movement, No shortness of breath or chest pain, No calftenderness and Denies any complaints besides being tired. Pt reports solidbowel movements. Denies F/C/M/V.OBJECTIVE:LAST VITALS:Pulse BP Resp O2 Sat Temp Pain 99 101/69 16 98 % 36.7 ?C (98.1 ?F) 0/10PHYSICAL EXAM:General: WD, WN, NAD, comfortableHeart: RR, S1, M5Uhcak: clear to auscultationAbdomen: soft, nontender, neg fundal TTP, gravidExtremities: no edemaFETAL MONITORING/ASSESSMENT:A: 140/mod/+accels/neg decels B:135/mod/+accels/+isolated spontaneousdecel Colliers: no ctxsLABSDiagnostic tests reviewed for today's visit: No new labsSIGNATURE: Anastasiia Muniz DO PATIENT NAME: Yuko StaleyATE: June 21, 2018 : 5:06 AM [facility] CONSULTon 06-20-2018 CONSULT HNO ID: [id number] thor: Virginie Serrano MT-BCService: (none)Author Type: (none)Type: ConsultsFiled: 06/20/2018 9:39 AMNote Text:MUSIC THERAPY NOTESERVICE DATE: 06/20/2018SERVICE TIME: 9:39 AMMusic therapy services unavailable beginning 06/20/2018. Music therapyservices will be discontinued and will complete consult. Nursing notified.SIGNATURE: Virginie Serrano MT-BC PATIENT NAME: Yuko Arellano: June 20, 2018 : 9:38 AM PAGER/CONTACT #:P: [phone]: [facility] NURSING PROGon 06-20-2018 Protein mass conc HNO ID: [id number] thor: Cady (Rn) Fili, RNService: (none)Author Type: Registered NurseType: Nursing Progress NoteFiled: 06/20/2018 9:52 AMNote Text:Unable to differentiate between Baby A and Baby B HR. Dr. Muniz notifiedand U/S requested to differentiate HR. [facility] PROGRESSon 06-20-2018 Protein mass conc HNO ID: [id number] thor: Anastasiia (Res) Araervice: ObstetricsAuthor Type: ResidentType: Progress NotesFiled: 06/20/2018 5:15 AMNote Text: Attdudley villalba signed by Trista Ag at 06/20/2018 5:48 PMPatient seen and examined by me and I agree with the residents assessment andplan.Trista Arroyo MD [facility] PROGRESS NOTESERVICE DATE: 06/20/2018SERVICE TIME: 5:11 AMASSESSMENT AND PLAN:17 year old EGA:24w5d admitted for Periviable PPROM.1. Periviable PPROM-Since 06/01 at 22.0 weeks-BV/trichomonas negative on admission?-Patient did receive approximately 3 days of flagyl at outsidehospital-Chlamydia/gono rrhea negative-GBS neg 06/07-WBCs 11.59 on admission-Inpatient management with initiation of latency antibiotics at 23.0weeks, s/p course of latency abx?-IV Clindamycin x2 days->PO Clindamycin x5 days?-IV Gentamicin x2 days?-PO Azithromycin x1-Monitor for labor or infection?-If patient were to deliver <25.0 weeks, she elects for breechvaginal delivery after thorough counseling-Concern for chorioamnionitis versus gastroenteritis- Resolved. Cont tomonitor for signs of infection.-Maternal tachycardia- resolved?2. Abnormal urinalysis-S/p Ciprofloxacin treatment x2-3 days from outside hospital for having 3+blood on urinalysis-UA with small leukocyte esterase-Urine culture negative-Repeat UA with large hemoglobin, + protein and small LE.?3. Twin gestation -Di/di-Patient requesting genetic screening, consider cell free DNA?4. Periviable-PMG consult ?-BMZ given 06/06 and 06/07-Plan for Magnesium if delivering <32 weeks-Growth ultrasound 06/06:?-A: 1 lb, 30%, oligohydramnios at 1.79cm, unable to r/oclubbed feet due to position?-B: no weight listed but 51%, DVP 5.30cm?-Discordance 12%?-Femur lengths on both babies <2%?5. Unstable lie-Breech/cephalic however cephalic breech on last US?6. Monitoring-30 minutes BID?7. Diet-Regular?8. DVT ppx-SCDs?9. Routine care-TDAP refused, will request SCN to senior vice president & general counsel the patient further-Plan for glucola at 25 weeks. Orders placed for 06/22/18.?Disposition: No s/sx of infection. Continue inpatient monitoring forperiviable PPROM with planned delivery at 34 weeks. S/p latency abxs.SUBJECTIVE:No current vaginal bleeding, Still leaking fluid, No contractions, Goodfetal movement, No shortness of breath or chest pain and No calftendernessOBJECTIVE:LAST VITALS:BP 92/58 Pulse 104 Temp 36.8 ?C (98.2 ?F) (Oral) Resp 16 Ht147.3 cm (4' 10 ) Wt 54 kg (119 lb) LMP 12/29/2017 SpO2 96% BMI 24.87 kg/m?PHYSICAL EXAM:General: WD, WN, NAD, comfortableHeart: RR, S1, V1Hreff: clear to auscultationAbdomen: soft, nontender, gravid, neg fundal TTPExtremities: tr edemaFETAL MONITORING/ASSESSMENT:A: 130/mod/+accels/neg decels; B:140/mod/+accels/neg decels: Colliers: nocontractions: cat I FHT [id number] tests reviewed for today's visit: No new labsSIGNATURE: Anastasiia Muniz DO PATIENT NAME: Yuko StaleyATE: June 20, 2018 : 5:14 AM [facility] NURSING PROGon 06-19-2018 Protein mass conc HNO ID: [id number] Author: Margie (Rn) Braydon, RN Service: Nursing Author Type: Registered Nurse Type: Nursing Progress Note Filed: 06/19/2018 10:41 AM Note Text: FHR tracing reviewed with Dr. Muniz. OK to D/C monitors. [facility] Protein mass conc HNO ID: [id number] thor: Margie (Rn) TG Brysonervice: NursingAuthor Type: Registered NurseType: Nursing Progress NoteFiled: 06/19/2018 10:40 AMNote Text: Attes tation signed by Trista Ag at 06/20/2018 5:49 PMFetal heart rate tracings reviewed by me. Reassuring heart rate tracingsx 2Sgilmar Arroyo MD EFM X 2 and toco applied to obtain 30 min of monitoring. [facility] Protein mass conc HNO ID: [id number] thor: Luisa (Rn) Veena RNService: (none)Author Type: Registered NurseType: Nursing Progress NoteFiled: 06/19/2018 3:18 AMNote Text:At 0200 pt claimed chest felt heavy while taking deep breaths, jayesh made aware and came to assess pt. Continue to monitor pt at thistime. No further new orders at this time. [facility] Protein mass conc HNO ID: [id number] thor: Luisa (Rn) Veena RNService: (none)Author Type: Registered NurseType: Nursing Progress NoteFiled: 06/18/2018 11:56 PMNote Text:Dr campbell scanning twins with ultrasound, babies still to close togetherto apply monitors, two heart beats scene with ultrasound by dr campbell.Will try again in AM [facility] NUTRITIONon 06-19-2018 NUTRITION HNO ID: [id number] thor: Jaki Ireland) CEDRICK Kellyervice: Nutrition TherapyAuthor Type: Registered DietitianType: NutritionFiled: 06/19/2018 2:27 PMNote Text:NUTRITION THERAPY SCREENING NOTESERVICE DATE: 06/19/2018SERVICE TIME: 2:25 PMNUTRITION CARE PLANPatient's weight is expected to increase with ?and nutritionalintake is adequate. ?Patient is not at risk for malnutrition at this time.Intervention:Continue on regular dietCafe menu provide to increase optionsCoordination of Care:NursingDischarge Nutrition Recommendations:Diet: Regular ---Chart reviewed for follow-up?Per HPI: 17 year old ? ?EGA:23w0d?admitted for periviable PPROM.?Continues on inpatient monitoring for previable PPROM with latencyantibiotics started 06/08/18. ?Goal for delivery at 34 weeks. ??Interval History: EGA:24w4d?admitted for periviable PPROM.Current Diet Order DIET REGULAR Order Specific Question: Child's Feeding Age/Diet Answer: YOUTH (7-18YRS)Nutritional Intake During Admission: >75% estimated energy needs over thepast 7 day(s)06/12/18: >75% estimated energy needs over the past 6 day(s), toleratingpo. Family at bedside today and denies nutritional concerns?Nutritional Intake Prior to Admission:Unable to determine, patient with limited conversation due to sleeping.?Told RD she woke to eat breakfast and then went back to sleep. ?RD willfollow with po, did not reports any prior concerns with po intake onadmission. ?Denied weight loss prior to admission. ?Documented intake 100%of meal and RD observed 100% of breakfast consumed. ?Anthropometrics:Height: 147.3 cm (4' 10 )Admission Weight: 54 kg (119 lb)Current Weight: 54 kg (119 lb)Body mass index is 24.87 kg/m?. normalWeight is expected to increase with Last Wt108/04/17 : 54 kg (119 lb)MNT Billing Type: Re-assess/15 min 2 unitsSIGNATURE: Jaki Kelly RD, LD PATIENT NAME: Yuko StaleyATE: June 19, 2018 : 2:25 PM PAGER: [phone] [facility] PROGRESSon 06-19-2018 Protein mass conc HNO ID: [id number] thor: Nancy (Charisma) LiuService: ObstetricsAuthor Type: ResidentType: Progress NotesFiled: 06/19/2018 4:51 AMNote Text: Attdudley villalba signed by Nehal Francisco at 06/19/2018 12:50 PMAttending NoteI evaluated the patient and personally participated in the lu components. Iagree with the resident's findings and plan as documented and have discussedthe case and management of the patient's care with the resident.Signature: Nehal Francisco, MDDate: 06/19/2018Time: 12:50 PM OBSTETRI CSANTEPARTUM PROGRESS NOTESERVICE DATE: 06/19/2018SERVICE TIME: 4:51 AMASSESSMENT AND PLAN:17 year old EGA:24w4d admitted for Periviable PPROM.1. Periviable PPROM-Since 06/01 at 22.0 weeks-BV/trichomonas negative on admission?-Patient did receive approximately 3 days of flagyl at outsidehospital-Chlamydia/gono rrhea negative-GBS neg 06/07-WBCs 11.59 on admission-Inpatient management with initiation of latency antibiotics at 23.0weeks, s/p course of latency abx?-IV Clindamycin x2 days->PO Clindamycin x5 days?-IV Gentamicin x2 days?-PO Azithromycin x1-Monitor for labor or infection?-If patient were to deliver <25.0 weeks, she elects for breechvaginal delivery after thorough counseling-Concern for chorioamnionitis versus gastroenteritis- Resolved. Cont tomonitor for signs of infection.-Maternal tachycardia- resolved?2. Abnormal urinalysis-S/p Ciprofloxacin treatment x2-3 days from outside hospital for having 3+blood on urinalysis-UA with small leukocyte esterase-Urine culture negative-Repeat UA with large hemoglobin, + protein and small LE.?3. Twin gestation -Di/di-Patient requesting genetic screening, consider cell free DNA?4. Periviable-PMG consult ?-BMZ given 06/06 and 06/07-Plan for Magnesium if delivering <32 weeks-Growth ultrasound 06/06:?-A: 1 lb, 30%, oligohydramnios at 1.79cm, unable to r/oclubbed feet due to position?-B: no weight listed but 51%, DVP 5.30cm?-Discordance 12%?-Femur lengths on both babies <2%?5. Unstable lie-Breech/cephalic however cephalic breech on last US?6. Monitoring-30 minutes BID?7. Diet-Regular?8. DVT ppx-SCDs?9. Routine care-TDAP refused, will request SCN to senior vice president & general counsel the patient further-Plan for glucola at 25 weeks?Disposition: No s/sx of infection. Continue inpatient monitoring forperiviable PPROM. S/p latency abxs.SUBJECTIVE:No current vaginal bleeding, No current leaking of fluid, Still leakingfluid, Good movement, No shortness of breath or chest pain, No calftenderness and Denies F/C/N/V.Patient had earlier complained of her chest feeling heavy , however, nowon AM rounding, she states that it just went away . She no longercomplains of shortness of breath and says that her abdomen is nontender.OBJECTIVE:LAST VITALS:BP 120/66 Pulse 103 Temp 36.8 ?C (98.2 ?F) Resp 18 Ht 147.3 cm(4' 10 ) Wt 54 kg (119 lb) LMP 12/29/2017 SpO2 99% BMI 24.87kg/m?PHYSICAL EXAM:General: WD, WN, NAD, comfortableHeart: RR, S1, H7Zqwnt: clear to auscultationAbdomen: soft, nontender, gravidExtremities: tr edemaFETAL MONITORING/ASSESSMENT:A: 145/mod/+accels/isolated variable decels B: 150/mod/+accels/neg decels;Colliers: no contractions; Cat I FHT [id number] tests reviewed for today's visit: No new labsSIGNATURE: Nancy King DO PATIENT NAME: Yuko StaleyATE: June 19, 2018 : 4:50 AM [facility] Protein mass conc HNO ID: [id number] Author: Downtime Note Service: (none) Author Type: (none) Type: Progress Notes Filed: 06/19/2018 3:22 AM Note Text: [facility] Scheduled Downtime: 06/19/2018 1:00:00 AM to 06/19/2018 3:07:00 AM [facility] Protein mass conc HNO ID: [id number] thor: Blair (Res) Scottiee: ObstetricsAuthor Type: ResidentType: Progress NotesFiled: 06/19/2018 3:20 AMNote Text:Late Entry due to epic being down.Came to evaluate patient because she felt like she was having chestpressure. She said that this pressure pain is located on her sternum.She denies any cp or shortness of breath, but states that she feels likeshe has to make more of an effort to take a deep breath. The patientstates that she had similar symptoms last Wednesday in which an EKG wasperformed and was wnl. Her vitals are wnl with an O2 saturation of 97%,pulse of 107. She said last time she had similar symptoms that theyresolved within 2-3 hours. Will re-assess at that time. If patientcontinues to have symptoms, will likely order EKG and will discuss withDr. Francisco. [facility] Protein mass conc HNO ID: [id number] thor: Blair (Res) ShannanService: ObstetricsAuthor Type: ResidentType: Progress NotesFiled: 06/19/2018 3:14 AMNote Text:Late Entry due to epic being down:Came to perform ultrasound on patient in 2415 at approximately 0000because RN had difficulty with trying to find both A and B on the monitor. Abdominal ultrasound demonstrated cardiac activity in both A (130s) and B(140s). Both A and B were actively moving during the exam. The fetalhearts of both A and B were in such close proximity to each other, similarto the prior ultrasound, where it was not possible to monitor both fetusesusing dopplers. The patient desired to go to bed to get rest, and thedecision was made to try and perform FHR monitoring in the AM [facility] NURSING PROGon 06-18-2018 Protein mass conc HNO ID: [id number] thor: Luisa (Rn) TG Curielervice: (none)Author Type: Registered NurseType: Nursing Progress NoteFiled: 06/18/2018 9:55 PMNote Text:rn in room at 2110 to put efm and toco on pt for 30 minutes of monitoring,only able to pickling solution maker on one baby dr campbell in room with ultrasound.Found babies to close to do appropriate monitoring will try again in a fewhours. Heartbeats found on both babies at this time by ultrasound [facility] Protein mass conc HNO ID: [id number] thor: Margie (Rn) TG Brysonervice: NursingAuthor Type: Registered NurseType: Nursing Progress NoteFiled: 06/18/2018 8:21 AMNote Text:EFM x2 and toco applied to obtain FHR tracing after pt states peripadfilled with blood tinged fluid. Denies cramping or contractions. aware. IV restarted in right wrist #18 and heplocked. [facility] Protein mass conc HNO ID: [id number] thor: Angeles (Rn) TG Buenoervice: (none)Author Type: Registered NurseType: Nursing Progress NoteFiled: 06/18/2018 7:40 AMNote Text:Pt with call light on. Reports moderate gush of light tinged fluid on bedclothes and sanjay pad. Pt denies CTX/Cramping at this time reports +FMx2.Dr. Campbell given update. Continue to monitor. [facility] PROGRESSon 06-18-2018 Protein mass conc HNO ID: [id number] thor: Blair (Res) Scottiee: ObstetricsAuthor Type: ResidentType: Progress NotesFiled: 06/18/2018 9:43 PMNote Text:Came to evaluate patient with ultrasound because RN having difficultypicking up heart rates with dopplers. Cardiac activity was noted onboth A (130s) and B (140s), however the heart rate is approximately [address] from each other, and therefore could not place the doppler monitorsto accurately trace both A and B. Therefore, will try to place monitor inanother 1-2 hours. [facility] Protein mass conc HNO ID: [id number] thor: Nancy (Res) FernandoService: ObstetricsAuthor Type: ResidentType: Progress NotesFiled: 06/18/2018 6:20 AMNote Text: Attes tation signed by Nehal Francisco at 06/19/2018 12:49 PMAttending NoteI evaluated the patient and personally participated in the lu components. Iagree with the resident's findings and plan as documented and have discussedthe case and management of the patient's care with the resident.Signature: Nehal Francisco, MDDate: 06/19/2018Time: 12:49 PM OBSTETRI CSANTEPARTUM PROGRESS NOTESERVICE DATE: 06/18/2018SERVICE TIME: 6:17 AMASSESSMENT AND PLAN:17 year old EGA:24w3d admitted for Periviable PPROM.1. Periviable PPROM-Since 06/01 at 22.0 weeks-BV/trichomonas negative on admission?-Patient did receive approximately 3 days of flagyl at outsidehospital-Chlamydia/gono rrhea negative-GBS neg 06/07-WBCs 11.59 on admission-Inpatient management with initiation of latency antibiotics at 23.0weeks, s/p course of latency abx?-IV Clindamycin x2 days->PO Clindamycin x5 days?-IV Gentamicin x2 days?-PO Azithromycin x1-Monitor for labor or infection?-If patient were to deliver <25.0 weeks, she elects for breechvaginal delivery after thorough counseling-Concern for chorioamnionitis versus gastroenteritis- Resolved. Cont tomonitor for signs of infection.-Maternal tachycardia- resolved?2. Abnormal urinalysis-S/p Ciprofloxacin treatment x2-3 days from outside hospital for having 3+blood on urinalysis-UA with small leukocyte esterase-Urine culture negative-Repeat UA with large hemoglobin, + protein and small LE.?3. Twin gestation -Di/di-Patient requesting genetic screening, consider cell free DNA?4. Periviable-PMG consult ?-BMZ given 06/06 and 06/07-Plan for Magnesium if delivering <32 weeks-Growth ultrasound 06/06:?-A: 1 lb, 30%, oligohydramnios at 1.79cm, unable to r/oclubbed feet due to position?-B: no weight listed but 51%, DVP 5.30cm?-Discordance 12%?-Femur lengths on both babies <2%?5. Unstable lie-Breech/cephalic however cephalic breech on last US?6. Monitoring-30 minutes BID?7. Diet-Regular?8. DVT ppx-SCDs?9. Routine care-TDAP refused, will request SCN to senior vice president & general counsel the patient further-Plan for glucola at 25 weeks?Disposition: Patient doing well this AM. No s/sx of infection. Continueinpatient monitoring for periviable PPROM. S/p latency abxs.SUBJECTIVE:No current vaginal bleeding, No current leaking of fluid, Still leakingfluid, Good movement, No shortness of breath or chest pain, No calftenderness and Denies F/C/N/V.OBJECTIVE:LAST VITALS:BP 111/59 Pulse 106 Temp 36.7 ?C (98.1 ?F) (Oral) Resp 16 Ht147.3 cm (4' 10 ) Wt 54 kg (119 lb) LMP 12/29/2017 SpO2 99% BMI 24.87 kg/m?PHYSICAL EXAM:General: WD, WN, NAD, comfortableHeart: RR, S1, A1Napbg: clear to auscultationAbdomen: soft, nontender, gravidExtremities: tr edemaFETAL MONITORING/ASSESSMENT:A: 145/mod/+accels/neg decels B: 135/mod/+accels/neg decels; Colliers: nocontractions; Cat I FHT [id number] tests reviewed for today's visit: No new labsSIGNATURE: Nancy King DO PATIENT NAME: Yuko StaleyATE: June 18, 2018 : 6:20 AM [facility] ALLIED HEALTHon 06-17-2018 ALLIED HEALTH HNO ID: [id number] thor: Virginie Serrano MT-BCService: (none)Author Type: (none)Type: Allied HealthFiled: 06/17/2018 1:55 PMNote Text:MUSIC THERAPY NOTESERVICE DATE: 06/17/2018SERVICE TIME: 1:10 PMReferred By: Other: See Comment ([facility] nurse)Reason for Referral: Coping SkillsSession Type: InitialTime Spent (minutes): 35GOALS:Goals: Build Rapport;Improve Coping;Provide Emotional SupportCoping Items Addressed: HospitalizationINTERVENTIONS:I nterventions: Making Choices;Music Listening;Therapeutic Use ofSelf/Verbal ProcessingMaking Choices: SongsListening Type: LiveResponse Before AfterPain 0/10AnxietyMoodFacial Behavior 1 - Neutral 1 - NeutralBody Movement 0 - No Movement/Appropriate Movement 0 - NoMovement/Appropriate MovementSleep N/A - Awake N/A - AwakeVocal 1 - Neutral/No Vocal 0 - PositiveScale: 0 = No pain/anxiety 10 = Worst possible pain/anxietyRESPONSE:Music Choices: Made ChoicesNumber of Choices: 2Response During Interventions: Knew SongsMusic Used: Shubert of [place] Dreams; Time of Your LIfeStyle of Music: GreendayFamily Present: YesFamily Member: SOFamily Verbal Response: PositivePatient's Verbal Response: PositiveOUTCOME:Goals: MetMet: Build Rapport;Improve Coping;Provide Emotional SupportFOLLOW UP:Will Continue to FollowPt presented sitting on bench with SO present with a neutral affect andcalm manner; agreeable to music therapy. Stated she was feeling very boredand stir crazy due to lengthy hospitalization. Stated that she enjoyed. Music therapist provided live, preferred music at bedside usingvoice and guitar. During the music, pt listened and looked at her phone,stated that baby Justen started kicking when the music started. Spoke withthe music therapist about preparing for her babies' arrival, lots to do athome. Expressed frustration about being hospitalized. Coping skillsaddressed; music therapist encouraging self-care and activities to helppass the time, especially fine motor activities to maintain fine motorstrength. Pt's SO stated he had brought an xbox to play. Music therapistprovided pt with a list of other self-care ideas to consider. Ptappreciative for session and open to follow up. Will continue to follow.SIGNATURE: Virginie RESTREPO PATIENT NAME: Yuko StaleyATE: June 17, 2018 : 1:50 PM PAGER/CONTACT #:P: [phone]: [facility] NURSING PROGon 06-17-2018 Protein mass conc HNO ID: [id number] thor: Aric (Rn) Dina Fajardoice: NursingAuthor Type: Registered NurseType: Nursing Progress NoteFiled: 06/17/2018 9:31 PMNote Text:IV dc'd in left forearm d/t redness and pain. Pt is refusing to haveanother IV started until tomorrow. This RN explained the importance ofhaving the IV the pt stated if she has any cramping, bleeding orcontractions she will let us know right away so it can be restarted soonDr Meza aware. [facility] Protein mass conc HNO ID: [id number] thor: Angeles (Rn) Dina Buenoice: (none)Author Type: Registered NurseType: Nursing Progress NoteFiled: 06/17/2018 11:05 PMNote Text:This RN at BS, EFMx2 applied/adjusted. Pt reports +FMx2 deniesCTX/cramping/VB. Pt reports occ. Leaking of clear fluid. Pt resting,review with PT plan of care overnight, questions asked and answered. FOBat BS, call light in reach. [facility] Protein mass conc HNO ID: [id number] thor: Aric (Rn) Dina Fajardoice: NursingAuthor Type: Registered NurseType: Nursing Progress NoteFiled: 06/17/2018 8:53 PMNote Text:Pt c/o scabbing at IV insertion site. It is red around it but flushesfine. Plan to restart after pt eats dinner. [facility] PROGRESSon 06-17-2018 Protein mass conc HNO ID: [id number] thor: Anastasiia (Charisma) ZakerService: ObstetricsAuthor Type: ResidentType: Progress NotesFiled: 06/17/2018 5:46 AMNote Text: Evelyn villalba signed by Alex Alejandra at 06/17/2018 10:18 AMMFM Attending AmandaI saw and evaluated the patient. I agree with the resident's findings and planof care as documented below. No acute events overnight. S/p BMZ and latencyantibiotics. Diarrhea resolved. No recent fever. No current evidence of chorioor PTL. Continue inpatient management.Alex Alejandra DO, MPH, FACOG06/17/2018 10:18 AM OBSTETRI CSANTEPARTUM PROGRESS NOTESERVICE DATE: 06/17/2018SERVICE TIME: 5:43 AMASSESSMENT AND PLAN:17 year old EGA:24w2d admitted for Periviable PPROM.1. Periviable PPROM-Since 06/01 at 22.0 weeks-BV/trichomonas negative on admission?-Patient did receive approximately 3 days of flagyl at outsidehospital-Chlamydia/gono rrhea negative-GBS neg 06/07-WBCs 11.59 on admission-Inpatient management with initiation of latency antibiotics at 23.0weeks, s/p course of latency abxs?-IV Clindamycin x2 days->PO Clindamycin x5 days?-IV Gentamicin x2 days?-PO Azithromycin x1-Monitor for labor or infection?-If patient were to deliver <25.0 weeks, she elects for breechvaginal delivery after thorough counseling-Concern for chorioamnionitis versus gastroenteritis- Resolved. Cont tomonitor for signs of infection.-Maternal tachycardia- resolved.?2. Abnormal urinalysis-S/p Ciprofloxacin treatment x2-3 days from outside hospital for having 3+blood on urinalysis-UA with small leukocyte esterase-Urine culture negative-Repeat UA with large hemoglobin, + protein and small LE.?3. Twin gestation -Di/di-Patient requesting genetic screening, consider cell free DNA?4. Periviable-PMG consult ?-BMZ given 06/06 and 06/07-Plan for Magnesium if delivering <32 weeks-Growth ultrasound 06/06:?-A: 1 lb, 30%, oligohydramnios at 1.79cm, unable to r/oclubbed feet due to position?-B: no weight listed but 51%, DVP 5.30cm?-Discordance 12%?-Femur lengths on both babies <2%?5. Unstable lie-Breech/cephalic however cephalic breech on last US?6. Monitoring-30 minutes BID?7. Diet-Regular?8. DVT ppx-SCDs?9. Routine care-TDAP refused, will request SCN to senior vice president & general counsel the patient further-Plan for glucola at 25 weeks?Disposition: Inpatient monitoring for periviable PPROM now s/p latencyabxs. Monitor for signs or symptoms of infection at which point we willmove towards delivery.SUBJECTIVE:No current vaginal bleeding, No current leaking of fluid, Still leakingfluid, Good movement, No shortness of breath or chest pain, No calftenderness and Denies F/C/N/V.OBJECTIVE:LAST VITALS:BP 114/66 Pulse 96 Temp 37 ?C (98.6 ?F) (Oral) Resp 17 Ht147.3 cm (4' 10 ) Wt 54 kg (119 lb) LMP 12/29/2017 SpO2 100% BMI 24.87 kg/m?PHYSICAL EXAM:General: WD, WN, NAD, comfortableHeart: RR, S1, M1Ycfgo: clear to auscultationAbdomen: soft, nontender, gravidExtremities: tr edemaFETAL MONITORING/ASSESSMENT:A: 140/mod/+accels/neg decels B: 130/mod/+accels/neg decels; Colliers: nocontractions; Cat I FHT [id number] tests reviewed for today's visit: No new labsSIGNATURE: Anastasiia Muniz DO PATIENT NAME: Yuko StaleyATE: June 17, 2018 : 5:45 AM [facility] NURSING PROGon 06-16-2018 Protein mass conc HNO ID: [id number] Author: Alcira (Rn) NICOLE Quigley Service: Nursing Author Type: Registered Nurse Type: Nursing Progress Note Filed: 06/16/2018 10:44 AM Note Text: Dr Weiss reviewed tracing at this time. [facility] Protein mass conc HNO ID: [id number] thor: Alcira (Rn) TG Quigleyervice: NursingAuthor Type: Registered NurseType: Nursing Progress NoteFiled: 06/16/2018 9:37 AMNote Text:Patient awakened for FHR monitoring, Denies vaginal bleeding, states pinkthin fluid, states + FM x2 and denies painful contractions. Will monitor [facility] PROCEDUREon 06-16-2018 Protein mass conc HNO ID: [id number] thor: Jadyn SteawrtRn) TG Ridleyervice: Maternal MedicineAuthor Type: Registered NurseType: ProceduresFiled: 06/16/2018 9:45 PMNote Text: Attdudley villalba signed by Alex Alejandra at 06/17/2018 10:17 AMMFM AttendingI personally reviewed the heart rate tracings for both fetuses which areappropriate for gestational age.Alex Alejandra DO, MPH, FACOG06/17/2018 10:17 AM OBSTETRI CSN SUMMARYSERVICE DATE: June 16, 2018The patient is a 17 year old female, , who is at 24w1d with an EDDof 10/05/2018, by Last Menstrual Period dating method.NST OBJECTIVE FINDINGS PER NURSE:Start Time: 2100 (06/16/182136 : Jadyn Ridley RN)Complete Time: 2136 (06/16/182136 : Jadyn Ridley RN)Indications: Premature Ruptured Membranes (06/16/182136 : Jadyn Angulo RN)Patient Reason For: Monitor babies (06/16/182136 : Jadyn Angulo RN)NST Explanation: Procedure Explained;Monitor Explained;VerbalizesUnderstand ing (06/16/182136 : Jadyn Ridley RN) Acoustic Stimulator:Interventions: Reposition (06/16/182136 : Jadyn Ridley RN) MONITORING/ASSESSMENT:Baseline : 140 bpm (06/16/182136 : Jadyn Ridley RN) 130 bpm (06/16/182136 : Jadyn Ridley RN)Variability: Moderate (6-25 bpm) (06/16/182136 : Jadyn Ridley RN) Moderate (6-25 bpm) (06/16/182136 : Jadyn Ridley RN)Accelerations: Present (06/16/182136 : Jadyn Ridley RN) Present (06/16/182136 : Jadyn Ridley RN)Decelerations: Decelerations: None (06/16/182136 : Jadyn Angulo RN) Decelerations Fetus B: None (06/16/182136 : Jadyn Ridley RN)Contractions: Not present (06/16/182136 : Jadyn Ridley, RN)Frequency:Above information forwarded to Dr. Arroyo (06/16/18 2137 : Jadyn StewartRn)NICOLE Ridley) for final review and interpretation.SIGNATURE: Jadyn Ridley RN PATIENT NAME: Yuko StaleyATE: June 16, 2018 : 9:43 PM [facility] PROGRESSon 06-16-2018 Protein mass conc HNO ID: [id number] thor: Anastasiia (Res) SnyderService: ObstetricsAuthor Type: ResidentType: Progress NotesFiled: 06/16/2018 5:14 AMNote Text: Attdudley villalba signed by Alex Alejandra at 06/16/2018 10:12 AMMFM Attending AmandaI saw and evaluated the patient. I agree with the resident's findings and planof care as documented below.Alex Alejandra DO, MPH, FACOG06/16/2018 10:12 AM OBSTETRI CSANTEPARTUM PROGRESS NOTESERVICE DATE: 06/16/2018SERVICE TIME: 5:09 AMASSESSMENT AND PLAN:17 year old EGA:24w1d admitted for Periviable PPROM.1. Periviable PPROM-Since 06/01 at 22.0 weeks-BV/trichomonas negative on admission?-Patient did receive approximately 3 days of flagyl at outsidehospital-Chlamydia/gono rrhea negative-GBS neg 06/07-WBCs 11.59 on admission-Inpatient management with initiation of latency antibiotics at 23.0weeks, s/p course of latency abxs?-IV Clindamycin x2 days->PO Clindamycin x5 days?-IV Gentamicin x2 days?-PO Azithromycin x1-Monitor for labor or infection?-If patient were to deliver <25.0 weeks, she elects for breechvaginal delivery after thorough counseling-Concern for chorioamnionitis versus gastroenteritis- Last febrile at 0120on 06/13 at 38.7. ?WBC increased from 11.59 -> 18.07 with left shift.Recent sick contacts. Influenza negative. Stool culture negative; C difftoxin negative. ?FHT not tachycardic. Pt denies episodes of diarrhea since06/13.-Maternal tachycardia- resolved. s/p 500 cc IVF bolus; EKG sinus tach andCT PE neg for PE.?2. Abnormal urinalysis-S/p Ciprofloxacin treatment x2-3 days from outside hospital for having 3+blood on urinalysis-UA with small leukocyte esterase-Urine culture negative-Repeat UA with large hemoglobin, + protein and small LE.?3. Twin gestation -Di/di-Patient requesting genetic screening, consider cell free DNA?4. Periviable-PMG consult ?-BMZ given 06/06 and 06/07-Plan for Magnesium if delivering <32 weeks-Growth ultrasound 06/06:?-A: 1 lb, 30%, oligohydramnios at 1.79cm, unable to r/oclubbed feet due to position?-B: no weight listed but 51%, DVP 5.30cm?-Discordance 12%?-Femur lengths on both babies <2%?5. Unstable lie-Breech/cephalic however cephalic breech on last US?6. Monitoring-30 minutes BID?7. Diet-Regular?8. DVT ppx-SCDs?9. Routine care-TDAP refused, will request SCN to senior vice president & general counsel the patient further-Plan for glucola at 25 weeks?Disposition: Inpatient monitoring for periviable PPROM now s/p latencyabxs. Monitor for signs or symptoms of infection at which point we willmove towards delivery.SUBJECTIVE:No current vaginal bleeding, No current leaking of fluid, No contractions,Good movement, No shortness of breath or chest pain and No calftendernessOBJECTIVE:LAST VITALS:Pulse BP Resp O2 Sat Temp Pain 99 106/93 18 98 % 37 ?C (98.6 ?F) 0/10PHYSICAL EXAM:General: WD, WN, NAD, comfortableHeart: RR, S1, H9Bgzga: clear to auscultationAbdomen: soft, nontender, neg fundal TTPExtremities: tr edemaFETAL MONITORING/ASSESSMENT:A: 135/mod/+accels/neg decels; B:130/mod/+accels/neg decels; Colliers:isolated contraction x1; Cat I FHT [id number] tests reviewed for today's visit: No new labsSIGNATURE: Anastasiia Muniz DO PATIENT NAME: Yuko StaleyATE: June 16, 2018 : 5:09 AM [facility] ALLIED HEALTHon 06-15-2018 ALLIED HEALTH HNO ID: [id number] thor: Kita (Rn) TG Arrietaervice: NursingAuthor Type: Registered NurseType: Allied HealthFiled: 06/15/2018 12:19 PMNote Text:[facility]O NURSE PROGRESS NOTESERVICE DATE: 06/15/2018SERVICE TIME: 1145REFERRED BY: Mariluz Hamilton RNVISIT WITH: PatientREASON FOR VISIT: Coping issues, Length of stay and LonlinessCONDITION: PerinatalINTERVENTIONS: Education, Emotional support, Stress booklets, Therapeuticlistening and Word Search , coloring pages and coloring tools, stressball, Poem, [employer] [place] [employer] , Prayer Patch TIME SPENT (minutes): 15Patient receptive to visit. She stated that she is having Twin boys . Shespoke of her family who live in [place], and who come when they can .Stress management reviewed . The patient was receptive to visitation bythe Music Therapist. Virginie Serrano, Music Therapist notified by this RN.The patient expressed appreciation for the visit.SIGNATURE: Kita Arrieta RN PATIENT NAME: Yuko StaleyATE: June 15, 2018 : 12:09 PM [facility] PROCEDUREon 06-15-2018 Protein mass conc HNO ID: [id number] thor: TG Sol Rnervice: Maternal MedicineAuthor Type: Registered NurseType: ProceduresFiled: 06/14/2018 11:45 PMNote Text: Attes tatolivia signed by Alex Alejandra at 06/15/2018 9:36 AMMFM AttendingI personally reviewed the heart rate tracing for both twins which wereappropriate for gestational age.Alex Alejandra DO, MPH, FACOG06/15/2018 9:36 AM OBSTETRI CSNST SUMMARYSERVICE DATE: June 14, 2018The patient is a 17 year old female, , who is at 23w6d with an EDDof 10/05/2018, by Last Menstrual Period dating method.NST OBJECTIVE FINDINGS PER NURSE:Start Time: 2099 (06/14/182338 : Luisa Curiel RN)Complete Time: 2314 (06/14/182316 : Luisa Curiel RN)Indications: Premature Ruptured Membranes (06/14/182338 : Luisa Viramontes RN)Patient Reason For:NST Explanation: Monitor Explained;Procedure Explained (06/14/182338 :Luisa Curiel RN) Acoustic Stimulator:Interventions: MONITORING/ASSESSMENT:Baseline : 145 bpm (06/14/182235 : Luisa Curiel RN) 135 bpm (06/14/182235 : Luisa Curiel RN)Variability: Moderate (6-25 bpm) (06/14/182235 : Luisa Curiel RN) Moderate (6-25 bpm) (06/14/182235 : Luisa Curiel RN)Accelerations: Present (06/14/182235 : Luisa Curiel RN) Present (06/14/182235 : Luisa Curiel RN)Decelerations: Decelerations: (!) Variable (06/14/182235 : Luisa Viramontes RN) Decelerations Fetus B: None (06/14/182235 : Luisa Curiel RN)Contractions: Not present (06/14/182314 : Luisa Curiel RN)Frequency:Above information forwarded to summer (06/14/182316 : Luisa Viramontes RN) for final review and interpretation.SIGNATURE: Luisa Curiel RN PATIENT NAME: Yuko Arellano: June 14, 2018 : 11:44 PM [facility] PROGRESSon 06-15-2018 Protein mass conc HNO ID: [id number] thor: Anastasiia (Res) SnyderService: ObstetricsAuthor Type: ResidentType: Progress NotesFiled: 06/15/2018 5:52 AMNote Text: Attes tation signed by Alex Alejandra at 06/15/2018 9:38 AMMFM Attending NoteI saw and evaluated the patient. I agree with the resident's findings and planof care as documented below. No acute events overnight. Patient remainsafebrile. Maternal and tachycardia have resolved. No current evidence ofIAI or PTL. Continue impatient management.Alex Alejandra DO, MPH, FACOG06/15/2018 9:36 AM OBSTETRI CSANTEPARTUM PROGRESS NOTESERVICE DATE: 06/15/2018SERVICE TIME: 5:40 AMASSESSMENT AND PLAN:17 year old EGA:24w0d admitted for periviable PPROM.1. Periviable PPROM-Since 06/01 at 22.0 weeks-BV/trichomonas negative on admission?-Patient did receive approximately 3 days of flagyl at outsidehospital-Chlamydia/gono rrhea negative-GBS neg 06/07-WBCs 11.59 on admission-Inpatient management with initiation of latency antibiotics at 23.0weeks, s/p course of latency abxs?-IV Clindamycin x2 days->PO Clindamycin x5 days?-IV Gentamicin x2 days?-PO Azithromycin x1-Monitor for labor or infection?-If patient were to deliver <25.0 weeks, she elects for breechvaginal delivery after thorough counseling-Concern for chorioamnionitis versus gastroenteritis- Last febrile at 0120on 06/13 at 38.7. WBC increased from 11.59 -> 18.07 with left shift.Recent sick contacts. Influenza negative. Stool culture pending; C difftoxin negative. FHT not tachycardic. Pt denies episodes of diarrhea since06/13.-Maternal tachycardia- resolved. s/p 500 cc IVF bolus; EKG sinus tach andCT PE neg for PE.?2. Abnormal urinalysis-S/p Ciprofloxacin treatment x2-3 days from outside hospital for having 3+blood on urinalysis-UA with small leukocyte esterase-Urine culture negative-Repeat UA with large hemoglobin, + protein and small LE.?3. Twin gestation -Di/di-Patient requesting genetic screening, consider cell free DNA?4. Periviable-PMG consult ?-BMZ given 06/06 and 06/07-Plan for Magnesium if delivering <32 weeks-Growth ultrasound 06/06:?-A: 1 lb, 30%, oligohydramnios at 1.79cm, unable to r/oclubbed feet due to position?-B: no weight listed but 51%, DVP 5.30cm?-Discordance 12%?-Femur lengths on both babies <2%?5. Unstable lie-Breech/cephalic however cephalic breech on last US?6. Monitoring-30 minutes BID?7. Diet-Regular?8. DVT ppx-SCDs?9. Routine care-TDAP refused, will request SCN to senior vice president & general counsel the patient further-Plan for glucola 1 week after steroids ??Disposition: Inpatient monitoring for periviable PPROM now s/p latencyabxs. Monitor for signs or symptoms of infection at which point we willmove towards delivery.SUBJECTIVE:No current vaginal bleeding, No current leaking of fluid, No contractions,Good movement, No shortness of breath or chest pain, No calftenderness and Denies dyspnea, denies myalgias. Pt denies chest pain. Pthas no complaints this AM. Overnight complained of heartburn which hasresolved.OBJECTIVE:LAST VITALS:Pulse BP Resp O2 Sat Temp Pain 98 (!) 81/43 16 97 % 36.8 ?C (98.2 ?F) 10PHYSICAL EXAM:General: WD, WN, NAD, comfortableHeart: RR, S1, C3Tgnwj: clear to auscultationAbdomen: soft, nontender, gravid, neg fundal TTPExtremities: tr edemaFETAL MONITORING/ASSESSMENT:A: 140/mod/+accels/+isolated mild variable decels; B: 145/mod/+accels/negdecels; A Cat II; B Cat I; Colliers: no contractionsLABSDiagnostic tests reviewed for today's visit: No new labsSIGNATURE: Anastasiia Muniz DO PATIENT NAME: Yuko StaleyATE: June 15, 2018 : 5:40 AM [facility] CASE MANAGEMon 06-14-2018 CASE MANAGEM HNO ID: [id number] thor: Ayse (Opal) SussmanService: Care ManagementAuthor Type: Social WorkerType: Care Mgt Progress NoteFiled: 06/14/2018 10:16 AMNote Text:CARE MANAGEMENT PROGRESS NOTESERVICE DATE: 06/14/2018SERVICE TIME: 10:00 AM LOS: 8 daysTeen mother who will be hospitalized until deliveryMet patient and her grandmother. They explain that patient, father nubia ( Ronny Escudero, age 18) and their families are all from the [facility].([place] minutes from [place]). Patient confirms that she and father mukund currently reside with his family, but after the twins are born theywill move to his uncles home as there is more room. She has startedgetting baby supplies together, and feels that she will have a 2 cribs caridad bassinet before delivery. Patient/family undecided what to do about thesilvanaby shower as patient is to be hospitalized until delivery. Patientconfirms she is already on WIC. Discussed waiting to get car seats untilafter twins are born, as may need special car seats, and discussed carseat challenge.Patient confirms plan to breastfeed.Discussed ways to keep occupied during prolonged hospitalization. Patientconfirms that because of family members working and the expense of gas todrive to [place], family are limited how often they can visit. Discussedhaving family bring things she likes to do, discussed [facility] RN visits andwith patient consent, RN to place this consult.Discussed NICU at [facility] and the NICU at [facility], theability to stay with babies if at NICU at [facility], Ann-Marie Ramos, and the [facility] bonding program.No other needs identified at this point.Asked patient to let staff know if social work can be of furtherassistance.SIGNATURE: BRENDA Levy PATIENT NAME: Yuko StaleyATE: June 14, 2018 : 10:00 AM PAGER/CONTACT #: [phone] [facility] PROCEDUREon 06-14-2018 Protein mass conc HNO ID: [id number] thor: TG Aggarwal Rnervice: NursingAuthor Type: Registered NurseType: ProceduresFiled: 06/14/2018 11:26 AMNote Text: Attes tation signed by Alex Alejandra at 06/15/2018 9:35 AMMFM AttendingI personally reviewed the heart rate tracing for both twins which wereappropriate for gestational age.Alex Alejandra DO, MPH, FACOG06/15/2018 9:35 AM OBSTETRI CSNST SUMMARYSERVICE DATE: June 14, 2018The patient is a 17 year old female, , who is at 23w6d with an EDDof 10/05/2018, by Last Menstrual Period dating method.NST OBJECTIVE FINDINGS PER NURSE:Start Time: 1044 (06/14/18 1045 : Fitz Oneill RN)Complete Time: 1112 (06/14/18 1045 : Fitz Henderson) Nino RN)Indications: Multiple Gestation (06/14/18 1045 : Fitz Henderson) NICOLE Oneill)Patient Reason For:NST Explanation: Verbalizes Understanding (06/14/18 1045 : Fitz Bills RN) Acoustic Stimulator:Interventions: Other (See Comment);Reposition (multiple attempts atreadjusting efm's and ultrasound) (06/14/18 1045 : Fitz Oneill RN) MONITORING/ASSESSMENT:Baseline : 130 bpm (06/14/18 1045 : Fitz Oneill RN) 140 bpm (06/14/18 1045 : Fitz Oneill RN)Variability: Moderate (6-25 bpm) (06/14/18 1045 : Fitz Oneill RN) Moderate (6-25 bpm) (06/14/18 1045 : Fitz Oneill RN)Accelerations: Present (06/14/18 1045 : Fitz Oneill RN) Present (06/14/18 1045 : Fitz Oneill RN)Decelerations: Decelerations: (!) Variable (06/14/18 1045 : Fitz Bills RN) Decelerations Fetus B: (!) Variable (06/14/18 1045 : Fitz Oneill RN)Contractions:Frequenc y:Above information forwarded to Dr Alejandra (06/14/18 1045 : Fitz Bills RN) for final review and interpretation.SIGNATURE: Fitz Oneill RN PATIENT NAME: Yuko StaleyATE: June 14, 2018 : 11:25 AM [facility] PROGRESSon 06-14-2018 Protein mass conc HNO ID: [id number] thor: Fitz Oneill RNService: NursingAuthor Type: Registered NurseType: Progress NotesFiled: 06/14/2018 10:31 AMNote Text:Dr Muniz notified twice in the last half hour to come with ultrasound tofind placement of the twins. At this point patient refusing monitoringuntil placement is verified, due to continued nausea. Normal [facility] Protein mass conc HNO ID: [id number] thor: Anastasiia Bullockervice: ObstetricsAuthor Type: ResidentType: Progress NotesFiled: 06/14/2018 5:37 AMNote Text: Attes tation signed by Alex Alejandra at 06/14/2018 9:20 AMMFM Attending AmandaI saw and evaluated the patient. I agree with the resident's findings and planof care as documented below. No acute events overnight. Remains afebrile.Reports nausea this AM. CT angio negative for PE. Stool studies and C. Diffnegative. Maternal and tachycardia have improved. Day 01/15 latencyantibiotics. Discussed indications for amnio with addition concern for IAinfection. All patient questions answered.Alex Alejandra DO, MPH, FACOG06/14/2018 9:17 AM OBSTETRI CSANTEPARTUM PROGRESS NOTESERVICE DATE: 06/14/2018SERVICE TIME: 5:27 AMASSESSMENT AND PLAN:17 year old EGA:23w6d admitted for periviable PPROM .1. Periviable PPROM-Since 06/01 at 22.0 weeks-BV/trichomonas negative on admission?-Patient did receive approximately 3 days of flagyl at outsidehospital-Chlamydia/gono rrhea negative-GBS neg?-WBCs 11.59 on admission now 18.07-Inpatient management with initiation of latency antibiotics at 23.0weeks, on day 01/15 now?-IV Clindamycin x2 days->PO Clindamycin x5 days?-IV Gentamicin x2 days?-PO Azithromycin x1-Monitor for labor or infection?-If patient were to deliver <25.0 weeks, she elects for breechvaginal delivery after thorough counseling-Concern for chorioamnionitis versus gastroenteritis- Last febrile at 0120on 06/13 at 38.7. WBC increased from 11.59 -> 18.07 with left shift.Recent sick contacts. Influenza negative. Stool culture pending; C difftoxin negative. FHT not tachycardic.-Maternal tachycardia- resolved. s/p 500 cc IVF bolus; EKG sinus tach andCT PE neg for PE.?2. Abnormal urinalysis-S/p Ciprofloxacin treatment x2-3 days from outside hospital for having 3+blood on urinalysis-UA with small leukocyte esterase-Urine culture negative-Repeat UA with large hemoglobin, + protein and small LE.?3. Twin gestation -Di/di-Patient requesting genetic screening, consider cell free DNA?4. Previable-PMG consult ?-BMZ given 06/06 and 06/07-Plan for Magnesium if delivering <32 weeks-Growth ultrasound 06/06:?-A: 1 lb, 30%, oligohydramnios at 1.79cm, unable to r/oclubbed feet due to position?-B: no weight listed but 51%, DVP 5.30cm?-Discordance 12%?-Femur lengths on both babies <2%?5. Unstable lie-Breech/cephalic however cephalic breech now?6. Monitoring-30 minutes BID?7. Diet-Regular?8. DVT ppx-SCDs?9. Routine care-TDAP refused, will request SCN to senior vice president & general counsel the patient further-Plan for glucola 1 week after steroids ??Disposition: Inpatient monitoring for periviable PPROM. Continue course oflatency antibiotics and monitor for signs or symptoms of infection orlabor, with recent development of fever however afebrile over the evening.Cat II tracing for mild variable decelerations, overall reassuring.SUBJECTIVE:No current vaginal bleeding, Still leaking fluid, No contractions, Goodfetal movement, No shortness of breath or chest pain and No calftenderness. Denies episodes of nausea and vomiting. Endorses waterydiarrhea. Denies fevers/chills. Overnight complained of dyspnea which hasnow resolved.OBJECTIVE:LAST VITALS:Pulse BP Resp O2 Sat Temp Pain (!) 123 110/65 18 97 % 37.2 ?C (99 ?F) 0/10PHYSICAL EXAM:General: WD, WN, NAD, comfortableHeart: RR, S1, R3Kcmoy: clear to auscultationAbdomen: soft, nontender, neg fundal TTPExtremities: tr edemaFETAL MONITORING/ASSESSMENT:A: 150/mod/+accels/+mild variable decels; B: 150/mod/+accels/+mildvariable decels; Colliers: not johann; Cat II FHT x2 overall reassuringLABSDiagnostic tests reviewed for today's visit: Most recent labsSIGNATURE: Anastasiia Muniz DO PATIENT NAME: Yuko StaleyATE: June 14, 2018 : 5:37 AM Normal [facility] Protein mass conc HNO ID: [id number] thor: Nehal (Veronika MezaService: ObstetricsAuthor Type: ResidentType: Progress NotesFiled: 06/13/2018 10:23 PMNote Text:Bedside ultrasound performed for PM monitoring. Patient is feelingwell without abdominal pain or fundal tenderness to palpation. No fetaltachycardia noted.Of note, the fetuses appear to be in cephalic/breech presentation, thoughwere previously breech/cephalic.Nehal Meza MD06/13/2018 10:22 PMObstetrics and Gynecology [id number] #[id number] Normal [facility] C. difficile by PCRon 2017 C. difficile by PCR Test performed at [facility] NEGATIVE for Toxigenic C. difficile Normal [facility] Comment on above: Performed By: #### R APBV #### [facility] [address] [address] [address] CHEST FOR PULMONARY EMBOL USon 06-13-2018 CT CHEST FOR PULMONARY EMBOLUS Performed at [facility] APPROVED BY: James Griffith MD EXAMINATION: CHEST CT WITH CONTRAST (PULMONARY EMBOLISM PROTOCOL) Indication: PE suspected, . Dyspnea. Twin Technique: Spiral CT acquisition of the chest from the thoracic inlet to the upper abdomen following IV contrast. M: CTCP_3 Contrast: 100 mL IV Omnipaque 350 CT Dose-Length Product: 62 mGy*cm CT Dose Reduction Employed: 1. Automated exposure control (AEC) was used. The patient's abdomen was shielded. Comparison: None RESULT: Limitations: None. Evaluation for thromboembolic disease: - Right heart chambers: No thromboembolic disease. - Main pulmonary arteries: No thromboembolic disease. - Lobar pulmonary arteries: No thromboembolic disease. - Segmental pulmonary arteries: No thromboembolic disease. - Subsegmental pulmonary arteries: No thromboembolic disease. Lines, tubes, and devices: None. Lung parenchyma and pleura: No consolidation. No suspicious pulmonary nodule. No pleural effusion. Central airways are patent. Thoracic inlet, heart, and mediastinum: No lymphadenopathy in the axillary, mediastinal, or hilar regions. The thoracic aorta and main pulmonary artery are normal in caliber. The cardiac chambers are normal in size. No coronary artery atherosclerotic calcifications are noted, although the study is not optimized for coronary assessment. No pericardial effusion or thickening. Bones and soft tissues: No destructive bone lesion. Chest wall is unremarkable. Upper abdomen: No abnormality in the imaged upper abdomen. . IMPRESSION: No CT evidence of pulmonary embolism. A stat report was provided as requested. Normal [facility] Cult Enteric Pathogenson Cult Enteric Pathogens Test performed at [facility] No Salmonella, Shigella, Campylobacter, or E. coli 0157 cultured. Reduced/Absence of normal enteric debbie noted. Normal [facility] Comment on above: Performed By: #### R APBV #### [place] [address] EKG (AK,AV,EU,FV,HL,RADHA,MM,SP )on 06-13-2018 Protein mass conc NAME : YUKO MOBLEY PID : [id number] : 2000 Gender : FemaleRace : CaucasianORD : [id number] Procedure Date : Jun 13 2018 14:51Edit Date : Jun 16 2018 08:47 Diagnosis:SINUS TACHYCARDIAOTHERWISE NORMAL ECGNO PREVIOUS ECGS AVAILABLEConfirmed by Hever Holloway M.D. ([id number]) on 06/16/2018 8:47:38 AM Ventricular Rate : 112 BPMAtrial Rate : 112 BPMP-R Interval : 152 msQRS Duration : 78 msQ-T Interval : 320 msQTC Calculation(Bezet) : 436 msP [place]view : 41 degreesR Broadview : 44 degreesT [place]view : 29 degrees Test Reason : Tachycardia Location : 24 : 2400 2416 Overread By : Hever Holloway M.D.Editted By : Hever Holloway M.D.Referred By : ALEX ALEJANDRAAcquired by : Sharon RIVERO [facility] Hemogram/Diffon 06-13-2018 Abs Immature Grans 0.25 thou/cmm High 0.00-0.05 [facility] Comment on above: Performed By: #### C BCD1 #### [place] [address] Abs. Baso 0.04 thou/cmm Normal 0.01-0.08 [facility] Comment on above: Performed By: #### C BCD1 #### [place] [address] Abs. [place] 0.78 thou/cmm High 0.27-0.70 [facility] Comment on above: Performed By: #### C BCD1 #### [place] [address] Abs. Neut (ANC) 16.41 thou/cmm High 1.56-6.13 [facility] Comment on above: Performed By: #### C BCD1 #### [place] [address] Basophils/100 WBC (Bld) 0.2 % Normal [facility] Comment on above: Performed By: #### C BCD1 #### [place] [address] Eosinophils #/vol (Bld) 0.07 thou/cmm Normal 0.00-0.31 [facility] Comment on above: Performed By: #### C BCD1 #### [place] [address] Eosinophils/100 WBC (Bld) 0.4 % Normal [facility] Comment on above: Performed By: #### C BCD1 #### [facility] [address] [address] Immature Grans 1.40 % Normal [facility] Comment on above: Performed By: #### C BCD1 #### [facility] [address] [address] Lymphocytes #/vol (Bld) 0.52 thou/cmm Low 1.18-3.74 [facility] Comment on above: Performed By: #### C BCD1 #### [facility] [address] [address] Lymphocytes/100 WBC (Bld) 2.9 % Normal [facility] Comment on above: Performed By: #### C BCD1 #### [facility] [address] [address] Monocytes/100 WBC (Bld) 4.3 % Normal [facility] Comment on above: Performed By: #### C BCD1 #### [facility] [address] [address] Seg Neutrophil 90.8 % Normal [facility] Comment on above: Performed By: #### C BCD1 #### [facility] [address] [address] Erythrocyte distribution width Ratio (RBC) 13.6 % Normal 11.7-14.4 [facility] Comment on above: Performed By: #### C BCD1 #### [facility] [address] [address] Hematocrit Volume Fraction (Bld) 32.6 % Low 34.1-44.9 [facility] Comment on above: Performed By: #### C BCD1 #### [facility] [address] [address] Hemoglobin mass conc (Bld) 10.9 g/dL Low 11.2-15.7 [facility] Comment on above: Performed By: #### C BCD1 #### [facility] [address] [address] MCH Entitic mass (RBC) 30.4 pg Normal 25.6-32.2 [facility] Comment on above: Performed By: #### C BCD1 #### [facility] [address] [address] MCHC mass conc (RBC) 33.4 % Normal 31.6-34.8 [facility] Comment on above: Performed By: #### C BCD1 #### [facility] [address] [address] MCV Entitic volume (RBC) 91.1 fL Normal 79.4-94.8 [facility] Comment on above: Performed By: #### C BCD1 #### [facility] [address] [address] Platelet mean volume Entitic volume (Bld) 11.7 fL Normal 9.4-12.3 [facility] Comment on above: Performed By: #### C BCD1 #### [facility] [address] [address] Platelets #/vol (Bld) 237 thou/cmm Normal 182-369 [facility] Comment on above: Performed By: #### C BCD1 #### [facility] [address] [address] RBC #/vol (Bld) 3.58 mil/cmm Low 3.93-5.22 [facility] Comment on above: Performed By: #### C BCD1 #### [facility] [address] [address] RDW SD 44.7 fl Normal 36.4-46.3 [facility] Comment on above: Performed By: #### C BCD1 #### [place] [address] WBC #/vol (Bld) 18.07 thou/cmm High 3.98-10.04 [facility] Comment on above: Performed By: #### C BCD1 #### [place] [address] NURSING PROGon 06-13-2018 Protein mass conc HNO ID: [id number] thor: Virginie (Rn) Blaze, RNService: NursingAuthor Type: Registered NurseType: Nursing Progress NoteFiled: 06/12/2018 10:12 PMNote Text:Discussed with Dr. Meza pt's refusal to reposition for fhr monitoring,will continue to attempt to reposition monitors but unable to visualizetwo separate continuous fhr's on external monitor at this time Normal [facility] Ova and Parasite Screenon Ova and Parasite Screen Test performed at [facility] NEGATIVE for Giardia lamblia antigen. NEGATIVE for Cryptosporidium parvum antigen. If another parasite is suspected, call the Microbiology Laboratory ([phone]) to request additional parasitology testing. Normal [facility] Comment on above: Performed By: #### R APBV #### [facility] [address] [address] PROCEDUREon 06-13-2018 Protein mass conc HNO ID: [id number] thor: Fitz (Nicole) TG Oneillervice: NursingAuthor Type: Registered NurseType: ProceduresFiled: 06/13/2018 10:01 AMNote Text: Attes tatolivia signed by Alex Alejandra at 06/13/2018 10:19 AMM AttendingI personally reviewed the heart rate tracing for both twins which wereappropriate for gestational age.Alex Alejandra DO, MPH, FACOG06/13/2018 10:19 AM OBSTETRI CSNST SUMMARYSERVICE DATE: June 13, 2018The patient is a 17 year old female, , who is at 23w5d with an EDDof 10/05/2018, by Last Menstrual Period dating method.NST OBJECTIVE FINDINGS PER NURSE:Start Time: 924 (06/13/18 0958 : Fitz Oneill RN)Complete Time: 09 (06/13/18 0958 : Fitz Oneill RN)Indications: Multiple Gestation (06/13/18 0958 : Fitz Oneill RN)Patient Reason For:NST Explanation: Verbalizes Understanding (06/13/18 0958 : Fitz Bills RN) Acoustic Stimulator:Interventions: MONITORING/ASSESSMENT:Baseline : 145 bpm (06/13/18 0958 : Fitz Oneill RN) 135 bpm (06/13/18 0958 : Fitz Oneill RN)Variability: Moderate (6-25 bpm) (06/13/1858 : Fitz Oneill RN) Moderate (6-25 bpm) (06/13/1858 : Fitz Oneill RN)Accelerations: Present (06/13/1858 : Fitz Oneill RN) Present (06/13/18 0958 : Fitz Oneill RN)Decelerations: Decelerations: None (06/13/1858 : Fitz Oneill RN) Decelerations Fetus B: (!) Variable (06/13/1858 : Fitz Oneill RN)Contractions: Not present (06/13/1858 : Fitz Oneill RN)Frequency:Above information forwarded to Dr Alejandra (06/13/18957 : Fitz Bills RN) for final review and interpretation.SIGNATURE: Fitz Oneill RN PATIENT NAME: Yuko StaleyATE: June 13, 2018 : 10:01 AM Normal [facility] PROGRESSon 06-13-2018 Protein mass conc HNO ID: [id number] thor: TG Aggarwal Rnervice: NursingAuthor Type: Registered NurseType: Progress NotesFiled: 06/13/2018 4:03 PMNote Text:Maternal heart rate in the 120-130's periodically. Monitors readjustedoften due to constant movement of both mom and babies.Difficult todistinguish maternal vs heart rates at certain times, many areas ofthe tracing broken. Normal [facility] Protein mass conc HNO ID: [id number] thor: Anastasiia (Res) ZakerService: ObstetricsAuthor Type: ResidentType: Progress NotesFiled: 06/13/2018 2:27 PMNote Text:In to assess patient with complaint of tachycardia to 150's. Pt states shewas laying in bed at the time that she felt a heaviness in her chest and aracing heart. The patient denies chest pain. Pt states the episode lastedapproximately 30-40 seconds. Pt denies experiencing anything like thispreviously. Pt denies dyspnea at this time. Pt denies F/C/N/V. Pt has beenafebrile. Repeat VS reviewed with maternal HR 139.Dr. Alejandra updated. At this time we will obtain EKG. Concern for IAinfection vs dehydration in setting of gastroenteritis vs pulmonaryembolism. Will also obtain CT to rule out PE. RN at attempting to gettwins on monitor now.Cont to monitor. Normal [facility] Protein mass conc HNO ID: [id number] thor: Alex Garciaervice: ObstetricsAuthor Type: PhysicianType: Progress NotesFiled: 06/13/2018 10:00 AMNote Text:In to do SSE with Dr. Alejandra to assess for signs of intraamnionicinfection. Cervix fully visualized with clear fluid present. No dischargeor odor present. No pooling noted. No purulent discharge in posterior culde sac. Cervix visually 0.5 cm dilated.Stool sample collected for C diff PCR, OANDP, and stool culture. Ptcurrently afebrile.At this time, will cont to monitor with plan for delivery if patientworsens clinically.Anastasiia Muniz, PGY-2Obstetrics and GynecologyPager [phone]/14/20179:28 AMMFM Attending NoteI saw and evaluated the patient. I agree with the resident's findings andplan of care as documented below. May consider amniocentesis to r/ointraamniotic infection.Alex Alejandra DO, MPH, FACOG06/13/2018 9:59 AM Normal [facility] Protein mass conc HNO ID: [id number] thor: Anastasiia (Res) ZakerService: ObstetricsAuthor Type: ResidentType: Progress NotesFiled: 06/13/2018 6:23 AMNote Text: Attes tation signed by Alex Alejandra at 06/13/2018 10:18 AMMFM Attending AmandaI saw and evaluated the patient. I agree with the resident's findings and planof care as documented below. Patient with clinical suspicion for intraamnioticinfection overnight including fever, WBC 18, and maternal and brief period offetal tachycardia. At that time, patient also had several hours of nausea andvomiting and has had at least 2 episodes of diarrhea. Patient does endorse sickcontacts. She did receive 1 dose of acetaminophen. S/P BMZ on 06/06 and 06/07.Day / latency antibiotics.This AM, the patient reports improvement with N/V. However her diarrhea haspersisted. She is afebrile. Denies any obstetric complaints. FHR appropriatefor both twins. On exam, the patient has no fundal tenderness. SSE showedminimal clear LOF. No discharge or odor. Her influenza was negative. Stoolculture and C. Diff studies sent.We discussed the concern and clinical criteria met for an intraamnioticinfection. However, another etiology such as viral illness may be the source ofher fever. I discussed the low threshold for delivery even at a perviablegestational age with suspicion for IA infection. This included the potentialmaternal health risk such as sepsis and its sequelae and ICU admission. Willawait pending labs. Consider amniocentesis. Close observation for developinginfection. All of her questions were answered.Alex Alejandra DO, MPH, FACOG06/13/2018 10:00 AM MARINA PATELNTEPARTUM PROGRESS NOTESERVICE DATE: 06/13/2018SERVICE TIME: 5:20 AMASSESSMENT AND PLAN:17 year old EGA:23w5d admitted for periviable PPROM.1. Previable PPROM-Since 06/01 at 22.0 weeks-BV/trichomonas negative on admission?-Patient did receive approximately 3 days of flagyl at outsidehospital-Chlamydia/gono rrhea negative-GBS neg-WBCs 11.59 on admission and afebrile-Inpatient management with initiation of latency antibiotics at 23.0weeks, on day 6/7 now?-IV Clindamycin x2 days->PO Clindamycin x5 days?-IV Gentamicin x2 days?-PO Azithromycin x1-Monitor for labor or infection?-If patient were to deliver <25.0 weeks, she elects for breechvaginal delivery after thorough counseling-Concern for chorioamnionitis versus gastroenteritis- Febrile at 0050 withepisodes of NANDV, epigastric pain. WBC now increased from 11.59 -> 18.07with left shift. S/p Tylenol. Recent sick contact. Influenza negative. FHTnot tachycardic.?2. Abnormal urinalysis-S/p Ciprofloxacin treatment x2-3 days from outside hospital for having 3+blood on urinalysis-UA with small leukocyte esterase-Urine culture negative?3. Twin gestation -Di/di-Patient requesting genetic screening, consider cell free DNA?4. Previable-PMG consult ?-BMZ given 06/06 and 06/07-Plan for Magnesium if delivering <32 weeks-Growth ultrasound 06/06:?-A: 1 lb, 30%, oligohydramnios at 1.79cm, unable to r/oclubbed feet due to position?-B: no weight listed but 51%, DVP 5.30cm?-Discordance 12%?-Femur lengths on both babies <2%?5. Position-Breech/cephalic?6. Monitoring-30 minutes BID?7. Diet-Regular?8. DVT ppx-SCDs?9. Routine care-TDAP refused, will request SCN to senior vice president & general counsel the patient further-Plan for glucola 1 week after steroids?Disposition: Inpatient monitoring for periviable PPROM. Continue latencyantibiotics and monitor for signs or symptoms of infection or labor, withrecent development of fever. Cat II tracing for mild variabledecelerations, overall reassuring.SUBJECTIVE:No current vaginal bleeding, Still leaking fluid, No contractions, Goodfetal movement, No shortness of breath or chest pain, No calf tendernessand endorses good FM. Denies abdominal pain, epigastric pain. Pt deniesfevers or chills. Pt denies any more episodes of NANDV or diarrhea. Ptreports no complaints this AM.OBJECTIVE:LAST VITALS:Pulse BP Resp O2 Sat Temp Pain 118 96/65 18 99 % 36.9 ?C (98.4 ?F) 0/10PHYSICAL EXAM:General: WD, WN, NADHeart: RR, S1, Y2Mhqhf: clear to auscultationAbdomen: soft, nontender, neg fundal TTPExtremities: no edemaFETAL MONITORING/ASSESSMENT:A: 150/mod/+accels/+isolated mild variable decels; B:155/mod/+accels/+isoalted mild variable decels; Colliers: no contractions; CatII FHT x2, broken FHT with difficulty tracing, overall reassuring and nottachycardiaLABSDiagnostic tests reviewed for today's visit: Most recent labsSIGNATURE: Anastasiia Muniz DO PATIENT NAME: Yuko StaleyATE: June 13, 2018 : 5:20 AM Normal [facility] Protein mass conc HNO ID: [id number] thor: Nehal (Res) WiseService: ObstetricsAuthor Type: ResidentType: Progress NotesFiled: 06/13/2018 1:57 AMNote Text:Patient reportedly just had an episode of diarrhea - given last night'spresentation and this new symptom, gastroenteritis is still the topconsideration. Patient has been on several antibiotics and also had arecent sick contact. Will follow up patient's labs and observe herclinical course.Nehal Meza MD06/13/2018 1:57 AMObstetrics and Gynecology [id number] #[id number] Normal [facility] Protein mass conc HNO ID: [id number] thor: Nehal (Res) WiseService: ObstetricsAuthor Type: ResidentType: Progress NotesFiled: 06/13/2018 1:54 AMNote Text:Fever is persistent at 38.8->38.7 over half an hour.Plan of care discussed with Dr. Alejandra:Check rate of doptonesCheck CBC, urinalysis and influenza swabGive TylenolCould consider lactic acid, CXR, LE dopplers, etc if clinical picturechanges or if new symptoms arise.Nehal Meza MD06/13/2018 1:54 AMObstetrics and Gynecology [id number] #[id number] Normal [facility] Protein mass conc HNO ID: [id number] thor: Viry Barron (Res) LendeService: ObstetricsAuthor Type: ResidentType: Progress NotesFiled: 06/13/2018 1:13 AMNote Text:UpdatePatient is now febrile at 38.8. Patient is feeling better than she waspreviously. Denies any nausea or vomiting since last evaluated byphysician. Denies any diarrhea. Denies rhinnorhea, pharyngitis, tearing,dysuria, vaginal bleeding, change in color of amniotic fluid. States herfeet feel cold. Her sister was recently sick for one day with one episodeof emesis and she last was around her sister two days ago.BP 112/65 Pulse 120 Temp (!) 38.8 ?C (101.8 ?F) (Oral) Resp 20 Ht 147.3 cm (4' 10 ) Wt 54 kg (119 lb) LMP 12/29/2017 SpO2 99% BMI 24.87 kg/m?General: AANDO X3 with no-acute distressCardiac: tachycardicRespiratory: CTABAbdomen: +BS with non-tender abdomenBack: No CVA tendernessLE: non-tenderAssessment/Plan1. Febrile- Isolated event. Repeating temperature and if continues to befebrile then will treat with Tylenol and further interventions from there.With PPROM, one of the main concerns is chorioamnionitis. Clinically thephysical exam doesn't suggested chorioamnionitis at this time. Couldconsider respiratory, , or GI source as well. Based on repeattemperature, will decide next course of treatment.Francheska Kat 2017 1:13 AM Normal [facility] Protein mass conc HNO ID: [id number] thor: Nehal (Charisma) DerrickService: ObstetricsAuthor Type: ResidentType: Progress NotesFiled: 06/12/2018 10:42 PMNote Text:Patient's epigastric pain and FHT discussed with Dr. Alejandra. Continuecurrent management.Nehal Meza MD06/12/2018 10:42 PMObstetrics and Gynecology [id number] #[id number] Normal [facility] Rapid Influenza A/B Agon Rapid Influenza A/B Ag Test performed at [facility] Presumptive negative for the presence of Influenza A antigen. Presumptive negative for the presence of Influenza B antigen. It is suggested that negative test results should be confirmed by cell culture, if warranted. Normal [facility] Comment on above: Performed By: #### R APBV #### [place] [address] Urinalysis Routineon 018 Bacteria LM.HPF #/area (Urine sed) NONE Normal None [facility] Comment on above: Performed By: #### R APBV #### [place] [address] Ep Cells Urine 1.5 /hpf Normal 0.0-5.0 [facility] Comment on above: Performed By: #### R APBV #### [place] [address] Hyaline Cast 3.1 /lpf High 0.0-1.0 [facility] Comment on above: Performed By: #### R APBV #### [place] [address] RBC,Urine 6.0 /hpf High 0.0-5.0 [facility] Comment on above: Performed By: #### R APBV #### [facility] [address] [place] [address] WBC, Urine 0.5 /hpf Normal 0.0-5.0 [facility] Comment on above: Performed By: #### R APBV #### [facility] [address] [place] [address] Appearance Nom (U) TURBID Normal [facility] Comment on above: Performed By: #### R APBV #### [facility] [address] [place] [address] Bilirubin Urine Negative Normal Negative [facility] Comment on above: Performed By: #### R APBV #### [facility] [address] [place] [address] Color Nom (U) YELLOW Normal [facility] Comment on above: Performed By: #### R APBV #### [facility] [address] [place] [address] Glucose Ql (U) Negative Normal Negative [facility] Comment on above: Performed By: #### R APBV #### [facility] [address] [place] [address] Hemoglobin,Urine LARGE Abnormal Negative [facility] Comment on above: Performed By: #### R APBV #### [place] [address] Ketone Urine TRACE Abnormal Negative [facility] Comment on above: Performed By: #### R APBV #### [facility] [address] [place] [address] Leukocytes Esterase SMALL Abnormal Negative [facility] Comment on above: Performed By: #### R APBV #### [facility] [address] [place] [address] Nitrites Urine Negative Normal Negative [facility] Comment on above: Performed By: #### R APBV #### [facility] [address] [place] [address] pH (U) 7.5 [pH] Normal 5.0-8.0 [facility] Comment on above: Performed By: #### R APBV #### [facility] [address] [place] [address] Protein mass conc (U) 300 mg/dL Abnormal Negative [facility] Comment on above: Performed By: #### R APBV #### [facility] [address] [place] [address] Specific [place], Ur 1.009 Normal 1.005-1.03 0 [facility] Comment on above: Performed By: #### R APBV #### [facility] [address] [place] [address] Urobilinogen,Ur 0.2 EU/dL Normal 0.0-1.0 [facility] Comment on above: Performed By: #### R APBV #### [facility] [address] [place] [address] NURSING PROGon 06-12-2018 Protein mass conc HNO ID: [id number] thor: Virginie StewartRn) TG Thakurervice: NursingAuthor Type: Registered NurseType: Nursing Progress NoteFiled: 06/12/2018 10:11 PMNote Text:Dr. Meza notified of pt's continued and increasing abdominal pain,physician at bedside to evaluate and scan for fhr monitor placement,difficulty maintaining two separate fht's d/t positioning, separatefhr visualized on ultrasound, will continue to attempt to monitor bothfhr's Normal [facility] Protein mass conc HNO ID: [id number] Author: Pilar StewartRn) NICOLE Bell Service: Nursing Author Type: Registered Nurse Type: Nursing Progress Note Filed: 06/12/2018 6:44 PM Note Text: Patient returned to her room and instructed and covering her cough and good hand washing Normal [facility] Protein mass conc HNO ID: [id number] thor: Lelia StewartRn) TG Oliveroservice: (none)Author Type: Registered NurseType: Nursing Progress NoteFiled: 06/11/2018 10:51 PMNote Text:Difficulty keeping Baby B on EFM. Residents notified and to come over withUS to verify location . Normal [facility] NUTRITIONon 06-12-2018 NUTRITION HNO ID: [id number] thor: Jaki (Rd) Piekarski, RDService: Nutrition TherapyAuthor Type: Registered DietitianType: NutritionFiled: 06/12/2018 3:58 PMNote Text:NUTRITION THERAPY SCREENING NOTESERVICE DATE: 06/12/2018SERVICE TIME: 3:55 PMNUTRITION CARE PLANPatient's weight is expected to increase with and nutritionalintake is adequate. Patient is not at risk for malnutrition at this time.Intervention:Continue on regular dietCafe menu provide to increase optionsCoordination of Care:NursingDischarge Nutrition Recommendations:Diet: Regular ---Chart reviewed for follow-upPer HPI: 17 year old ? ?EGA:23w0d?admitted for periviable PPROM.Continues on inpatient monitoring for previable PPROM with latencyantibiotics started 06/08/18. Goal for delivery at 34 weeks.Interval History: EGA:23w4d admitted for periviable PPROM.Current Diet Order DIET REGULAR Order Specific Question: Child's Feeding Age/Diet Answer: YOUTH (7-18YRS)Nutritional Intake During Admission: >75% estimated energy needs over thepast 6 day(s), tolerating po. Family at bedside today and deniesnutritional concernsNutritional Intake Prior to Admission:Unable to determine, patient with limited conversation due to sleeping.Told RD she woke to eat breakfast and then went back to sleep. RD willfollow with po, did not reports any prior concerns with po intake onadmission. Denied weight loss prior to admission. Documented intake 100%of meal and RD observed 100% of breakfast consumed.Anthropometrics:Heigh t: 147.3 cm (4' 10 )Admission Weight: 54 kg (119 lb)Current Weight: 54 kg (119 lb)Body mass index is 24.87 kg/m?. normalWeight is expected to increase with Last Wt108/04/17 : 54 kg (119 lb)MNT Billing Type: Re-assess/15 min 2 unitsSIGNATURE: Jaki Kelly RD, LD PATIENT NAME: Yuko Arellano: June 12, 2018 : 3:55 PM PAGER: [phone] Normal [facility] PROGRESSon 06-12-2018 Protein mass conc HNO ID: [id number] thor: Nehal MezaService: ObstetricsAuthor Type: ResidentType: Progress NotesFiled: 06/12/2018 10:10 PMNote Text:Patient evaluated for upper abdominal pain. She has been nauseous todayand has vomited. Since then she feels abdominal pain. It is in her upperabdomen and radiates in all directions. On exam, she has tenderness topalpation of abdomen above the fundus. She also has some tenderness acrossthe entire abdomen but states that it is worst in the epigastric area.BP 96/52 Pulse 92 Temp 37.2 ?C (99 ?F) (Oral) Resp 17 Ht 147.3cm (4' 10 ) Wt 54 kg (119 lb) LMP 12/29/2017 SpO2 98% BMI24.87 kg/m?No contractions on tocometer. We will increase temperature monitoring toq4h.The patient will be given a 500cc fluid bolus and will be given a BMX mixfor suspected gastroenteritis.Of note, ultrasound was performed in an attempt to have both fetuses onEFM. Cardiac activity visualized x2 in the 150-160 range. Their hearts arepositioned close together and are difficult to trace.Nehal Meza MD06/12/2018 10:10 PMObstetrics and Gynecology [id number] #[id number] [facility] Protein mass conc HNO ID: [id number] thor: Prudence StewartResDaryl GrubbserService: ObstetricsAuthor Type: ResidentType: Progress NotesFiled: 06/12/2018 4:38 AMNote Text: Attes tation signed by Alex Alejandra at 06/12/2018 8:26 AMMFM Attending AmandaI saw and evaluated the patient. I agree with the resident's findings and planof care as documented below. No acute events overnight. Continue inpatientmanagement.Alex Alejandra DO, MPH, FACOG06/12/2018 8:26 AM OBSTETRI CSANTEPARTUM PROGRESS NOTESERVICE DATE: 06/12/2018SERVICE TIME: 4:37 AMASSESSMENT AND PLAN:17 year old EGA:23w4d admitted for periviable PPROM.1. Previable PPROM-Since 06/01 at 22.0 weeks-BV/trichomonas negative on admission?-Patient did receive approximately 3 days of flagyl at outsidehospital-Chlamydia/gono rrhea negative-GBS neg-WBCs 11.59 on admission and afebrile-Inpatient management with initiation of latency antibiotics at 23.0weeks, on day 5/7 now?-IV Clindamycin x2 days->PO Clindamycin x5 days?-IV Gentamicin x2 days?-PO Azithromycin x1-Monitor for labor or infection?-If patient were to deliver <25.0 weeks, she elects for breechvaginal delivery after thorough counseling?2. Abnormal urinalysis-S/p Ciprofloxacin treatment x2-3 days from outside hospital for having 3+blood on urinalysis-UA with small leukocyte esterase-Urine culture negative?3. Twin gestation -Di/di-Patient requesting genetic screening, consider cell free DNA?4. Previable-PMG consult ?-BMZ given 06/06 and 06/07-Plan for Magnesium if delivering <32 weeks-Growth ultrasound 06/06:?-A: 1 lb, 30%, oligohydramnios at 1.79cm, unable to r/oclubbed feet due to position?-B: no weight listed but 51%, DVP 5.30cm?-Discordance 12%?-Femur lengths on both babies <2%?5. Position-Breech/cephalic?6. Monitoring-30 minutes BID?7. Diet-Regular?8. DVT ppx-SCDs?9. Routine care-TDAP refused, will request SCN to senior vice president & general counsel the patient further-Plan for glucola 1 week after steroids?Disposition: Inpatient monitoring for periviable PPROM. Continue latencyantibiotics and monitor for signs or symptoms of infection or labor. CatII tracing for mild variable decelerations, overall reassuring.SUBJECTIVE:No current vaginal bleeding, Still leaking fluid, No contractions, Goodfetal movement, No shortness of breath or chest pain and No calftendernessOBJECTIVE:LAST VITALS:BP 103/59 Pulse 90 Temp 36.9 ?C (98.4 ?F) (Oral) Resp 16 Ht147.3 cm (4' 10 ) Wt 54 kg (119 lb) LMP 12/29/2017 SpO2 98% BMI 24.87 kg/m?PHYSICAL EXAM:General: WD, WN, NAD, comfortableAbdomen: soft, nontender, no massesUterus: soft, NTExtremities: tr edemaFETAL MONITORING/ASSESSMENT:A 140/moderate/ accels present /isolated mild variable decelerationsB 150/moderate/ accels present/isolated mild variable decelsToco isolated contractionCat II - isolated mild variable decelerations x2 fetuses. Mod variabilityand accels present for both fetuses, overall reassuringLABSDiagnostic tests reviewed for today's visit: Most recent labsSIGNATURE: Prudence Bleu DO PATIENT NAME: Yuko StaleyATE: June 12, 2018 : 4:38 AM PAGER/CONTACT #: [phone] Normal [facility] NURSING PROGon 06-11-2018 Protein mass conc HNO ID: [id number] Author: Caroline (Rn) NICOLE Hughes Service: Nursing Author Type: Registered Nurse Type: Nursing Progress Note Filed: 06/10/2018 11:09 PM Note Text: Pt demanding her IV be removed.IV was removed before pt shower. New IV replaced at 2240 Normal [facility] PROGRESSon 06-11-2018 Protein mass conc HNO ID: [id number] thor: Nancy (Res) LiuService: ObstetricsAuthor Type: ResidentType: Progress NotesFiled: 06/11/2018 6:17 AMNote Text: Attdudley villalba signed by Alex Alejandra at 06/11/2018 10:10 AMMFM Attending NoteI saw and evaluated the patient. I agree with the resident's findings and planof care as documented below. No acute events overnight. No evidence of chorioor PTL. All patient questions answered. Continue inpatient management.Alex Alejandra DO, MPH, FACOG06/11/2018 10:09 AM OBSTETRI CSANTEPARTUM PROGRESS NOTESERVICE DATE: 06/11/2018SERVICE TIME: 0545ASSESSMENT AND PLAN:17 year old EGA:23w3d admitted for periviable PPROM.1. Previable PPROM-Since 06/01 at 22.0 weeks-BV/trichomonas negative on admission?-Patient did receive approximately 3 days of flagyl at outsidehospital-Chlamydia/gono rrhea negative-GBS pending-WBCs 11.59 on admission and afebrile-Pt elects for inpatient management with initiation of latency antibioticsat 23.0 weeks, on day 4/7 now?-IV Clindamycin x2 days->PO Clindamycin x5 days?-IV Gentamicin x2 days?-PO Azithromycin x1-Monitor for labor or infection?-If patient were to deliver <25.0 weeks, she elects for breechvaginal delivery after thorough counseling?2. Abnormal urinalysis-S/p Ciprofloxacin treatment x2-3 days from outside hospital for having 3+blood on urinalysis-UA with small leukocyte esterase-Urine culture negative?3. Twin gestation -Di/di-Patient requesting genetic screening, consider cell free DNA?4. Previable-PMG consult ?-BMZ given 06/06 and 06/07-Plan for Magnesium if deliving <32 weeks-Growth ultrasound 06/06:?-A: 1 lb, 30%, oligohydramnios at 1.79cm, unable to r/oclubbed feet due to position?-B: no weight listed but 51%, DVP 5.30cm?-Discordance 12%?-Femur lengths on both babies <2%?5. Position-Breech/cephalic?6. Monitoring-30 minutes BID?7. Diet-Regular?8. DVT ppx-SCDs?9. Routine care-TDAP refused yesterday, will request SCN to senior vice president & general counsel the patient further-Plan for glucola 1 week after steroids?Disposition: Inpatient monitoring for periviable PPROM. Continue latencyantibiotics and monitor for signs or symptoms of infection or labor. CatII tracing for mild variable decelerations, overall reassuring.SUBJECTIVE:No current vaginal bleeding, Still leaking fluid, No contractions, Goodfetal movement, No shortness of breath or chest pain and No calftendernessPatient had IV replaced. Sleeping on couch comfortably, denies any currentleaking overnight.OBJECTIVE:LAST VITALS:BP 115/62 Pulse 74 Temp 37.1 ?C (98.8 ?F) (Oral) Resp 16 Ht147.3 cm (4' 10 ) Wt 54 kg (119 lb) LMP 12/29/2017 SpO2 96% BMI 24.87 kg/m?PHYSICAL EXAM:General: WD, WN, NAD, comfortableAbdomen: soft, nontender, no massesUterus: soft, NTExtremities: tr edemaFETAL MONITORING/ASSESSMENT:A 140/moderate/ accels present /isolated mild variable decelerationsB 150/moderate/ accels present/no decelsToco no contractionsCat II - isolated mild variable decelerations on Fetus A. Mod variabilityand accels present for both fetuses, overall reassuringLABSDiagnostic tests reviewed for today's visit: Most recent labsSIGNATURE: Nancy iKng DO PATIENT NAME: Yuko StaleyATE: June 11, 2018 Normal [facility] PROGRESSon 06-10-2018 Protein mass conc HNO ID: [id number] thor: Nehal (Res) WiseService: ObstetricsAuthor Type: ResidentType: Progress NotesFiled: 06/10/2018 6:37 AMNote Text: Attes tation signed by Trista Ag at 06/10/2018 5:42 PMPatient seen and examined by me and I agree with the residents assessment andplan.Trista Arroyo MD OBSTETRI CSANTEPARTUM PROGRESS NOTESERVICE DATE: 06/10/2018SERVICE TIME: 0600ASSESSMENT AND PLAN:17 year old EGA:23w2d admitted for periviable PPROM.1. Previable PPROM-Since 06/01 at 22.0 weeks-BV/trichomonas negative on admission?-Patient did receive approximately 3 days of flagyl at outsidehospital-Chlamydia/gono rrhea negative-GBS pending-WBCs 11.59 on admission and afebrile-Pt elects for inpatient management with initiation of latency antibioticsat 23.0 weeks, on day 3/7 now?-IV Clindamycin x2 days->PO Clindamycin x5 days?-IV Gentamicin x2 days?-PO Azithromycin x1-Monitor for labor or infection?-If patient were to deliver <25.0 weeks, she elects for breechvaginal delivery after thorough counseling?2. Abnormal urinalysis-S/p Ciprofloxacin treatment x2-3 days from outside hospital for having 3+blood on urinalysis-UA with small leukocyte esterase-Urine culture negative?3. Twin -Di/di-Patient requesting genetic screening, consider cell free DNA?4. Previable-PMG consult ?-BMZ given 06/06 and 06/07-Plan for Magnesium if deliving <32 weeks-Growth ultrasound 06/06:?-A: 1 lb, 30%, oligohydramnios at 1.79cm, unable to r/oclubbed feet due to position?-B: no weight listed but 51%, DVP 5.30cm?-Discordance 12%?-Femur lengths on both babies <2%?5. Position-Breech/cephalic?6. Monitoring-30 minutes BID?7. Diet-Regular?8. DVT ppx-SCDs?9. Routine care-TDAP refused yesterday, will request SCN to senior vice president & general counsel the patient further-Plan for glucola 1 week after steroids?Disposition: inpatient monitoring for periviable PPROM. Continue latencyantibiotics and monitor for signs of infection or labor.SUBJECTIVE:No current vaginal bleeding, Still leaking fluid, No contractions, Goodfetal movement, No shortness of breath or chest pain and No calftendernessPatient is wondering if she could have her IV out today as it isirritating to her.OBJECTIVE:LAST VITALS:BP 95/50 Pulse 79 Temp 36.6 ?C (97.9 ?F) (Oral) Resp 18 Ht147.3 cm (4' 10 ) Wt 54 kg (119 lb) LMP 12/29/2017 SpO2 99% BMI 24.87 kg/m?PHYSICAL EXAM:General: WD, WN, NAD, comfortableAbdomen: soft, nontender, no massesUterus: soft, NTExtremities: tr edemaFETAL MONITORING/ASSESSMENT:A 145/moderate/no accels/no decelsB 150/moderate/no accels/no decelsToco no contractionsCat 1LABSDiagnostic tests reviewed for today's visit: Most recent labsSIGNATURE: Nehal Meza MD PATIENT NAME: Yuko StaleyATE: June 10, 2018 Normal [facility] Protein mass conc HNO ID: [id number] thor: Nell StewartRn) April, RNService: NursingAuthor Type: Registered NurseType: Progress NotesFiled: 06/10/2018 5:48 AMNote Text:RN at bedside, attempting to place 23 week 2 day twins on continuousmonitoring for 30 minutes. Palpable movement, by patient and RN. Ptsighing heavily as RN consistently adjusts monitor to traces EFM's x2. RNremains at bedside, adjusting EFM. Dr. Meza notified of RN unable toobtain continuous EFM, broken tracings. Support given to patient. Normal [facility] NURSING PROGon 06-09-2018 Protein mass conc HNO ID: [id number] thor: Angeles StewartRn) TG Milnerervice: NursingAuthor Type: Registered NurseType: Nursing Progress NoteFiled: 06/09/2018 6:29 AMNote Text:RN at bedside with Dr. Muniz to scan twins for monitoring. Both babies onmonitor pt moves and remains moving after placement. [facility] PROGRESSon 06-09-2018 Protein mass conc HNO ID: [id number] thor: Nehal Cruze: ObstetricsAuthor Type: ResidentType: Progress NotesFiled: 06/09/2018 4:25 PMNote Text:In to check on patient. She is requesting genetic testing because shewanted it earlier in the but did not get it with her primary OB.She would like to know if anything is wrong with these fetuses. Shestates that her sister was suspected to have trisomy 21 while in utero butwas actually unaffected at . We discussed the options for a twinpregnancy at [address] weeks[address] We will ask Dr. Arroyo about cell free DNA orany other recommendation she may have for the patient.Nehal Meza MD06/09/2018 4:24 PMObstetrics and Gynecology [id number] #[id number] [facility] Protein mass conc HNO ID: [id number] thor: Anastasiia Brunoice: ObstetricsAuthor Type: ResidentType: Progress NotesFiled: 06/09/2018 6:18 AMNote Text:Difficulty getting both fetuses on monitor. To BS with US to scan. FetalHR x2 visualized 140's, 150's, respectively for A and B. Gross movementnoted x2.Anastasiia Muniz, PGY-2Obstetrics and GynecologyPager [phone]/6:18 AM Normal [facility] Protein mass conc HNO ID: [id number] thor: Nehal Cruze: ObstetricsAuthor Type: ResidentType: Progress NotesFiled: 06/09/2018 6:38 AMNote Text: Attes tation signed by Trista Ag at 06/09/2018 1:40 PMPatient seen and examined by me and I agree with the residents assessment andplan with the following additions:Patient declined TDAP vaccine as her friend told her that it would hurt thebabies and would make the babies feel sick. We discussed at length that this isnot the case and the vaccine, in fact, will help prevent her premature babiesfrom having pertussis. She would like to discuss this with one of theneonatologists. We will help arrange this.Trista Arroyo MD OBSTETRI CSANTEPARTUM PROGRESS NOTESERVICE DATE: 06/09/2018SERVICE TIME: 0600ASSESSMENT AND PLAN:17 year old EGA:23w1d admitted for periviable PPROM.1. Previable PPROM-Since 06/01 at 22.0 weeks-BV/trichomonas negative on admission?-Patient did receive approximately 3 days of flagyl at outsidehospital-Chlamydia/gono rrhea negative-GBS pending-WBCs 11.59 on admission and afebrile-Pt elects for inpatient management with initiation of latency antibioticsat 23.0 weeks, on day 2/7 now -IV Clindamycin x2 days->PO Clindamycin x5 days -IV Gentamicin x2 days -PO Azithromycin x1-Monitor for labor or infection -If patient were to deliver <25.0 weeks, she elects for breechvaginal delivery after thorough counseling?2. Abnormal urinalysis-S/p Ciprofloxacin treatment x2-3 days from outside hospital for having 3+blood on urinalysis-UA with small leukocyte esterase-Urine culture negative?3. Twin -Di/di?4. Previable-PMG consult ?-BMZ given 06/06 and 06/07-Plan for Magnesium if deliving <32 weeks-Growth ultrasound 06/06:?-A: 1 lb, 30%, oligohydramnios at 1.79cm, unable to r/oclubbed feet due to position?-B: no weight listed but 51%, DVP 5.30cm?-Discordance 12%?-Femur lengths on both babies <2%?5. Position-Breech/cephalic?6. Monitoring-30 minutes BID?7. Diet-Regular?8. DVT ppx-SCDs9. Routine care-TDAP given 06/08-Plan for glucola 1 week after steroids?Disposition: inpatient monitoring for periviable PPROM. Continue latencyantibiotics and monitor for signs of infection or labor.SUBJECTIVE:No current vaginal bleeding, Still leaking fluid, No contractions, Goodfetal movement, No shortness of breath or chest pain and No calftendernessExpresses frustration this morning over the difficulty of monitoring thetwinsOBJECTIVE:LAST VITALS:BP 105/52 Pulse 77 Temp 37 ?C (98.6 ?F) (Oral) Resp 16 Ht147.3 cm (4' 10 ) Wt 54 kg (119 lb) LMP 12/29/2017 SpO2 99% BMI 24.87 kg/m?PHYSICAL EXAM:General: WD, WN, NAD, comfortableAbdomen: soft, nontender, no massesUterus: soft, NTExtremities: tr edemaFETAL MONITORING/ASSESSMENT:A 140/moderate/no accels/mild variable decels present, broken tracingB 135/moderate/no accels/mild variable decels present, broken tracingToco no contractionsCat 2, appropriate for gestational ageLABSDiagnostic tests reviewed for today's visit: Most recent labsSIGNATURE: Nehal Meza MD PATIENT NAME: Yuko StaleyATE: June 09, 2018 [facility] NUTRITIONon 06-08-2018 NUTRITION HNO ID: [id number] thor: CEDRICK Boyd Rdervice: Nutrition TherapyAuthor Type: Registered DietitianType: NutritionFiled: 06/08/2018 2:13 PMNote Text:NUTRITION THERAPY SCREENING NOTESERVICE DATE: 06/08/2018SERVICE TIME: 1:57 PMNUTRITION CARE PLANPatient's weight is expected to increase with and nutritionalintake is adequate. Patient is not at risk for malnutrition at this time.Intervention:Continue on Regular dietCoordination of Care:NursingDischarge Nutrition Recommendations:Diet: Regular ---Chart reviewed for OB length of stayPer HPI: 17 year old EGA:23w0d admitted for periviable PPROM.Continues on inpatient monitoring for previable PPROM with latencyantibiotics started 06/08/18. Goal for delivery at 34 weeks.ACTIVE PROBLEM LISTVaginal Discharge in PregnancyTeratogen Exposure in Current PregnancyDichorionic Diamniotic Twin PregnancyHigh-Risk PregnancyPAST MEDICAL HISTORYDiagnosis Date- Mental disorder anxietyPAST SURGICAL HISTORYProcedure Laterality Date- APPENDECTOMY 2010- PLASTIC SURGERY COSMETIC ITEMS 2010 birthmark removal from thigh/stomachSocial History Marital status: Single Spouse name: Years of education: Number of children:Social History Main Topics Smoking status: Never Smoker Smokeless tobacco: Never Used Alcohol use: No Drug use: No Sexual activity: Yes Partners with: MaleCurrent Diet Order DIET REGULAR Order Specific Question: Child's Feeding Age/Diet Answer: YOUTH (7-18YRS)Nutritional Intake Prior to Admission:Unable to determine, patient with limited conversation due to sleeping.Told RD she woke to eat breakfast and then went back to sleep. RD willfollow with po, did not reports any prior concerns with po intake onadmission. Denied weight loss prior to admission. Documented intake 100%of meal and RD observed 100% of breakfast consumed.Anthropometrics:Heigh t: 147.3 cm (4' 10 )Admission Weight: 54 kg (119 lb)Current Weight: 54 kg (119 lb)Body mass index is 24.87 kg/m?. normalWeight is expected to increase with Last Wt11/24/18 : 54 kg (119 lb)MNT Billing Type: Initial Assess/15 min 2 unitsSIGNATURE: Jaki Kelly RD, LD PATIENT NAME: Yuko Arellano: June 08, 2018 : 1:57 PM PAGER: [phone] [facility] Center PROGRESSon 06-08-2018 Protein mass conc HNO ID: [id number] thor: Anastasiia (Res) ZakerService: ObstetricsAuthor Type: ResidentType: Progress NotesFiled: 06/08/2018 6:38 PMNote Text:In to scan twins for EFM via BSUS. Fetus A and Fetus B both visualizedwith HR visually 130 and 140's respectively. +Gross movement p4Lxkrunk Flavio, PGY-2Obstetrics and GynecologyPager [phone]/08/20176:38 PM Normal [facility] Protein mass conc HNO ID: [id number] thor: Nehal (Res) DerrickService: ObstetricsAuthor Type: ResidentType: Progress NotesFiled: 06/08/2018 6:23 AMNote Text: Attes tation signed by Trista Ag at 06/08/2018 10:47 AMPatient seen and examined by me and I agree with the residents assessment andplan with the following additions:As the patient will deliver prematurely, will give TDAP today.Trista Arroyo MD OBSTETRI CSANTEPARTUM PROGRESS NOTESERVICE DATE: 06/08/2018SERVICE TIME: 06ASSESSMENT AND PLAN:17 year old EGA:23w0d admitted for periviable PPROM.1. Previable PPROM-Since 06/01 at 22.0 weeks-BV/trichomonas negative on admission?-Patient did receive approximately 3 days of flagyl at outsidehospital-Chlamydia/gono rrhea negative-WBCs 11.59 on admission and afebrile-Pt elects for inpatient management with initiation of latency antibioticsat 23.0 weeks, on day 07/18 now -IV Clindamycin x2 days->PO Clindamycin x5 days -IV Gentamicin x2 days -PO Azithromycin x1-Monitor for labor or infection -If patient were to deliver <25.0 weeks, she elects for breech vaginaldelivery after thorough counseling?2. Abnormal urinalysis-S/p Ciprofloxacin treatment x2-3 days from outside hospital for having 3+blood on urinalysis-UA with small leukocyte esterase-Urine culture negative?3. Twin -Di/di?4. Previable-PMG consult-BMZ given 06/06 and 06/07-Consider Magnesium for neuroprotection once closer to viability-Growth ultrasound 06/06: -A: 1 lb, 30%, oligohydramnios at 1.79cm, unable to rule outclubbed feet due to position -B: no weight listed but 51%, DVP 5.30cm -Discordance 12% -Femur lengths on both babies <2%?5. Position-Breech/cephalic?6. Monitoring-30 minutes BID?7. Diet-Regular?8. DVT ppx-SCDs?Disposition: inpatient monitoring for periviable PPROM with latencyantibiotics starting today.SUBJECTIVE:No current vaginal bleeding, Still leaking fluid, No contractions, Goodfetal movement, No shortness of breath or chest pain and No calftendernessComplains of some reflux overnight, requests a medication.OBJECTIVE:LAST VITALS:BP 95/60 Pulse 78 Temp 36.8 ?C (98.2 ?F) (Oral) Resp 18 Ht147.3 cm (4' 10 ) Wt 54 kg (119 lb) LMP 12/29/2017 SpO2 99% BMI 24.87 kg/m?PHYSICAL EXAM:General: WD, WN, NAD, comfortableAbdomen: soft, nontender, no massesUterus: soft, NTExtremities: tr edemaFETAL MONITORING/ASSESSMENT:A 145/moderate/no accels/no decelsB 130/moderate/no accels/no decelsToco no contractionsCat 1LABSDiagnostic tests reviewed for today's visit: Most recent labsSIGNATURE: Nehal Meza MD PATIENT NAME: Yuko Arellano: June 08, 2018 [facility] Group B Strep Cultureon 05-13 S. agalactiae Ag Ql (Unsp spec) Test performed at [facility] Negative for Streptococcus agalactiae (Group B Strep) Normal [facility] Comment on above: Performed By: #### G BS #### [place] [address] NURSING PROGon 06-07-2018 Protein mass conc HNO ID: [id number] thor: Luisa (Rn) TG Curielervice: (none)Author Type: Registered NurseType: Nursing Progress NoteFiled: 06/07/2018 7:11 AMNote Text:Pt felt large gush of fluid at 0400 for pink tinge, dr muniz notified noorders received. Pt in no pain feeling babies move, no bleeding. [facility] PROGRESSon 06-07-2018 Protein mass conc HNO ID: [id number] Author: Jaguar Burrell (Tech) Service: Obstetrics Author Type: Technologist Type: Progress Notes Filed: 06/07/2018 6:59 AM Note Text: EFW on Twin B was 525 g on 06/06. Kaykay Kramer RDMS [facility] Protein mass conc HNO ID: [id number] thor: Nehal (Res) DerrickService: ObstetricsAuthor Type: ResidentType: Progress NotesFiled: 06/07/2018 6:33 AMNote Text: Attes tation signed by Trista Ag at 06/07/2018 12:29 PMPatient seen and examined by me and I agree with the residents assessment andplan with the following additions:Patient will receive second dose BMZ today.We will start latency antibiotics tomorrow. Gent/Clinda/azithro due tocephalosporin allergy.Patient understands that she will remain hospitalized for the duration of herpregnancy due to PPROM. Our goal is to deliver at 34 weeks. We will deliversoon for labor, chorioamnionitis, non-reassuring status or bleeding thatwould be harmful to the mother or the fetuses. She understands that dependingon gestational age, there may be a time where fetus A has non-reassuring fetalstatus but fetus B is doing well and she may need to decide whether or not tointervene of behalf of fetus A as this would cause iatrogenic severeprematurity for fetus B. She will discuss this with her .We also discussed vaginal delivery vs delivery if delivery is requiredas fetus A is currently breech. We discussed that alf outcomes are thesame for breech vaginal delivery and breech delivery up to 25 weeks 0days as long as heart tones are reassuring. She would like a vaginaldelivery in this situation. She understands that not all providers would offerthis and she may need a delivery for provider comfort. Ifnon-reassuring heart tones occur, she understands that outcomes arebetter with a delivery. She understands that outcomes are alwaysbetter for a breech fetus with a delivery at 25 weeks 0 days andbeyond.We discussed that there is concern that fetus A has club feet. This could bepositional due to oligohydramnios or pathologic. We would not know definitivelyuntil after delivery. In addition, we discussed that contractures are a knowncomplications of PPROM, especially periviable PPROM. We also discussed thatboth fetuses have femurs in the 2%. The most likely cause is the mother's shortstature. We will continue to monitor this.Daily showers advised as the patient could have a delivery at anymoment.All questions and concerns addressed.Trista Arroyo MD OBSTETRI CSANTEPARTUM PROGRESS NOTESERVICE DATE: 06/07/2018SERVICE TIME: 0600ASSESSMENT AND PLAN:17 year old EGA:22w6d admitted for previable PPROM.1. Previable PPROM-Since 06/01 at 22.0 weeks-BV/trichomonas negative on admission -Patient did receive approximately 3 days of flagyl at outsidehospital-Chlamydia/gono rrhea pending-WBCs 11.59 on admission and afebrile-Pt elects for inpatient management with plan for latency antibiotics at23.0 weeks?2. Abnormal urinalysis-S/p Ciprofloxacin treatment x2-3 days from outside hospital for having 3+blood on urinalysis-UA with small leukocyte esterase-Urine culture pending negative?3. Twin -Appears to be di/di?4. Previable-PMG consult-BMZ given 06/06, repeat today-Consider Magnesium for neuroprotection once closer to viability-Growth ultrasound 06/06: -A: 1 lb, 30%, oligohydramnios at 1.79cm, unable to rule out clubbed feetdue to position -B: no weight listed but 51%, DVP 5.30cm -Discordance 12% -Femur lengths on both babies <2%?5. Position-Breech/cephalic?6. Monitoring- Doptones/ultrasound daily?7. Diet- Regular?8. DVT ppx- SCDs?Disposition: inpatient monitoring for previable PPROM with plan forlatency antibiotics at 23 weeks. Monitor for labor or infection.SUBJECTIVE:No current vaginal bleeding, Still leaking fluid, No contractions, Goodfetal movement, No shortness of breath or chest pain and No calftendernessOBJECTIVE:LAST VITALS:BP 107/57 Pulse 92 Temp 37.1 ?C (98.8 ?F) (Oral) Resp 18 Ht147.3 cm (4' 10 ) Wt 54 kg (119 lb) LMP 12/29/2017 SpO2 98% BMI 24.87 kg/m?PHYSICAL EXAM:General: WD, WN, NAD, comfortableAbdomen: soft, nontender, no massesUterus: soft, NTExtremities: tr edemaFETAL MONITORING/ASSESSMENT:FHT present x2 at yesterday's ultrasoundLABSDiagnostic tests reviewed for today's visit: Most recent labsSIGNATURE: Nehal Meza MD PATIENT NAME: Yuko Arellano: June 07, 2018 [facility] PROGRESSon 06-06-2018 Protein mass conc HNO ID: [id number] thor: Ryan Keith (Rt): (none)Author Type: TechnicianType: Progress NotesFiled: 06/06/2018 4:30 PMNote Text:Ultrasound completed.Gestational age 22w 5dBaby A Breech position. Posterior placenta unable to see placental cordinsert. Unable to rule out clubbed feet due to position.Oligohydramnios 1.79cmFetal ultrasound age of 22w4d 1lb 30%Baby B Vertex position. Anterior placenta.DVP 5.30cmFetal ultrasound age 23w1d 51%12% discordanceFemur lengths on both babies measure <2%Dr. Arroyo aware.Shazia Yost RDMS, RVT [facility] Protein mass conc HNO ID: [id number] thor: Nehal (Charisma) Bonnie: ObstetricsAuthor Type: ResidentType: Progress NotesFiled: 06/06/2018 6:36 AMNote Text: Attes tation signed by Trista Ag at 06/06/2018 10:20 AMPatient seen and examined by me and I agree with the residents assessment andplan with the following additions:Patient scheduled for ultrasound at 2 PM today. Continues to have pinkishdischarge intermittently. If fluid levels are normal for both fetuses, willrepeat spec exam and do a HSV culture to ensure that that isn't causing thedischarge.Patient requests to speak with the NICU team again to determine timing ofintervention including resuscitation, betamethasone and latency antibiotics.Trista Arroyo MD OBSTETRI CSANTEPARTUM PROGRESS NOTESERVICE DATE: 06/06/2018SERVICE TIME: 0600ASSESSMENT AND PLAN:17 year old EGA:22w5d admitted for previable PPROM.1. Previable PPROM-Since 06/01 at 22.0 weeks-BV/trichomonas negative on admission -Patient did receive approximately 3 days of flagyl at outside hospital-Chlamydia/gonorrhea pending-WBCs 11.59 on admission and afebrile-Pt elects for inpatient management with plan for latency antibiotics at23.0 weeks and BMZ administration between 23-24 weeks, pending furtherneonatology consult?2. Abnormal urinalysis-S/p Ciprofloxacin treatment x2-3 days from outside hospital for having 3+blood on urinalysis-UA with small leukocyte esterase-Urine culture pending?3. Twin -Pt says it is di/di, will confirm with ultrasound today?4. Previable-PMG consult - We will discuss plans AND outcomes once is furtheralong -BMZ plan as above-Consider Magnesium for neuroprotection once closer to viability-Growth ultrasound today5. Position-Cephalic/breech?6. Monitoring- Doptones/ultrasound daily?7. Diet- Regular?8. DVT ppx- SCDs?Disposition: inpatient monitoring for previable PPROM with plan forlatency antibiotics and BMZ once closer to viabilitySUBJECTIVE:No current vaginal bleeding, Still leaking fluid, No contractions, Goodfetal movement, No shortness of breath or chest pain and No calftendernessOBJECTIVE:LAST VITALS:BP 93/59 Pulse 92 Temp 36.3 ?C (97.3 ?F) (Oral) Resp 16 Ht147.3 cm (4' 10 ) Wt 54 kg (119 lb) LMP 12/29/2017 SpO2 98% BMI 24.87 kg/m?PHYSICAL EXAM:General: WD, WN, NAD, comfortableAbdomen: soft, nontender, no massesUterus: soft, NTExtremities: tr edemaFETAL MONITORING/ASSESSMENT:Cardiac activity visualized x2 by ultrasound dailyLABSDiagnostic tests reviewed for today's visit: Most recent labsSIGNATURE: Nehal Meza MD PATIENT NAME: Yuko StaleyATE: June 06, 2018 [facility] ABO/Rh Confirmationon 2017 ABO group Nom (Bld) A Normal [facility] Comment on above: Performed By: #### A JAZ #### [place] [address] RH Type Positive Normal [facility] Comment on above: Performed By: #### A JAZ #### [place] [address] CONSULTon 06-05-2018 CONSULT HNO ID: [id number] thor: Olivia Urbinaervice: Pediatric NeonatologyAuthor Type: PhysicianType: ConsultsFiled: 06/06/2018 12:40 PMNote Text:NEONATOLOGY CONSULTSERVICE DATE: 06/05/2018 Admission Date: 06/04/2018SERVICE TIME: 10:47 AM Date of : 2000Age: 17 year old Sex: femalePrimary Care Physician: No primary care provider on file.Consulting Doughnut Glazier: Zainab Arreaga DO/Kamille Gregory APRN.CNPSubjectiveConsultation for this evaluation was requested by Dr. Bailon.Reason for consultation: Previable with PPROM at 22 4/7 weeksgestation with di-di twins.Recommendations will be communicated back to the requesting physician byway of shared medical record or letter.ObjectiveMATERNAL HISTORY:Mother is a 17 year old female, , who is at 22w4d with an DHARMESH of10/05/2018, by Last Menstrual Period dating method.LMP: Patient's last menstrual period was 12/29/2017.Maternal Hospital Problems:ACTIVE PROBLEM LISTVaginal Discharge in PregnancyTeratogen Exposure in Current PregnancyDichorionic Diamniotic Twin PregnancyHigh-Risk PregnancyMaternal Meds:No current facility-administered medications on file prior to encounter.No current outpatient prescriptions on file prior to encounter.No current hospital medications on file. complications: Multiple gestation, PROMThe following was discussed with mother and fatherGENERAL:Neonatology presence and role at delivery: YesPossible need for resuscitation: If were to be born before 23 weeks, wewould attend delivery and assess the ability to resuscitate the infants.We would not do anything that would cause pain or suffering.DNR status: Discussed with patient/familySurvival odds/morbidity AND mortality: Briefly discussed poor survival atthis point in time. Odds improve the longer the maintained.Impression/Recommen dationsAssessment: 22 4/7 weeks gestation with di-di twins PPROM.Plan: We will discuss plan AND outcomes once is further along. Wewill attend delivery if it occurs early and assess infant's viability.Parents voiced understanding and told that they can call with anyquestions. Extreme prematurity letter and breast milk letter left withparents.Physician [id number] total time, including discussion: 10 minutes, morethan 50 % of time devoted to coordination of care and/or counseling.SIGNATURE: Kamille Gregory APRN.JATINDER PATIENT NAME: Yuko StaleyATE: June 05, 2018 : 10:47 AM PAGER/CONTACT #: [phone] again spoke with parents today in detail. I recommended to them thatmother should receive the celestone injections as they can help thebabies lungs and skin mature faster. Family aware that outcomes remainextremely poor at this time. However, every week the mother stays, the outcome for the babies will continue to improve. Familyalso informed even if babies are born at 24 weeks, outcomes are still notvery good (twin gestation, and both babies white males).Please call me with any further questions. Family aware that we will notdo inappropriate things to babies if they are deemed too immature tosurvive. We discussed the importance of avoidance of harm in delicatesituations like this.Olivia Arreaga, DO [facility] NURSING PROGon 06-05-2018 Protein mass conc HNO ID: [id number] thor: Cady (Rn) Fili, TGervice: (none)Author Type: Registered NurseType: Nursing Progress NoteFiled: 06/05/2018 7:47 AMNote Text:Pt c/o leaking fluid. Small amount of pink tinged fluid noted. Dr. Dawsonotified and will come evaluate patient. Normal [facility] PROGRESSon 06-05-2018 Protein mass conc HNO ID: [id number] thor: Nancy (Res) FernandoService: ObstetricsAuthor Type: ResidentType: Progress NotesFiled: 06/05/2018 8:05 AMNote Text:Went to evaluate patient with Dr. Weiss as patient was complaining ofincreased leaking fluid.On exam, she has moderate amount of fluid on the brown bag. SSE performedand + for gross pooling, +nitrazine, +ferning. Bedside TAUS show Fetus ADVP 5.6cm and Fetus B DVP 7.6cm.Dr. Bailon updated and will plan to have neonatology speak with patientabout further management options.LEONID Dickerson2OB/GYN8:05 AMNovember 2017Pager #: [phone] [facility] Protein mass conc HNO ID: [id number] thor: Ade MaceService: ObstetricsAuthor Type: PhysicianType: Progress NotesFiled: 06/05/2018 10:50 AMNote Text:OBSTETRICSANTEPARTUM PROGRESS NOTESERVICE DATE: 06/05/2018SERVICE TIME: 0500ASSESSMENT AND PLAN:17 year old EGA:22w4d admitted for confirmed PPROM.1. Vaginal discharge in , r/o PPROM- S/p Flagyl x2-3 days for suspected BV- BV/Trich-- Chlamydia/gonorrhea pending- WBCs 11.59 on admission and afebrile- Positive Amnisure at outside hospital - PPROM confirmed on exam this am at 7:30am (on admission Low suspicionfor PPROM at this time given clinical exam and normal VICKY)?2. Abnormal urinalysis- S/p Ciprofloxacin treatment x2-3 days from outside hospital for having3+ blood on urinalysis- UA small leukocyte esterase- Urine culture ordered?3. Di/di twin - Cephalic/breech?4. Previable- PMG consult- Recommend latency antibiotics at 23 0/7 weeks and BMZ administrationbetween 23 0/7 - 24/ 0-7 weeks based on family preference afterneonatology consult- Discussed dc to home versus continued inpatient management and sheelects for inpt management.?5. Monitoring- Doptones/ultrasound daily?6. Diet- Regular?7. DVT ppx- SCDsSUBJECTIVE:No current vaginal bleeding, +LOF at 7:30 am (first since admission), Nocontractions, Good movement, No shortness of breath or chest painand No calf tenderness. Episode of abdominal pain from last nightresolved. Denies dysuria or hematuria. No BM last night.OBJECTIVE:LAST VITALS:Pulse BP Resp O2 Sat Temp Pain 97 95/64 16 100 % 37 ?C (98.6 ?F) 0/10PHYSICAL EXAM:General: WD, WNHeart: RR, S1, F4Bkbht: clear to auscultationAbdomen: soft, nontender, no massesExtremities: tr edemaFETAL MONITORING/ASSESSMENT: heart rate present and appropriateLABSDiagnostic tests reviewed for today's visit: Most recent labs and imagingresults.SIGNATURE: Viry Khalil DO PATIENT NAME: Yuko StaleyATE: June 05, 2018 : 5:00 AMAttending NoteI evaluated the patient and personally participated in the lu components. I agree with the resident's findings and plan with the followingrevisions and/or additions: as noted in bold above. Appreciateneonatology consulting with the patient and plan to be further detailedafter that consult is completed. For eval US in AM to verifychorionicity, evaluate anatomy, biometry, DVP for each twin.Signature: EVELINA Villedaate: 06/05/2018Time: 10:48 AMI spent 30 minutes in the visit, with more than 50% of the dgibarvna-bj-vyvj time of the visit in counseling / coordination of care. [facility] Protein mass conc HNO ID: [id number] thor: Viry Barron (Res) LendeService: ObstetricsAuthor Type: ResidentType: Progress NotesFiled: 06/04/2018 10:59 PMNote Text:UpdateSubjectiveCalled regarding patient having some abdominal pressure that feels liketightening every 15 minutes and lasting for 30 seconds. Denies vaginalbleeding, leaking of fluid, dysuria. Had BM today and normally has BMdaily; had to mildly strain with last BM. Feeling less movement thannormal.ObjectiveAbdomen: soft, non-tender with no contractions palpatedSpeculum exam: visually cervix is closed. No bleeding noted. Negativepooling. Brown paper-bag dry under patient's bottom.Colliers: irritability with isolated contraction.Assessment/Plan1. Abdominal pain - No further evaluation/testing at this time given very low concern forpreterm labor. - Will repeat speculum exam in AM and continue to monitor for threatenedPPROM and labor. - Can consider adding colace if patient needs continue to strain to haveBMMichelKalie Chadwick 2017 10:57 PM Normal [facility] Chlam/GC-DNA Amplifiedon Chlam/GC-DNA Amplified Test performed at [facility] Chlamydia trachomatis DNA NOT DETECTED Neisseria gonorrhoeae DNA NOT DETECTED Reference range NOT DETECTED Method: Strand Displacement Amplification-BD ProbeTec Assay Comment: A negative result does not preclude C.trachomatis or N. gonorrhoeae infection because results are dependent on adequate specimen collection, absence of inhibitors, and sufficient DNA to be detected. Normal [facility] Comment on above: Performed By: #### C TGCA #### [place] [address] Cult Urineon 06-04-2018 Cult Urine Test performed at [facility] No growth Normal [facility] Comment on above: Performed By: #### C _URI #### [place] [address] HISTORY PHYSICALon 8 HISTORY PHYSICAL HNO ID: [id number] thor: Nehal (Res) WiseService: ObstetricsAuthor Type: ResidentType: HANDPFiled: 06/04/2018 1:43 PMNote Text: Attdudley tation signed by Ade Bailon at 06/05/2018 9:43 AMAttending NoteI evaluated the patient and personally participated in the lu components. Iagree with the resident's findings and plan as documented and have discussedthe case and management of the patient's care with the resident. See progressnote 06/05.Signature: Kyree Villeda: 06/05/2018Time: 9:42 AM OBSTETRI CSHISTORY AND PHYSICALSERVICE DATE: June 04, 2018SERVICE TIME: 1315SubjectivePatient's stated reason for arrival:CHIEF COMPLAINT: transfer for r/o previable PPROMHISTORY OF THE PRESENT ILLNESS: The patient is a 17 year old female,, who is at 22w3d with an DHARMESH of 10/05/2018, by Last MenstrualPeriod dating method. [place] She had presented to that outsidehospital after she experienced small gushes of fluid with positionchanges. She says the fluid was clear/red tinged and would soak throughher underwear with standing. This is a di/di twin .At the OSH, an amnisure test was positive. They also thought she had a UTIand bacterial vaginosis infection; she was started on Ciprofloxacin andFlagyl. An ultrasound was performed on 06/01 showing an VICKY of 4.8 and4.6cm for each twin.She continues to have vaginal discharge that is yellow in color on herpad. No abdominal pain or contractions, but she did have a 30 minuteperiod of abdominal pain last night.Good movement. Denies vaginal bleeding., Denies contractions.She states that there was concern for placental abruption on an ultrasoundearlier in , but this finding resolved on repeat ultrasound.POST DELIVERY CONTRACEPTION:Discussed post-delivery contraception options.Patient received written information about post-delivery contraceptionoptions.Patient does not desire post-delivery contraception.HISTORY REVIEWPAST MEDICAL HISTORYDiagnosis Date- Mental disorder anxietyPAST SURGICAL HISTORYProcedure Laterality Date- APPENDECTOMY 2010- PLASTIC SURGERY COSMETIC ITEMS 2010 birthmark removal from thigh/stomachFAMILY HISTORYProblem Relation Age of Onset- Family history unknown: YesSocial History Marital status: Single Spouse name: Years of education: Number of children:Social History Main Topics Smoking status: Never Smoker Smokeless tobacco: Never Used Alcohol use: No Drug use: No Sexual activity: Yes Partners with: MaleObstetric History T0 L0 SAB1 TAB0 Ectopic0 Multiple0 Live [id number] of Baby 1: Not recorded Date: Not recorded GA: Not recorded Delivery: Not recorded Apgar1: Not recorded Apgar5: Not recorded Living: Not recordedName of Baby 2: Not recorded Date: Not recorded GA: Not recorded Delivery: Not recorded Apgar1: Not recorded Apgar5: Not recorded Living: Not recordedThere are no active non-hospital problems to display for this patient.ALLERGIESAllergen Reactions- Keflex [Cephalexin] Hives- Rocephin [Ceftriaxo* HivesNoneREVIEW OF SYSTEMS:The remainder of the review of systems is negative.ObjectiveLAST VITALS:Pulse BP Resp O2 Sat Temp Pain 90 107/68 18 36.9 ?C (98.4 ?F) 0/10HT/WT/BMI:Height Weight BMI 149.9 cm (4' 11 ) 54 kg (119 lb) 24.03PHYSICAL EXAM:General: WD, WN, NAD, comfortableHEENT: NC/AT, sclera white, pupils equalLungs: clearHeart: RR, S1, O6Oomtczl: soft, nontender, no massesUterus: soft, NTExtremities: tr edemaFHT: bpmSt Spec Exam: Moderate to large amount of thin white/yellow tingedvaginal discharge, negative valsalva, no ferning, nitrazine pH 4.5,negative wet prepCERVICAL EXAM:Dilation: Closed (06/04/18 1325 : Nehal (Res) Derrick) cmStation:Effacement: %Position: cephalic/breech, cardiac activity visualized x2, DVP 4.5 and4.2cm for A and B respectivelyPRENATAL LABSDiagnostic tests reviewed for today's visit: Most recent labsResults for orders placed or performed during the hospital encounter of06/04/18RUBELLA IGG ABResult Value Ref Range Rubella, Quantitative positiveOBSTETRIC PANELResult Value Ref Range Hep B Surface Ag negOBSTETRIC PANELResult Value Ref Range ABO Group A posRPR SCREENResult Value Ref Range RPR NRHIV 1,2 COMBO (AG/AB)Result Value Ref Range HIV Screen declinedGC/CHLAMYDIA DNA DETResult Value Ref Range Chlam/GC-DNA Amplified negRAPID BACT VAGINOSIS (AK)Result Value Ref Range Rapid Bact.Vaginosis see belowURINALYSIS WITH MICROSCOPIC (AK,AV,EU,FV,HL,RADHA,MM,SP)Resul t Value Ref Range Color YELLOW Urine Appearance TURBID Glucose, Urine NEGATIVE Negative mg/dL Ketones, Urine NEGATIVE Negative mg/dL Hemoglobin, Urine NEGATIVE Negative Protein, Urine NEGATIVE Negative mg/dL Nitrites Urine NEGATIVE Negative Bilirubin, Urine NEGATIVE Negative Specific [place], Ur 1.016 1.005 - 1.030 pH, Urine 7.5 5.0 - 8.0 Urobilinogen, Urine 0.2 0.0 - 1.0 EU/dL Leukocytes Esterase SMALL (A) Negative RBC, Urine 1.8 0.0 - 5.0 /hpf WBC, Urine 5.0 0.0 - 5.0 /hpf EP Cells Urine 10.3 (H) 0.0 - 5.0 /hpf Bacteria, Urine NONE None Hyaline Cast 1.2 (H) 0.0 - 1.0 /lpfTRICHOMONAS PREP (AK,AV,EU,FV,HL,RADHA,MM,SP)Resul t Value Ref Range Rapid Trichomonas Ag see belowAssessment/Plan17 year old EGA:22w3d With1. Vaginal discharge in , r/o PPROM-S/p Flagyl x2-3 days for suspected BV-BV and trichomonas negative on admission-Chlamydia/gonorrhea pending-Although the pt had a positive Amnisure test at outside hospital, thereis low suspicion for PPROM at this time given clinical exam and normal VICKY-Repeat speculum exam and/or ultrasound tomorrow2. Abnormal urinalysis-Pt is s/p Ciprofloxacin treatment x2-3 days from outside hospital forhaving 3+ blood on urinalysis-Admission urinalysis negative for infection-Urine culture pending3. Di/di twin -Cephalic/breech4. Previable-No BMZ or PMG consult5. Monitoring-Doptones/ultrasound daily6. Diet-Regular7. DVT ppx-SCDsD/w Dr. MaceSIGNATURE: Nehal Meza MD PATIENT NAME: Yuko StaleyATE: June 04, 2018 : 1:14 PM PAGER/CONTACT #: [phone] HOSP Patient:Kaia Mobley aMRN: Height:4' 10 (1.473 m)Weight:124 lb 5.4 oz (56.4 kg)Outpatient Medications as of 06/27/18:Patient has no current outpatient medications.Admission/Clinic Administered Medications as of 06/27/18:azithromycin 500 mg in D5W 250 mL Vial-Mate (ZITHROMAX)calcium carbonate 1,000 mg chewable tab(s) (TUMS)calcium gluconate 1 g injectiondiphtheria,pertussis, tetanus 0.5 mL injection (ADACEL, Tdap)famotidine 20 mg tab(s) (PEPCID)gentamicin 280 mg in D5W 100 mLiv contrast (radiology procedure)magnesium sulfate 20 gram/500mL ivmetoclopramide HCl 10 mg injection (REGLAN)NaCl 0.9% 2-10 mLondansetron (PF) 4 mg injection (ZOFRAN)ondansetron orally disintegrating 4 mg tab(s) (ZOFRAN ODT)oxytocin 10 Units iv bolus () (PITOCIN)oxytocin 30 unit in LR 500 mL iv infusion () (PITOCIN)sodium citrate-citric acid 500-334 mg/5 mL 30 mL (BICITRA)tranexamic acid 1,000 mg in NaCl 0.9% 100 mL (CYKLOKAPRON)Problem List:Vaginal discharge in [O26.899, N89.8]Teratogen exposure in current [O35.9XX0]Dichorionic diamniotic twin [O30.049]High-risk [O09.90]Allergies:Keflex [Cephalexin]Rocephin [Ceftriaxone]Date Verified: 06/27/18Lab ValuesLab Value Units Date High LowHEMA* 32.3 % 06/27/2018 44.9 34.1Progress Notes ():Krystal Rosales, RN, RN 06/04/2018 1:[address] Meza positive cardiac activity for both fetuses during U/S.Nehal Meza MD 06/04/2018 1:43 PM Attested At testation signed by Ade Bailon at 06/05/2018 9:43 AMAttending NoteI evaluated the patient and personally participated in the lu components. Iagree with the resident's findings and plan as documented and have discussedthe case and management of the patient's care with the resident. See progressnote 06/05.Signature: Ade Bailon, DODate: 06/05/2018Time: 9:42 AM OBSTETRI CSHISTORY AND PHYSICALSERVICE DATE: June 04, 2018SERVICE TIME: 1315SubjectivePatient's stated reason for arrival:CHIEF COMPLAINT: transfer for r/o previable PPROMHISTORY OF THE PRESENT ILLNESS: The patient is a 17 year old female, ,who is at 22w3d with an DHARMESH of 10/05/2018, by Last Menstrual Period datingmethod. Patient is here after spending 3 days in [place] with concern forpreviable PPROM. She had presented to that outside hospital after sheexperienced small gushes of fluid with position changes. She says the fluid wasclear/red tinged and would soak through her underwear with standing. This is valdo/di twin .At the OSH, an amnisure test was positive. They also thought she had a UTI andbacterial vaginosis infection; she was started on Ciprofloxacin and Flagyl. Anultrasound was performed on 06/01 showing an VICKY of 4.8 and 4.6cm for each twin.She continues to have vaginal discharge that is yellow in color on her pad. Noabdominal pain or contractions, but she did have a 30 minute period of abdominalpain last night.Good movement. Denies vaginal bleeding., Denies contractions.She states that there was concern for placental abruption on an ultrasoundearlier in , but this finding resolved on repeat ultrasound.POST DELIVERY CONTRACEPTION:Discussed post-delivery contraception options.Patient received written information about post-delivery contraception options.Patient does not desire post-delivery contraception.HISTORY REVIEWPAST MEDICAL HISTORYDiagnosis Date- Mental disorder anxietyPAST SURGICAL HISTORYProcedure Laterality Date- APPENDECTOMY 2010- PLASTIC SURGERY COSMETIC ITEMS 2010 birthmark removal from thigh/stomachFAMILY HISTORYProblem Relation Age of Onset- Family history unknown: YesSocial History Marital status: Single Spouse name: Years of education: Number of children:Social History Main Topics Smoking status: Never Smoker Smokeless tobacco: Never Used Alcohol use: No Drug use: No Sexual activity: Yes Partners with: MaleObstetric History T0 L0 SAB1 TAB0 Ectopic0 Multiple0 Live Bvxobg4Dmwt of Baby 1: Not recorded Date: Not recorded GA: Not recorded Delivery: Not recorded Apgar1: Not recorded Apgar5: Not recorded Living: Not recordedName of Baby 2: Not recorded Date: Not recorded GA: Not recorded Delivery: Not recorded Apgar1: Not recorded Apgar5: Not recorded Living: Not recordedThere are no active non-hospital problems to display for this patient.ALLERGIESAllergen Reactions- Keflex [Cephalexin] Hives- Rocephin [Ceftriaxo* HivesNoneREVIEW OF SYSTEMS:The remainder of the review of systems is negative.ObjectiveLAST VITALS:Pulse BP Resp O2 Sat Temp Pain 90 107/68 18 36.9 ?C (98.4 ?F) 0/10HT/WT/BMI:Height Weight BMI 149.9 cm (4' 11 ) 54 kg (119 lb) 24.03PHYSICAL EXAM:General: WD, WN, NAD, comfortableHEENT: NC/AT, sclera white, pupils equalLungs: clearHeart: RR, S1, Y5Hfnmzwd: soft, nontender, no massesUterus: soft, NTExtremities: tr edemaFHT: bpmSt Spec Exam: Moderate to large amount of thin white/yellow tinged vaginaldischarge, negative valsalva, no ferning, nitrazine pH 4.5, negative wet prepCERVICAL EXAM:Dilation: Closed (06/04/18 1325 : Nehal (Res) Meza) cmStation:Effacement: %Position: cephalic/breech, cardiac activity visualized x2, DVP 4.5 and 4.2cmfor A and B respectivelyPRENATAL LABSDiagnostic tests reviewed for today's visit: Most recent labsResults for orders placed or performed during the hospital encounter of 06/04/18RUBELLA IGG ABResult Value Ref Range Rubella, Quantitative positiveOBSTETRIC PANELResult Value Ref Range Hep B Surface Ag negOBSTETRIC PANELResult Value Ref Range ABO Group A posRPR SCREENResult Value Ref Range RPR NRHIV 1,2 COMBO (AG/AB)Result Value Ref Range HIV Screen declinedGC/CHLAMYDIA DNA DETResult Value Ref Range Chlam/GC-DNA Amplified negRAPID BACT VAGINOSIS (AK)Result Value Ref Range Rapid Bact.Vaginosis see belowURINALYSIS WITH MICROSCOPIC (AK,AV,EU,FV,HL,RADHA,MM,SP)Resul t Value Ref Range Color YELLOW Urine Appearance TURBID Glucose, Urine NEGATIVE Negative mg/dL Ketones, Urine NEGATIVE Negative mg/dL Hemoglobin, Urine NEGATIVE Negative Protein, Urine NEGATIVE Negative mg/dL Nitrites Urine NEGATIVE Negative Bilirubin, Urine NEGATIVE Negative Specific [place], Ur 1.016 1.005 - 1.030 pH, Urine 7.5 5.0 - 8.0 Urobilinogen, Urine 0.2 0.0 - 1.0 EU/dL Leukocytes Esterase SMALL (A) Negative RBC, Urine 1.8 0.0 - 5.0 /hpf WBC, Urine 5.0 0.0 - 5.0 /hpf EP Cells Urine 10.3 (H) 0.0 - 5.0 /hpf Bacteria, Urine NONE None Hyaline Cast 1.2 (H) 0.0 - 1.0 /lpfTRICHOMONAS PREP (AK,AV,EU,FV,HL,RADHA,MM,SP)Resul t Value Ref Range Rapid Trichomonas Ag see belowAssessment/Plan17 year old EGA:22w3d With1. Vaginal discharge in , r/o PPROM-S/p Flagyl x2-3 days for suspected BV-BV and trichomonas negative on admission-Chlamydia/gonorrhea pending-Although the pt had a positive Amnisure test at outside hospital, there is lowsuspicion for PPROM at this time given clinical exam and normal VICYK-Repeat speculum exam and/or ultrasound tomorrow2. Abnormal urinalysis-Pt is s/p Ciprofloxacin treatment x2-3 days from outside hospital for having 3+blood on urinalysis-Admission urinalysis negative for infection-Urine culture pending3. Di/di twin -Cephalic/breech4. Previable-No BMZ or PMG consult5. Monitoring-Doptones/ultrasound daily6. Diet-Regular7. DVT ppx-SCDsD/w Dr. ReddyGNATURE: Nehal Meza MD PATIENT NAME: Yuko Arellano: June 04, 2018 : 1:14 PM PAGER/CONTACT #: [phone] Meza MD 06/04/2018 2:50 PM SignedIn to discuss patient's frustrations with her. She is very concerned at thepossibility of her being discharged tomorrow. [facility] and she is in a high risk situation,and now we are telling her that it may not be broken. She doesn't understand howwe could be saying this if the Amnisure test was positive at the outsidehospital. She feels scared that we could be missing something like the outsidehospital has missed in the past. I reassured her that while there is low concernfor ruptured membranes at this time, we are actively monitoring her at leastovernight. If her water is truly broken, we should see signs of it overnight andtomorrow when we repeat her speculum exam and ultrasound. We also want what isbest for her and her and will continue to watch her closely.Nehal Meza MD06/04/2018 1:54 PMObstetrics and Gynecology [id number] #[id number] Toscano RN, RN 06/04/2018 6:09 PM SignedPt. Complains of IV site sore, site benign, patency confirmed, ice pack given topatient to apply to site for comfort. Pt. With no other complaints or expressedneeds at this time. Visitor at bedside, call light within reach.Viry Khalil DO 06/04/2018 10:59 PM AddendumUpdateSubjectiveCalled regarding patient having some abdominal pressure that feels liketightening every 15 minutes and lasting for 30 seconds. Denies vaginal bleeding,leaking of fluid, dysuria. Had BM today and normally has BM daily; had to mildlystrain with last BM. Feeling less movement than normal.ObjectiveAbdomen: soft, non-tender with no contractions palpatedSpeculum exam: visually cervix is closed. No bleeding noted. Negative pooling.Brown paper-bag dry under patient's bottom.Colliers: irritability with isolated contraction.Assessment/Plan1. Abdominal pain - No further evaluation/testing at this time given very low concern for pretermlabor. - Will repeat speculum exam in AM and continue to monitor for threatened PPROMand labor. - Can consider adding colace if patient needs continue to strain to have BMKalie Kat 2017 10:57 PMPrevious Adriane Bailon DO 06/05/2018 10:50 AM AddendumOBSTETRICSANTEPARTUM PROGRESS NOTESERVICE DATE: 06/05/2018SERVICE TIME: 0500ASSESSMENT AND PLAN:17 year old EGA:22w4d admitted for confirmed PPROM.1. Vaginal discharge in , r/o PPROM- S/p Flagyl x2-3 days for suspected BV- BV/Trich-- Chlamydia/gonorrhea pending- WBCs 11.59 on admission and afebrile- Positive Amnisure at outside hospital - PPROM confirmed on exam this am at 7:30am (on admission Low suspicion forPPROM at this time given clinical exam and normal VICKY)?2. Abnormal urinalysis- S/p Ciprofloxacin treatment x2-3 days from outside hospital for having 3+blood on urinalysis- UA small leukocyte esterase- Urine culture ordered?3. Di/di twin - Cephalic/breech?4. Previable- PMG consult- Recommend latency antibiotics at 23 0/7 weeks and BMZ administration [id number] 0/7 - 24/ 0-7 weeks based on family preference after neonatology consult- Discussed dc to home versus continued inpatient management and she elects forinpt management.?5. Monitoring- Doptones/ultrasound daily?6. Diet- Regular?7. DVT ppx- SCDsSUBJECTIVE:No current vaginal bleeding, +LOF at 7:30 am (first since admission), Nocontractions, Good movement, No shortness of breath or chest pain and Nocalf tenderness. Episode of abdominal pain from last night resolved. Deniesdysuria or hematuria. No BM last night.OBJECTIVE:LAST VITALS:Pulse BP Resp O2 Sat Temp Pain 97 95/64 16 100 % 37 ?C (98.6 ?F) 0/10PHYSICAL EXAM:General: WD, WNHeart: RR, S1, V0Wvfxw: clear to auscultationAbdomen: soft, nontender, no massesExtremities: tr edemaFETAL MONITORING/ASSESSMENT: heart rate present and appropriateLABSDiagnostic tests reviewed for today's visit: Most recent labs and imagingresults.SIGNATURE: Viry Khalil DO PATIENT NAME: Yuko StaleyATE: June 05, 2018 : 5:00 AMAttending NoteI evaluated the patient and personally participated in the lu components. Iagree with the resident's findings and plan with the following revisions and/oradditions: as noted in bold above. Appreciate neonatology consulting with thepatient and plan to be further detailed after that consult is completed. Forfetal eval US in AM to verify chorionicity, evaluate anatomy, biometry,DVP for each twin.Signature: Kyree Villeda: 06/05/2018Time: 10:48 AMI spent 30 minutes in the visit, with more than 50% of the total kylw-in-lffcdlug of the visit in counseling / coordination of care.Previous Benny Penn RN, RN 06/05/2018 7:47 AM SignedPt c/o leaking fluid. Small amount of pink tinged fluid noted. Dr. Dawsonotified and will come evaluate patient.Nancy King DO 06/05/2018 8:05 AM SignedWent to evaluate patient with Dr. Weiss as patient was complaining ofincreased leaking fluid.On exam, she has moderate amount of fluid on the brown bag. SSE performed and +for gross pooling, +nitrazine, +ferning. Bedside TAUS show Fetus A DVP 5.6cm andFetus B DVP 7.6cm.Dr. Bailon updated and will plan to have neonatology speak with patient aboutfurther management options.Nancy King [id number]/GYN8:05 AMNovember 2017Pager #: [phone] Marco rAreaga DO 06/06/2018 12:40 PM SignedNEONATOLOGY CONSULTSERVICE DATE: 06/05/2018 Admission Date: 06/04/2018SERVICE TIME: 10:47 AM Date of : 2000Age: 17 year old Sex: femalePrimary Care Physician: No primary care provider on file.Consulting Doughnut Glazier: Zainab Arreaga DO/Kamille Gregory APRN.CNPSubjectiveConsultation for this evaluation was requested by Dr. Bailon.Reason for consultation: Previable with PPROM at 22 4/7 weeksgestation with di-di twins.Recommendations will be communicated back to the requesting physician by way ofshared medical record or letter.ObjectiveMATERNAL HISTORY:Mother is a 17 year old female, , who is at 22w4d with an DHARMESH of10/05/2018, by Last Menstrual Period dating method.LMP: Patient's last menstrual period was 12/29/2017.Maternal Hospital Problems:ACTIVE PROBLEM LISTVaginal Discharge in PregnancyTeratogen Exposure in Current PregnancyDichorionic Diamniotic Twin PregnancyHigh-Risk PregnancyMaternal Meds:No current facility-administered medications on file prior to encounter.No current outpatient prescriptions on file prior to encounter.No current hospital medications on file. complications: Multiple gestation, PROMThe following was discussed with mother and fatherGENERAL:Neonatology presence and role at delivery: YesPossible need for resuscitation: If were to be born before 23 weeks, we wouldattend delivery and assess the ability to resuscitate the infants. We would notdo anything that would cause pain or suffering.DNR status: Discussed with patient/familySurvival odds/morbidity AND mortality: Briefly discussed poor survival at thispoint in time. Odds improve the longer the maintained.Impression/Recommen dationsAssessment: 22 4/7 weeks gestation with di-di twins PPROM.Plan: We will discuss plan AND outcomes once is further along. We willattend delivery if it occurs early and assess infant's viability. Parents voicedunderstanding and told that they can call with any questions. Extremeprematurity letter and breast milk letter left with parents.Physician [id number] total time, including discussion: 10 minutes, more than50 % of time devoted to coordination of care and/or counseling.SIGNATURE: Kamille Gregory APRN.CHIEF OF HOSPITAL MEDICINE PATIENT NAME: Yuko StaleyATE: June 05, 2018 : 10:47 AM PAGER/CONTACT #: [phone] again spoke with parents today in detail. I recommended to them that mothershould receive the celestone injections as they can help the babies lungs andskin mature faster. Family aware that outcomes remain extremely poor at thistime. However, every week the mother stays , the outcome for the babieswill continue to improve. Family also informed even if babies are born at 24weeks, outcomes are still not very good (twin gestation, and both babies whitemales).Please call me with any further questions. Family aware that we will not doinappropriate things to babies if they are deemed too immature to survive. Wediscussed the importance of avoidance of harm in delicate situations like this.Olivia Arreaga, DOPrevious VersionNehal Meza MD 06/06/2018 6:36 AM Attested At testation signed by Trista Ag at 06/06/2018 10:20 AMPatient seen and examined by me and I agree with the residents assessment andplan with the following additions:Patient scheduled for ultrasound at 2 PM today. Continues to have pinkishdischarge intermittently. If fluid levels are normal for both fetuses, willrepeat spec exam and do a HSV culture to ensure that that isn't causing thedischarge.Patient requests to speak with the NICU team again to determine timing ofintervention including resuscitation, betamethasone and latency antibiotics.Trista Arroyo MD OBSTETRI CSANTEPARTUM PROGRESS NOTESERVICE DATE: 06/06/2018SERVICE TIME: 0600ASSESSMENT AND PLAN:17 year old EGA:22w5d admitted for previable PPROM.1. Previable PPROM-Since 06/01 at 22.0 weeks-BV/trichomonas negative on admission -Patient did receive approximately 3 days of flagyl at outside hospital-Chlamydia/gonorrhea pending-WBCs 11.59 on admission and afebrile-Pt elects for inpatient management with plan for latency antibiotics at 23.0weeks and BMZ administration between 23-24 weeks, pending further neonatologyconsult?2. Abnormal urinalysis-S/p Ciprofloxacin treatment x2-3 days from outside hospital for having 3+ bloodon urinalysis-UA with small leukocyte esterase-Urine culture pending?3. Twin -Pt says it is di/di, will confirm with ultrasound today?4. Previable-PMG consult - We will discuss plans AND outcomes once is furtheralong -BMZ plan as above-Consider Magnesium for neuroprotection once closer to viability-Growth ultrasound today5. Position-Cephalic/breech?6. Monitoring- Doptones/ultrasound daily?7. Diet- Regular?8. DVT ppx- SCDs?Disposition: inpatient monitoring for previable PPROM with plan for latencyantibiotics and BMZ once closer to viabilitySUBJECTIVE:No current vaginal bleeding, Still leaking fluid, No contractions, Good fetalmovement, No shortness of breath or chest pain and No calf tendernessOBJECTIVE:LAST VITALS:BP 93/59 Pulse 92 Temp 36.3 ?C (97.3 ?F) (Oral) Resp 16 Ht 147.3 cm(4' 10 ) Wt 54 kg (119 lb) LMP 12/29/2017 SpO2 98% BMI 24.87 kg/m?PHYSICAL EXAM:General: WD, WN, NAD, comfortableAbdomen: soft, nontender, no massesUterus: soft, NTExtremities: tr edemaFETAL MONITORING/ASSESSMENT:Cardiac activity visualized x2 by ultrasound dailyLABSDiagnostic tests reviewed for today's visit: Most recent labsSIGNATURE: Nehal Meza MD PATIENT NAME: Yuko StaleyATE: June 06, 2018 Priyank RT, Tech 06/06/2018 4:30 PM SignedUltrasound completed.Gestational age 22w 5dBaby A Breech position. Posterior placenta unable to see placental cord insert.Unable to rule out clubbed feet due to position.Oligohydramnios 1.79cmFetal ultrasound age of 22w4d 1lb 30%Baby B Vertex position. Anterior placenta.DVP 5.30cmFetal ultrasound age 23w1d 51%12% discordanceFemur lengths on both babies measure <2%Dr. Arroyo aware.Shazia Yost [facility], Marky Meza MD 06/07/2018 6:33 AM Attested At testation signed by Trista Ag at 06/07/2018 12:29 PMPatient seen and examined by me and I agree with the residents assessment andplan with the following additions:Patient will receive second dose BMZ today.We will start latency antibiotics tomorrow. Gent/Clinda/azithro due tocephalosporin allergy.Patient understands that she will remain hospitalized for the duration of herpregnancy due to PPROM. Our goal is to deliver at 34 weeks. We will deliversoon for labor, chorioamnionitis, non-reassuring status or bleeding thatwould be harmful to the mother or the fetuses. She understands that dependingon gestational age, there may be a time where fetus A has non-reassuring fetalstatus but fetus B is doing well and she may need to decide whether or not tointervene of behalf of fetus A as this would cause iatrogenic severeprematurity for fetus B. She will discuss this with her .We also discussed vaginal delivery vs delivery if delivery is requiredas fetus A is currently breech. We discussed that rn long term care outcomes are thesame for breech vaginal delivery and breech delivery up to 25 weeks 0days as long as heart tones are reassuring. She would like a vaginaldelivery in this situation. She understands that not all providers would offerthis and she may need a delivery for provider comfort. Ifnon-reassuring heart tones occur, she understands that outcomes arebetter with a delivery. She understands that outcomes are alwaysbetter for a breech fetus with a delivery at 25 weeks 0 days andbeyond.We discussed that there is concern that fetus A has club feet. This could bepositional due to oligohydramnios or pathologic. We would not know definitivelyuntil after delivery. In addition, we discussed that contractures are a knowncomplications of PPROM, especially periviable PPROM. We also discussed thatboth fetuses have femurs in the 2%. The most likely cause is the mother's shortstature. We will continue to monitor this.Daily showers advised as the patient could have a delivery at anymoment.All questions and concerns addressed.Trista Arroyo MD OBSTETRI CSANTEPARTUM PROGRESS NOTESERVICE DATE: 06/07/2018SERVICE TIME: 0600ASSESSMENT AND PLAN:17 year old EGA:22w6d admitted for previable PPROM.1. Previable PPROM-Since 06/01 at 22.0 weeks-BV/trichomonas negative on admission -Patient did receive approximately 3 days of flagyl at outsidehospital-Chlamydia/gono rrhea pending-WBCs 11.59 on admission and afebrile-Pt elects for inpatient management with plan for latency antibiotics at 23.0weeks?2. Abnormal urinalysis-S/p Ciprofloxacin treatment x2-3 days from outside hospital for having 3+ bloodon urinalysis-UA with small leukocyte esterase-Urine culture pending negative?3. Twin -Appears to be di/di?4. Previable-PMG consult-BMZ given 06/06, repeat today-Consider Magnesium for neuroprotection once closer to viability-Growth ultrasound 06/06: -A: 1 lb, 30%, oligohydramnios at 1.79cm, unable to rule out clubbed feet dueto position -B: no weight listed but 51%, DVP 5.30cm -Discordance 12% -Femur lengths on both babies <2%?5. Position-Breech/cephalic?6. Monitoring- Doptones/ultrasound daily?7. Diet- Regular?8. DVT ppx- SCDs?Disposition: inpatient monitoring for previable PPROM with plan for latencyantibiotics at 23 weeks. Monitor for labor or infection.SUBJECTIVE:No current vaginal bleeding, Still leaking fluid, No contractions, Good fetalmovement, No shortness of breath or chest pain and No calf tendernessOBJECTIVE:LAST VITALS:BP 107/57 Pulse 92 Temp 37.1 ?C (98.8 ?F) (Oral) Resp 18 Ht 147.3 cm(4' 10 ) Wt 54 kg (119 lb) LMP 12/29/2017 SpO2 98% BMI 24.87 kg/m?PHYSICAL EXAM:General: WD, WN, NAD, comfortableAbdomen: soft, nontender, no massesUterus: soft, NTExtremities: tr edemaFETAL MONITORING/ASSESSMENT:FHT present x2 at yesterday's ultrasoundLABSDiagnostic tests reviewed for today's visit: Most recent labsSIGNATURE: Nehal Meza MD PATIENT NAME: Yuko StaleyATE: June 07, 2018 Kim, Tech, Tech 06/07/2018 6:59 AM SignedEFW on Twin B was 525 g on 06/06.Waldemar Donaldson, RN, RN 06/07/2018 7:11 AM SignedPt felt large gush of fluid at 0400 for pink tinge, dr muniz notified no ordersreceived. Pt in no pain feeling babies move, no bleeding.Nehal Meza MD 06/08/2018 6:23 AM Attested At testation signed by Trista Ag at 06/08/2018 10:47 AMPatient seen and examined by me and I agree with the residents assessment andplan with the following additions:As the patient will deliver prematurely, will give TDAP today.Trista Arroyo MD OBSTETRI CSANTEPARTUM PROGRESS NOTESERVICE DATE: 06/08/2018SERVICE TIME: 0600ASSESSMENT AND PLAN:17 year old EGA:23w0d admitted for periviable PPROM.1. Previable PPROM-Since 06/01 at 22.0 weeks-BV/trichomonas negative on admission?-Patient did receive approximately 3 days of flagyl at outsidehospital-Chlamydia/gono rrhea negative-WBCs 11.59 on admission and afebrile-Pt elects for inpatient management with initiation of latency antibiotics at23.0 weeks, on day 1 now -IV Clindamycin x2 days->PO Clindamycin x5 days -IV Gentamicin x2 days -PO Azithromycin x1-Monitor for labor or infection -If patient were to deliver <25.0 weeks, she elects for breech vaginal deliveryafter thorough counseling?2. Abnormal urinalysis-S/p Ciprofloxacin treatment x2-3 days from outside hospital for having 3+ bloodon urinalysis-UA with small leukocyte esterase-Urine culture negative?3. Twin -Di/di?4. Previable-PMG consult-BMZ given 06/06 and 06/07-Consider Magnesium for neuroprotection once closer to viability-Growth ultrasound 06/06: -A: 1 lb, 30%, oligohydramnios at 1.79cm, unable to rule out clubbedfeet due to position -B: no weight listed but 51%, DVP 5.30cm -Discordance 12% -Femur lengths on both babies <2%?5. Position-Breech/cephalic?6. Monitoring-30 minutes BID?7. Diet-Regular?8. DVT ppx-SCDs?Disposition: inpatient monitoring for periviable PPROM with latency antibioticsstarting today.SUBJECTIVE:No current vaginal bleeding, Still leaking fluid, No contractions, Good fetalmovement, No shortness of breath or chest pain and No calf tendernessComplains of some reflux overnight, requests a medication.OBJECTIVE:LAST VITALS:BP 95/60 Pulse 78 Temp 36.8 ?C (98.2 ?F) (Oral) Resp 18 Ht 147.3 cm(4' 10 ) Wt 54 kg (119 lb) LMP 12/29/2017 SpO2 99% BMI 24.87 kg/m?PHYSICAL EXAM:General: WD, WN, NAD, comfortableAbdomen: soft, nontender, no massesUterus: soft, NTExtremities: tr edemaFETAL MONITORING/ASSESSMENT:A 145/moderate/no accels/no decelsB 130/moderate/no accels/no decelsToco no contractionsCat 1LABSDiagnostic tests reviewed for today's visit: Most recent labsSIGNATURE: Nehal Meza MD PATIENT NAME: Yuko StaleyATE: June 08, 2018 LATOYA Kelly, REAGAN, RD 06/08/2018 2:13 PM SignedNUTRITION THERAPY SCREENING NOTESERVICE DATE: 06/08/2018SERVICE TIME: 1:57 PMNUTRITION CARE PLANPatient's weight is expected to increase with and nutritional intakeis adequate. Patient is not at risk for malnutrition at this time.Intervention:Continue on Regular dietCoordination of Care:NursingDischarge Nutrition Recommendations:Diet: Regular ---Chart reviewed for OB length of stayPer HPI: 17 year old EGA:23w0d admitted for periviable PPROM.Continues on inpatient monitoring for previable PPROM with latency antibioticsstarted 06/08/18. Goal for delivery at 34 weeks.ACTIVE PROBLEM LISTVaginal Discharge in PregnancyTeratogen Exposure in Current PregnancyDichorionic Diamniotic Twin PregnancyHigh-Risk PregnancyPAST MEDICAL HISTORYDiagnosis Date- Mental disorder anxietyPAST SURGICAL HISTORYProcedure Laterality Date- APPENDECTOMY 2010- PLASTIC SURGERY COSMETIC ITEMS 2011 birthmark removal from thigh/stomachSocial History Marital status: Single Spouse name: Years of education: Number of children:Social History Main Topics Smoking status: Never Smoker Smokeless tobacco: Never Used Alcohol use: No Drug use: No Sexual activity: Yes Partners with: MaleCurrent Diet Order DIET REGULAR Order Specific Question: Child's Feeding Age/Diet Answer: YOUTH (7-18YRS)Nutritional Intake Prior to Admission:Unable to determine, patient with limited conversation due to sleeping. Told RDshe woke to eat breakfast and then went back to sleep. RD will follow with po,did not reports any prior concerns with po intake on admission. Denied weightloss prior to admission. Documented intake 100% of meal and RD observed 100% ofbreakfast consumed.Anthropometrics:Heigh t: 147.3 cm (4' 10 )Admission Weight: 54 kg (119 lb)Current Weight: 54 kg (119 lb)Body mass index is 24.87 kg/m?. normalWeight is expected to increase with Last Wt108/04/17 : 54 kg (119 lb)MNT Billing Type: Initial Assess/15 min 2 unitsSIGNATURE: Jaki Kelly RD, LD PATIENT NAME: Yuko StaleyATE: June 08, 2018 : 1:57 PM PAGER: [phone] Muniz DO 06/08/2018 6:38 PM SignedIn to scan twins for EFM via BSUS. Fetus A and Fetus B both visualized with HRvisually 130 and 140's respectively. +Gross movement d6Jpnsgaunoah Muniz, PGY-2Obstetrics and GynecologyPager [phone]) [phone]/08/20176:38 PMNehal Meza MD 06/09/2018 6:38 AM Attested Addendum At testation signed by Trista gA at 06/09/2018 1:40 PMPatient seen and examined by me and I agree with the residents assessment andplan with the following additions:Patient declined TDAP vaccine as her friend told her that it would hurt thebabies and would make the babies feel sick. We discussed at length that this isnot the case and the vaccine, in fact, will help prevent her premature babiesfrom having pertussis. She would like to discuss this with one of theneonatologists. We will help arrange this.Trista Arroyo MD OBSTETRI CSANTEPARTUM PROGRESS NOTESERVICE DATE: 06/09/2018SERVICE TIME: 0600ASSESSMENT AND PLAN:17 year old EGA:23w1d admitted for periviable PPROM.1. Previable PPROM-Since 06/01 at 22.0 weeks-BV/trichomonas negative on admission?-Patient did receive approximately 3 days of flagyl at outsidehospital-Chlamydia/gono rrhea negative-GBS pending-WBCs 11.59 on admission and afebrile-Pt elects for inpatient management with initiation of latency antibiotics at23.0 weeks, on day 2/7 now -IV Clindamycin x2 days->PO Clindamycin x5 days -IV Gentamicin x2 days -PO Azithromycin x1-Monitor for labor or infection -If patient were to deliver <25.0 weeks, she elects for breechvaginal delivery after thorough counseling?2. Abnormal urinalysis-S/p Ciprofloxacin treatment x2-3 days from outside hospital for having 3+ bloodon urinalysis-UA with small leukocyte esterase-Urine culture negative?3. Twin -Di/di?4. Previable-PMG consult ?-BMZ given 06/06 and 06/07-Plan for Magnesium if deliving <32 weeks-Growth ultrasound 06/06:?-A: 1 lb, 30%, oligohydramnios at 1.79cm, unable to r/o clubbed feetdue to position?-B: no weight listed but 51%, DVP 5.30cm?-Discordance 12%?-Femur lengths on both babies <2%?5. Position-Breech/cephalic?6. Monitoring-30 minutes BID?7. Diet-Regular?8. DVT ppx-SCDs9. Routine care-TDAP given 06/08-Plan for glucola 1 week after steroids?Disposition: inpatient monitoring for periviable PPROM. Continue latencyantibiotics and monitor for signs of infection or labor.SUBJECTIVE:No current vaginal bleeding, Still leaking fluid, No contractions, Good fetalmovement, No shortness of breath or chest pain and No calf tendernessExpresses frustration this morning over the difficulty of monitoring the twinsOBJECTIVE:LAST VITALS:BP 105/52 Pulse 77 Temp 37 ?C (98.6 ?F) (Oral) Resp 16 Ht 147.3 cm(4' 10 ) Wt 54 kg (119 lb) LMP 12/29/2017 SpO2 99% BMI 24.87 kg/m?PHYSICAL EXAM:General: WD, WN, NAD, comfortableAbdomen: soft, nontender, no massesUterus: soft, NTExtremities: tr edemaFETAL MONITORING/ASSESSMENT:A 140/moderate/no accels/mild variable decels present, broken tracingB 135/moderate/no accels/mild variable decels present, broken tracingToco no contractionsCat 2, appropriate for gestational ageLABSDiagnostic tests reviewed for today's visit: Most recent labsSIGNATURE: Nehal Meza MD PATIENT NAME: Yuko StaleyATE: June 09, 2018 VersionHeanoah Muniz DO 06/09/2018 6:18 AM SignedDifficulty getting both fetuses on monitor. To BS with US to scan. HR [id number] 140's, 150's, respectively for A and B. Gross movement noted x2.Anastasiia Muniz, PGY-2Obstetrics and GynecologyPager [phone]/09/20176:18 Earlene Milner, RN, RN 06/09/2018 6:29 AM SignedRN at bedside with Dr. Muniz to scan twins for monitoring. Both babies onmonitor pt moves and remains moving after placement.Nehal Meza MD 06/09/2018 4:25 PM SignedIn to check on patient. She is requesting genetic testing because she wanted itearlier in the but did not get it with her primary OB. She would liketo know if anything is wrong with these fetuses. She states that her sisterwas suspected to have trisomy 21 while in utero but was actually unaffected atbirth. We discussed the options for a twin at 23 weeks. We will askDr. Arroyo about cell free DNA or any other recommendation she may have forthe patient.Nehal Meza MD06/09/2018 4:24 PMObstetrics and Gynecology [id number] #[id number] Chen, RN, RN 06/10/2018 5:48 AM SignedRN at bedside, attempting to place 23 week 2 day twins on continuous monitoringfor 30 minutes. Palpable movement, by patient and RN. Pt sighing heavily as RNconsistently adjusts monitor to traces EFM's x2. RN remains at bedside,adjusting EFM. Dr. Meza notified of RN unable to obtain continuous EFM, brokentracings. Support given to patient.Nehal Meza MD 06/10/2018 6:37 AM Attested At testation signed by Trista Ag at 06/10/2018 5:42 PMPatient seen and examined by me and I agree with the residents assessment andplan.Trista Arroyo MD OBSTETRI CSANTEPARTUM PROGRESS NOTESERVICE DATE: 06/10/2018SERVICE TIME: 0600ASSESSMENT AND PLAN:17 year old EGA:23w2d admitted for periviable PPROM.1. Previable PPROM-Since 06/01 at 22.0 weeks-BV/trichomonas negative on admission?-Patient did receive approximately 3 days of flagyl at outsidehospital-Chlamydia/gono rrhea negative-GBS pending-WBCs 11.59 on admission and afebrile-Pt elects for inpatient management with initiation of latency antibiotics at23.0 weeks, on day 3/7 now?-IV Clindamycin x2 days->PO Clindamycin x5 days?-IV Gentamicin x2 days?-PO Azithromycin x1-Monitor for labor or infection?-If patient were to deliver <25.0 weeks, she elects for breechvaginal delivery after thorough counseling?2. Abnormal urinalysis-S/p Ciprofloxacin treatment x2-3 days from outside hospital for having 3+ bloodon urinalysis-UA with small leukocyte esterase-Urine culture negative?3. Twin -Di/di-Patient requesting genetic screening, consider cell free DNA?4. Previable-PMG consult ?-BMZ given 06/06 and 06/07-Plan for Magnesium if deliving <32 weeks-Growth ultrasound 06/06:?-A: 1 lb, 30%, oligohydramnios at 1.79cm, unable to r/o clubbed feetdue to position?-B: no weight listed but 51%, DVP 5.30cm?-Discordance 12%?-Femur lengths on both babies <2%?5. Position-Breech/cephalic?6. Monitoring-30 minutes BID?7. Diet-Regular?8. DVT ppx-SCDs?9. Routine care-TDAP refused yesterday, will request SCN to senior vice president & general counsel the patient further-Plan for glucola 1 week after steroids?Disposition: inpatient monitoring for periviable PPROM. Continue latencyantibiotics and monitor for signs of infection or labor.SUBJECTIVE:No current vaginal bleeding, Still leaking fluid, No contractions, Good fetalmovement, No shortness of breath or chest pain and No calf tendernessPatient is wondering if she could have her IV out today as it is irritating toher.OBJECTIVE:LAST VITALS:BP 95/50 Pulse 79 Temp 36.6 ?C (97.9 ?F) (Oral) Resp 18 Ht 147.3 cm(4' 10 ) Wt 54 kg (119 lb) LMP 12/29/2017 SpO2 99% BMI 24.87 kg/m?PHYSICAL EXAM:General: WD, WN, NAD, comfortableAbdomen: soft, nontender, no massesUterus: soft, NTExtremities: tr edemaFETAL MONITORING/ASSESSMENT:A 145/moderate/no accels/no decelsB 150/moderate/no accels/no decelsToco no contractionsCat 1LABSDiagnostic tests reviewed for today's visit: Most recent labsSIGNATURE: Nehal Meza MD PATIENT NAME: Yuko Arellano: June 10, 2018 Saul, RN, RN 06/10/2018 11:09 PM SignedPt demanding her IV be removed.IV was removed before pt shower. New IV replacedat [id number] King DO 06/11/2018 6:17 AM Attested At testation signed by Alex Alejandra at 06/11/2018 10:10 AMMFM Attending NoteI saw and evaluated the patient. I agree with the resident's findings and planof care as documented below. No acute events overnight. No evidence of chorioor PTL. All patient questions answered. Continue inpatient management.Alex Alejandra DO, MPH, FACOG06/11/2018 10:09 AM OBSTETRI CSANTEPARTUM PROGRESS NOTESERVICE DATE: 06/11/2018SERVICE TIME: 0545ASSESSMENT AND PLAN:17 year old EGA:23w3d admitted for periviable PPROM.1. Previable PPROM-Since 06/01 at 22.0 weeks-BV/trichomonas negative on admission?-Patient did receive approximately 3 days of flagyl at outsidehospital-Chlamydia/gono rrhea negative-GBS pending-WBCs 11.59 on admission and afebrile-Pt elects for inpatient management with initiation of latency antibiotics at23.0 weeks, on day 4 now?-IV Clindamycin x2 days->PO Clindamycin x5 days?-IV Gentamicin x2 days?-PO Azithromycin x1-Monitor for labor or infection?-If patient were to deliver <25.0 weeks, she elects for breechvaginal delivery after thorough counseling?2. Abnormal urinalysis-S/p Ciprofloxacin treatment x2-3 days from outside hospital for having 3+ bloodon urinalysis-UA with small leukocyte esterase-Urine culture negative?3. Twin gestation -Di/di-Patient requesting genetic screening, consider cell free DNA?4. Previable-PMG consult ?-BMZ given 06/06 and 06/07-Plan for Magnesium if deliving <32 weeks-Growth ultrasound 06/06:?-A: 1 lb, 30%, oligohydramnios at 1.79cm, unable to r/o clubbed feetdue to position?-B: no weight listed but 51%, DVP 5.30cm?-Discordance 12%?-Femur lengths on both babies <2%?5. Position-Breech/cephalic?6. Monitoring-30 minutes BID?7. Diet-Regular?8. DVT ppx-SCDs?9. Routine care-TDAP refused yesterday, will request SCN to senior vice president & general counsel the patient further-Plan for glucola 1 week after steroids?Disposition: Inpatient monitoring for periviable PPROM. Continue latencyantibiotics and monitor for signs or symptoms of infection or labor. Cat IItracing for mild variable decelerations, overall reassuring.SUBJECTIVE:No current vaginal bleeding, Still leaking fluid, No contractions, Good fetalmovement, No shortness of breath or chest pain and No calf tendernessPatient had IV replaced. Sleeping on couch comfortably, denies any currentleaking overnight.OBJECTIVE:LAST VITALS:BP 115/62 Pulse 74 Temp 37.1 ?C (98.8 ?F) (Oral) Resp 16 Ht 147.3 cm(4' 10 ) Wt 54 kg (119 lb) LMP 12/29/2017 SpO2 96% BMI 24.87 kg/m?PHYSICAL EXAM:General: WD, WN, NAD, comfortableAbdomen: soft, nontender, no massesUterus: soft, NTExtremities: tr edemaFETAL MONITORING/ASSESSMENT:A 140/moderate/ accels present /isolated mild variable decelerationsB 150/moderate/ accels present/no decelsToco no contractionsCat II - isolated mild variable decelerations on Fetus A. Mod variability andaccels present for both fetuses, overall reassuringLABSDiagnostic tests reviewed for today's visit: Most recent labsSIGNATURE: Nancy King DO PATIENT NAME: Yuko Arellano: June [birth year] 2018 VersionLelia Oliveros, RN, RN 06/11/2018 10:51 PM SignedDifficulty keeping Baby B on EFM. Residents notified and to come over with US toverify location .Prudence Blue DO 06/12/2018 4:38 AM Attested At testation signed by Alex Alejandra at 06/12/2018 8:26 AMMFM Attending NoteI saw and evaluated the patient. I agree with the resident's findings and planof care as documented below. No acute events overnight. Continue inpatientmanagement.Alex Alejandra DO, MPH, FACOG06/12/2018 8:26 AM OBSTETRI CSANTEPARTUM PROGRESS NOTESERVICE DATE: 06/12/2018SERVICE TIME: 4:37 AMASSESSMENT AND PLAN:17 year old EGA:23w4d admitted for periviable PPROM.1. Previable PPROM-Since 06/01 at 22.0 weeks-BV/trichomonas negative on admission?-Patient did receive approximately 3 days of flagyl at outsidehospital-Chlamydia/gono rrhea negative-GBS neg-WBCs 11.59 on admission and afebrile-Inpatient management with initiation of latency antibiotics at 23.0 weeks, onday 11/15 now?-IV Clindamycin x2 days->PO Clindamycin x5 days?-IV Gentamicin x2 days?-PO Azithromycin x1-Monitor for labor or infection?-If patient were to deliver <25.0 weeks, she elects for breechvaginal delivery after thorough counseling?2. Abnormal urinalysis-S/p Ciprofloxacin treatment x2-3 days from outside hospital for having 3+ bloodon urinalysis-UA with small leukocyte esterase-Urine culture negative?3. Twin gestation -Di/di-Patient requesting genetic screening, consider cell free DNA?4. Previable-PMG consult ?-BMZ given 06/06 and 06/07-Plan for Magnesium if delivering <32 weeks-Growth ultrasound 06/06:?-A: 1 lb, 30%, oligohydramnios at 1.79cm, unable to r/o clubbed feetdue to position?-B: no weight listed but 51%, DVP 5.30cm?-Discordance 12%?-Femur lengths on both babies <2%?5. Position-Breech/cephalic?6. Monitoring-30 minutes BID?7. Diet-Regular?8. DVT ppx-SCDs?9. Routine care-TDAP refused, will request SCN to senior vice president & general counsel the patient further-Plan for glucola 1 week after steroids?Disposition: Inpatient monitoring for periviable PPROM. Continue latencyantibiotics and monitor for signs or symptoms of infection or labor. Cat IItracing for mild variable decelerations, overall reassuring.SUBJECTIVE:No current vaginal bleeding, Still leaking fluid, No contractions, Good fetalmovement, No shortness of breath or chest pain and No calf tendernessOBJECTIVE:LAST VITALS:BP 103/59 Pulse 90 Temp 36.9 ?C (98.4 ?F) (Oral) Resp 16 Ht 147.3 cm(4' 10 ) Wt 54 kg (119 lb) LMP 12/29/2017 SpO2 98% BMI 24.87 kg/m?PHYSICAL EXAM:General: WD, WN, NAD, comfortableAbdomen: soft, nontender, no massesUterus: soft, NTExtremities: tr edemaFETAL MONITORING/ASSESSMENT:A 140/moderate/ accels present /isolated mild variable decelerationsB 150/moderate/ accels present/isolated mild variable decelsToco isolated contractionCat II - isolated mild variable decelerations x2 fetuses. Mod variability andaccels present for both fetuses, overall reassuringLABSDiagnostic tests reviewed for today's visit: Most recent labsSIGNATURE: Prudence Blue DO PATIENT NAME: Yuko StaleyATE: June 12, 2018 : 4:38 AM PAGER/CONTACT #: [phone] Michael Kelly RD, REAGAN, RD 06/12/2018 3:58 PM SignedNUTRITION THERAPY SCREENING NOTESERVICE DATE: 06/12/2018SERVICE TIME: 3:55 PMNUTRITION CARE PLANPatient's weight is expected to increase with and nutritional intakeis adequate. Patient is not at risk for malnutrition at this time.Intervention:Continue on regular dietCafe menu provide to increase optionsCoordination of Care:NursingDischarge Nutrition Recommendations:Diet: Regular ---Chart reviewed for follow-upPer HPI: 17 year old ? ?EGA:23w0d?admitted for periviable PPROM.Continues on inpatient monitoring for previable PPROM with latency antibioticsstarted 06/08/18. Goal for delivery at 34 weeks.Interval History: EGA:23w4d admitted for periviable PPROM.Current Diet Order DIET REGULAR Order Specific Question: Child's Feeding Age/Diet Answer: YOUTH (7-18YRS)Nutritional Intake During Admission: >75% estimated energy needs over the past 6day(s), tolerating po. Family at bedside today and denies nutritional concernsNutritional Intake Prior to Admission:Unable to determine, patient with limited conversation due to sleeping. Told RDshe woke to eat breakfast and then went back to sleep. RD will follow with po,did not reports any prior concerns with po intake on admission. Denied weightloss prior to admission. Documented intake 100% of meal and RD observed 100% ofbreakfast consumed.Anthropometrics:Heigh t: 147.3 cm (4' 10 )Admission Weight: 54 kg (119 lb)Current Weight: 54 kg (119 lb)Body mass index is 24.87 kg/m?. normalWeight is expected to increase with Last Wt118 : 54 kg (119 lb)MNT Billing Type: Re-assess/15 min 2 unitsSIGNATURE: Jaki Kelly RD, LD PATIENT NAME: Yuko StaleyATE: June 12, 2018 : 3:55 PM PAGER: [phone] Bell RN, RN 06/12/2018 6:44 PM SignedPatient returned to her room and instructed and covering her cough and good handwashingSmigue Thakur, RN, RN 06/12/2018 10:[address] Meza notified of pt's continued and increasing abdominal pain, physician atbedside to evaluate and scan for fhr monitor placement, difficulty maintainingtwo separate fht's d/t positioning, separate fhr visualized on ultrasound,will continue to attempt to monitor both fhr'Antoine Meza MD 06/12/2018 10:10 PM SignedPatient evaluated for upper abdominal pain. She has been nauseous today and hasvomited. Since then she feels abdominal pain. It is in her upper abdomen andradiates in all directions. On exam, she has tenderness to palpation of abdomenabove the fundus. She also has some tenderness across the entire abdomen butstates that it is worst in the epigastric area.BP 96/52 Pulse 92 Temp 37.2 ?C (99 ?F) (Oral) Resp 17 Ht 147.3 cm(4' 10 ) Wt 54 kg (119 lb) LMP 12/29/2017 SpO2 98% BMI 24.87 kg/m?No contractions on tocometer. We will increase temperature monitoring to q4h.The patient will be given a 500cc fluid bolus and will be given a BMX mix forsuspected gastroenteritis.Of note, ultrasound was performed in an attempt to have both fetuses on EFM.Cardiac activity visualized x2 in the 150-160 range. Their hearts are positionedclose together and are difficult to trace.Nehal Meza MD06/12/2018 10:10 PMObstetrics and Gynecology [id number] #[id number] Thakur RN, RN 06/12/2018 10:[address] Meza pt's refusal to reposition for fhr monitoring, willcontinue to attempt to reposition monitors but unable to visualize two separatecontinuous fhr's on external monitor at this timeNehal Meza MD 06/12/2018 10:42 PM SignedPatient's epigastric pain and FHT discussed with Dr. Alejandra. Continue currentmanagement.Nehal Meza MD06/12/2018 10:42 PMObstetrics and Gynecology [id number] #[id number] Khalil DO 06/13/2018 1:13 AM SignedUpdatePatient is now febrile at 38.8. Patient is feeling better than she waspreviously. Denies any nausea or vomiting since last evaluated by physician.Denies any diarrhea. Denies rhinnorhea, pharyngitis, tearing, dysuria, vaginalbleeding, change in color of amniotic fluid. States her feet feel cold. Hersister was recently sick for one day with one episode of emesis and she last wasaround her sister two days ago.BP 112/65 Pulse 120 Temp (!) 38.8 ?C (101.8 ?F) (Oral) Resp 20 Ht147.3 cm (4' 10 ) Wt 54 kg (119 lb) LMP 12/29/2017 SpO2 99% BMI24.87 kg/m?General: AANDO X3 with no-acute distressCardiac: tachycardicRespiratory: CTABAbdomen: +BS with non-tender abdomenBack: No CVA tendernessLE: non-tenderAssessment/Plan1. Febrile- Isolated event. Repeating temperature and if continues to be febrilethen will treat with Tylenol and further interventions from there. With PPROM,one of the main concerns is chorioamnionitis. Clinically the physical examdoesn't suggested chorioamnionitis at this time. Could consider respiratory, ,or GI source as well. Based on repeat temperature, will decide next course oftreatment.Steve Katdameon 2017 1:13 AMNehal Meza MD 06/13/2018 1:54 AM SignedFever is persistent at 38.8->38.7 over half an hour.Plan of care discussed with Dr. Alejandra:Check rate of doptonesCheck CBC, urinalysis and influenza swabGive TylenolCould consider lactic acid, CXR, LE dopplers, etc if clinical picture changes orif new symptoms arise.Nehal Meza MD06/13/2018 1:54 AMObstetrics and Gynecology [id number] #[id number] Meza MD 06/13/2018 1:57 AM SignedPatient reportedly just had an episode of diarrhea - given last night'spresentation and this new symptom, gastroenteritis is still the topconsideration. Patient has been on several antibiotics and also had a recentsick contact. Will follow up patient's labs and observe her clinical course.Nehal Meza MD06/13/2018 1:57 AMObstetrics and Gynecology [id number] #[id number] DO Flavio 06/13/2018 6:23 AM Attested At testation signed by Alex Alejandra at 06/13/2018 10:18 AMMFM Attending NoteI saw and evaluated the patient. I agree with the resident's findings and planof care as documented below. Patient with clinical suspicion for intraamnioticinfection overnight including fever, WBC 18, and maternal and brief period offetal tachycardia. At that time, patient also had several hours of nausea andvomiting and has had at least 2 episodes of diarrhea. Patient does endorse sickcontacts. She did receive 1 dose of acetaminophen. S/P BMZ on 06/06 and 06/07.Day 6/7 latency antibiotics.This AM, the patient reports improvement with N/V. However her diarrhea haspersisted. She is afebrile. Denies any obstetric complaints. FHR appropriatefor both twins. On exam, the patient has no fundal tenderness. SSE showedminimal clear LOF. No discharge or odor. Her influenza was negative. Stoolculture and C. Diff studies sent.We discussed the concern and clinical criteria met for an intraamnioticinfection. However, another etiology such as viral illness may be the source ofher fever. I discussed the low threshold for delivery even at a perviablegestational age with suspicion for IA infection. This included the potentialmaternal health risk such as sepsis and its sequelae and ICU admission. Willawait pending labs. Consider amniocentesis. Close observation for developinginfection. All of her questions were answered.Alex Alejandra DO, MPH, FACOG06/13/2018 10:00 AM OBSTETRI CSANTEPARTUM PROGRESS NOTESERVICE DATE: 06/13/2018SERVICE TIME: 5:20 AMASSESSMENT AND PLAN:17 year old EGA:23w5d admitted for periviable PPROM.1. Previable PPROM-Since 06/01 at 22.0 weeks-BV/trichomonas negative on admission?-Patient did receive approximately 3 days of flagyl at outsidehospital-Chlamydia/gono rrhea negative-GBS neg-WBCs 11.59 on admission and afebrile-Inpatient management with initiation of latency antibiotics at 23.0 weeks, onday 12/16 now?-IV Clindamycin x2 days->PO Clindamycin x5 days?-IV Gentamicin x2 days?-PO Azithromycin x1-Monitor for labor or infection?-If patient were to deliver <25.0 weeks, she elects for breechvaginal delivery after thorough counseling-Concern for chorioamnionitis versus gastroenteritis- Febrile at 0050 withepisodes of NANDV, epigastric pain. WBC now increased from 11.59 -> 18.07 withleft shift. S/p Tylenol. Recent sick contact. Influenza negative. FHT nottachycardic.?2. Abnormal urinalysis-S/p Ciprofloxacin treatment x2-3 days from outside hospital for having 3+ bloodon urinalysis-UA with small leukocyte esterase-Urine culture negative?3. Twin gestation -Di/di-Patient requesting genetic screening, consider cell free DNA?4. Previable-PMG consult ?-BMZ given 06/06 and 06/07-Plan for Magnesium if delivering <32 weeks-Growth ultrasound 06/06:?-A: 1 lb, 30%, oligohydramnios at 1.79cm, unable to r/o clubbed feetdue to position?-B: no weight listed but 51%, DVP 5.30cm?-Discordance 12%?-Femur lengths on both babies <2%?5. Position-Breech/cephalic?6. Monitoring-30 minutes BID?7. Diet-Regular?8. DVT ppx-SCDs?9. Routine care-TDAP refused, will request SCN to senior vice president & general counsel the patient further-Plan for glucola 1 week after steroids?Disposition: Inpatient monitoring for periviable PPROM. Continue latencyantibiotics and monitor for signs or symptoms of infection or labor, with recentdevelopment of fever. Cat II tracing for mild variable decelerations, overallreassuring.SUBJECTIVE:N o current vaginal bleeding, Still leaking fluid, No contractions, Good fetalmovement, No shortness of breath or chest pain, No calf tenderness and endorsesgood FM. Denies abdominal pain, epigastric pain. Pt denies fevers or chills. Ptdenies any more episodes of NANDV or diarrhea. Pt reports no complaints this AM.OBJECTIVE:LAST VITALS:Pulse BP Resp O2 Sat Temp Pain 118 96/65 18 99 % 36.9 ?C (98.4 ?F) 0/10PHYSICAL EXAM:General: WD, WN, NADHeart: RR, S1, H4Ixflz: clear to auscultationAbdomen: soft, nontender, neg fundal TTPExtremities: no edemaFETAL MONITORING/ASSESSMENT:A: 150/mod/+accels/+isolated mild variable decels; B: 155/mod/+accels/+isoaltedmild variable decels; Colliers: no contractions; Cat II FHT x2, broken FHT withdifficulty tracing, overall reassuring and not tachycardiaLABSDiagnostic tests reviewed for today's visit: Most recent labsSIGNATURE: Anastasiia Muniz DO PATIENT NAME: Yuko StaleyATE: June 13, 2018 : 5:20 Raymon Alejandra DO 06/13/2018 10:00 AM AddendumIn to do SSE with Dr. Alejandra to assess for signs of intraamnionic infection.Cervix fully visualized with clear fluid present. No discharge or odor present.No pooling noted. No purulent discharge in posterior cul de sac. Cervix visually0.5 cm dilated.Stool sample collected for C diff PCR, OANDP, and stool culture. Pt currentlyafebrile.At this time, will cont to monitor with plan for delivery if patient worsensclinically.Anastasiia Flavio, PGY-2Obstetrics and GynecologyPager [phone]/14/20179:28 AMM Attending NoteI saw and evaluated the patient. I agree with the resident's findings and planof care as documented below. May consider amniocentesis to r/o intraamnioticinfection.Alex Alejandra DO, MPH, FAC06/13/2018 9:59 AMPrevious VersionFitz Oneill RN, RN 06/13/2018 10:01 AM Attested At testation signed by Alex Alejandra at 06/13/2018 10:19 AM[facility] AttendingI personally reviewed the heart rate tracing for both twins which wereappropriate for gestational age.Alex Alejandra DO, MPH, [facility]06/13/2018 10:19 AM OBSTETRI CSNST SUMMARYSERVICE DATE: June 13, 2018The patient is a 17 year old female, , who is at 23w5d with an DHARMESH of10/05/2018, by Last Menstrual Period dating method.NST OBJECTIVE FINDINGS PER NURSE:Start Time: 924 (06/13/18 0958 : Fitz (Rn) Nino RN)Complete Time: 954 (06/13/18957 : Fitz Oneill RN)Indications: Multiple Gestation (06/13/1858 : Fitz Oneill RN)Patient Reason For:NST Explanation: Verbalizes Understanding (06/13/1858 : Fitz Oneill RN) Acoustic Stimulator:Interventions: MONITORING/ASSESSMENT:Baseline : 145 bpm (06/13/1858 : Fitz Oneill RN) 135 bpm (06/13/1858 : Fitz Oneill RN)Variability: Moderate (6-25 bpm) (06/13/18957 : Fitz Oneill RN) Moderate (6-25 bpm) (06/13/1858 : Fitz Oneill RN)Accelerations: Present (06/13/18957 : Fitz Oneill RN) Present (06/13/18957 : Fitz Oneill RN)Decelerations: Decelerations: None (06/13/18957 : Fitz Oneill RN) Decelerations Fetus B: (!) Variable (06/13/18957 : Fitz Oneill RN)Contractions: Not present (06/13/1858 : Fitz Oneill RN)Frequency:Above information forwarded to Dr Alejandra (06/13/18957 : Fitz Oneill RN)for final review and interpretation.SIGNATURE: Fitz Oneill RN PATIENT NAME: Yuko Arellano: June 13, 2018 : 10:01 Jayne Muniz DO 06/13/2018 2:27 PM SignedIn to assess patient with complaint of tachycardia to 150's. Pt states she waslaying in bed at the time that she felt a heaviness in her chest and a racingheart. The patient denies chest pain. Pt states the episode lasted gsezfisvvinjn78-40 seconds. Pt denies experiencing anything like this previously. Pt deniesdyspnea at this time. Pt denies F/C/N/V. Pt has been afebrile. Repeat VSreviewed with maternal HR 139.Dr. Alejandra updated. At this time we will obtain EKG. Concern for IA infection vsdehydration in setting of gastroenteritis vs pulmonary embolism. Will alsoobtain CT to rule out PE. RN at attempting to get twins on monitor now.Cont to monitor.Fitz Oneill, RN, RN 06/13/2018 4:03 PM SignedMaternal heart rate in the 120-130's periodically. Monitors readjusted often dueto constant movement of both mom and babies.Difficult to distinguish maternal vsfetal heart rates at certain times, many areas of the tracing broken.Nehal Meza MD 06/13/2018 10:23 PM SignedBedside ultrasound performed for PM monitoring. Patient is feeling wellwithout abdominal pain or fundal tenderness to palpation. No tachycardianoted.Of note, the fetuses appear to be in cephalic/breech presentation, though werepreviously breech/cephalic.Nehal Meza MD06/13/2018 10:22 PMObstetrics and Gynecology [id number] #[id number] Muniz DO 06/14/2018 5:37 AM Attested At testation signed by Alex Alejandra at 06/14/2018 9:20 AMMFM Attending NoteI saw and evaluated the patient. I agree with the resident's findings and planof care as documented below. No acute events overnight. Remains afebrile.Reports nausea this AM. CT angio negative for PE. Stool studies and C. Diffnegative. Maternal and tachycardia have improved. Day 7/7 latencyantibiotics. Discussed indications for amnio with addition concern for IAinfection. All patient questions answered.Alex Alejandra DO, MPH, FACOG06/14/2018 9:17 AM OBSTETRI CSANTEPARTUM PROGRESS NOTESERVICE DATE: 06/14/2018SERVICE TIME: 5:27 AMASSESSMENT AND PLAN:17 year old EGA:23w6d admitted for periviable PPROM .1. Periviable PPROM-Since 06/01 at 22.0 weeks-BV/trichomonas negative on admission?-Patient did receive approximately 3 days of flagyl at outsidehospital-Chlamydia/gono rrhea negative-GBS neg?-WBCs 11.59 on admission now 18.07-Inpatient management with initiation of latency antibiotics at 23.0 weeks, onday 01/15 now?-IV Clindamycin x2 days->PO Clindamycin x5 days?-IV Gentamicin x2 days?-PO Azithromycin x1-Monitor for labor or infection?-If patient were to deliver <25.0 weeks, she elects for breechvaginal delivery after thorough counseling-Concern for chorioamnionitis versus gastroenteritis- Last febrile at 0120 on06/13 at 38.7. WBC increased from 11.59 -> 18.07 with left shift. Recent sickcontacts. Influenza negative. Stool culture pending; C diff toxin negative. FHTnot tachycardic.-Maternal tachycardia- resolved. s/p 500 cc IVF bolus; EKG sinus tach and CT PEneg for PE.?2. Abnormal urinalysis-S/p Ciprofloxacin treatment x2-3 days from outside hospital for having 3+ bloodon urinalysis-UA with small leukocyte esterase-Urine culture negative-Repeat UA with large hemoglobin, + protein and small LE.?3. Twin gestation -Di/di-Patient requesting genetic screening, consider cell free DNA?4. Previable-PMG consult ?-BMZ given 06/06 and 06/07-Plan for Magnesium if delivering <32 weeks-Growth ultrasound 06/06:?-A: 1 lb, 30%, oligohydramnios at 1.79cm, unable to r/o clubbed feetdue to position?-B: no weight listed but 51%, DVP 5.30cm?-Discordance 12%?-Femur lengths on both babies <2%?5. Unstable lie-Breech/cephalic however cephalic breech now?6. Monitoring-30 minutes BID?7. Diet-Regular?8. DVT ppx-SCDs?9. Routine care-TDAP refused, will request SCN to senior vice president & general counsel the patient further-Plan for glucola 1 week after steroids ??Disposition: Inpatient monitoring for periviable PPROM. Continue course oflatency antibiotics and monitor for signs or symptoms of infection or labor,with recent development of fever however afebrile over the evening. Cat IItracing for mild variable decelerations, overall reassuring.SUBJECTIVE:No current vaginal bleeding, Still leaking fluid, No contractions, Good fetalmovement, No shortness of breath or chest pain and No calf tenderness. Deniesepisodes of nausea and vomiting. Endorses watery diarrhea. Denies fevers/chills.Overnight complained of dyspnea which has now resolved.OBJECTIVE:LAST VITALS:Pulse BP Resp O2 Sat Temp Pain (!) 123 110/65 18 97 % 37.2 ?C (99 ?F) 0/10PHYSICAL EXAM:General: WD, WN, NAD, comfortableHeart: RR, S1, A5Ldonb: clear to auscultationAbdomen: soft, nontender, neg fundal TTPExtremities: tr edemaFETAL MONITORING/ASSESSMENT:A: 150/mod/+accels/+mild variable decels; B: 150/mod/+accels/+mild variabledecels; Colliers: not johann; Cat II FHT x2 overall reassuringLABSDiagnostic tests reviewed for today's visit: Most recent labsSIGNATURE: Anastasiia Muniz DO PATIENT NAME: Yuko StaleyATE: June 14, 2018 : 5:37 AMBRENDA Levy 06/14/2018 10:16 AM SignedCARE MANAGEMENT PROGRESS NOTESERVICE DATE: 06/14/2018SERVICE TIME: 10:00 AM LOS: 8 daysTeen mother who will be hospitalized until deliveryMet patient and her grandmother. They explain that patient, father of babies (Ronny Escudero, age 18) and their families are all from the [facility].([place] from [place]). Patient confirms that she and father of baby currentlyreside with his family, but after the twins are born they will move to hisuncles home as there is more room. She has started getting baby suppliestogether, and feels that she will have a 2 cribs and a bassinet before delivery.Patient/family undecided what to do about the baby shower as patient is to behospitalized until delivery. Patient confirms she is already on WIC. Discussedwaiting to get car seats until after twins are born, as may need special carseats, and discussed car seat challenge.Patient confirms plan to breastfeed.Discussed ways to keep occupied during prolonged hospitalization. Patientconfirms that because of family members working and the expense of gas to driveto [place], family are limited how often they can visit. Discussed having familybring things she likes to do, discussed [facility] RN visits and with patient consent,RN to place this consult.Discussed NICU at [facility] and the NICU at [facility], the ability tostay with babies if at NICU at [facility], Matthew Ramos,and the [facility] bonding program.No other needs identified at this point.Asked patient to let staff know if social work can be of further assistance.SIGNATURE: BRENDA Levy PATIENT NAME: Yuko StaleyATE: June 14, 2018 : 10:00 AM PAGER/CONTACT #: [phone] Davis, RN, RN 06/14/2018 10:31 AM Lester Muniz notified twice in the last half hour to come with ultrasound to findplacement of the twins. At this point patient refusing monitoring untilplacement is verified, due to continued nausea.Fitz Oneill RN, RN 06/14/2018 11:26 AM Attested At testation signed by Alex Alejandra at 06/15/2018 9:35 AMMFM AttendingI personally reviewed the heart rate tracing for both twins which wereappropriate for gestational age.Alex Alejandra DO, MPH, FACOG06/15/2018 9:35 AM OBSTETRI CSNST SUMMARYSERVICE DATE: June 14, 2018The patient is a 17 year old female, , who is at 23w6d with an DHARMESH of10/05/2018, by Last Menstrual Period dating method.NST OBJECTIVE FINDINGS PER NURSE:Start Time: 1044 (06/14/18 1045 : Fitz Oneill RN)Complete Time: 1112 (06/14/18 1045 : Fitz Oneill RN)Indications: Multiple Gestation (06/14/18 1045 : Fitz Oneill RN)Patient Reason For:NST Explanation: Verbalizes Understanding (06/14/18 1045 : Fitz Oneill RN) Acoustic Stimulator:Interventions: Other (See Comment);Reposition (multiple attempts atreadjusting efm's and ultrasound) (06/14/18 1045 : Fitz Oneill RN) MONITORING/ASSESSMENT:Baseline : 130 bpm (06/14/18 1045 : Fitz Oneill RN) 140 bpm (06/14/18 1045 : Fitz Oneill RN)Variability: Moderate (6-25 bpm) (06/14/18 1045 : Fitz Oneill RN) Moderate (6-25 bpm) (06/14/18 1045 : Fitz Oneill RN)Accelerations: Present (06/14/18 1045 : Fitz Oneill RN) Present (06/14/18 1045 : Fitz Oneill RN)Decelerations: Decelerations: (!) Variable (06/14/18 1045 : Fitz Oneill RN) Decelerations Fetus B: (!) Variable (06/14/181044 : Fitz Oneill RN)Contractions:Frequency:Abov e information forwarded to Dr Alejandra (06/14/18 1045 : Fitz Oneill RN)for final review and interpretation.SIGNATURE: Fitz Oneill RN PATIENT NAME: Yuko Arellano: June 14, 2018 : 11:25 AMNiconatalie Curiel RN, NICOLE 06/14/2018 11:45 PM Attested At testation signed by Alex Alejandra at 06/15/2018 9:36 AMMFM AttendingI personally reviewed the heart rate tracing for both twins which wereappropriate for gestational age.Alex Alejandra DO, MPH, FACOG06/15/2018 9:36 AM OBSTETRI CSNST SUMMARYSERVICE DATE: June 14, 2018The patient is a 17 year old female, , who is at 23w6d with an DHARMESH of10/05/2018, by Last Menstrual Period dating method.NST OBJECTIVE FINDINGS PER NURSE:Start Time: 2099 (06/14/182338 : Luisa Curiel RN)Complete Time: 2314 (06/14/182316 : Luisa Curiel RN)Indications: Premature Ruptured Membranes (06/14/182338 : Luisa Viramontes RN)Patient Reason For:NST Explanation: Monitor Explained;Procedure Explained (06/14/182338 : Pascale Curiel RN) Acoustic Stimulator:Interventions: MONITORING/ASSESSMENT:Baseline : 145 bpm (06/14/182235 : Luisa Curiel RN) 135 bpm (06/14/182235 : Luisa Curiel RN)Variability: Moderate (6-25 bpm) (06/14/182235 : Luisa Curiel RN) Moderate (6-25 bpm) (06/14/182235 : Luisa Curiel RN)Accelerations: Present (06/14/182235 : Luisa Curiel RN) Present (06/14/182235 : Luisa Curiel RN)Decelerations: Decelerations: (!) Variable (06/14/182235 : Luisa Viramontes RN) Decelerations Fetus B: None (06/14/182235 : Luisa Curiel RN)Contractions: Not present (06/14/182314 : Luisa Curiel RN)Frequency:Above information forwarded to summer (06/14/182316 : Luisa Curiel RN) for final review and interpretation.SIGNATURE: Luisa Curiel RN PATIENT NAME: Yuko Arellano: June 14, 2018 : 11:44 Arian Muniz DO 06/15/2018 5:52 AM Attested At testation signed by Alex Alejandra at 06/15/2018 9:38 AMMFM Attending AmandaI saw and evaluated the patient. I agree with the resident's findings and planof care as documented below. No acute events overnight. Patient remainsafebrile. Maternal and tachycardia have resolved. No current evidence ofIAI or PTL. Continue impatient management.Alex Alejandra DO, MPH, FACOG06/15/2018 9:36 AM OBSTETRI CSANTEPARTUM PROGRESS NOTESERVICE DATE: 06/15/2018SERVICE TIME: 5:40 AMASSESSMENT AND PLAN:17 year old EGA:24w0d admitted for periviable PPROM.1. Periviable PPROM-Since 06/01 at 22.0 weeks-BV/trichomonas negative on admission?-Patient did receive approximately 3 days of flagyl at outsidehospital-Chlamydia/gono rrhea negative-GBS neg 06/07-WBCs 11.59 on admission-Inpatient management with initiation of latency antibiotics at 23.0 weeks, s/pcourse of latency abxs?-IV Clindamycin x2 days->PO Clindamycin x5 days?-IV Gentamicin x2 days?-PO Azithromycin x1-Monitor for labor or infection?-If patient were to deliver <25.0 weeks, she elects for breechvaginal delivery after thorough counseling-Concern for chorioamnionitis versus gastroenteritis- Last febrile at 0120 on06/13 at 38.7. WBC increased from 11.59 -> 18.07 with left shift. Recent sickcontacts. Influenza negative. Stool culture pending; C diff toxin negative. FHTnot tachycardic. Pt denies episodes of diarrhea since 06/13.-Maternal tachycardia- resolved. s/p 500 cc IVF bolus; EKG sinus tach and CT PEneg for PE.?2. Abnormal urinalysis-S/p Ciprofloxacin treatment x2-3 days from outside hospital for having 3+ bloodon urinalysis-UA with small leukocyte esterase-Urine culture negative-Repeat UA with large hemoglobin, + protein and small LE.?3. Twin gestation -Di/di-Patient requesting genetic screening, consider cell free DNA?4. Periviable-PMG consult ?-BMZ given 06/06 and 06/07-Plan for Magnesium if delivering <32 weeks-Growth ultrasound 06/06:?-A: 1 lb, 30%, oligohydramnios at 1.79cm, unable to r/o clubbed feetdue to position?-B: no weight listed but 51%, DVP 5.30cm?-Discordance 12%?-Femur lengths on both babies <2%?5. Unstable lie-Breech/cephalic however cephalic breech on last US?6. Monitoring-30 minutes BID?7. Diet-Regular?8. DVT ppx-SCDs?9. Routine care-TDAP refused, will request SCN to senior vice president & general counsel the patient further-Plan for glucola 1 week after steroids ??Disposition: Inpatient monitoring for periviable PPROM now s/p latency abxs.Monitor for signs or symptoms of infection at which point we will move towardsdelivery.SUBJECTIVE:No current vaginal bleeding, No current leaking of fluid, No contractions, Goodfetal movement, No shortness of breath or chest pain, No calf tenderness andDenies dyspnea, denies myalgias. Pt denies chest pain. Pt has no complaints thisAM. Overnight complained of heartburn which has resolved.OBJECTIVE:LAST VITALS:Pulse BP Resp O2 Sat Temp Pain 98 (!) 81/43 16 97 % 36.8 ?C (98.2 ?F) 10PHYSICAL EXAM:General: WD, WN, NAD, comfortableHeart: RR, S1, H9Munzn: clear to auscultationAbdomen: soft, nontender, gravid, neg fundal TTPExtremities: tr edemaFETAL MONITORING/ASSESSMENT:A: 140/mod/+accels/+isolated mild variable decels; B: 145/mod/+accels/negdecels; A Cat II; B Cat I; Colliers: no contractionsLABSDiagnostic tests reviewed for today's visit: No new labsSIGNATURE: Anastasiia Muniz DO PATIENT NAME: Yuko Arellano: June 15, 2018 : 5:40 AMCsrinivasan Arrieta RN, RN 06/15/2018 12:19 PM SignedHALO NURSE PROGRESS NOTESERVICE DATE: 06/15/2018SERVICE TIME: 1145REFERRED BY: Mariluz Hamilton RNVISIT WITH: PatientREASON FOR VISIT: Coping issues, Length of stay and LonlinessCONDITION: PerinatalINTERVENTIONS: Education, Emotional support, Stress booklets, Therapeuticlistening and Word Search , coloring pages and coloring tools, stress ball,Poem, [employer] [place] [employer] , Prayer Patch TIME SPENT (minutes): 15Patient receptive to visit. She stated that she is having Twin boys . She spokeof her family who live in [place], and who come when they can . Stressmanagement reviewed . The patient was receptive to visitation by the MusicTherapist. Virginie Serrano, Music Therapist notified by this RN. The patientexpressed appreciation for the visit.SIGNATURE: Kita Arrieta RN PATIENT NAME: Yuko Arellano: June 15, 2018 : 12:09 PMAnastasiia Muniz DO 06/16/2018 5:14 AM Attested At testation signed by Alex Alejandra at 06/16/2018 10:12 AMMFM Attending NoteI saw and evaluated the patient. I agree with the resident's findings and planof care as documented below.Alex Alejandra DO, MPH, FACOG06/16/2018 10:12 AM OBSTETRI CSANTEPARTUM PROGRESS NOTESERVICE DATE: 06/16/2018SERVICE TIME: 5:09 AMASSESSMENT AND PLAN:17 year old EGA:24w1d admitted for Periviable PPROM.1. Periviable PPROM-Since 06/01 at 22.0 weeks-BV/trichomonas negative on admission?-Patient did receive approximately 3 days of flagyl at outsidehospital-Chlamydia/gono rrhea negative-GBS neg 06/07-WBCs 11.59 on admission-Inpatient management with initiation of latency antibiotics at 23.0 weeks, s/pcourse of latency abxs?-IV Clindamycin x2 days->PO Clindamycin x5 days?-IV Gentamicin x2 days?-PO Azithromycin x1-Monitor for labor or infection?-If patient were to deliver <25.0 weeks, she elects for breechvaginal delivery after thorough counseling-Concern for chorioamnionitis versus gastroenteritis- Last febrile at 0120 on06/13 at 38.7. ?WBC increased from 11.59 -> 18.07 with left shift. Recent sickcontacts. Influenza negative. Stool culture negative; C diff toxin negative.FHT not tachycardic. Pt denies episodes of diarrhea since 06/13.-Maternal tachycardia- resolved. s/p 500 cc IVF bolus; EKG sinus tach and CT PEneg for PE.?2. Abnormal urinalysis-S/p Ciprofloxacin treatment x2-3 days from outside hospital for having 3+ bloodon urinalysis-UA with small leukocyte esterase-Urine culture negative-Repeat UA with large hemoglobin, + protein and small LE.?3. Twin gestation -Di/di-Patient requesting genetic screening, consider cell free DNA?4. Periviable-PMG consult ?-BMZ given 06/06 and 06/07-Plan for Magnesium if delivering <32 weeks-Growth ultrasound 06/06:?-A: 1 lb, 30%, oligohydramnios at 1.79cm, unable to r/o clubbed feetdue to position?-B: no weight listed but 51%, DVP 5.30cm?-Discordance 12%?-Femur lengths on both babies <2%?5. Unstable lie-Breech/cephalic however cephalic breech on last US?6. Monitoring-30 minutes BID?7. Diet-Regular?8. DVT ppx-SCDs?9. Routine care-TDAP refused, will request SCN to senior vice president & general counsel the patient further-Plan for glucola at 25 weeks?Disposition: Inpatient monitoring for periviable PPROM now s/p latency abxs.Monitor for signs or symptoms of infection at which point we will move towardsdelivery.SUBJECTIVE:No current vaginal bleeding, No current leaking of fluid, No contractions, Goodfetal movement, No shortness of breath or chest pain and No calf tendernessOBJECTIVE:LAST VITALS:Pulse BP Resp O2 Sat Temp Pain 99 106/93 18 98 % 37 ?C (98.6 ?F) 0/10PHYSICAL EXAM:General: WD, WN, NAD, comfortableHeart: RR, S1, O6Rhrqv: clear to auscultationAbdomen: soft, nontender, neg fundal TTPExtremities: tr edemaFETAL MONITORING/ASSESSMENT:A: 135/mod/+accels/neg decels; B:130/mod/+accels/neg decels; Colliers: isolatedcontraction x1; Cat I FHT [id number] tests reviewed for today's visit: No new labsSIGNATURE: Anastasiia Muniz DO PATIENT NAME: Yuko StaleyATE: June 16, 2018 : 5:09 AMAlice Dann, RN, RN 06/16/2018 9:37 AM SignedPatient awakened for FHR monitoring, Denies vaginal bleeding, states pink thinfluid, states + FM x2 and denies painful contractions. Will monitorAlice NICOLE Quigley, RN 06/16/2018 10:[address] Abhishek reviewed tracing at this time.Jadyn Ridley RN, RN 06/16/2018 9:45 PM Attested At testation signed by Alex Alejandra at 06/17/2018 10:17 AMMFM AttendingI personally reviewed the heart rate tracings for both fetuses which areappropriate for gestational age.Alex Alejandra DO, MPH, FACOG06/17/2018 10:17 AM OBSTETRI CSN SUMMARYSERVICE DATE: June 16, 2018The patient is a 17 year old female, , who is at 24w1d with an DHARMESH of10/05/2018, by Last Menstrual Period dating method.NST OBJECTIVE FINDINGS PER NURSE:Start Time: 2100 (06/16/182136 : Jadyn Ridley RN)Complete Time: 2136 (06/16/182136 : Jadyn Ridley, NICOLE)Indications: Premature Ruptured Membranes (06/16/182136 : Jadyn Angulo, NICOLE)Patient Reason For: Monitor babies (06/16/182136 : Jadyn Ridley, RN)NST Explanation: Procedure Explained;Monitor Explained;VerbalizesUnderstand ing (06/16/182136 : Jadyn Ridley, NICOLE) Acoustic Stimulator:Interventions: Reposition (06/16/182136 : Jadyn Ridley RN) MONITORING/ASSESSMENT:Baseline : 140 bpm (06/16/182136 : Jadyn Ridley RN) 130 bpm (06/16/182136 : Jadyn Ridley RN)Variability: Moderate (6-25 bpm) (06/16/182136 : Jadyn Ridley RN) Moderate (6-25 bpm) (06/16/182136 : Jadyn Ridley RN)Accelerations: Present (06/16/182136 : Jadyn Ridley RN) Present (06/16/182136 : Jadyn Ridley RN)Decelerations: Decelerations: None (06/16/182136 : Jadyn Ridley RN) Decelerations Fetus B: None (06/16/182136 : Jadyn Ridley RN)Contractions: Not present (06/16/182136 : Jadyn Ridley RN)Frequency:Above information forwarded to Dr. Arroyo (06/16/182136 : Jadyn Angulo RN) for final review and interpretation.SIGNATURE: Jadyn Ridley RN PATIENT NAME: Yuko Arellano: June 16, 2018 : 9:43 PMAnastasiia Muniz DO 06/17/2018 5:46 AM Attested At testation signed by Alex Alejandra at 06/17/2018 10:18 AMMFM Attending NoteI saw and evaluated the patient. I agree with the resident's findings and planof care as documented below. No acute events overnight. S/p BMZ and latencyantibiotics. Diarrhea resolved. No recent fever. No current evidence of chorioor PTL. Continue inpatient management.Alex Alejandra DO, MPH, FACOG06/17/2018 10:18 AM OBSTETRI CSANTEPARTUM PROGRESS NOTESERVICE DATE: 06/17/2018SERVICE TIME: 5:43 AMASSESSMENT AND PLAN:17 year old EGA:24w2d admitted for Periviable PPROM.1. Periviable PPROM-Since 06/01 at 22.0 weeks-BV/trichomonas negative on admission?-Patient did receive approximately 3 days of flagyl at outsidehospital-Chlamydia/gono rrhea negative-GBS neg 06/07-WBCs 11.59 on admission-Inpatient management with initiation of latency antibiotics at 23.0 weeks, s/pcourse of latency abxs?-IV Clindamycin x2 days->PO Clindamycin x5 days?-IV Gentamicin x2 days?-PO Azithromycin x1-Monitor for labor or infection?-If patient were to deliver <25.0 weeks, she elects for breechvaginal delivery after thorough counseling-Concern for chorioamnionitis versus gastroenteritis- Resolved. Cont to monitorfor signs of infection.-Maternal tachycardia- resolved.?2. Abnormal urinalysis-S/p Ciprofloxacin treatment x2-3 days from outside hospital for having 3+ bloodon urinalysis-UA with small leukocyte esterase-Urine culture negative-Repeat UA with large hemoglobin, + protein and small LE.?3. Twin gestation -Di/di-Patient requesting genetic screening, consider cell free DNA?4. Periviable-PMG consult ?-BMZ given 06/06 and 06/07-Plan for Magnesium if delivering <32 weeks-Growth ultrasound 06/06:?-A: 1 lb, 30%, oligohydramnios at 1.79cm, unable to r/o clubbed feetdue to position?-B: no weight listed but 51%, DVP 5.30cm?-Discordance 12%?-Femur lengths on both babies <2%?5. Unstable lie-Breech/cephalic however cephalic breech on last US?6. Monitoring-30 minutes BID?7. Diet-Regular?8. DVT ppx-SCDs?9. Routine care-TDAP refused, will request SCN to senior vice president & general counsel the patient further-Plan for glucola at 25 weeks?Disposition: Inpatient monitoring for periviable PPROM now s/p latency abxs.Monitor for signs or symptoms of infection at which point we will move towardsdelivery.SUBJECTIVE:No current vaginal bleeding, No current leaking of fluid, Still leaking fluid,Good movement, No shortness of breath or chest pain, No calf tendernessand Denies F/C/N/V.OBJECTIVE:LAST VITALS:BP 114/66 Pulse 96 Temp 37 ?C (98.6 ?F) (Oral) Resp 17 Ht 147.3 cm(4' 10 ) Wt 54 kg (119 lb) LMP 12/29/2017 SpO2 100% BMI 24.87 kg/m?PHYSICAL EXAM:General: WD, WN, NAD, comfortableHeart: RR, S1, U2Doazo: clear to auscultationAbdomen: soft, nontender, gravidExtremities: tr edemaFETAL MONITORING/ASSESSMENT:A: 140/mod/+accels/neg decels B: 130/mod/+accels/neg decels; Colliers: nocontractions; Cat I FHT [id number] tests reviewed for today's visit: No new labsSIGNATURE: Anastasiia Muniz DO PATIENT NAME: Yuko Arellano: June 17, 2018 : 5:45 Ross Serrano [place]- 06/17/2018 1:55 PM SignedMUSIC THERAPY NOTESERVICE DATE: 06/17/2018SERVICE TIME: 1:10 PMReferred By: Other: See Comment ([facility] nurse)Reason for Referral: Coping SkillsSession Type: InitialTime Spent (minutes): 35GOALS:Goals: Build Rapport;Improve Coping;Provide Emotional SupportCoping Items Addressed: HospitalizationINTERVENTIONS:I nterventions: Making Choices;Music Listening;Therapeutic Use of Self/VerbalProcessingMaking Choices: SongsListening Type: LiveResponse Before AfterPain 0/10AnxietyMoodFacial Behavior 1 - Neutral 1 - NeutralBody Movement 0 - No Movement/Appropriate Movement 0 - No Movement/AppropriateMovementSl eep N/A - Awake N/A - AwakeVocal 1 - Neutral/No Vocal 0 - PositiveScale: 0 = No pain/anxiety 10 = Worst possible pain/anxietyRESPONSE:Music Choices: Made ChoicesNumber of Choices: 2Response During Interventions: Knew SongsMusic Used: Shubert of Broken Dreams; Time of Your LIfeStyle of Music: GreenFamily Present: YesFamily Member: SOFamily Verbal Response: PositivePatient's Verbal Response: PositiveOUTCOME:Goals: MetMet: Build Rapport;Improve Coping;Provide Emotional SupportFOLLOW UP:Will Continue to FollowPt presented sitting on bench with SO present with a neutral affect and calmmanner; agreeable to music therapy. Stated she was feeling very bored and stircrazy due to lengthy hospitalization. Stated that she enjoyed . Musictherapist provided live, preferred music at bedside using voice and guitar.During the music, pt listened and looked at her phone, stated that baby Justen started kicking when the music started. Spoke with the music therapist aboutpreparing for her babies' arrival, lots to do at home. Expressed frustrationabout being hospitalized. Coping skills addressed; music therapist encouragingself-care and activities to help pass the time, especially fine motor activitiesto maintain fine motor strength. Pt's SO stated he had brought an xbox to play.Music therapist provided pt with a list of other self-care ideas to consider. Ptappreciative for session and open to follow up. Will continue to follow.SIGNATURE: Virginie Serrano [place]- PATIENT NAME: Yuko StaleyATE: June 17, 2018 : 1:50 PM PAGER/CONTACT #:P: [phone]: Mimaia Fajardo, RN, RN 06/17/2018 8:53 PM SignedPt c/o scabbing at IV insertion site. It is red around it but flushes fine. Planto restart after pt eats dinner.Angeles Bueno, RN, RN 06/17/2018 11:05 PM SignedThis RN at BS, EFMx2 applied/adjusted. Pt reports +FMx2 denies CTX/cramping/VB.Pt reports occ. Leaking of clear fluid. Pt resting, review with PT plan of careovernight, questions asked and answered. FOB at BS, call light in reach.Aric Fajardo, RN, RN 06/17/2018 9:31 PM SignedIV dc'd in left forearm d/t redness and pain. Pt is refusing to have another IVstarted until tomorrow. This RN explained the importance of having the IV the ptstated if she has any cramping, bleeding or contractions she will let us knowright away so it can be restarted soon Dr Meza aware.Nancy King DO 06/18/2018 6:20 AM Attested At testation signed by Nehal Francisco at 06/19/2018 12:49 PMAttending NoteI evaluated the patient and personally participated in the lu components. Iagree with the resident's findings and plan as documented and have discussedthe case and management of the patient's care with the resident.Signature: Nehal Francisco MDDate: 06/19/2018Time: 12:49 PM KANAI DAIANA PROGRESS NOTESERVICE DATE: 06/18/2018SERVICE TIME: 6:17 AMASSESSMENT AND PLAN:17 year old EGA:24w3d admitted for Periviable PPROM.1. Periviable PPROM-Since 06/01 at 22.0 weeks-BV/trichomonas negative on admission?-Patient did receive approximately 3 days of flagyl at outsidehospital-Chlamydia/gono rrhea negative-GBS neg 06/07-WBCs 11.59 on admission-Inpatient management with initiation of latency antibiotics at 23.0 weeks, s/pcourse of latency abx?-IV Clindamycin x2 days->PO Clindamycin x5 days?-IV Gentamicin x2 days?-PO Azithromycin x1-Monitor for labor or infection?-If patient were to deliver <25.0 weeks, she elects for breechvaginal delivery after thorough counseling-Concern for chorioamnionitis versus gastroenteritis- Resolved. Cont to monitorfor signs of infection.-Maternal tachycardia- resolved?2. Abnormal urinalysis-S/p Ciprofloxacin treatment x2-3 days from outside hospital for having 3+ bloodon urinalysis-UA with small leukocyte esterase-Urine culture negative-Repeat UA with large hemoglobin, + protein and small LE.?3. Twin gestation -Di/di-Patient requesting genetic screening, consider cell free DNA?4. Periviable-PMG consult ?-BMZ given 06/06 and 06/07-Plan for Magnesium if delivering <32 weeks-Growth ultrasound 06/06:?-A: 1 lb, 30%, oligohydramnios at 1.79cm, unable to r/o clubbed feetdue to position?-B: no weight listed but 51%, DVP 5.30cm?-Discordance 12%?-Femur lengths on both babies <2%?5. Unstable lie-Breech/cephalic however cephalic breech on last US?6. Monitoring-30 minutes BID?7. Diet-Regular?8. DVT ppx-SCDs?9. Routine care-TDAP refused, will request SCN to senior vice president & general counsel the patient further-Plan for glucola at 25 weeks?Disposition: Patient doing well this AM. No s/sx of infection. Continueinpatient monitoring for periviable PPROM. S/p latency abxs.SUBJECTIVE:No current vaginal bleeding, No current leaking of fluid, Still leaking fluid,Good movement, No shortness of breath or chest pain, No calf tendernessand Denies F/C/N/V.OBJECTIVE:LAST VITALS:BP 111/59 Pulse 106 Temp 36.7 ?C (98.1 ?F) (Oral) Resp 16 Ht 147.3cm (4' 10 ) Wt 54 kg (119 lb) LMP 12/29/2017 SpO2 99% BMI 24.87kg/m?PHYSICAL EXAM:General: WD, WN, NAD, comfortableHeart: RR, S1, N6Ukowj: clear to auscultationAbdomen: soft, nontender, gravidExtremities: tr edemaFETAL MONITORING/ASSESSMENT:A: 145/mod/+accels/neg decels B: 135/mod/+accels/neg decels; Colliers: nocontractions; Cat I FHT [id number] tests reviewed for today's visit: No new labsSIGNATURE: Nancy King DO PATIENT NAME: Yuko StaleyATE: June 18, 2018 : 6:20 AMAngeles Bueno, RN, RN 06/18/2018 7:40 AM SignedPt with call light on. Reports moderate gush of light tinged fluid on bedclothes and sanjay pad. Pt denies CTX/Cramping at this time reports +FMx2. given update. Continue to monitor.Margie Bryson, RN, RN 06/18/2018 8:21 AM SignedEFM x2 and toco applied to obtain FHR tracing after pt states peripad filledwith blood tinged fluid. Denies cramping or contractions. Dr. Cooley aware.IV restarted in right wrist #18 and heplocked.Blair Campbell DO 06/18/2018 9:43 PM SignedCame to evaluate patient with ultrasound because RN having difficulty picking upfetal heart rates with dopplers. Cardiac activity was noted on both A (130s)and B (140s), however the heart rate is approximately 3 cm away from each other,and therefore could not place the doppler monitors to accurately trace both Aand B. Therefore, will try to place monitor in another 1-2 hours.Luisa Curiel, RN, RN 06/18/2018 9:55 PM Signedrn in room at 2110 to put efm and toco on pt for 30 minutes of monitoring, onlyable to pickling solution maker on one baby dr campbell in room with ultrasound. Found babies toclose to do appropriate monitoring will try again in a few hours. Heartbeatsfound on both babies at this time by ultrasoundLuisa Curiel, RN, RN 06/18/2018 11:56 PM Lester campbell scanning twins with ultrasound, babies still to close together toapply monitors, two heart beats scene with ultrasound by dr campbell. [facility], 06/19/2018 3:14 AM SignedLate Entry due to epic being down:Came to perform ultrasound on patient in 2416 at approximately 0000 because RNhad difficulty with trying to find both A and B on the monitor. Abdominalultrasound demonstrated cardiac activity in both A (130s) and B (140s). Both Aand B were actively moving during the exam. The hearts of both A and Bwere in such close proximity to each other, similar to the prior ultrasound,where it was not possible to monitor both fetuses using dopplers. The patientdesired to go to bed to get rest, and the decision was made to try and performFHR monitoring in the [facility], 06/19/2018 3:20 AM SignedLate Entry due to epic being down.Came to evaluate patient because she felt like she was having chest pressure.She said that this pressure pain is located on her sternum. She denies any cpor shortness of breath, but states that she feels like she has to make more ofan effort to take a deep breath. The patient states that she had similarsymptoms last Wednesday in which an EKG was performed and was wnl. Her vitals arewnl with an O2 saturation of 97%, pulse of 107. She said last time she hadsimilar symptoms that they resolved within 2-3 hours. Will re-assess at thattime. If patient continues to have symptoms, will likely order EKG and willdiscuss with Dr. Francisco.DOWNTIME NOTE 06/19/2018 3:22 AM SignedEpic Scheduled Downtime: 06/19/2018 1:00:00 AM to 06/19/2018 3:07:00 Morris Curiel, RN, RN 06/19/2018 3:18 AM SignedAt 0200 pt claimed chest felt heavy while taking deep breaths, dr villanueva aware and came to assess pt. Continue to monitor pt at this time. Nofurther new orders at this time.Nancy King DO 06/19/2018 4:51 AM Attested Addendum At testation signed by Nehal Francisco at 06/19/2018 12:50 PMAttending NoteI evaluated the patient and personally participated in the lu components. Iagree with the resident's findings and plan as documented and have discussedthe case and management of the patient's care with the resident.Signature: Nehal Francisco, MDDate: 06/19/2018Time: 12:50 PM OBSTETRI CSANTEPARTUM PROGRESS NOTESERVICE DATE: 06/19/2018SERVICE TIME: 4:51 AMASSESSMENT AND PLAN:17 year old EGA:24w4d admitted for Periviable PPROM.1. Periviable PPROM-Since 06/01 at 22.0 weeks-BV/trichomonas negative on admission?-Patient did receive approximately 3 days of flagyl at outsidehospital-Chlamydia/gono rrhea negative-GBS neg 06/07-WBCs 11.59 on admission-Inpatient management with initiation of latency antibiotics at 23.0 weeks, s/pcourse of latency abx?-IV Clindamycin x2 days->PO Clindamycin x5 days?-IV Gentamicin x2 days?-PO Azithromycin x1-Monitor for labor or infection?-If patient were to deliver <25.0 weeks, she elects for breechvaginal delivery after thorough counseling-Concern for chorioamnionitis versus gastroenteritis- Resolved. Cont to monitorfor signs of infection.-Maternal tachycardia- resolved?2. Abnormal urinalysis-S/p Ciprofloxacin treatment x2-3 days from outside hospital for having 3+ bloodon urinalysis-UA with small leukocyte esterase-Urine culture negative-Repeat UA with large hemoglobin, + protein and small LE.?3. Twin gestation -Di/di-Patient requesting genetic screening, consider cell free DNA?4. Periviable-PMG consult ?-BMZ given 06/06 and 06/07-Plan for Magnesium if delivering <32 weeks-Growth ultrasound 06/06:?-A: 1 lb, 30%, oligohydramnios at 1.79cm, unable to r/o clubbed feetdue to position?-B: no weight listed but 51%, DVP 5.30cm?-Discordance 12%?-Femur lengths on both babies <2%?5. Unstable lie-Breech/cephalic however cephalic breech on last US?6. Monitoring-30 minutes BID?7. Diet-Regular?8. DVT ppx-SCDs?9. Routine care-TDAP refused, will request SCN to senior vice president & general counsel the patient further-Plan for glucola at 25 weeks?Disposition: No s/sx of infection. Continue inpatient monitoring for periviablePPROM. S/p latency abxs.SUBJECTIVE:No current vaginal bleeding, No current leaking of fluid, Still leaking fluid,Good movement, No shortness of breath or chest pain, No calf tendernessand Denies F/C/N/V.Patient had earlier complained of her chest feeling heavy , however, now on AMrounding, she states that it just went away . She no longer complains ofshortness of breath and says that her abdomen is nontender.OBJECTIVE:LAST VITALS:BP 120/66 Pulse 103 Temp 36.8 ?C (98.2 ?F) Resp 18 Ht 147.3 cm (4'10 ) Wt 54 kg (119 lb) LMP 12/29/2017 SpO2 99% BMI 24.87 kg/m?PHYSICAL EXAM:General: WD, WN, NAD, comfortableHeart: RR, S1, A4Ojksu: clear to auscultationAbdomen: soft, nontender, gravidExtremities: tr edemaFETAL MONITORING/ASSESSMENT:A: 145/mod/+accels/isolated variable decels B: 150/mod/+accels/neg decels; Colliers:no contractions; Cat I FHT [id number] tests reviewed for today's visit: No new labsSIGNATURE: Nancy King DO PATIENT NAME: Yuko StaleyATE: June 19, 2018 : 4:50 AMPrevious Sue Bryson RN, RN 06/19/2018 10:40 AM Attested At testation signed by Trista Ag at 06/20/2018 5:49 PMFetal heart rate tracings reviewed by me. Reassuring heart rate tracingsx 2Sgilmar Arroyo MD EFM X 2 and toco applied to obtain 30 min of monitoring.Margie Bryson, RN, RN 06/19/2018 10:41 AM AddendumFHR tracing reviewed with Dr. Muniz. OK to D/C monitors.Previous Michael Kelly RD, REAGAN, RD 06/19/2018 2:27 PM SignedNUTRITION THERAPY SCREENING NOTESERVICE DATE: 06/19/2018SERVICE TIME: 2:25 PMNUTRITION CARE PLANPatient's weight is expected to increase with ?and nutritional intakeis adequate. ?Patient is not at risk for malnutrition at this time.Intervention:Continue on regular dietCafe menu provide to increase optionsCoordination of Care:NursingDischarge Nutrition Recommendations:Diet: Regular ---Chart reviewed for follow-up?Per HPI: 17 year old ? ?EGA:23w0d?admitted for periviable PPROM.Continues on inpatient monitoring for previable PPROM with latency antibioticsstarted 06/08/18. ?Goal for delivery at 34 weeks. ??Interval History: EGA:24w4d?admitted for periviable PPROM.Current Diet Order DIET REGULAR Order Specific Question: Child's Feeding Age/Diet Answer: YOUTH (7-18YRS)Nutritional Intake During Admission: >75% estimated energy needs over the past 7day(s)06/12/18: >75% estimated energy needs over the past 6 day(s), tolerating po.Family at bedside today and denies nutritional concerns?Nutritional Intake Prior to Admission:Unable to determine, patient with limited conversation due to sleeping. ?Told RDshe woke to eat breakfast and then went back to sleep. ?RD will follow with po,did not reports any prior concerns with po intake on admission. ?Denied weightloss prior to admission. ?Documented intake 100% of meal and RD observed 100% ofbreakfast consumed. ?Anthropometrics:Height: 147.3 cm (4' 10 )Admission Weight: 54 kg (119 lb)Current Weight: 54 kg (119 lb)Body mass index is 24.87 kg/m?. normalWeight is expected to increase with Last Wt108/04/17 : 54 kg (119 lb)MNT Billing Type: Re-assess/15 min 2 unitsSIGNATURE: Jaki Kelly, LATOYA, LD PATIENT NAME: Yuko StaleyATE: June 19, 2018 : 2:25 PM PAGER: [phone] Muniz DO 06/20/2018 5:15 AM Attested At testation signed by Trista Ag at 06/20/2018 5:48 PMPatient seen and examined by me and I agree with the residents assessment andplan.Trista Arroyo MD OBSTETRI CSANTEPART PROGRESS NOTESERVICE DATE: 06/20/2018SERVICE TIME: 5:11 AMASSESSMENT AND PLAN:17 year old EGA:24w5d admitted for Periviable PPROM.1. Periviable PPROM-Since 06/01 at 22.0 weeks-BV/trichomonas negative on admission?-Patient did receive approximately 3 days of flagyl at outsidehospital-Chlamydia/gono rrhea negative-GBS neg 06/07-WBCs 11.59 on admission-Inpatient management with initiation of latency antibiotics at 23.0 weeks, s/pcourse of latency abx?-IV Clindamycin x2 days->PO Clindamycin x5 days?-IV Gentamicin x2 days?-PO Azithromycin x1-Monitor for labor or infection?-If patient were to deliver <25.0 weeks, she elects for breechvaginal delivery after thorough counseling-Concern for chorioamnionitis versus gastroenteritis- Resolved. Cont to monitorfor signs of infection.-Maternal tachycardia- resolved?2. Abnormal urinalysis-S/p Ciprofloxacin treatment x2-3 days from outside hospital for having 3+ bloodon urinalysis-UA with small leukocyte esterase-Urine culture negative-Repeat UA with large hemoglobin, + protein and small LE.?3. Twin gestation -Di/di-Patient requesting genetic screening, consider cell free DNA?4. Periviable-PMG consult ?-BMZ given 06/06 and 06/07-Plan for Magnesium if delivering <32 weeks-Growth ultrasound 06/06:?-A: 1 lb, 30%, oligohydramnios at 1.79cm, unable to r/o clubbed feetdue to position?-B: no weight listed but 51%, DVP 5.30cm?-Discordance 12%?-Femur lengths on both babies <2%?5. Unstable lie-Breech/cephalic however cephalic breech on last US?6. Monitoring-30 minutes BID?7. Diet-Regular?8. DVT ppx-SCDs?9. Routine care-TDAP refused, will request SCN to senior vice president & general counsel the patient further-Plan for glucola at 25 weeks. Orders placed for 06/22/18.?Disposition: No s/sx of infection. Continue inpatient monitoring for periviablePPROM with planned delivery at 34 weeks. S/p latency abxs.SUBJECTIVE:No current vaginal bleeding, Still leaking fluid, No contractions, Good fetalmovement, No shortness of breath or chest pain and No calf tendernessOBJECTIVE:LAST VITALS:BP 92/58 Pulse 104 Temp 36.8 ?C (98.2 ?F) (Oral) Resp 16 Ht 147.3 cm(4' 10 ) Wt 54 kg (119 lb) LMP 12/29/2017 SpO2 96% BMI 24.87 kg/m?PHYSICAL EXAM:General: WD, WN, NAD, comfortableHeart: RR, S1, I5Xyowc: clear to auscultationAbdomen: soft, nontender, gravid, neg fundal TTPExtremities: tr edemaFETAL MONITORING/ASSESSMENT:A: 130/mod/+accels/neg decels; B:140/mod/+accels/neg decels: Colliers: nocontractions: cat I FHT [id number] tests reviewed for today's visit: No new labsSIGNATURE: Anastasiia Muniz DO PATIENT NAME: Yuko Arellano: June 20, 2018 : 5:14 MAUREENmigue Maggie [facility] 06/20/2018 9:39 AM SignedMUSIC THERAPY NOTESERVICE DATE: 06/20/2018SERVICE TIME: 9:39 AMMusic therapy services unavailable beginning 06/20/2018. Music therapy serviceswill be discontinued and will complete consult. Nursing notified.SIGNATURE: Virginie Serrano [facility] PATIENT NAME: Yuko Arellano: June 20, 2018 : 9:38 AM PAGER/CONTACT #:P: [phone]: Cady Penn, RN, RN 06/20/2018 9:52 AM SignedUnable to differentiate between Baby A and Baby B HR. Dr. Muniz notified andU/S requested to differentiate HR.Angeles Bueno, RN, RN 06/21/2018 12:22 AM SignedThis RN to BS.Pt resting on couch watching tablet with FOB. Pt reports +FMx2,denies VB/CTX/cramping at this time. Continues with small amt of leaking de (more content not included)... Normal [facility] Hemogram/Diffon 06-04-2018 Abs Immature Grans 0.13 thou/cmm High 0.00-0.05 [facility] Comment on above: Performed By: #### C BCD1 #### [facility] [address] [place] [address] Abs. Baso 0.03 thou/cmm Normal 0.01-0.08 [facility] Comment on above: Performed By: #### C BCD1 #### [facility] [address] [address] Abs. [place] 0.87 thou/cmm High 0.27-0.70 [facility] Comment on above: Performed By: #### C BCD1 #### [place] [address] Abs. Neut (ANC) 8.95 thou/cmm High 1.56-6.13 [facility] Comment on above: Performed By: #### C BCD1 #### [place] [address] Basophils/100 WBC (Bld) 0.3 % Normal [facility] Comment on above: Performed By: #### C BCD1 #### [place] [address] Eosinophils #/vol (Bld) 0.27 thou/cmm Normal 0.00-0.31 [facility] Comment on above: Performed By: #### C BCD1 #### [place] [address] Eosinophils/100 WBC (Bld) 2.3 % Normal [facility] Comment on above: Performed By: #### C BCD1 #### [place] [address] Erythrocyte distribution width Ratio (RBC) 13.6 % Normal 11.7-14.4 [facility] Comment on above: Performed By: #### C BCD1 #### [place] [address] Hematocrit Volume Fraction (Bld) 29.4 % Low 34.1-44.9 [facility] Comment on above: Performed By: #### C BCD1 #### [facility] [address] [place] [address] Hemoglobin mass conc (Bld) 9.8 g/dL Low 11.2-15.7 [facility] Comment on above: Performed By: #### C BCD1 #### [facility] [address] [place] [address] Immature Grans 1.10 % Normal [facility] Comment on above: Performed By: #### C BCD1 #### [facility] [address] [place] [address] Lymphocytes #/vol (Bld) 1.34 thou/cmm Normal 1.18-3.74 [facility] Comment on above: Performed By: #### C BCD1 #### [facility] [address] [place] [address] Lymphocytes/100 WBC (Bld) 11.6 % Normal [facility] Comment on above: Performed By: #### C BCD1 #### [facility] [address] [place] [address] MCH Entitic mass (RBC) 30.3 pg Normal 25.6-32.2 [facility] Comment on above: Performed By: #### C BCD1 #### [facility] [address] [place] [address] MCHC mass conc (RBC) 33.3 % Normal 31.6-34.8 [facility] Comment on above: Performed By: #### C BCD1 #### [facility] [address] [place] [address] MCV Entitic volume (RBC) 91.0 fL Normal 79.4-94.8 [facility] Comment on above: Performed By: #### C BCD1 #### [facility] [address] [place] [address] Monocytes/100 WBC (Bld) 7.5 % Normal [facility] Comment on above: Performed By: #### C BCD1 #### [facility] [address] [place] [address] Platelet mean volume Entitic volume (Bld) 11.4 fL Normal 9.4-12.3 [facility] Comment on above: Performed By: #### C BCD1 #### [facility] [address] [place] [address] Platelets #/vol (Bld) 201 thou/cmm Normal 182-369 [facility] Comment on above: Performed By: #### C BCD1 #### [facility] [address] [place] [address] RBC #/vol (Bld) 3.23 mil/cmm Low 3.93-5.22 [facility] Comment on above: Performed By: #### C BCD1 #### [facility] [address] [place] [address] RDW SD 45.3 fl Normal 36.4-46.3 [facility] Comment on above: Performed By: #### C BCD1 #### [place] [address] Seg Neutrophil 77.2 % Normal [facility] Comment on above: Performed By: #### C BCD1 #### [place] [address] WBC #/vol (Bld) 11.59 thou/cmm High 3.98-10.04 [facility] Comment on above: Performed By: #### C BCD1 #### [place] [address] NURSING PROGon 06-04-2018 Protein mass conc HNO ID: [id number] thor: Cherry (Rn) TG Toscanoervice: NursingAuthor Type: Registered NurseType: Nursing Progress NoteFiled: 06/04/2018 6:09 PMNote Text:Pt. Complains of IV site sore, site benign, patency confirmed, ice packgiven to patient to apply to site for comfort. Pt. With no othercomplaints or expressed needs at this time. Visitor at bedside, call lightwithin reach. Normal [facility] Protein mass conc HNO ID: [id number] Author: Krystal StewartFely Rosales RN Service: Nursing Author Type: Registered Nurse Type: Nursing Progress Note Filed: 06/04/2018 1:08 PM Note Text: Per Dr. Meza positive cardiac activity for both fetuses during [place] Normal [facility] PROGRESSon 06-04-2018 Protein mass conc HNO ID: [id number] thor: Nehal (Charisma) DerrickService: ObstetricsAuthor Type: ResidentType: Progress NotesFiled: 06/04/2018 2:50 PMNote Text:In to discuss patient's frustrations with her. She is very concerned atthe possibility of her being discharged tomorrow. She has been told fordays by the outside facility that her water is broken and she is in a highrisk situation, and now we are telling her that it may not be broken. Shedoesn't understand how we could be saying this if the Amnisure test waspositive at the outside hospital. She feels scared that we could bemissing something like the outside hospital has missed in the past. Ireassured her that while there is low concern for ruptured membranes atthis time, we are actively monitoring her at least overnight. If her wateris truly broken, we should see signs of it overnight and tomorrow when werepeat her speculum exam and ultrasound. We also want what is best for herand her and will continue to watch her closely.Nehal Meza MD06/04/2018 1:54 PMObstetrics and Gynecology [id number] #[id number] Normal [facility] Rapid Bact.Vaginosison 06-04 Rapid Bact.Vaginosis see below Normal [facility] Comment on above: Result Comment: Nega tive for the presence of bacterial vaginosis. Performed By: #### R APBV #### [place] [address] Rapid Trichomonas Agon 06-04 Rapid Trichomonas Ag see below Normal [facility] Comment on above: Result Comment: No T richomonas antigen present or the antigen level is below detection limit of the assay (2500 organisms/mL). Performed By: #### R APTR #### [place] [address] Type and Screenon 06-04-2018 ABO group Nom (Bld) A Normal [facility] Comment on above: Performed By: #### T &S #### [place] [address] Comment See Below Normal [facility] Comment on above: Result Comment: Scre en &/or Xmatch expires in 3 days at 12 midnight. Redraw patient at that time. Performed By: #### T &S #### [place] [address] RH Type Positive Normal [facility] Comment on above: Performed By: #### T &S #### [place] [address] Urinalysis Routineon 018 Bacteria LM.HPF #/area (Urine sed) NONE Normal None [facility] Comment on above: Performed By: #### U RIN2 #### [place] [address] Ep Cells Urine 10.3 /hpf High 0.0-5.0 [facility] Comment on above: Performed By: #### U RIN2 #### [place] [address] Hyaline Cast 1.2 /lpf High 0.0-1.0 [facility] Comment on above: Performed By: #### U RIN2 #### [place] [address] RBC,Urine 1.8 /hpf Normal 0.0-5.0 [facility] Comment on above: Performed By: #### U RIN2 #### [place] [address] WBC, Urine 5.0 /hpf Normal 0.0-5.0 [facility] Comment on above: Performed By: #### U RIN2 #### [place] [address] Appearance Nom (U) TURBID Normal [facility] Comment on above: Performed By: #### U RIN2 #### [place] [address] Bilirubin Urine Negative Normal Negative [facility] Comment on above: Performed By: #### U RIN2 #### [facility] [address] [place], [place] [address] Color Nom (U) YELLOW Normal [facility] Comment on above: Performed By: #### U RIN2 #### [facility] [address] [place], [place] [address] Glucose Ql (U) Negative Normal Negative [facility] Comment on above: Performed By: #### U RIN2 #### [facility] [address] [place] [address] Hemoglobin,Urine Negative Normal Negative [facility] Comment on above: Performed By: #### U RIN2 #### [facility] [address] [place] [address] Ketone Urine Negative Normal Negative [facility] Comment on above: Performed By: #### U RIN2 #### [facility] [address] [place] [address] Leukocytes Esterase SMALL Abnormal Negative [facility] Comment on above: Performed By: #### U RIN2 #### [facility] [address] [place] [address] Nitrites Urine Negative Normal Negative [facility] Comment on above: Performed By: #### U RIN2 #### [facility] [address] [place] [address] pH (U) 7.5 [pH] Normal 5.0-8.0 [facility] Comment on above: Performed By: #### U RIN2 #### [facility] [address] [place] [address] Protein mass conc (U) Negative Normal Negative [facility] Comment on above: Performed By: #### U RIN2 #### [facility] [address] [place] [address] Specific [place], Ur 1.016 Normal 1.005-1.03 0 [facility] Comment on above: Performed By: #### U RIN2 #### [facility] [address] [place] [address] Urobilinogen,Ur 0.2 EU/dL Normal 0.0-1.0 [facility] Comment on above: Performed By: #### U RIN2 #### [facility] [address] [place] [address] Vital Signs Date Time Vital Sign Value Performing Clinician Thiago hernández 07-26-2024 13:33-0500 Body mass index (BMI) [Ratio] 32.48 kg/m2 Parth Toyin DO Work Phone: [facility] 07-26-2024 13:33-0500 Body weight 70.49 kg Parth Toyin DO Work Phone: [facility] 07-26-2024 13:33-0500 Diastolic blood pressure 60 mm[Hg] Parth Toyin DO Work Phone: [facility] 07-26-2024 13:33-0500 Systolic blood pressure 100 mm[Hg] Parth Toyin DO Work Phone: [facility] 06-07-2024 23:30-0500 Diastolic blood pressure 62 mm[Hg] Kaylinn Dokken [facility] 06-07-2024 23:30-0500 Heart rate 74 /min Kaylinn Dokken [facility] 06-07-2024 23:30-0500 Mean blood pressure 76 mm[Hg] Kaylinn Dokken [facility] 06-07-2024 23:30-0500 Respiratory rate 17 /min Kaylinn Dokken [facility] 06-07-2024 23:30-0500 SaO2% (BldA) [Mass fraction] 96 % Kaylinn Dokken [facility] 06-07-2024 23:30-0500 Systolic blood pressure 103 mm[Hg] Kaylinn Dokken [facility] 06-07-2024 22:00-0500 Diastolic blood pressure 63 mm[Hg] Kaylinn Dokken [facility] 06-07-2024 22:00-0500 Heart rate 79 /min Kaylinn Dokken [facility] 06-07-2024 22:00-0500 Mean blood pressure 80 mm[Hg] Kaylinn Dokken [facility] 06-07-2024 22:00-0500 Respiratory rate 7 /min Kaylinn Dokken [facility] 06-07-2024 22:00-0500 Systolic blood pressure 113 mm[Hg] Kaylinn Dokken [facility] 06-07-2024 21:34-0500 Body temperature 98.24 [degF] Kaylinn Dokken [facility] 06-07-2024 21:34-0500 Diastolic blood pressure 76 mm[Hg] Kaylinn Dokken [facility] 06-07-2024 21:34-0500 Heart rate 85 /min Kaylinn Dokken [facility] 06-07-2024 21:34-0500 Respiratory rate 16 /min Kaylinn Dokken [facility] 06-07-2024 21:34-0500 SaO2% (BldA) [Mass fraction] 98 % Kaylinn Dokken [facility] 06-07-2024 21:34-0500 Systolic blood pressure 106 mm[Hg] Kaylinn Dokken [facility] 04-12-2024 11:26-0400 Blood Pressure Location Juan Felix [facility] 04-12-2024 11:26-0400 Diastolic blood pressure 80 mm[Hg] Juan Felix [facility] 04-12-2024 11:26-0400 Heart rate 97 /min Juan Felix [facility] 04-12-2024 11:26-0400 Respiratory rate 18 /min Juan Felix [facility] 04-12-2024 11:26-0400 SaO2% (BldA) [Mass fraction] 98 % Juan Felix [facility] 04-12-2024 11:26-0400 Systolic blood pressure 120 mm[Hg] Juan Felix [facility] 03-31-2024 23:25-0400 Body temperature 98.06 [degF] Vicente Anna [facility] 03-31-2024 23:25-0400 Diastolic blood pressure 74 mm[Hg] Vicente Anna [facility] 03-31-2024 23:25-0400 Heart rate 91 /min Vicente Anna [facility] 03-31-2024 23:25-0400 Respiratory rate 16 /min Vicente Anna [facility] 03-31-2024 23:25-0400 SaO2% (BldA) [Mass fraction] 99 % Vicente Anna [facility] 03-31-2024 23:25-0400 Systolic blood pressure 107 mm[Hg] Vicente Anna [facility] 01-26-2024 13:01-0400 Blood Pressure Location Juan Felix [facility] 01-26-2024 13:01-0400 Diastolic blood pressure 70 mm[Hg] Juan Felix [facility] 01-26-2024 13:01-0400 Heart rate 102 /min Juan Felix [facility] 01-26-2024 13:01-0400 Respiratory rate 16 /min Juan Felix [facility] 01-26-2024 13:01-0400 SaO2% (BldA) [Mass fraction] 97 % Juan Felix [facility] 01-26-2024 13:01-0400 Systolic blood pressure 110 mm[Hg] Juan Felix [facility] 12-31-2023 16:17-0400 Body temperature 98.78 [degF] Sidcompa Wong [facility] 12-31-2023 16:17-0400 Diastolic blood pressure 66 mm[Hg] Sid Wong [facility] 12-31-2023 16:17-0400 Heart rate 114 /min Sid Wong [facility] 12-31-2023 16:17-0400 Respiratory rate 18 /min Sid Marvin [facility] 12-31-2023 16:17-0400 SaO2% (BldA) [Mass fraction] 100 % Sid Wong [facility] 12-31-2023 16:17-0400 Systolic blood pressure 98 mm[Hg] Sid Marvin [facility] 12-17-2023 11:26-0400 Diastolic blood pressure 56 mm[Hg] Juan Felix [facility] 12-17-2023 11:26-0400 Heart rate 86 /min Juan Felix [facility] 12-17-2023 11:26-0400 SaO2% (BldA) [Mass fraction] 98 % Juan Felix [facility] 12-17-2023 11:26-0400 Systolic blood pressure 94 mm[Hg] Juan Felix [facility] 11-19-2023 15:48-0400 Body height 147.32 cm MD Minerva Nash Work Phone: [facility] 11-19-2023 15:48-0400 Body weight 77.11 kg MD Minerva Nash Work Phone: [facility] 11-19-2023 14:00-0400 SaO2% (BldA) [Mass fraction] 99 % MD Minerva Nash Work Phone: [facility] 11-05-2023 12:55-0400 Diastolic blood pressure 84 mm[Hg] Bharath Barakat [facility] 11-05-2023 12:55-0400 Heart rate 116 /min Bharath Barakat [facility] 11-05-2023 12:55-0400 SaO2% (BldA) [Mass fraction] 98 % Bharath Dawsonaleta [facility] 11-05-2023 12:55-0400 Systolic blood pressure 122 mm[Hg] Bharath Barakat [facility] 09-18-2023 20:32-0500 Body temperature 98.06 [degF] Kaylinn Dokken [facility] 09-18-2023 20:32-0500 Diastolic blood pressure 71 mm[Hg] Kaylinn Dokken [facility] 09-18-2023 20:32-0500 Heart rate 96 /min Kaylinn Dokken [facility] 09-18-2023 20:32-0500 Respiratory rate 18 /min Kaylinn Dokken [facility] 09-18-2023 20:32-0500 SaO2% (BldA) [Mass fraction] 98 % J Luis Warner [facility] 09-18-2023 20:32-0500 Systolic blood pressure 108 mm[Hg] J Luis Warner [facility] 08-04-2023 09:33-0500 Blood Pressure Location Bharath Barakat [facility] 08-04-2023 09:33-0500 Diastolic blood pressure 80 mm[Hg] Bharath Barakat [facility] 08-04-2023 09:33-0500 Heart rate 102 /min Bharath Barakat [facility] 08-04-2023 09:33-0500 SaO2% (BldA) [Mass fraction] 99 % Bharath Barakat [facility] 08-04-2023 09:33-0500 Systolic blood pressure 120 mm[Hg] Bharath Barakat [facility] 07-18-2023 19:31-0500 Diastolic blood pressure 76 mm[Hg] [facility] 07-18-2023 19:31-0500 Heart rate 106 /min [facility] 07-18-2023 19:31-0500 Respiratory rate 16 /min [facility] 07-18-2023 19:31-0500 SaO2% (BldA) [Mass fraction] 96 % [facility] 07-18-2023 19:31-0500 Systolic blood pressure 110 mm[Hg] [facility] 07-18-2023 17:47-0500 Body temperature 99.14 [degF] [facility] 07-18-2023 17:47-0500 Diastolic blood pressure 72 mm[Hg] [facility] 07-18-2023 17:47-0500 Heart rate 100 /min [facility] 07-18-2023 17:47-0500 Respiratory rate 16 /min [facility] 07-18-2023 17:47-0500 SaO2% (BldA) [Mass fraction] 96 % [facility] 07-18-2023 17:47-0500 Systolic blood pressure 109 mm[Hg] [facility] 07-05-2023 22:36-0500 Diastolic blood pressure 68 mm[Hg] Vicente Anna [facility] 07-05-2023 22:36-0500 Heart rate 108 /min Vicente Anna [facility] 07-05-2023 22:36-0500 Mean blood pressure 78 mm[Hg] Vicente Anna [facility] 07-05-2023 22:36-0500 Respiratory rate 18 /min Vicente Anna [facility] 07-05-2023 22:36-0500 SaO2% (BldA) [Mass fraction] 99 % Vicente Anna [facility] 07-05-2023 22:36-0500 Systolic blood pressure 98 mm[Hg] Vicente Anna [facility] 07-05-2023 21:25-0500 Body temperature 97.88 [degF] Vicente Anna [facility] 07-05-2023 21:25-0500 Diastolic blood pressure 74 mm[Hg] Vicente Anna [facility] 07-05-2023 21:25-0500 Heart rate 103 /min Vicente Anna [facility] 07-05-2023 21:25-0500 Respiratory rate 18 /min Vicente Anna [facility] 07-05-2023 21:25-0500 SaO2% (BldA) [Mass fraction] 99 % Vicente Anna [facility] 07-05-2023 21:25-0500 Systolic blood pressure 107 mm[Hg] Vicente Sheriffner [facility] 09-13-2022 16:45-0500 Diastolic blood pressure 65 mm[Hg] Sid Marvin [facility] 09-13-2022 16:45-0500 Heart rate 76 /min Sid Marvin [facility] 09-13-2022 16:45-0500 Mean blood pressure 76 mm[Hg] Sid Marvin [facility] 09-13-2022 16:45-0500 Respiratory rate 16 /min Sid Marvin [facility] 09-13-2022 16:45-0500 SaO2% (BldA) [Mass fraction] 96 % Sid Marvin [facility] 09-13-2022 16:45-0500 Systolic blood pressure 99 mm[Hg] Sid Marvin [facility] 09-13-2022 14:48-0500 Body temperature 98.6 [degF] Sid Marvin [facility] 09-13-2022 14:48-0500 Diastolic blood pressure 70 mm[Hg] Sid Marvin [facility] 09-13-2022 14:48-0500 Heart rate 82 /min Sid Marvin [facility] 09-13-2022 14:48-0500 Respiratory rate 16 /min Sid Marvin [facility] 09-13-2022 14:48-0500 SaO2% (BldA) [Mass fraction] 97 % Sid Marvin [facility] 09-13-2022 14:48-0500 Systolic blood pressure 105 mm[Hg] Sid Marvin [facility] 08-29-2022 11:36-0500 Diastolic blood pressure 70 mm[Hg] [facility] 08-29-2022 11:36-0500 Heart rate 99 /min [facility] 08-29-2022 11:36-0500 Mean blood pressure 83 mm[Hg] [facility] 08-29-2022 11:36-0500 Respiratory rate 15 /min [facility] 08-29-2022 11:36-0500 SaO2% (BldA) [Mass fraction] 99 % [facility] 08-29-2022 11:36-0500 Systolic blood pressure 108 mm[Hg] [facility] 08-29-2022 10:13-0500 Diastolic blood pressure 69 mm[Hg] [facility] 08-29-2022 10:13-0500 Heart rate 116 /min [facility] 08-29-2022 10:13-0500 Mean blood pressure 85 mm[Hg] [facility] 08-29-2022 10:13-0500 Respiratory rate 16 /min [facility] 08-29-2022 10:13-0500 SaO2% (BldA) [Mass fraction] 100 % [facility] 08-29-2022 10:13-0500 Systolic blood pressure 116 mm[Hg] [facility] 08-29-2022 09:30-0500 Diastolic blood pressure 47 mm[Hg] [facility] 08-29-2022 09:30-0500 Heart rate 103 /min [facility] 08-29-2022 09:30-0500 Mean blood pressure 61 mm[Hg] [facility] 08-29-2022 09:30-0500 Respiratory rate 18 /min [facility] 08-29-2022 09:30-0500 SaO2% (BldA) [Mass fraction] 100 % [facility] 08-29-2022 09:30-0500 Systolic blood pressure 89 mm[Hg] [facility] 08-29-2022 07:49-0500 Body temperature 98.06 [degF] [facility] 08-29-2022 07:49-0500 Heart rate 107 /min [facility] 02-14-2022 15:50-0400 Body temperature 98.06 [degF] [facility] 02-14-2022 15:50-0400 Diastolic blood pressure 74 mm[Hg] [facility] 02-14-2022 15:50-0400 Respiratory rate 18 /min [facility] 02-14-2022 15:50-0400 SaO2% (BldA) [Mass fraction] 96 % [facility] 02-14-2022 15:50-0400 Systolic blood pressure 117 mm[Hg] [facility] 11-13-2021 18:18-0400 Body height 149.86 cm PHYSICIAN [facility] 11-13-2021 18:18-0400 Body mass index (BMI) [Ratio] 23.7 kg/m2 PHYSICIAN [facility] 11-13-2021 18:18-0400 Body temperature 98.5 [degF] PHYSICIAN [facility] 11-13-2021 18:18-0400 Body weight 53.3 kg PHYSICIAN [facility] 11-13-2021 18:18-0400 Diastolic blood pressure 66 mm[Hg] PHYSICIAN [facility] 11-13-2021 18:18-0400 Heart rate 74 /min PHYSICIAN NO [facility] 11-13-2021 18:18-0400 Respiratory rate 20 /min PHYSICIAN NO [facility] 11-13-2021 18:18-0400 SaO2% (BldA) [Mass fraction] 97 % PHYSICIAN NO [facility] 11-13-2021 18:18-0400 Systolic blood pressure 109 mm[Hg] PHYSICIAN NO [facility] 10-16-2021 12:23-0400 Body height 149.86 cm PHYSICIAN NO [facility] 10-16-2021 12:23-0400 Body mass index (BMI) [Ratio] 23.3 kg/m2 PHYSICIAN NO [facility] 10-16-2021 12:23-0400 Body temperature 98.1 [degF] PHYSICIAN NO [facility] 10-16-2021 12:23-0400 Body weight 52.55 kg PHYSICIAN NO [facility] 10-16-2021 12:23-0400 Diastolic blood pressure 68 mm[Hg] PHYSICIAN NO [facility] 10-16-2021 12:23-0400 Heart rate 94 /min PHYSICIAN NO [facility] 10-16-2021 12:23-0400 Respiratory rate 20 /min PHYSICIAN NO [facility] 10-16-2021 12:23-0400 SaO2% (BldA) [Mass fraction] 94 % PHYSICIAN NO [facility] 10-16-2021 12:23-0400 Systolic blood pressure 109 mm[Hg] PHYSICIAN NO [facility] 06-27-2018 23:45-0500 Body temperature 37.0 ADE BAILON [facility] Comment on above: Result Comment: baby A Performed By: #### R APTR #### [place] [id number] Encounters Encounter Date Encounter Type Care Provider Facility Start: 07-26-2024 End: 07-26-2024 Xeneta flowsheet Parthchucho Deal DO Work Phone: [facility] Start: 07-26-2024 End: 07-26-2024 Bamboo flowsheet Parth Cabelloo DO Work Phone: [facility] Start: 07-26-2024 End: 07-26-2024 Office outpatient visit 15 minutes Parth Toyin DO Work Phone: [facility] Comment on above: 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; PCOS (polycystic ovarian syndrome); Other fatigue Start: 06-07-2024 End: 06-08-2024 Emergency department patient visit J Luis Warner [facility] Start: 04-17-2024 End: 04-17-2024 ambulatory [facility] Facility:[facility] Start: 04-17-2024 End: 04-17-2024 Patient encounter procedure Juan Felix [facility] Start: 04-12-2024 End: 04-12-2024 ambulatory [facility] Facility:[facility] Start: 04-12-2024 End: 04-12-2024 Patient encounter procedure Juan Felix [facility] Start: 03-31-2024 End: 04-01-2024 Emergency department patient visit Vicente Castillo [facility] Start: 02-02-2024 End: 02-02-2024 ambulatory [facility] Facility:[facility] Start: 02-02-2024 End: 02-02-2024 Patient encounter procedure Juan Felix [facility] Start: 01-26-2024 End: 01-26-2024 ambulatory Juan Felix Facility:[facility] Start: 01-26-2024 End: 01-26-2024 Patient encounter procedure Juan Felix [facility] Start: 01-12-2024 End: 01-12-2024 Departed Referred MD Minerva Nash Work Phone: [facility] Start: 01-12-2024 End: 01-12-2024 ambulatory PARTH TOYIN Not Available Start: 12-31-2023 End: 12-31-2023 Emergency department patient visit Sid Wong [facility] Start: 12-17-2023 End: 12-17-2023 ambulatory CATE LACEY Facility:[facility] Start: 12-17-2023 End: 12-17-2023 Patient encounter procedure Juan Felix [facility] Start: 12-15-2023 End: 12-15-2023 ambulatory PARTH TOYIN Not Available Start: 11-19-2023 Non-patient / Non-visit MD Carmela Rodriguez Work Phone: [facility] Work Phone: Start: 11-19-2023 End: 11-19-2023 Patient encounter procedure MD Minerva Nash Work Phone: [facility] Work Phone: Start: 11-19-2023 End: 11-19-2023 ambulatory MD Minerva Nash Work Phone: [facility] Work Phone: Start: 11-05-2023 End: 11-05-2023 ambulatory Bharath Barakat Facility:[facility] Start: 11-05-2023 End: 11-05-2023 Patient encounter procedure Bharath Barakat [facility] Start: 09-18-2023 End: 09-18-2023 Emergency department patient visit J Luis Warner [facility] Start: 09-10-2023 End: 09-10-2023 ambulatory Garcia HOGAN Facility:[facility] Start: 09-10-2023 End: 09-10-2023 Patient encounter procedure Bharath Barakat [facility] Start: 08-04-2023 End: 08-04-2023 ambulatory ACTE LACEY Facility:[facility] Start: 08-04-2023 End: 08-04-2023 Patient encounter procedure Bharath Barakat [facility] Start: 07-18-2023 End: 07-18-2023 Emergency department patient visit Ivania Coykarthikeyan [facility] Start: 07-07-2023 End: 07-07-2023 ambulatory CATE LACEY Facility:[facility] Start: 07-07-2023 End: 07-07-2023 Patient encounter procedure CATE LACEY [facility] Start: 07-05-2023 End: 07-05-2023 Emergency department patient visit Vicente MildredJennyfer Castillo [facility] Start: 06-10-2023 End: 06-10-2023 ambulatory CHANDA MARY Not Available Start: 06-09-2023 End: 06-09-2023 ambulatory CATE LACEY Facility:[facility] Start: 06-09-2023 End: 06-09-2023 Patient encounter procedure CATE LACEY [facility] Start: 11-23-2022 End: 11-23-[address] PARTH DEAL . Facility: Start: 09-24-2022 End: 09-25-[address] PARTH DEAL . Facility:[facility] Start: 09-24-2022 End: 09-25-[address] PARTH DEAL . Facility:[facility] Start: 09-13-2022 End: 09-13-2022 Emergency department patient visit Sid Wong [facility] Start: 08-29-2022 End: 08-29-2022 Emergency department patient [facility] Start: 02-14-2022 End: 02-14-2022 Emergency department patient visit [facility] Lauren [facility] Start: 11-13-2021 End: 11-13-2021 Emergency department patient visit PHYSICIAN NO [facility] Start: 10-16-2021 End: 10-16-2021 Emergency department patient visit PHYSICIAN NO [facility] Start: 08-08-2018 End: 08-08-2018 Patient encounter procedure SADIA Raymond [facility] Start: 07-11-2018 End: 07-11-2018 Patient encounter procedure CHAITANYA GARCIA [facility] Start: 07-11-2018 End: 07-11-2018 Patient encounter procedure SADIA L [facility] Start: 07-04-2018 Patient encounter procedure TRISTA ARROYO Facility:[facility] Start: 06-06-2018 Patient encounter procedure ADE BAILON Facility:[facility] Start: 06-04-2018 End: 06-30-2018 Evaluation and management of inpatient ADE MARGY ADAMARIS [facility] Procedures Date Procedure Procedure Detail Performing Clinician Start: 12-15-2023 Cytp cerv/vag auto t hin layer prep mnl screen Parth Deal DO Work Phone: Start: 10-16-2021 Urine culture PHYSICIAN NO FAMILY Start: 06-27-2018 Antibody screen JANUARY BAILON Comment on above: Performed By: #### R APBV #### [place] [id number] Start: 06-04-2018 Antibody screen JANUARY BAILON Comment on above: Performed By: #### T &S #### [place] [id number] Appendectomy Ivania Jay uma removal Ivania Coy jdari Plan of Treatment Date Care Activity Detail Author Start: 01-29-2025 End: 01-29-2025 Patient encounter procedure 01/29/2025 3:00 PM EDT Procedure Visit [facility] [address] [id number] Parth Deal, DO [address], [place] [address] [facility] Start: 07-26-2024 End: 07-26-2025 DHEA DHEA Lab Routine PCOS (polycystic ovarian syndrome) Expected: 07/26/2024 (Approximate), Expires: 07/26/2025 [facility] Comment on above: Expected: 07/26/2024 (Approximate), Expires: 07/26/2025 Start: 07-26-2024 End: 07-26-2024 Patient encounter procedure 07/26/2024 1:20 PM EST Procedure Visit [facility] [address] [place] [id number] Parth Deal, DO [address], [place] [address] LGSIL of cervix of undetermined significance [facility] Comment on above: 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 Start: 03-12-2024 Influenza vaccination Influenza Vacc ine (#1) [facility] Start: 10-16-2021 Bacteria identified in Urine by Culture Urine Culture [facility] Bacteria identified in Urine by Culture [facility] Work Phone: CBC W Auto Different ial panel - Blood CBC and differential Lab Routine PCOS (polycystic ovarian syndrome) Ordered: 07/26/2024 [facility] Comment on above: Ordered: 07/26/2024 Comprehensive metabo lic 2000 panel - Serum or Plasma Comprehensive metabolic panel Lab Routine Other fatigue Ordered: 07/26/2024 [facility] Comment on above: Ordered: 07/26/2024 Cytology Cervical or vaginal smear or scraping study Pap Smear Pathology and Cytology Routine LGSIL of cervix of undetermined significance Ordered: 07/26/2024 [facility] Work Phone: Comment on above: Ordered: 07/26/2024 DHEA-sulfate DHEA-sulfate Lab Routine PCOS (polycystic ovarian syndrome) Ordered: 07/26/2024 [facility] Comment on above: Ordered: 07/26/2024 Follicle stimulating hormone Follicle stimulating hormone Lab Routine PCOS (polycystic ovarian syndrome) Ordered: 07/26/2024 [facility] Comment on above: Ordered: 07/26/2024 hCG, quantitative, hCG, quantitative, Lab Routine PCOS (polycystic ovarian syndrome) Ordered: 07/26/2024 [facility] Comment on above: Ordered: 07/26/2024 Hemoglobin A1c/Hemoglobin.total in Blood Hemoglobin A1c Lab Routine Other fatigue Ordered: 07/26/2024 [facility] Comment on above: Ordered: 07/26/2024 Luteinizing hormone Luteinizing hormone Lab Routine PCOS (polycystic ovarian syndrome) Ordered: 07/26/2024 [facility] Comment on above: Ordered: 07/26/[address] [facility] Work Phone: Patient referral [facility] Work Phone: Thyrotropin [Units/volume] in Serum or Plasma TSH Lab Routine PCOS (polycystic ovarian syndrome) Ordered: 07/26/2024 [facility] Comment on above: Ordered: 07/26/2024 Thyroxine (T4) free [Mass/volume] in Serum or Plasma T4, free Lab Routine PCOS (polycystic ovarian syndrome) Ordered: 07/26/2024 [facility] Comment on above: Ordered: 07/26/2024 Payers Date Payer Category Payer Self-pay [id number] 2022 Medicaid [facility] [id number] 2022 Medicaid [id number] 1999 Unknown [id number] 2.16.840.1.884137.3.579.2. 479 1999 Unknown [id number] 2.16.840.1.913253.3.579.2. 479 1999 Unknown [id number] 2.16.840.1.136548.3.579.2. 479 1999 Unknown [id number] 2.16.840.1.787021.3.579.2. 278 1999 Unknown [id number] 2.16.840.1.748619.3.579.2. 593 1999 Unknown [id number] 2.16.840.1.029912.3.579.2. 593 1999 Unknown [id number] 2.16.840.1.804254.3.579.2. 593 1999 Unknown [id number] 2.16.840.1.238736.3.579.2. 1259 1999 Unknown [id number] 2.16.840.1.855350.3.579.2. 1259 1999 Unknown [id number] 2.16.840.1.437675.3.579.2. 1259 1999 Unknown [id number] 2.16.840.1.391542.3.579.2. 727 1999 Unknown [id number] 2.16.840.1.378647.3.579.2. 727 1999 Unknown [id number] 2.16.840.1.904121.3.579.2. 727 1999 Unknown [id number] 2.16.840.1.699171.3.579.2. 727 1999 Unknown [id number] 2.16.840.1.790002.3.579.2. 727 1999 Unknown [id number] 2.16.840.1.416881.3.579.2. 727 1999 Unknown [id number] 2.16.840.1.227647.3.579.2. 727 1999 Unknown [id number] 2.16.840.1.775360.3.579.2. 72 1999 Unknown [id number] 2.16.840.1.142710.3.579.2. 727 1999 Unknown [id number] 2.16.840.1.113183.3.579.2. 727 1999 Unknown [id number] 2.16.840.1.365612.3.579.2. 727 1999 Unknown [id number] 2.16.840.1.261317.3.579.2. 727 1999 Unknown [id number] 2.16.840.1.169169.3.579.2. 727 1999 Unknown [id number] 2.16.840.1.254530.3.579.2. 727 1999 Unknown [id number] 2.16.840.1.704395.3.579.2. 727 1999 Unknown [id number] 2.16.840.1.743672.3.579.2. 727 Private Health Insurance [id number] Unknown [id number] 2.16.840.1.482758.3.579.2. 531 Unknown [id number] 2.16.840.1.364543.3.579.2. 531 Social History Date Type Detail Facility Start: 10-16-2021 End: 11-13-2021 Tobacco smoking status NHIS Current some day smoker [facility] Start: 2000 Sex Assigned At Female F [facility] Tobacco [facility] Comment on above: states occassional c igarette per pt Start: 06-10-2023 Sex Assigned At Female F [facility] Tobacco smoking status No Smokin g Status Entered [facility] Start: 12-21-2022 End: 11-05-2023 Tobacco smoking status Never smoked tobacco (finding) [facility] Start: 12-17-2023 End: 06-07-2024 Tobacco smoking status Ex-smoker (finding) [facility] Comment on above: states occassional c igarette per pt Start: 12-21-2022 Tobacco use and exposure Smoke less tobacco non-user [facility] Start: 01-12-2024 Alcoholic beverage intake Lifetime non-drinker (finding) [facility] Start: 06-10-2023 History of Social function [facility] Start: 1999 Sex assigned at Not on file [facility] Functional Status Date Assessment Result Facility 06-07-2024 Functional Status N/A [facility] 04-12-2024 Functional Status N/A [facility] 03-31-2024 Functional Status N/A [facility] 01-26-2024 Functional Status No [facility] 12-31-2023 Functional Status N/A [facility] 12-17-2023 Functional Status No [facility] 11-05-2023 Functional Status N/A [facility] 09-18-2023 Functional Status N/A [facility] 08-04-2023 Functional Status No [facility] 07-18-2023 Functional Status N/A [facility] 07-05-2023 Functional Status N/A [facility] 09-13-2022 Functional Status N/A [facility] 08-29-2022 Functional Status N/A [facility] 02-14-2022 Functional Status N/A [facility] Clinical Notes 02-14-2022 to 07-26-2024 Trish Johnson, SOCIAL SERVICES COUNSELOR - 07/26/2024 1:20 PM EST Note Date & Type Note Facility 07-26-2024 History of Present illness Narrative Reason for Appointment: Patient ID: Yuko Brunson is a 23 y.o. female who presents for Abnormal Pap Smear Patient presents today for Repeat Pap. MEDICATIONS Current Outpatient Medications Medication Instructions FLUoxetine (PROzac) 10 MG capsule 1 capsule, Every 24 hours hydrOXYzine HCl (ATARAX) 25 mg, Once LaMICtal 100 mg, Every 24 hours metoprolol succinate XL (TOPROL-XL) 25 mg, Daily norelgestromin-ethinyl estradiol (Xulane) 150-35 MCG/24HR 1 patch, Transdermal, Weekly, Apply 1 patch weekly sertraline (ZOLOFT) 25 mg, Every 24 hours sodium chloride 1 g, Daily ALLERGIES Allergies Allergen Reactions Ceftriaxone Other Reaction(s): cough/flushing, Throat tightness reaction occurred today with receiving IV atb's. Cephalexin Other and Unknown Other Reaction(s): shaking Steri-Strip Compound Benzoin [Benzoin] Hives and Itching Highly bad rash and itching Iodine Unknown Shellfish Allergy Itching Shellfish-Derived Products Other Reaction(s): Unknown PROBLEMS Active Ambulatory Problems Diagnosis Date Noted Current smoker 01/20/2023 History of 12/08/2022 History of genetic disorder 12/08/2022 Migraine (CMS/HCC) 01/20/2023 Resolved Ambulatory Problems Diagnosis Date Noted History of delivery, currently 12/08/2022 Past Medical History: Diagnosis Date BV (bacterial vaginosis) Chlamydia demise > 22 weeks, delivered, current hospitalization 2018 Migraines (CMS/HCC) POTS (postural orthostatic tachycardia syndrome) HISTORY PAST MEDICAL HISTORY SOCIAL HISTORY Past Medical History: Diagnosis Date BV (bacterial vaginosis) Chlamydia demise > 22 weeks, delivered, current hospitalization 2018 demise @ 26 weeks twins Migraines (CMS/HCC) POTS (postural orthostatic tachycardia syndrome) Social History Tobacco Use Smoking status: Never Smokeless tobacco: Never Substance Use Topics Alcohol use: Never Drug use: Never FAMILY HISTORY No family history on file. SURGICAL HISTORY Past Surgical History: Procedure Laterality Date SECTION, CLASSIC SECTION, CLASSIC 04/02/2023 TUBAL LIGATION Bilateral 04/02/2023 REVIEW OF SYSTEMS Review of Systems: Review of Systems Constitutional: Negative. HENT: Negative. Eyes: Negative. Respiratory: Negative. Cardiovascular: Negative. Gastrointestinal: Negative. Genitourinary: Negative. Musculoskeletal: Negative. Skin: Negative. Neurological: Negative. All other systems reviewed and are negative. Hematological: Negative. Endocrine: Negative. Allergic/Immunologic: Negative. OBJECTIVE Objective: Physical Exam Constitutional: Appearance: Normal appearance. She is well-developed. Genitourinary: Vulva normal. Cardiovascular: Rate and Rhythm: Normal rate and regular rhythm. Pulmonary: Effort: Pulmonary effort is normal. Breath sounds: Normal breath sounds. Abdominal: General: Bowel sounds are normal. There is no distension. Palpations: Abdomen is soft. Tenderness: There is no abdominal tenderness. There is no guarding or rebound. Musculoskeletal: General: No swelling. Normal range of motion. Right lower leg: No edema. Left lower leg: No edema. Neurological: Mental Status: She is alert and oriented to person, place, and time. Skin: General: Skin is warm and dry. Psychiatric: Mood and Affect: Mood normal. Behavior: Behavior normal. Vitals and nursing note reviewed. Exam conducted with a outboard technician present. Vitals: Estimated body mass index is 32.48 kg/m as calculated from the following: Height as of 01/12/24: 4' 10 . Weight as of this encounter: 155 lb 6.4 oz. BP: 100/60 No LMP recorded (within weeks). ASSESSMENT & PLAN ICD-10-CM 1. LGSIL of cervix of undetermined significance R87.612 Pap Smear Repeat Pap: Patient presents today for a repeat pap. Previous pap results were reviewed and noted to be LGSIL. Question regarding previous results were discussed. Repeat Pap was obtained without difficulty. Pt has complaints of fatigue-labs ordered and given to pt. Follow Up: Patient is to return to the office in 6 months for an annual exam. Documented by Trish Johnson LPN on behalf of: Parth Deal DO documented in this encounter [facility] 06-08-2024 Hospital Discharge instructions Patient Education 06/08/2024 00:02:04 Migraine Headache, [id number] Migraine Headache A migraine headache is a very strong throbbing pain on one or both sides of your head. This type of headache can also cause other symptoms. It can last from 4 hours to 3 days. Talk with your doctor about what things may bring on (trigger) this condition. What are the causes? The exact cause of a migraine is not known. This condition may be brought on or caused by: Smoking. Medicines, such as: ?Medicine used to treat chest pain (nitroglycerin). ? control pills. ?Estrogen. ?Some blood pressure medicines. Certain substances in some foods or drinks. Foods and drinks, such as: ?Cheese. ?Chocolate. ?Alcohol. ?Caffeine. Doing physical activity that is very hard. Other things that may trigger a migraine headache include: Periods. . Hunger. Stress. Getting too much or too little sleep. Weather changes. Feeling tired (fatigue). What increases the risk? Being [age] years old. Being female. Having a family history of migraine headaches. Being . Having a mental health condition, such as being sad (depressed) or feeling worried or nervous (anxious). Being very overweight (obese). What are the signs or symptoms? A throbbing pain. This pain may: ?Happen in any area of the head, such as on one or both sides. ?Make it hard to do daily activities. ?Get worse with physical activity. ?Get worse around bright lights, loud noises, or smells. Other symptoms may include: ?Feeling like you may vomit (nauseous). ?Vomiting. ?Dizziness. Before a migraine headache starts, you may get warning signs (an aura). An aura may include: ?Seeing flashing lights or having blind spots. ?Seeing bright spots, halos, or zigzag lines. ?Having tunnel vision or blurred vision. ?Having numbness or a tingling feeling. ?Having trouble talking. ?Having weak muscles. After a migraine ends, you may have symptoms. These may include: ?Tiredness. ?Trouble thinking (concentrating). How is this treated? Taking medicines that: ?Relieve pain. ?Relieve the feeling like you may vomit. ?Prevent migraine headaches. Treatment may also include: ?Acupuncture. ?Lifestyle changes like avoiding foods that bring on migraine headaches. ?Learning ways to control your body functions (biofeedback). ?Therapy to help you know and deal with negative thoughts (cognitive behavioral therapy). Follow these instructions at home: Medicines Take egzq-oks-nnxkhfs and prescription medicines only as told by your doctor. If told, take steps to prevent problems with pooping (constipation). You may need to: ?Drink enough fluid to keep your pee (urine) pale yellow. ?Take medicines. You will be told what medicines to take. ?Eat foods that are high in fiber. These include beans, whole grains, and fresh fruits and vegetables. ?Limit foods that are high in fat and sugar. These include fried or sweet foods. Ask your doctor if you should avoid driving or using machines while you are taking your medicine. Lifestyle Do not drink alcohol. Do not smoke or use any products that contain nicotine or tobacco. If you need help quitting, ask your doctor. Get 7 9 hours of sleep each night, or the amount recommended by your doctor. Find ways to deal with stress, such as meditation, deep breathing, or yoga. Try to exercise often. This can help lessen how bad and how often your migraines happen. General instructions Keep a journal to find out what may bring on your migraine headaches. This can help you avoid those things. For example, write down: ?What you eat and drink. ?How much sleep you get. ?Any change to your medicines or diet. If you have a migraine headache: ?Avoid things that make your symptoms worse, such as bright lights. ?Lie down in a dark, quiet room. ?Do not drive or use machinery. ?Ask your doctor what activities are safe for you. Where to find more information Coalition for Headache and Migraine Patients (CHAMP): headachemigraine.org [place] Migraine Foundation: americanmigrainefoundation.org National Headache Foundation: headaches.org Contact a doctor if: You get a migraine headache that is different or worse than others you have had. You have more than 15 days of headaches in one month. Get help right away if: Your migraine headache gets very bad. Your migraine headache lasts more than 72 hours. You have a fever or stiff neck. You have trouble seeing. Your muscles feel weak or like you cannot control them. You lose your balance a lot. You have trouble walking. You faint. You have a seizure. This information is not intended to replace advice given to you by your health care provider. Make sure you discuss any questions you have with your health care provider. Document Revised: 02/22/2023 Document Reviewed: 02/22/2023 [employer] Patient Education 2023 BYOM!. Follow Up Care 06/07/2024 21:27:30 With:CATE LACEY Address: [place] [address] Business (1) When:06/10/2024 Comments:Please follow-up with your primary care doctor for further evaluation and management. You can use the nausea medication every 6 hours as needed for nausea. Please return to the ED for any new or worsening symptoms. You can use ibuprofen, Tylenol every 6 hours as needed for headache. [facility] 06-08-2024 Note ED Patient Education Note Neurology Migraine Headache A migraine headache is a very strong throbbing pain on one or both sides of your head. This type of headache can also cause other symptoms. It can last from 4 hours to 3 days. Talk with your doctor about what things may bring on (trigger) this condition. What are the causes? The exact cause of a migraine is not known. This condition may be brought on or caused by: ??? Smoking. ??? Medicines, such as: ? Medicine used to treat chest pain (nitroglycerin). ? control pills. ? Estrogen. ? Some blood pressure medicines. ??? Certain substances in some foods or drinks. ??? Foods and drinks, such as: ? Cheese. ? Chocolate. ? Alcohol. ? Caffeine. ??? Doing physical activity that is very hard. Other things that may trigger a migraine headache include: ??? Periods. ??? . ??? Hunger. ??? Stress. ??? Getting too much or too little sleep. ??? Weather changes. ??? Feeling tired (fatigue). What increases the risk? Being 25?55 years old. ??? Being female. ??? Having a family history of migraine headaches. ??? Being . ??? Having a mental health condition, such as being sad (depressed) or feeling worried or nervous (anxious). ??? Being very overweight (obese). What are the signs or symptoms? A throbbing pain. This pain may: ? Happen in any area of the head, such as on one or both sides. ? Make it hard to do daily activities. ? Get worse with physical activity. ? Get worse around bright lights, loud noises, or smells. ??? Other symptoms may include: ? Feeling like you may vomit (nauseous). ? Vomiting. ? Dizziness. ??? Before a migraine headache starts, you may get warning signs (an aura). An aura may include: ? Seeing flashing lights or having blind spots. ? Seeing bright spots, halos, or zigzag lines. ? Having tunnel vision or blurred vision. ? Having numbness or a tingling feeling. ? Having trouble talking. ? Having weak muscles. ??? After a migraine ends, you may have symptoms. These may include: ? Tiredness. ? Trouble thinking (concentrating). How is this treated? Taking medicines that: ? Relieve pain. ? Relieve the feeling like you may vomit. ? Prevent migraine headaches. ??? Treatment may also include: ? Acupuncture. ? Lifestyle changes like avoiding foods that bring on migraine headaches. ? Learning ways to control your body functions (biofeedback). ? Therapy to help you know and deal with negative thoughts (cognitive behavioral therapy). Follow these instructions at home: Medicines ??? Take aolx-vzp-yylonxa and prescription medicines only as told by your doctor. ??? If told, take steps to prevent problems with pooping (constipation). You may need to: ? Drink enough fluid to keep your pee (urine) pale yellow. ? Take medicines. You will be told what medicines to take. ? Eat foods that are high in fiber. These include beans, whole grains, and fresh fruits and vegetables. ? Limit foods that are high in fat and sugar. These include fried or sweet foods. Ask your doctor if you should avoid driving or using machines while you are taking your medicine. Lifestyle ??? Do not drink alcohol. ??? Do not smoke or use any products that contain nicotine or tobacco. If you need help quitting, ask your doctor. ??? Get 7?9 hours of sleep each night, or the amount recommended by your doctor. ??? Find ways to deal with stress, such as meditation, deep breathing, or yoga. ??? Try to exercise often. This can help lessen how bad and how often your migraines happen. General instructions ??? Keep a journal to find out what may bring on your migraine headaches. This can help you avoid those things. For example, write down: ? What you eat and drink. ? How much sleep you get. ? Any change to your medicines or diet. ??? If you have a migraine headache: ? Avoid things that make your symptoms worse, such as bright lights. ? Lie down in a dark, quiet room. ? Do not drive or use machinery. ? Ask your doctor what activities are safe for you. Where to find more information ??? Coalition for Headache and Migraine Patients (CHAMP): headachemigraine.org ??? [place] [employer]: americanmigrainefoundation.org ??? National Headache Foundation: headaches.org Contact a doctor if: ??? You get a migraine headache that is different or worse than others you have had. ??? You have more than 15 days of headaches in one month. Get help right away if: ??? Your migraine headache gets very bad. ??? Your migraine headache lasts more than 72 hours. ??? You have a fever or stiff neck. ??? You have trouble seeing. ??? Your muscles feel weak or like you cannot control them. ??? You lose your balance a lot. ??? You have trouble walking. ??? You faint. ??? You have a seizure. This information is not intended to replace advice given to yo (more content not included)... [facility] 06-07-2024 Evaluation + Plan note Extrac caroline from: Title:ED Note Author:J Luis Warner DO Date :06/07/24 Acute migraine (G43.909: Christ blaine, unspecified, not intractable, without status migrainosus) Orders: diphenhydrAMINE, 25 mg = 0.5 mL, Injection, IV Push, Once, Stop date 06/07/24 22:04:00 EST, STAT, Start date 06/07/24 22:04:00 EST, 06/07/24 22:04:00 EST ketorolac, 30 mg = 1 mL, Injection, IV Push, Once, Stop date 06/07/24 22:04:00 EST, STAT, Start date 06/07/24 22:04:00 EST, 06/07/24 22:04:00 EST metoclopramide, 10 mg = 2 mL, Injection, IV Push, Once, Stop date 06/07/24 22:04:00 EST, STAT, Start date 06/07/24 22:04:00 EST, 06/07/24 22:04:00 EST ondansetron, 4 mg = 1 tab(s), Oral, q6hr, # 12 tab(s), Refills(s) 0, Pharmacy: [facility] 1986, 147.3, cm, 06/07/24 21:37:00 EST, Height/Length Dosing, 70.6, kg, 06/07/24 21:37:00 EST, Weight Dosing Future Appointments Appointment Date:10/11/2024 11:30:00 AM Scheduled Provider:Juan Felix PA-C Location:.Cardiology Clinic Appointment Type:Cardiology Follow Up (FT) [facility] 09-21-2024 Hospital Discharge instructions Patient Education 04/01/2024 00:14:19 Ankle Sprain Ankle Sprain An ankle sprain is a stretch or tear in a ligament in the ankle. Ligaments are tissues that connectbones to each other. The two most common types of ankle sprains are: Inversion sprain. This happens when the foot turns inward and the ankle rolls outward. It affects the ligament on the outside of the foot (lateral ligament). Eversion sprain. This happens when the foot turns outward and the ankle rolls inward. It affects the ligament on the inner side of the foot (medial ligament). What are the causes? An ankle sprain is often caused by rolling or twisting the ankle by accident. What increases the risk? You are more likely to get an ankle sprain if you play sports. What are the signs or symptoms? Symptoms of an ankle sprain include: Pain in your ankle. Swelling. Bruising. Bruises may form right after you sprain your ankle or 1 2 days later. Trouble standing or walking. This includes trouble turning or changing directions. How is this diagnosed? An ankle sprain is diagnosed with a physical exam. Your health care provider will press on parts ofyour foot and ankle and try to move them in certain ways. You may also have X-rays taken. These may be done to see how severe the sprain is and to check for broken bones. How is this treated? An ankle sprain may be treated with: A brace or splint. This is used to keep the ankle from moving until it heals. An elastic bandage (dressing). This is used to support the ankle. Crutches. Pain medicine. Surgery. This may be needed if the sprain is severe. Physical therapy. This may help to improve the range of motion in the ankle. Follow these instructions at home: If you have a removable brace or a splint: Wear the brace or splint as told by your provider. Remove it only as told by your provider. Check the skin around the brace or splint every day. Tell your provider about any concerns. Loosen the brace or splint if your toes tingle, become numb, or turn cold and blue. Keep the brace or splint clean. If the brace or splint is not waterproof: ?Do not let it get wet. ?Cover it with a watertight covering when you take a bath or a shower. If you have an elastic dressing: Take the dressing off to shower or bathe. If the dressing feels too tight, adjust it to make it more comfortable. Loosen the dressing if your foot tingles, becomes numb, or turns cold and blue. Managing pain, stiffness, and swelling If told, put ice on the affected area. ?If you have a removable brace or splint, remove it as told by your provider. ?Put ice in a plastic bag. ?Place a towel between your skin and the bag. ?Leave the ice on for 20 minutes, 2 3 times a day. ?Remove the ice if your skin turns bright red. This is very important. If you cannot feel pain, heat, or cold, you have a greater risk of damage to the area. If your skin turns bright red, remove the ice right away to prevent skin damage. The risk of damageis higher if you cannot feel pain, heat, or cold. Move your toes often to reduce stiffness and swelling. For 2 3 days, raise (elevate) your ankle above the level of your heart while you are sitting or lying down. General instructions Take jtwh-zia-eswxjmv and prescription medicines only as told by your provider. Do not use any products that contain nicotine or tobacco. These products include cigarettes, chewing tobacco, and vaping devices, such as e-cigarettes. If you need help quitting, ask your provider. Rest your ankle. Do not use your ankle to support your body weight until your provider says that you can. Use crutches as told by your provider. Ask your provider when it is safe to drive if you have a brace or splint on your ankle. Contact a health care provider if: You have bruising or swelling that get worse all of a sudden. Your pain does not get better with medicine. Get help right away if: Your foot or toes become numb or blue. You have severe pain that gets worse. This information is not intended to replace advice given to you by your health care provider. Make sure you discuss any questions you have with your health care provider. Document Revised: 03/31/2023 Document Reviewed: 03/31/2023 [employer] Patient Education 2023 BYOM!. Follow Up Care 03/31/2024 23:19:40 With:CATE LACEY Address: [facility] [address] [facility] [place] [address] Business (1) When:04/06/2024 [facility] 09-21-2024 NoteED Patient Education Note Orthopedics Ankle Sprain An ankle sprain is a stretch or tear in a ligament in the ankle. Ligaments are tissues that connectbones to each other. The two most common types of ankle sprains are: ? Inversion sprain. This happens when the foot turns inward and the ankle rolls outward. It affectsthe ligament on the outside of the foot (lateral ligament). ? Eversion sprain. This happens when the foot turns outward and the ankle rolls inward. It affects the ligament on the inner side of the foot (medial ligament). What are the causes? An ankle sprain is often caused by rolling or twisting the ankle by accident. What increases the risk? You are more likely to get an ankle sprain if you play sports. What are the signs or symptoms? Symptoms of an ankle sprain include: ? Pain in your ankle. ? Swelling. ? Bruising. Bruises may form right after you sprain your ankle or 1?2 days later. ? Trouble standing or walking. This includes trouble turning or changing directions. How is this diagnosed? An ankle sprain is diagnosed with a physical exam. Your health care provider will press on parts ofyour foot and ankle and try to move them in certain ways. You may also have X-rays taken. These may be done to see how severe the sprain is and to check for broken bones. How is this treated? An ankle sprain may be treated with: ? A brace or splint. This is used to keep the ankle from moving until it heals. ? An elastic bandage (dressing). This is used to support the ankle. ? Crutches. ? Pain medicine. ? Surgery. This may be needed if the sprain is severe. ? Physical therapy. This may help to improve the range of motion in the ankle. Follow these instructions at home: If you have a removable brace or a splint: ? Wear the brace or splint as told by your provider. Remove it only as told by your provider. ? Check the skin around the brace or splint every day. Tell your provider about any concerns. ? Loosen the brace or splint if your toes tingle, become numb, or turn cold and blue. ? Keep the brace or splint clean. ? If the brace or splint is not waterproof: ? Do not let it get wet. ? Cover it with a watertight covering when you take a bath or a shower. If you have an elastic dressing: ? Take the dressing off to shower or bathe. ? If the dressing feels too tight, adjust it to make it more comfortable. ? Loosen the dressing if your foot tingles, becomes numb, or turns cold and blue. Managing pain, stiffness, and swelling ? If told, put ice on the affected area. ? If you have a removable brace or splint, remove it as told by your provider. ? Put ice in a plastic bag. ? Place a towel between your skin and the bag. ? Leave the ice on for 20 minutes, 2?3 times a day. ? Remove the ice if your skin turns bright red. This is very important. If you cannot feel pain, heat, or cold, you have a greater risk of damage to the area. ? If your skin turns bright red, remove the ice right away to prevent skin damage. The risk of damage is higher if you cannot feel pain, heat, or cold. ? Move your toes often to reduce stiffness and swelling. ? For 2?3 days, raise (elevate) your ankle above the level of your heart while you are sitting or lying down. General instructions ? Take bbvy-wdi-cwuhcig and prescription medicines only as told by your provider. ? Do not use any products that contain nicotine or tobacco. These products include cigarettes, chewing tobacco, and vaping devices, such as e-cigarettes. If you need help quitting, ask your provider. ? Rest your ankle. ? Do not use your ankle to support your body weight until your provider says that you can. Use crutches as told by your provider. ? Ask your provider when it is safe to drive if you have a brace or splint on your ankle. Contact a health care provider if: ? You have bruising or swelling that get worse all of a sudden. ? Your pain does not get better with medicine. Get help right away if: ? Your foot or toes become numb or blue. ? You have severe pain that gets worse. This information is not intended to replace advice given to you by your health care provider. Make sure you discuss any questions you have with your health care provider. Document Revised: 03/31/2023 Document Reviewed: 03/31/2023 [employer] Patient Education ? 2023 BYOM!.[facility] 03-31-2024 Evaluation + Plan noteExtracted from: Title:ED Note Author:Vicente Castillo DO Date :03/31/24 Ankle sprain (S93.409A: Spra in of unspecified ligament of unspecified ankle, initial encounter) Orders: acetaminophen, 650 mg = 2 tab(s), Tab, Oral, Once, Stop date 03/31/24 23:56:00 EDT, STAT, Start date 03/31/24 23:56:00 EDT, 03/31/24 23:56:00 EDT Air Cast XR Ankle 3+ Views Left Future Appointments Appointment Date:04/12/2024 11:30:00 AM Scheduled Provider:Juan Felix PA-C Location:FT.Cardiology Clinic Appointment Type:Cardiology Follow Up (FT) [facility] 07-29-2024 NoteEchocardiology Procedure Exam Date/Time Accession # Ordering DrJennyfer ECG Stress Exercise 02/02/2024 14:48 EDT [id number] Juan Felix PA-C CPT code 13983 Reason for Exam (ECG Stress Exercise) Chest pain;I95.9 Report DATE OF PROCEDURE: 02/02/2024 PROCEDURE: Treadmill exercise stress test. INDICATIONS: Chest pain. PROCEDURE DESCRIPTION: The patient exercised using a standard Matt protocol for 5 minutes and 59 seconds achieving 88% of maximal age-predicted heart rate, 7.0 METS. Blood pressure at baseline of 104/65 mmHg increased to 159/68 mmHg. The patient experienced some chest pain during the exercise. The baseline EKG showed normal sinus rhythm at 88 beats per minute. The stress EKG showed no evidence of ischemic changes. CONCLUSIONS: 1. Uncomplicated exercise stress test, negative by electrocardiographic criteria. 2. Poor tolerance for physical exercise, adequate workload. 3. Clinical correlation may be required due to chest discomfort during the stress test. FINAL REPORT Signed (Electronic Signature): 02/07/2024 3:50 pm Signed by: Chas Pickering MD Transcribed by: [facility] Technologist: [facility]06-21-2024 Hospital Discharge instructions Patient Education 12/31/2023 16:35:23 Acute Bronchitis, Adult Acute Bronchitis, Adult Acute bronchitis is sudden inflammation of the main airways (bronchi) that come off the windpipe (trachea) in the lungs. The swelling causes the airways to get smaller and make more mucus than normal. This can make it hard to breathe and can cause coughing or noisy breathing (wheezing). Acute bronchitis may last several weeks. The cough may last longer. Allergies, asthma, and exposureto smoke may make the condition worse. What are the causes? This condition can be caused by germs and by substances that irritate the lungs, including: Cold and flu viruses. The most common cause of this condition is the virus that causes the common cold. Bacteria. This is less common. Breathing in substances that irritate the lungs, including: ?Smoke from cigarettes and other forms of tobacco. ?Dust and pollen. ?Fumes from household cleaning products, gases, or burned fuel. ?Indoor or outdoor air pollution. What increases the risk? The following factors may make you more likely to develop this condition: A weak body's defense system, also called the immune system. A condition that affects your lungs and breathing, such as asthma. What are the signs or symptoms? Common symptoms of this condition include: Coughing. This may bring up clear, yellow, or green mucus from your lungs (sputum). Wheezing. Runny or stuffy nose. Having too much mucus in your lungs (chest congestion). Shortness of breath. Aches and pains, including sore throat or chest. How is this diagnosed? This condition is usually diagnosed based on: Your symptoms and medical history. A physical exam. You may also have other tests, including tests to rule out other conditions, such as pneumonia. These tests include: A test of lung function. Test of a mucus sample to look for the presence of bacteria. Tests to check the oxygen level in your blood. Blood tests. Chest X-ray. How is this treated? Most cases of acute bronchitis clear up over time without treatment. Your health care provider may recommend: Drinking more fluids to help thin your mucus so it is easier to cough up. Taking inhaled medicine (inhaler) to improve air flow in and out of your lungs. Using a vaporizer or a humidifier. These are machines that add water to the air to help you breathebetter. Taking a medicine that thins mucus and clears congestion (expectorant). Taking a medicine that prevents or stops coughing (cough suppressant). It is not common to take an antibiotic medicine for this condition. Follow these instructions at home: Take chip-bbn-chchipd and prescription medicines only as told by your health care provider. Use an inhaler, vaporizer, or humidifier as told by your health care provider. Take two teaspoons (10 mL) of honey at bedtime to lessen coughing at night. Drink enough fluid to keep your urine pale yellow. Do not use any products that contain nicotine or tobacco. These products include cigarettes, chewing tobacco, and vaping devices, such as e-cigarettes. If you need help quitting, ask your health careprovider. Get plenty of rest. Return to your normal activities as told by your health care provider. Ask your health care provider what activities are safe for you. Keep all follow-up visits. This is important. How is this prevented? To lower your risk of getting this condition again: Wash your hands often with soap and water for at least 20 seconds. If soap and water are not available, use hand recorder helper gravity prospecting. Avoid contact with people who have cold symptoms. Try not to touch your mouth, nose, or eyes with your hands. Avoid breathing in smoke or chemical fumes. Breathing smoke or chemical fumes will make your condition worse. Get the flu shot every year. Contact a health care provider if: Your symptoms do not improve after 2 weeks. You have trouble coughing up the mucus. Your cough keeps you awake at night. You have a fever. Get help right away if you: Cough up blood. Feel pain in your chest. Have severe shortness of breath. Faint or keep feeling like you are going to faint. Have a severe headache. Have a fever or chills that get worse. These symptoms may represent a serious problem that is an emergency. Do not wait to see if the symptoms will go away. Get medical help right away. Call your local emergency services (911 in the [place] Do not drive yourself to the hospital. Summary Acute bronchitis is inflammation of the main airways (bronchi) that come off the windpipe (trachea)in the lungs. The swelling causes the airways to get smaller and make more mucus than normal. Drinking more fluids can help thin your mucus so it is easier to cough up. Take pini-pkl-lczqhnj and prescription medicines only as told by your health care provider. Do not use any products that contain nicotine or tobacco. These products include cigarettes, chewing tobacco, and vaping devices, such as e-cigarettes. If you need help quitting, ask your health careprovider. Contact a health care provider if your symptoms do not improve after 2 weeks. This information is not intended to replace advice given to you by your health care provider. Make sure you discuss any questions you have with your health care provider. Document Revised: 10/08/2022 Document Reviewed: 10/29/2021 [employer] Patient Education 2022 BYOM!. Follow Up Care 12/31/2023 16:14:24 With:CATE LACEY Address: [facility] [place] [address] [facility] (1) When:01/03/2024 16:30:39 Comments:Call Dr for diagnosis based follow up [facility]06-21-2024 Evaluation + Plan noteExtracted from: Title:ED Note Author:Herminio Sherman PA-C te:12/31/23 Bronchitis (J40: Bronchitis, not specified as acute or chronic) Orders: brompheniramine/dextromethorphan/PSE, 5 mL, Oral, QID for cough and congestion, 200 mL, Refill(s) 0, [facility], 150, cm, 12/31/23 16:20:00 EDT, Height/Length Dosing, 71, kg, 12/31/23 16:20:00 EDT, Weight Dosing predniSONE, 50 mg = 1 tab(s), Oral, Daily, X 7 day(s), # 7 tab(s), Refills(s) 0, Pharmacy: [facility] 1985, 150, cm, 12/31/23 16:20:00 EDT, Height/Length Dosing, 71, kg, 12/31/23 16:20:00 EDT, Weight Dosing Future Appointments Appointment Date:01/26/2024 01:00:00 PM Scheduled Provider:Juan Felix PA-C Location:FT.Cardiology Clinic Appointment Type:Cardiology Follow Up (FT) [facility]05-10-2024 Procedure [facility]04-09-2024 NotePROCEDURE: 14-day event monitor. REFERRING PHYSICIAN: Bharath Barakat M.D. INDICATIONS: Syncope. PROCEDURE DETAILS: The patient was recorded for 14 days from 09/10/2023 to 09/24/2023. The patient had a predominant rhythm of sinus rhythm or sinus tachycardia. The minimum heart rate was 79 beats per minute, average heart rate of 119 beats per minute, and maximum heart rate of 159 beats per minute. Sixteen patient events of palpitation or shortness of breath correlated with sinus rhythm or sinus tachycardia. There was no secondary arrhythmia. CONCLUSIONS: Cardiac event monitor significant for elevated resting heart rate. Clinical correlation suggested. READ BY: Bharath Barakat M.D. ca Dictated: 10/12/2023 [id number] Transcribed: 10/17/2023 PROCEDURE: 14-day event monitor. REFERRING PHYSICIAN: Bharath Barakat M.D. INDICATIONS: Syncope. PROCEDURE DETAILS: The patient was recorded for 14 days from 09/10/2023 to 09/24/2023. The patient had a predominant rhythm of sinus rhythm or sinus tachycardia. The minimum heart rate was 79 beats per minute, average heart rate of 119 beats per minute, and maximum heart rate of 159 beats per minute. Sixteen patient events of palpitation or shortness of breath correlated with sinus rhythm or sinus tachycardia. There was no secondary arrhythmia. CONCLUSIONS: Cardiac event monitor significant for elevated resting heart rate. Clinical correlation suggested. READ BY: Vamsi Olivarez Dictated: 10/12/2023 [id number] Transcribed: 10/17/2023[facility] [facility]03-09-2024 Hospital Discharge instructions Patient Education 09/18/2023 21:31:12 Pharyngitis, Kbbr-ib-Wxgx Pharyngitis Pharyngitis is a sore throat (pharynx). This is when there is redness, pain, and swelling in your throat. Most of the time, this condition gets better on its own. In some cases, you may need medicine. What are the causes? An infection from a virus. An infection from bacteria. Allergies. What increases the risk? Being 5 24 years old. Being in crowded environments. These include: ?Daycares. ?Schools. ?Dormitories. Living in a place with cold temperatures outside. Having a weakened disease-fighting (immune) system. What are the signs or symptoms? Symptoms may vary depending on the cause. Common symptoms include: Sore throat. Tiredness (fatigue). Low-grade fever. Stuffy nose. Cough. Headache. Other symptoms may include: Glands in the neck (lymph nodes) that are swollen. Skin rashes. Film on the throat or tonsils. This can be caused by an infection from bacteria. Vomiting. Red, itchy eyes. Loss of appetite. Joint pain and muscle aches. Tonsils that are temporarily bigger than usual (enlarged). How is this treated? Many times, treatment is not needed. This condition usually gets better in 3 4 days without treatment. If the infection is caused by a bacteria, you may be need to take antibiotics. Follow these instructions at home: Medicines Take pzwq-wzd-cvixlzd and prescription medicines only as told by your doctor. If you were prescribed an antibiotic medicine, take it as told by your doctor. Do not stop taking the antibiotic even if you start to feel better. Use throat lozenges or sprays to soothe your throat as told by your doctor. Children can get pharyngitis. Do not give your child aspirin. Managing pain To help with pain, try: Sipping warm liquids, such as: ?Broth. ?Herbal tea. ?Warm water. Eating or drinking cold or frozen liquids, such as frozen ice pops. Rinsing your mouth (gargle) with a salt water mixture 3 4 times a day or as needed. ?To make salt water, dissolve 1 tsp (3 6 g) of salt in 1 cup (237 mL) of warm water. ?Do not swallow this mixture. Sucking on hard candy or throat lozenges. Putting a cool-mist humidifier in your bedroom at night to moisten the air. Sitting in the bathroom with the door closed for 5 10 minutes while you run hot water in the shower. General instructions Do not smoke or use any products that contain nicotine or tobacco. If you need help quitting, ask your doctor. Rest as told by your doctor. Drink enough fluid to keep your pee (urine) pale yellow. How is this prevented? Wash your hands often for at least 20 seconds with soap and water. If soap and water are not available, use hand recorder helper gravity prospecting. Do not touch your eyes, nose, or mouth with unwashed hands. Wash hands after touching these areas. Do not share cups or eating utensils. Avoid close contact with people who are sick. Contact a doctor if: You have large, tender lumps in your neck. You have a rash. You cough up green, yellow-brown, or bloody spit. Get help right away if: You have a stiff neck. You drool or cannot swallow liquids. You cannot drink or take medicines without vomiting. You have very bad pain that does not go away with medicine. You have problems breathing, and it is not from a stuffy nose. You have new pain and swelling in your knees, ankles, wrists, or elbows. These symptoms may be an emergency. Get help right away. Call your local emergency services (911 int [place] Do not wait to see if the symptoms will go away. Do not drive yourself to the hospital. Summary Pharyngitis is a sore throat (pharynx). This is when there is redness, pain, and swelling in your throat. Most of the time, pharyngitis gets better on its own. Sometimes, you may need medicine. If you were prescribed an antibiotic medicine, take it as told by your doctor. Do not stop taking the antibiotic even if you start to feel better. This information is not intended to replace advice given to you by your health care provider. Make sure you discuss any questions you have with your health care provider. Document Revised: 09/24/2021 Document Reviewed: 09/24/2021 [employer] Patient Education 2022 BYOM!. Follow Up Care 09/18/2023 20:32:54 With:CATE LACEY CNP Address: [address] [place], [place] [address]dict [facility] [place] [address] When:09/21/2023 [facility]03-09-2024 Evaluation + Plan noteExtracted from: Title:ED Note Author:Nga Ely PA-C Date :09/18/23 1. Pharyngitis (J02.9: Acute pharyngitis, unspecified) Ordered: amoxicillin, 500 mg = 1 cap(s), Oral, BID, X 10 day(s), # 20 cap(s), Refills(s) 0, Pharmacy: [facility], 147.3, cm, 09/18/23 20:40:00 EST, Height/Length Dosing, 67.5, kg, 09/18/23 20:40:00 EST, Weight Dosing 2. Exposure to strep throat (Z20.818: Contact with and (suspected) exposure to other bacterial communicable diseases) Ordered: amoxicillin, 500 mg = 1 cap(s), Oral, BID, X 10 day(s), # 20 cap(s), Refills(s) 0, Pharmacy: [facility], 147.3, cm, 09/18/23 20:40:00 EST, Height/Length Dosing, 67.5, kg, 09/18/23 20:40:00 EST, Weight Dosing Orders: amoxicillin, 500 mg = 1 cap(s), Cap, Oral, Once, Stop date 09/18/23 21:33:00 EST, STAT, Start date 09/18/23 21:33:00 EST, 09/18/23 21:33:00 EST Group A Strep by PCR Influenza A&B Ag Rapid COVID Antigen ([facility] [place]) Rapid Strep w/rfx Future Appointments Appointment Date:11/01/2023 02:15:00 PM Scheduled Provider:Bharath Barakat MD Location:.[facility] Appointment Type:Cardiology Follow Up () Diagnostic Tests Pending * Group A Strep by PCR 09/18/23 [facility]03-01-2024 NoteEchocardiology Procedure Exam Date/Time Accession # Ordering Echo Transthoracic 09/10/2023 14:55 EST [id number] Bharath Barakat MD CPT code 12932 95321 Reason for Exam (Echo Transthoracic Complete) R55;Syncope Report [facility] [address] [place] [address] Adult Echocardiogram Report Name: YUKO BRUNSON Study Date: 09/10/2023 02:08 PM BP: 128/74 mmHg Patient Location: FT CAR [facility] [place] HR: 95 : 2000 Gender: Female Height: 59 in Age: 22 yrs Ethnicity: [facility] Weight: 134 lb Reason For Study: Syncope BSA: 1.6 m2 History: Smoker-Yes Ordering Physician: Yuval^Bharath^Emily Referring Physician: Bharath Barakat Performed By: Trinity Price, RUST Interpretation Summary No comparison study is available. Ejection Fraction = 60-65%. The left ventricular wall motion is normal. Normal diastolic function. There was insufficient TR detected to calculate RV systolic pressure. Procedure A limited, two-dimensional transthoracic echocardiogram was performed (2D). Study quality is good. I WMSI = 1.00 % Normal = 100 Segments Size X - Cannot 2 - 1-2 small Interpret 1 - Normal Hypokinetic 3 - Akinetic 4 - Dyskinetic3-5 moderate 5 - Aneurysmal 6-14 large 15-16 diffuse Left Ventricle The left ventricle is normal in size. There is normal left ventricular wall thickness. Ejection Fraction = 60-65%. The left ventricular wall motion is normal. Normal diastolic function. Echocardiology Report Left Atrium The left atrial size is normal. Right Atrium Right atrial size is normal. Right Ventricle The right ventricular systolic function is normal. Aortic Valve The aortic valve is trileaflet. Mitral Valve Mitral valve structure is normal. Tricuspid Valve Structurally normal tricuspid valve. There is trace tricuspid regurgitation. There was insufficient TR detected to calculate RV systolic pressure. Pulmonic Valve The pulmonic valve is normal. Arteries The aortic root is normal in size. Venous The inferior vena cava is normal in size, and collapses normally with respiration. Effusion There is no pericardial effusion. MMode/2D Measurements & Calculations RVDd: 2.7 cm LVIDd: 3.9 cm FS: 25.3 % Ao root diam: 2.3 cm IVSd: 0.98 cm LVIDs: 2.9 cm EDV(Teich): 67.1 ml Ao root area: 4.3 cm2 LVPWd: 0.93 cm ESV(Teich): 33.2 ml LA dimension: 3.7 cm EF(Teich): 50.6 % asc Aorta Diam: 2.5 cm LVOT diam: 2.1 cm LVLd ap4: 9.3 cm EDV(MOD-sp2): 112.0 ml LVOT area: 3.6 cm2 EDV(MOD-sp4): 116.0 ml ESV(MOD-sp2): 43.5 ml LVLs ap4: 7.6 cm EF(MOD-sp2): 61.2 % ESV(MOD-sp4): 36.2 ml EF(MOD-sp4): 68.8 % SV(MOD-sp4): 79.8 ml TAPSE: 2.5 cm IVC Diam: 1.4 cm RVIDd/LVIDd: 0.69 EF (MOD-bp): 65.2 % LA Vol Index: 19.7 ml/m2 Doppler Measurements & Calculations MV E max vic: 91.2 cm/sec MV dec time: 0.16 sec Ao V2 max: 142.5 cm/sec LV V1 max P.6 mmHg MV A max vic: 79.9 cm/sec Ao max P.1 mmHg LV V1 max: 107.1 cm/sec Echocardiology Report MV E/A: 1.1 Lat Peak E' Vic: 12.4 cm/sec STEFAN(V,D): 2.7 cm2 E/E' Lat: 7.4 Med Peak E' Vic: 8.9 cm/sec E/E' Med: 10.2 RAP systole: 3.0 mmHg AV VR: 0.75 FINAL REPORT Dictated: 09/10/2023 2:08 pm Garcia HOGAN MD Signed (Electronic Signature): 09/10/2023 3:22 pm Signed by: Garcia HOGAN MD Transcribed by: ISELA Technologist: [facility]01-07-2024 Hospital Discharge instructions Patient Education 07/18/2023 20:41:36 Viral Respiratory Infection Viral Respiratory Infection A respiratory infection is an illness that affects part of the respiratory system, such as the lungs, nose, or throat. A respiratory infection that is caused by a virus is called a viral respiratory infection. Common types of viral respiratory infections include: A cold. The flu (influenza). A respiratory syncytial virus (RSV) infection. What are the causes? This condition is caused by a virus. The virus may spread through contact with droplets or direct contact with infected people or their mucus or secretions. The virus may spread from person to person(is contagious). What are the signs or symptoms? Symptoms of this condition include: A stuffy or runny nose. A sore throat or cough. Shortness of breath or difficulty breathing. Yellow or green mucus (sputum). Other symptoms may include: A fever. Sweating or chills. Fatigue. Achy muscles. A headache. How is this diagnosed? This condition may be diagnosed based on: Your symptoms. A physical exam. Testing of secretions from the nose or throat. Chest X-ray. How is this treated? This condition may be treated with medicines, such as: Antiviral medicine. This may shorten the length of time a person has symptoms. Expectorants. These make it easier to cough up mucus. Decongestant nasal sprays. Acetaminophen or NSAIDs, such as ibuprofen, to relieve fever and pain. Antibiotic medicines are not prescribed for viral infections.This is because antibiotics are designed to kill bacteria. They do not kill viruses. Follow these instructions at home: Managing pain and congestion Take nxug-exm-ozwfjhl and prescription medicines only as told by your health care provider. If you have a sore throat, gargle with a mixture of salt and water 3 4 times a day or as needed. Tomake salt water, completely dissolve 1 tsp (3 6 g) of salt in 1 cup (237 mL) of warm water. Use nose drops made from salt water to ease congestion and soften raw skin around your nose. Take 2 tsp (10 mL) of honey at bedtime to lessen coughing at night. ?Do not give honey to children who are younger than 1 year. Drink enough fluid to keep your urine pale yellow. This helps prevent dehydration and helps loosen up mucus. General instructions Rest as much as possible. Do not drink alcohol. Do not use any products that contain nicotine or tobacco. These products include cigarettes, chewing tobacco, and vaping devices, such as e-cigarettes. If you need help quitting, ask your health careprovider. Keep all follow-up visits. This is important. How is this prevented? Get an annual flu shot. You may get the flu shot in late summer, fall, or winter. Ask your health care provider when you should get your flu shot. Avoid spreading your infection to other people. If you are sick: ?Wash your hands with soap and water often, especially after you cough or sneeze. Wash for at least20 seconds. If soap and water are not available, use alcohol-based hand recorder helper gravity prospecting. ?Cover your mouth when you cough. Cover your nose and mouth when you sneeze. ?Do not share cups or eating utensils. ?Clean commonly used objects often. Clean commonly touched surfaces. ?Stay home from work or school as told by your health care provider. Avoid contact with people who are sick during cold and flu season. This is generally fall and winter. Contact a health care provider if: Your symptoms last for 10 days or longer. Your symptoms get worse over time. You have severe sinus pain in your face or forehead. The glands in your jaw or neck become very swollen. You have shortness of breath. Get help right away if you: Feel pain or pressure in your chest. Have trouble breathing. Faint or feel like you will faint. Have severe and persistent vomiting. Feel confused or disoriented. These symptoms may represent a serious problem that is an emergency. Do not wait to see if the symptoms will go away. Get medical help right away. Call your local emergency services (911 in the [place] Do not drive yourself to the hospital. Summary A respiratory infection is an illness that affects part of the respiratory system, such as the lungs, nose, or throat. A respiratory infection that is caused by a virus is called a viral respiratory infection. Common types of viral respiratory infections include a cold, influenza, and respiratory syncytial virus (RSV) infection. Symptoms of this condition include a stuffy or runny nose, cough, fatigue, achy muscles, sore throat, and fevers or chills. Antibiotic medicines are not prescribed for viral infections. This is because antibiotics are designed to kill bacteria. They are not effective against viruses. This information is not intended to replace advice given to you by your health care provider. Make sure you discuss any questions you have with your health care provider. Document Revised: 10/02/2021 Document Reviewed: 10/02/2021 [employer] Patient Education 2022 [employer]OM!. Follow Up Care 07/18/2023 17:40:04 With:CATE LACEY Address: [facility] [place] [address] Business (1) When:Within 3 Day(s) [facility]01-07-2024 Evaluation + Plan noteExtracted from: Title:ED Note Author:Denise Mello PA-C Dung e:07/18/23 1. Viral illness (B34.9: Vir al infection, unspecified) Orders: brompheniramine/dextromethorphan/PSE, 5 mL, Oral, QID for cough and congestion, 200 mL, Refill(s) 0, [facility], 150, cm, 07/18/23 17:48:00 EST, Height/Length Dosing, 60, kg, 07/18/23 17:48:00 EST, Weight Dosing Group A Strep by PCR Rapid COVID Antigen ([facility] [place]) Rapid Strep w/rfx 22-year-old female presents to the ED with complaints of cough, congestion, throat pain. In the ED patient is afebrile, vital signs are stable, no acute distress. Rapid COVID as well as rapid strep are negative. Results are discussed the patient at length. She is educated on supportive care. Discharged home with instructions to follow with PCP and is to return to the ED with any new or worsening symptoms. Patient voices understanding and is agreeable to plan. Diagnostic Tests Pending * Group A Strep by PCR 07/18/23 [facility]12-26-2023 Hospital Discharge instructions Patient Education 07/05/2023 22:37:36 Accidental Drug Poisoning, Adult Accidental Drug Poisoning, Adult Accidental drug poisoning happens when a person accidentally takes too much of a substance, such asa prescription medicine, an cyrc-eue-zithhby medicine, a vitamin, a supplement, or an illegal drug.The effects of drug poisoning can be mild, dangerous, or even deadly. What are the causes? This condition is caused by taking too much of a medicine, illegal drug, or other substance. It often results from: Lack of knowledge about a substance. Using more than one substance at the same time. An error made by the health care provider during prescribing or dispensing of the drug. A lapse in memory, such as forgetting that you have already taken a dose of the medicine. Suddenly using a substance after a long period of not using it. The following substances and medicines are more likely to cause an accidental drug poisoning: Medicines that treat mental health conditions (psychotropic medicines). Pain medicines. Cocaine. Heroin. Multivitamins that contain iron. Iygp-fwp-ejdyjrd cold and cough medicines. What increases the risk? This condition is more likely to occur in: Aging adults. Aging adults are at risk because they may: ?Be taking many different medicines. ?Have difficulty reading labels. ?Forget when they last took their medicine. People who use illegal drugs. People who drink alcohol while using illegal drugs or certain medicines. People with certain mental health conditions. What are the signs or symptoms? Symptoms of this condition depend on the substance and the amount that was taken. Common symptoms include: Behavior changes, such as confusion. Sleepiness. Weakness. Slowed breathing. Nausea and vomiting. Seizures. Very large or small eye pupil size that does not change in response to changes in light. A drug poisoning can cause a very serious condition in which your blood pressure drops to a low level (shock). Symptoms of shock include: Cold, clammy, or pale skin. Blue lips. Very slow breathing. Extreme sleepiness. Severe confusion. Dizziness or fainting. How is this diagnosed? This condition is diagnosed based on: Your symptoms. You will be asked about the substances you took and when you took them. A physical exam. You may also have tests, including: Urine tests. Blood tests. An electrocardiogram (ECG). How is this treated? This condition may need to be treated right away at the hospital. Treatment may involve: Getting fluids and electrolytes through an IV. Electrolytes are salts and minerals in the blood. Having a breathing tube inserted in your airway (endotracheal tube) to help you breathe. Taking or receiving medicines. These may include medicines that: ?Absorb any substance that is in your digestive system. ?Block or reverse the effect of the substance that caused the drug poisoning. Having your blood filtered through an artificial kidney machine (hemodialysis). Ongoing counseling and mental health support. This may be provided if you used an illegal drug. Follow these instructions at home: Medicines Take gkpd-fji-nyqffup and prescription medicines only as told by your health care provider. Before taking a new medicine, ask your health care provider whether the medicine: ?May cause side effects. ?Might react with other medicines. Keep a list of all the medicines that you take, including knac-rpa-pclyrfn medicines, vitamins, supplements, and herbs. Bring this list with you to all of your medical visits. General instructions Drink enough fluid to keep your urine pale yellow. If you are working with a counselor or mental health professional, make sure to follow instructionsgiven. Do not drink alcohol if: ?Your health care provider tells you not to drink. ?You are , may be , or are planning to become . If you drink alcohol: ?Limit how much you have to: ?0 1 drink a day for women. ?0 2 drinks a day for men. ?Know how much alcohol is in your drink. In the [place] one drink equals one 12 oz bottle of beer (355 mL), one 5 oz glass of wine (148 mL), or one 1 oz glass of hard liquor (44 mL). Keep all follow-up visits. This is important. How is this prevented? Get help if you are struggling with: ?Alcohol or drug use. ?Depression or another mental health condition. Keep the phone number of your local poison control center near your phone or on your mobile phone. The hotline of the [employer] Centers is . Read the drug inserts that come with your medicines. Create a system for taking your medicine, such as a pillbox, that will help you avoid taking too much of the medicine. Do not drink alcohol while taking medicines unless your health care provider approves. Do not use illegal drugs. Do not take medicines that are not prescribed for you. Contact a health care provider if: Your symptoms return. You develop new symptoms or side effects after taking a medicine. You have questions about possible drug poisoning. Call your local poison control center at . Get help right away if: You think that you or someone else may have taken too much of a substance. You or someone else are having symptoms of accidental drug poisoning: ?Behavior changes, such as confusion. ?Sleepiness. ?Slowed breathing. ?Seizures. These symptoms may be an emergency. Get help right away. Call 911. Do not wait to see if the symptoms will go away. Do not drive yourself to the hospital. Summary Accidental drug poisoning happens when a person accidentally takes too much of a substance, such asa prescription medicine, an leps-gqu-boxwzqe medicine, a vitamin, a supplement, or an illegal drug. This condition is diagnosed based on your symptoms and a physical exam. You will be asked to tell your health care provider which substances you took and when you took them. The effects of drug poisoning can be mild, dangerous, or even deadly. This condition may need to be treated right away at the hospital. This information is not intended to replace advice given to you by your health care provider. Make sure you discuss any questions you have with your health care provider. Document Revised: 02/19/2022 Document Reviewed: 02/19/2022 [employer] Patient Education 2022 [employer]OM!. Follow Up Care 07/05/2023 21:00:19 With:CATE LACEY Address: [facility] [place] [address]- Business (1) When:Within 3 Day(s) [facility]12-25-2023 Evaluation + Plan noteExtracted from: Title:ED Note Author:Vicente Castillo DO Date :07/05/23 Accidental drug ingestion (T 50.901A: Poisoning by unspecified drugs, medicaments and biological substances, accidental (unintentional), initial encounter) Future Appointments Appointment Date:07/07/2023 12:00:00 PM Scheduled Provider: Location:FT.CARDIO Appointment Type:CV Holter/Event (FT) [facility]03-05-2023 Hospital Discharge instructions Patient Education 09/13/2022 17:27:52 Morning Sickness, Qbay-cw-Upcz Morning Sickness Morning sickness is when you feel sick to your stomach (nauseous) during . You may feel sick to your stomach and throw up (vomit). You may feel sick in the morning, but you can feel this wayat any time of day. Some women feel very sick to their stomach and cannot stop throwing up (hyperemesis gravidarum). Follow these instructions at home: Medicines Take wcra-hjx-hbuwyio and prescription medicines only as told by your doctor. Do not take any medicines until you talk with your doctor about them first. Taking multivitamins before getting can stop or lessen the harshness of morning sickness. Eating and drinking Eat dry toast or crackers before getting out of bed. Eat 5 or 6 small meals a day. Eat dry and bland foods like rice and baked potatoes. Do not eat greasy, fatty, or spicy foods. Have someone cook for you if the smell of food causes you to feel sick or throw up. If you feel sick to your stomach after taking vitamins, take them at night or with a snack. Eat protein when you need a snack. Nuts, yogurt, and cheese are good choices. Drink fluids throughout the day. Try alejandra vannessa made with real alejandra, alejandra tea made from fresh grated alejandra, or alejandra candies. General instructions Do not use any products that have nicotine or tobacco in them, such as cigarettes and e-cigarettes.If you need help quitting, ask your doctor. Use an air purifier to keep the air in your house free of smells. Get lots of fresh air. Try to avoid smells that make you feel sick. Try: ?Wearing a bracelet that is used for seasickness (acupressure wristband). ?Going to a doctor who puts thin needles into certain body points (acupuncture) to improve how you feel. Contact a doctor if: You need medicine to feel better. You feel dizzy or light-headed. You are losing weight. Get help right away if: You feel very sick to your stomach and cannot stop throwing up. You pass out (faint). You have very bad pain in your belly. Summary Morning sickness is when you feel sick to your stomach (nauseous) during . You may feel sick in the morning, but you can feel this way at any time of day. Making some changes to what you eat may help your symptoms go away. This information is not intended to replace advice given to you by your health care provider. Make sure you discuss any questions you have with your health care provider. Document Released: 08/05/2005 Document Revised: 06/10/2018 Document Reviewed: 07/29/2017 [employer] Patient Education 2020 [employer] 09/13/2022 17:27:52 Hyperemesis Gravidarum Hyperemesis Gravidarum Hyperemesis gravidarum is a severe form of nausea and vomiting that happens during . Hyperemesis is worse than morning sickness. It may cause you to have nausea or vomiting all day for many days. It may keep you from eating and drinking enough food and liquids, which can lead to dehydration, malnutrition, and weight loss. Hyperemesis usually occurs during the first half (the first 20 weeks) of . It often goes away once a woman is in her second half of . However, sometimes hyperemesis continues through an entire . What are the causes? The cause of this condition is not known. It may be related to changes in chemicals (hormones) in the body during , such as the high level of hormone (human chorionic gonadotropin)or the increase in the female sex hormone (estrogen). What are the signs or symptoms? Symptoms of this condition include: Nausea that does not go away. Vomiting that does not allow you to keep any food down. Weight loss. Body fluid loss (dehydration). Having no desire to eat, or not liking food that you have previously enjoyed. How is this diagnosed? This condition may be diagnosed based on: A physical exam. Your medical history. Your symptoms. Blood tests. Urine tests. How is this treated? This condition is managed by controlling symptoms. This may include: Following an eating plan. This can help lessen nausea and vomiting. Taking prescription medicines. An eating plan and medicines are often used together to help control symptoms. If medicines do not help relieve nausea and vomiting, you may need to receive fluids through an IV at the hospital. Follow these instructions at home: Eating and drinking Avoid the following: ?Drinking fluids with meals. Try not to drink anything during the 30 minutes before and after your meals. ?Drinking more than 1 cup of fluid at a time. ?Eating foods that trigger your symptoms. These may include spicy foods, coffee, high-fat foods, very sweet foods, and acidic foods. ?Skipping meals. Nausea can be more intense on an empty stomach. If you cannot tolerate food, do not force it. Try sucking on ice chips or other frozen items and make up for missed calories later. ?Lying down within 2 hours after eating. ?Being exposed to environmental triggers. These may include food smells, smoky rooms, closed spaces, rooms with strong smells, warm or humid places, overly loud and noisy rooms, and rooms with motionor flickering lights. Try eating meals in a well-ventilated area that is free of strong smells. ?Quick and sudden changes in your movement. ?Taking iron pills and multivitamins that contain iron. If you take prescription iron pills, do notstop taking them unless your health care provider approves. ?Preparing food. The smell of food can spoil your appetite or trigger nausea. To help relieve your symptoms: ?Listen to your body. Everyone is different and has different preferences. Find what works best foryou. ?Eat and drink slowly. ?Eat 5 6 small meals daily instead of 3 large meals. Eating small meals and snacks can help you avoid an empty stomach. ?In the morning, before getting out of bed, eat a couple of crackers to avoid moving around on an empty stomach. ?Try eating starchy foods as these are usually tolerated well. Examples include cereal, toast, bread, potatoes, pasta, rice, and pretzels. ?Include at least 1 serving of protein with your meals and snacks. Protein options include lean meats, poultry, seafood, beans, nuts, nut butters, eggs, cheese, and yogurt. ?Try eating a protein-rich snack before bed. Examples of a protein-sophia snack include cheese and crackers or a peanut butter sandwich made with 1 slice of whole-wheat bread and 1 tsp (5 g) of peanut butter. ?Eat or suck on things that have alejandra in them. It may help relieve nausea. Add tsp ground gingerto hot tea or choose alejandra tea. ?Try drinking 100% fruit juice or an electrolyte drink. An electrolyte drink contains sodium, potassium, and chloride. ?Drink fluids that are cold, clear, and carbonated or sour. Examples include lemonade, alejandra vannessa, lemon flandreau soda, ice water, and sparkling water. ?Napoleon your teeth or use a mouth rinse after meals. ?Talk with your health care provider about starting a supplement of vitamin B6. General instructions Take xhyb-gxv-cigwklf and prescription medicines only as told by your health care provider. Follow instructions from your health care provider about eating or drinking restrictions. Continue to take your vitamins as told by your health care provider. If you are having trouble taking your vitamins, talk with your health care provider about different options. Keep all follow-up and pre- () visits as told by your health care provider. This is important. Contact a health care provider if: You have pain in your abdomen. You have a severe headache. You have vision problems. You are losing weight. You feel weak or dizzy. Get help right away if: You cannot drink fluids without vomiting. You vomit blood. You have constant nausea and vomiting. You are very weak. You faint. You have a fever and your symptoms suddenly get worse. Summary Hyperemesis gravidarum is a severe form of nausea and vomiting that happens during . Making some changes to your eating habits may help relieve nausea and vomiting. This condition may be managed with medicine. If medicines do not help relieve nausea and vomiting, you may need to receive fluids through an IV at the hospital. This information is not intended to replace advice given to you by your health care provider. Make sure you discuss any questions you have with your health care provider. Document Released: 06/28/2006 Document Revised: 07/18/2018 Document Reviewed: 02/24/2017 [employer] Patient Education 2020 [employer] Follow Up Care 09/13/2022 14:39:18 With:Parth DEAL Address: [address] [place] [address]- Business (1) When:09/16/2022 17:21:00 With:Nga Stover Address: [address] [place] [phone]- Business (1) When:09/16/2022 17:20:48 [facility]03-05-2023 Evaluation + Plan note Diagnostic Tests Pending * Urine Culture 09/13/22 [facility]02-18-2023 Hospital Discharge instructions Patient Education 08/29/2022 12:00:16 Nausea, Adult Nausea, Adult Nausea is the feeling that you have an upset stomach or that you are about to vomit. Nausea on its own is not usually a serious concern, but it may be an early sign of a more serious medical problem.As nausea gets worse, it can lead to vomiting. If vomiting develops, or if you are not able to drink enough fluids, you are at risk of becoming dehydrated. Dehydration can make you tired and thirsty,cause you to have a dry mouth, and decrease how often you urinate. Older adults and people with other diseases or a weak disease-fighting system (immune system) are at higher risk for dehydration. The main goals of treating your nausea are: To relieve your nausea. To limit repeated nausea episodes. To prevent vomiting and dehydration. Follow these instructions at home: Watch your symptoms for any changes. Tell your health care provider about them. Follow these instructions as told by your health care provider. Eating and drinking Take an oral rehydration solution (ORS). This is a drink that is sold at pharmacies and retail stores. Drink clear fluids slowly and in small amounts as you are able. Clear fluids include water, ice chips, low-calorie sports drinks, and fruit juice that has water added (diluted fruit juice). Eat bland, gxou-ik-pwxtmz foods in small amounts as you are able. These foods include bananas, applesauce, rice, lean meats, toast, and crackers. Avoid drinking fluids that contain a lot of sugar or caffeine, such as energy drinks, sports drinks, and soda. Avoid alcohol. Avoid spicy or fatty foods. General instructions Take zaeq-rkx-naqroqf and prescription medicines only as told by your health care provider. Rest at home while you recover. Drink enough fluid to keep your urine pale yellow. Breathe slowly and deeply when you feel nauseous. Avoid smelling things that have strong odors. Wash your hands often using soap and water. If soap and water are not available, use hand recorder helper gravity prospecting. Make sure that all people in your household wash their hands well and often. Keep all follow-up visits as told by your health care provider. This is important. Contact a health care provider if: Your nausea gets worse. Your nausea does not go away after two days. You vomit. You cannot drink fluids without vomiting. You have any of the following: ?New symptoms. ?A fever. ?A headache. ?Muscle cramps. ?A rash. ?Pain while urinating. You feel light-headed or dizzy. Get help right away if: You have pain in your chest, neck, arm, or jaw. You feel extremely weak or you faint. You have vomit that is bright red or looks like coffee grounds. You have bloody or black stools or stools that look like tar. You have a severe headache, a stiff neck, or both. You have severe pain, cramping, or bloating in your abdomen. You have difficulty breathing or are breathing very quickly. Your heart is beating very quickly. Your skin feels cold and clammy. You feel confused. You have signs of dehydration, such as: ?Dark urine, very little urine, or no urine. ?Cracked lips. ?Dry mouth. ?Sunken eyes. ?Sleepiness. ?Weakness. These symptoms may represent a serious problem that is an emergency. Do not wait to see if the symptoms will go away. Get medical help right away. Call your local emergency services (911 in the [place] Do not drive yourself to the hospital. Summary Nausea is the feeling that you have an upset stomach or that you are about to vomit. Nausea on its own is not usually a serious concern, but it may be an early sign of a more serious medical problem. If vomiting develops, or if you are not able to drink enough fluids, you are at risk of becoming dehydrated. Follow recommendations for eating and drinking and take cbny-cne-nkydwxz and prescription medicinesonly as told by your health care provider. Contact a health care provider right away if your symptoms worsen or you have new symptoms. Keep all follow-up visits as told by your health care provider. This is important. This information is not intended to replace advice given to you by your health care provider. Make sure you discuss any questions you have with your health care provider. Document Released: 08/05/2005 Document Revised: 12/06/2018 Document Reviewed: 12/06/2018 [employer] Patient Education 2020 [employer] 08/29/2022 12:00:16 First Trimester of First Trimester of The first trimester of is from week 1 until the end of week 13 (months 1 through 3). A week after a sperm fertilizes an egg, the egg will implant on the wall of the uterus. This embryo willbegin to develop into a baby. Genes from you and your partner will form the baby. The male genes will determine whether the baby will be a boy or a girl. At 6 8 weeks, the eyes and face will be formed , and the heartbeat can be seen on ultrasound. At the end of 12 weeks, all the baby's organs will be formed. Now that you are , you will want to do everything you can to have a healthy baby. Two of the most important things are to get good care and to follow your health care provider's instructions. care is all the medical care you receive before the baby's . This care will help prevent, find, and treat any problems during the and childbirth. Body changes during your first trimester Your body goes through many changes during . The changes vary from woman to woman. You may gain or lose a couple of pounds at first. You may feel sick to your stomach (nauseous) and you may throw up (vomit). If the vomiting is uncontrollable, call your health care provider. You may tire easily. You may develop headaches that can be relieved by medicines. All medicines should be approved by your health care provider. You may urinate more often. Painful urination may mean you have a bladder infection. You may develop heartburn as a result of your . You may develop constipation because certain hormones are causing the muscles that push stool through your intestines to slow down. You may develop hemorrhoids or swollen veins (varicose veins). Your breasts may begin to grow larger and become tender. Your nipples may stick out more, and the tissue that surrounds them (areola) may become darker. Your gums may bleed and may be sensitive to brushing and flossing. Dark spots or blotches (chloasma, mask of ) may develop on your face. This will likely fade after the baby is born. Your menstrual periods will stop. You may have a loss of appetite. You may develop cravings for certain kinds of food. You may have changes in your emotions from day to day, such as being excited to be or being concerned that something may go wrong with the and baby. You may have more vivid and strange dreams. You may have changes in your hair. These can include thickening of your hair, rapid growth, and changes in texture. Some women also have hair loss during or after , or hair that feels dry orthin. Your hair will most likely return to normal after your baby is born. What to expect at visits During a routine visit: You will be weighed to make sure you and the baby are growing normally. Your blood pressure will be taken. Your abdomen will be measured to track your baby's growth. The heartbeat will be listened to between weeks 10 and 14 of your . Test results from any previous visits will be discussed. Your health care provider may ask you: How you are feeling. If you are feeling the baby move. If you have had any abnormal symptoms, such as leaking fluid, bleeding, severe headaches, or abdominal cramping. If you are using any tobacco products, including cigarettes, chewing tobacco, and electronic cigarettes. If you have any questions. Other tests that may be performed during your first trimester include: Blood tests to find your blood type and to check for the presence of any previous infections. The tests will also be used to check for low iron levels (anemia) and protein on red blood cells (Rh antibodies). Depending on your risk factors, or if you previously had diabetes during , you mayhave tests to check for high blood sugar that affects women (gestational diabetes). Urine tests to check for infections, diabetes, or protein in the urine. An ultrasound to confirm the proper growth and development of the baby. screens for spinal cord problems (spina bifida) and Down syndrome. HIV (human immunodeficiency virus) testing. Routine testing includes screening for HIV, unless you choose not to have this test. You may need other tests to make sure you and the baby are doing well. Follow these instructions at home: Medicines Follow your health care provider's instructions regarding medicine use. Specific medicines may be either safe or unsafe to take during . Take a vitamin that contains at least 600 micrograms (mcg) of folic acid. If you develop constipation, try taking a stool softener if your health care provider approves. Eating and drinking Eat a balanced diet that includes fresh fruits and vegetables, whole grains, good sources of protein such as meat, eggs, or tofu, and low-fat dairy. Your health care provider will help you determine the amount of weight gain that is right for you. Avoid raw meat and uncooked cheese. These carry germs that can cause defects in the baby. Eating four or five small meals rather than three large meals a day may help relieve nausea and vomiting. If you start to feel nauseous, eating a few soda crackers can be helpful. Drinking liquids between meals, instead of during meals, also seems to help ease nausea and vomiting. Limit foods that are high in fat and processed sugars, such as fried and sweet foods. To prevent constipation: ?Eat foods that are high in fiber, such as fresh fruits and vegetables, whole grains, and beans. ?Drink enough fluid to keep your urine clear or pale yellow. Activity Exercise only as directed by your health care provider. Most women can continue their usual exercise routine during . Try to exercise for 30 minutes at least 5 days a week. Exercising will help you: ?Control your weight. ?Stay in shape. ?Be prepared for labor and delivery. Experiencing pain or cramping in the lower abdomen or lower back is a good sign that you should stop exercising. Check with your health care provider before continuing with normal exercises. Try to avoid standing for long periods of time. Move your legs often if you must manager billing one placefor a long time. Avoid heavy lifting. Wear low-heeled shoes and practice good posture. You may continue to have sex unless your health care provider tells you not to. Relieving pain and discomfort Wear a good support bra to relieve breast tenderness. Take warm sitz baths to soothe any pain or discomfort caused by hemorrhoids. Use hemorrhoid cream if your health care provider approves. Rest with your legs elevated if you have leg cramps or low back pain. If you develop varicose veins in your legs, wear support hose. Elevate your feet for 15 minutes, 3 4 times a day. Limit salt in your diet. care Schedule your visits by the twelfth week of . They are usually scheduled monthly at first, then more often in the last 2 months before delivery. Write down your questions. Take them to your visits. Keep all your visits as told by your health care provider. This is important. Safety Wear your seat belt at all times when driving. Make a list of emergency phone numbers, including numbers for family, friends, the hospital, and police and fire departments. General instructions Ask your health care provider for a referral to a local education class. Begin classes no later than the beginning of month 6 of your . Ask for help if you have counseling or nutritional needs during . Your health care provider can offer advice or refer you to specialists for help with various needs. Do not use hot tubs, steam rooms, or saunas. Do not douche or use tampons or scented sanitary pads. Do not cross your legs for long periods of time. Avoid cat litter boxes and soil used by cats. These carry germs that can cause defects in thebaby and possibly loss of the fetus by miscarriage or stillbirth. Avoid all smoking, herbs, alcohol, and medicines not prescribed by your health care provider. Chemicals in these products affect the formation and growth of the baby. Do not use any products that contain nicotine or tobacco, such as cigarettes and e-cigarettes. If you need help quitting, ask your health care provider. You may receive counseling support and other resources to help you quit. Schedule a dentist appointment. At home, brush your teeth with a soft toothbrush and be gentle whenyou floss. Contact a health care provider if: You have dizziness. You have mild pelvic cramps, pelvic pressure, or nagging pain in the abdominal area. You have persistent nausea, vomiting, or diarrhea. You have a bad smelling vaginal discharge. You have pain when you urinate. You notice increased swelling in your face, hands, legs, or ankles. You are exposed to fifth disease or chickenpox. You are exposed to [place] measles (rubella) and have never had it. Get help right away if: You have a fever. You are leaking fluid from your vagina. You have spotting or bleeding from your vagina. You have severe abdominal cramping or pain. You have rapid weight gain or loss. You vomit blood or material that looks like coffee grounds. You develop a severe headache. You have shortness of breath. You have any kind of trauma, such as from a fall or a car accident. Summary The first trimester of is from week 1 until the end of week 13 (months 1 through 3). Your body goes through many changes during . The changes vary from woman to woman. You will have routine visits. During those visits, your health care provider will examine you, discuss any test results you may have, and talk with you about how you are feeling. This information is not intended to replace advice given to you by your health care provider. Make sure you discuss any questions you have with your health care provider. Document Released: 06/22/2002 Document Revised: 06/10/2018 Document Reviewed: 06/09/2017 [employer] Patient Education 2020 [employer] 08/29/2022 12:00:16 Abdominal Pain During Abdominal Pain During Abdominal pain is common during , and has many possible causes. Some causes are more serious than others, and sometimes the cause is not known. Abdominal pain can be a sign that labor is starting. It can also be caused by normal growth and stretching of muscles and ligaments during . Always tell your health care provider if you have any abdominal pain. Follow these instructions at home: Do not have sex or put anything in your vagina until your pain goes away completely. Get plenty of rest until your pain improves. Drink enough fluid to keep your urine pale yellow. Take eepb-upu-ifofqhc and prescription medicines only as told by your health care provider. Keep all follow-up visits as told by your health care provider. This is important. Contact a health care provider if: Your pain continues or gets worse after resting. You have lower abdominal pain that: ?Comes and goes at regular intervals. ?Spreads to your back. ?Is similar to menstrual cramps. You have pain or burning when you urinate. Get help right away if: You have a fever or chills. You have vaginal bleeding. You are leaking fluid from your vagina. You are passing tissue from your vagina. You have vomiting or diarrhea that lasts for more than 24 hours. Your baby is moving less than usual. You feel very weak or faint. You have shortness of breath. You develop severe pain in your upper abdomen. Summary Abdominal pain is common during , and has many possible causes. If you experience abdominal pain during , tell your health care provider right away. Follow your health care provider's home care instructions and keep all follow-up visits as directed. This information is not intended to replace advice given to you by your health care provider. Make sure you discuss any questions you have with your health care provider. Document Released: 06/28/2006 Document Revised: 10/16/2019 Document Reviewed: 09/30/2017 [employer] Patient Education 2020 [employer] Follow Up Care 08/29/2022 07:46:49 With:Parth DEAL Address: [address] , [place] [address] Business (1) When:09/01/2022 11:31:51 Comments:Make sure to follow-up with Dr. Deal as instructed. Return to the emergency room if your pain getsworse, vaginal bleeding or any new symptoms. With:Lyssa Kay Address: [address], [address], [facility] [address] [place] [address]- Business (1) When:Within 3 Day(s) [facility]02-18-2023 Evaluation + Plan noteExtracted from: Title:ED Note Author:Ivania Jay M.D. te:08/29/22 1. Intrauterine (Z 34.90: Encounter for supervision of normal , unspecified, unspecified trimester) 2. Abdominal pain during (O26.899: Other specified related conditions, unspecified trimester) 3. Nausea (R11.0: Nausea) Unspecified abdominal pain (R10.9: Unspecified abdominal pain) Orders: ondansetron, 4 mg = 2 mL, Injection, IV Push, Once, Stop date 08/29/22 8:13:00 EST, STAT, Start date 08/29/22 8:13:00 EST, 08/29/22 8:13:00 EST ondansetron, 4 mg = 1 tab(s), Oral, q6hr, PRN Nausea/Vomiting, # 12 tab(s), Refills(s) 0, Pharmacy: [facility], 149, cm, 08/29/22 7:51:00 EST, Height/Length Dosing, 52, kg, 08/29/22 7:51:00 EST, Weight Dosing Sodium Chloride 0.9% intravenous solution, 1,000 mL, Soln-IV, IV, Once, Stop date 08/29/22 9:40:00 EST, STAT, Start date 08/29/22 9:40:00 EST, Infuse over 61, minute(s) Sodium Chloride 0.9% intravenous solution, 1,000 mL, Soln-IV, IV, Once, Stop date 08/29/22 8:13:00 EST, STAT, Start date 08/29/22 8:13:00 EST, mL/hr, Infuse over 61, minute(s) Sodium Chloride 0.9% intravenous solution, Soln-IV, Misc, Once, Stop date 08/29/22 9:40:06 EST, Physician Stop, 08/29/22 9:40:06 EST Sodium Chloride 0.9% intravenous solution, Soln-IV, Misc, Once, Stop date 08/29/22 8:15:00 EST, Physician Stop, 08/29/22 8:15:00 EST ABO/Rh Automated Diff Basic Metabolic Panel Beta hCG Quantitative CBC w/ Auto Diff eGFR PT & PTT UA With Cult Reflex Urine Culture US 1st Trimester Diagnostic Tests Pending * Urine Culture 08/29/22 [facility]08[facility] Hospital Discharge instructions Patient Education 02/14/2022 16:21:34 Hives Hives Hives (urticaria) are itchy, red, swollen areas on the skin. Hives can appear on any part of the body. Hives often fade within 24 hours (acute hives). Sometimes, new hives appear after old ones fade and the cycle can continue for several days or weeks (chronic hives). Hives do not spread from person to person (are not contagious). Hives come from the body's reaction to something a person is allergic to (allergen), something thatcauses irritation, or various other triggers. When a person is exposed to a trigger, his or her body releases a chemical (histamine) that causes redness, itching, and swelling. Hives can appear rightafter exposure to a trigger or hours later. What are the causes? This condition may be caused by: Allergies to foods or ingredients. Insect bites or stings. Exposure to pollen or pets. Contact with latex or chemicals. Spending time in sunlight, heat, or cold (exposure). Exercise. Stress. Certain medicines. You can also get hives from other medical conditions and treatments, such as: Viruses, including the common cold. Bacterial infections, such as urinary tract infections and strep throat. Certain medicines. Allergy shots. Blood transfusions. Sometimes, the cause of this condition is not known (idiopathic hives). What increases the risk? You are more likely to develop this condition if you: Are a woman. Have food allergies, especially to citrus fruits, milk, eggs, peanuts, tree nuts, or shellfish. Are allergic to: ?Medicines. ?Latex. ?Insects. ?Animals. ?Pollen. What are the signs or symptoms? Common symptoms of this condition include raised, itchy, red or white bumps or patches on your skin. These areas may: Become large and swollen (welts). Change in shape and location, quickly and repeatedly. Be separate hives or connect over a large area of skin. Sting or become painful. Turn white when pressed in the center (laury). In severe cases, your hands, feet, and face may also become swollen. This may occur if hives develop deeper in your skin. How is this diagnosed? This condition may be diagnosed by your symptoms, medical history, and physical exam. Your skin, urine, or blood may be tested to find out what is causing your hives and to rule out other health issues. Your health care provider may also remove a small sample of skin from the affected area and examineit under a microscope (biopsy). How is this treated? Treatment for this condition depends on the cause and severity of your symptoms. Your health care provider may recommend using cool, wet cloths (cool compresses) or taking cool showers to relieve itching. Treatment may include: Medicines that help: ?Relieve itching (antihistamines). ?Reduce swelling (corticosteroids). ?Treat infection (antibiotics). An injectable medicine (omalizumab). Your health care provider may prescribe this if you have chronic idiopathic hives and you continue to have symptoms even after treatment with antihistamines. Severe cases may require an emergency injection of adrenaline (epinephrine) to prevent a life-threatening allergic reaction (anaphylaxis). Follow these instructions at home: Medicines Take and apply [id number] and prescription medicines only as told by your health care provider. If you were prescribed an antibiotic medicine, take it as told by your health care provider. Do notstop using the antibiotic even if you start to feel better. Skin care Apply cool compresses to the affected areas. Do not scratch or rub your skin. General instructions Do not take hot showers or baths. This can make itching worse. Do not wear tight-fitting clothing. Use sunscreen and wear protective clothing when you are outside. Avoid any substances that cause your hives. Keep a journal to help track what causes your hives. Write down: ?What medicines you take. ?What you eat and drink. ?What products you use on your skin. Keep all follow-up visits as told by your health care provider. This is important. Contact a health care provider if: Your symptoms are not controlled with medicine. Your joints are painful or swollen. Get help right away if: You have a fever. You have pain in your abdomen. Your tongue or lips are swollen. Your eyelids are swollen. Your chest or throat feels tight. You have trouble breathing or swallowing. These symptoms may represent a serious problem that is an emergency. Do not wait to see if the symptoms will go away. Get medical help right away. Call your local emergency services (911 in the [place] Do not drive yourself to the hospital. Summary Hives (urticaria) are itchy, red, swollen areas on your skin. Hives come from the body's reaction to something a person is allergic to (allergen), something that causes irritation, or various other triggers. Treatment for this condition depends on the cause and severity of your symptoms. Avoid any substances that cause your hives. Keep a journal to help track what causes your hives. Take and apply [id number] and prescription medicines only as told by your health care provider. Keep all follow-up visits as told by your health care provider. This is important. This information is not intended to replace advice given to you by your health care provider. Make sure you discuss any questions you have with your health care provider. Document Released: 06/28/2006 Document Revised: 01/11/2019 Document Reviewed: 01/11/2019 [employer] Patient Education 2020 [employer] Follow Up Care 02/14/2022 15:49:24 With:Sadia Da Silva Address: [address] [place], [place] [id number] Business (1) When:02/17/2022 15:53:15 [facility] No data available for this section [facility] Future Appointments Appointment Date:11/01/2023 02:15:00 PM Scheduled Provider:Bharath Barakat MD [facility] Appointment Type:Cardiology Follow Up ([facility]) Future Scheduled Tests Radiology* Echo Transthoracic Complete 08/04/23 [facility] Future Appointments Appointment Date:11/01/2023 02:15:00 PM Scheduled Provider:Bharath Barakat MD [facility] Appointment Type:Cardiology Follow Up ([facility] Future Appointments Appointment Date:12/17/2023 11:30:00 AM Scheduled Provider:Juan Felix PA-C Location:[facility] Appointment Type:Cardiology Follow Up ([facility] Future Appointments Appointment Date:01/26/2024 01:00:00 PM Scheduled Provider:Juan Felix PA-C [facility] Appointment Type:Cardiology Follow Up ([facility] Future Appointments Appointment Date:02/02/2024 02:30:00 PM Scheduled Provider: Location:.[facility] Appointment Type:CV Stress ([facility]) Appointment Date:04/12/2024 11:30:00 AM Scheduled Provider:Juan Felix PA-C Location:[facility] Appointment Type:Cardiology Follow Up ([facility]) Future Scheduled Tests Radiology* ECG Stress Exercise 02/02/24 [facility] Future Appointments Appointment Date:04/12/2024 11:30:00 AM Scheduled Provider:Juan Felix PA-C Location:[facility] Appointment Type:Cardiology Follow Up ([facility]) [facility] evaluation + Plan note Future Appointments Appointment Date:10/11/2024 11:30:00 AM Scheduled Provider:Juan Felix PA-C Location[facility] Appointment Type:Cardiology Follow Up ([facility]) Future Scheduled Tests Laboratory* B-Type Natriuretic Peptide 04/12/24 * Basic Metabolic Panel 04/12/24 [facility] evaluation + Plan note Future Appointments Appointment Date:10/11/2024 11:30:00 AM Scheduled Provider:Juan Felix PA-C Location:[facility] Appointment Type:Cardiology Follow Up ([facility]) [facility] evaluation noteNo assessment information available [facility] Work Phone: evaluation note* Diagnosis LGSIL of cervix of undetermined significance PCOS (polycystic ovarian syndrome) Polycystic ovaries Other fatigue documented in this encounter [facility] No data available for this section [facility] No data available for this section [facility] Summary Purpose Family History No Family History Records FoundNo Family History Records FoundNo Family History Records FoundNo Family History Records FoundNo Family History Records Found No data available for this section No data available for this section No data available for this section No data available for this section No data available for this section No data available for this section No data available for this section No data available for this section No data available for this section No data available for this section No Family History Records FoundNo Family History Records Found No data available for this section No data available for this section No data available for this section No data available for this section No Family History Records FoundNo Family History Records FoundNo Family History Records Found No data available for this section No data available for this section No Family History Records Found Advance Directives Advance Directive Response Recorded Date/ Time Advance Directives No October 16 12:38pm Hospital Course Note HNO ID: [id number]: Joby MaceService: Maternal MedicineAuthor Type: PhysicianType: Discharge SummariesFiled: 06/30/2018 11:26 AMNote Text: DISCHARGE SUMMARYPATIENT NAME: Yuko Mobley ADMISSION DATE: 06/04/2018MRN: [id number] DISCHARGE DATE: 06/30/2018Attending Physician: Ade Bailon DO Code Status: Not on filePrincipal Diagnosis:1. Intrauterine at 25 weeks and 5/7 days.2. PPROM3. Dichorionic diamniotic twin gestation4. ChorioamnionitisSecondary Diagnoses:ACTIVE PROBLEM LISTPostpartum Care Following DeliveryHistory of SectionHistory of DeliveryOperations/Procedure During Hospitalization:Primary Low Transverse Section due to nonvertex presentationReason for Hospitalization:17 year old now presented with premature rupture ofmembranes at 22 weeks gestation with a di/di twin . Thispregnancy was otherwise complicated by malpresentation withbreech/cephalic presentation that later was cephalic/br (more content not included)... Chief Complaint and Reason for Visit Chief Complaint burning with urinati on, itchy Chief Complaint burning with urinati on, itchy headache Chief Complaint R55 R55 Chief Complaint R55 R55 Unknown Additional Source Comments INFORMATION SOURCE (unrecogn ized section and content) DATE CREATED AUTHOR 07/03/2018 [facility] DATE CREATED AUTHOR AUTHOR'S ORGANIZ ATION 08/23/2018 [facility] DATE CREATED AUTHOR AUTHOR'S ORGANIZ ATION 08/30/2018 [facility] DATE CREATED AUTHOR AUTHOR'S ORGANIZ ATION 06/26/2019 [facility] DATE CREATED AUTHOR AUTHOR'S ORGANIZ ATION 11/24/2022 [facility] DATE CREATED AUTHOR AUTHOR'S ORGANIZ ATION 01/13/2024 [facility] DATE CREATED AUTHOR AUTHOR'S ORGANIZ ATION 01/24/2024 [facility] DATE CREATED AUTHOR AUTHOR'S ORGANIZ ATION 04/18/2024 [facility] DATE CREATED AUTHOR AUTHOR'S ORGANIZ ATION 06/10/2024 [facility] Care Teams (unrecognized sec tion and content) Team Status: Inactive Member Role Status Dates PHYSICIAN NO FAMILY Primary Care Provider Active Viral Stanley APRN Emergency Provider Active Team Status: Active Member Role Status Dates PHYSICIAN NO FAMILY Primary Care Provider Active Team Status: Inactive Member Role Status Dates PHYSICIAN NO FAMILY Primary Care Provider Active Nell Schaefer APRN Emergency Provider Active Team Status: Active Member Role Status Dates CHANDA Anders Primary Care Provider Activ e Team Status: Inactive Member Role Status Dates Bharath Barakat MD Attending Provider Active Start: November 19, 2023 End: November 19, 2023 Minerva Nash MD Referring Provider Active Sta rt: November 19, 2023 End: November 19, 2023 CHANDA Anders Primary Care Provider Activ e Start: November 19, 2023 End: November 19, 2023 Team Status: Active Member Role Status Dates Bharath Barakat MD Other Provider Active S tart: November 19, 2023 Minerva Nash MD Attending Provider, Referring Provider Active Start: November 19, 2023 CHANDA Anders Primary Care Provider Activ e Start: November 19, 2023 Team Status: Inactive Member Role Status Dates CHANDA Anders Primary Care Provider Activ e Start: January 12, 2024 End: January 12, 2024 Parth Deal DO Attending Provider Active Start : January 12, 2024 End: January 12, 2024 Velvet Steamer Relationship Specialty Start Date End Date Destiny Eisenberg MD [address] [place] [id number] Referring Physician Family Medicine 06/10/23 Velvet Steamer Relationship Specialty Start Date End Date Destniy Eisenberg MD [address] [place] [id number] Referring Physician Family Medicine 06/10/23 Goals (unrecognized section and content) Goals may be documented in a n alternate sectionGoals may be documented in an alternate section No data available for this section No data available for this section No data available for this section No data available for this section No data available for this section No data available for this section No data available for this section No data available for this section No data available for this section No data available for this section No data available for this sectionGoals may be documented in an alternate section No data available for this section No data available for this sectionGoals may be documented in an alternate section No data available for this section No data available for this section No data available for this section No data available for this section No data available for this section No data available for this section Reason for Visit (unrecogniz ed section and content) Reason Comments Abnormal Pap Smear FOR RECORDS PERTAINING TO PATIENTS WHO ARE OR HAVE BEEN ENROLLED IN A CHEMICAL DEPENDENCY/SUBSTANCEABUSE PROGRAM, SOME INFORMATION MAY BE OMITTED. This clinical summary was aggregated from multiple sources. Caution should be exercised in using it in the provision of clinical care. This summary normalizes information from multiple sources, and as a consequence, information in this document may materially change the coding, format and clinical context of patient data. In addition, data may be omitted in some cases. CLINICAL DECISIONS SHOULD BE BASED ON THE PRIMARY CLINICAL RECORDS. [email or web address] provides no warranty or guarantee of the accuracy or completeness of information in this document.
[2024-08-01 10:07] LABS: HPV Aptima Negative (Negative); Pap IG (Image Guided) Note (.)
== END 2024-07-26 20:39 | disposition home or self-care (01) ==
LOC: LAB 20:38
PROVIDERS: Visit Provider Obstetrics & Gynecology
DX: R87.612 Low grade squamous intraepithelial lesion on cytologic smear of cervix (LGSIL) (principal)
CPT/HCPCS: 88175